=== PATIENT | female | born 1965 | race Caucasian/White ===

== ENCOUNTER → 2019-12-31 14:11 | Outpatient (BNVA) | payer OTHER, SELFPAY | PROVIDERS: PCP Family Medicine Geriatric Medicine; Visit Provider Dietitian, Registered | DX: Z76.89 Persons encountering health services in other specified circumstances (principal) ==

== ENCOUNTER 2020-01-22 07:31 | Outpatient (REF) | payer OTHER, SELFPAY ==
[2020-01-22 08:39] LABS: Alanine Aminotransferase 12 U/L (0-31); Albumin Level 4.2 g/dL (3.5-5.0); Alkaline Phosphatase 65 U/L (39-117); Anion Gap 13 (12-20); Aspartate Amino Transferase 16 U/L (5-31); Bilirubin Total 0.6 mg/dL (0.0-1.0); Blood Urea Nitrogen 13 mg/dL (9-16); Calcium 9.1 mg/dL (8.4-10.2); Carbon Dioxide 28 mmol/L (22-29); Chloride 106 mmol/L (96-108); Cholesterol 205 mg/dL; Estimated Glomerular Filt Rate > 60; Glucose Fasting 80 mg/dL (60-99); HDL Cholesterol 51 mg/dL; LDL Cholesterol Calculated 118 mg/dl; Potassium 3.9 mmol/l (3.3-5.1); Sodium 143 mmol/L (135-145); Total Protein 6.5 g/dL (6.5-8.0); Triglycerides 184 mg/dL
[2020-01-22 08:42] LABS: Rheumatoid Factor < 15.0 IU/mL (<15.0)
[2020-01-22 08:54] LABS: TSH reflex Free T4 0.76 mIU/mL (0.32-4.0)
[2020-01-22 08:59] LABS: Erythrocyte Sedimentation Rate 4 MM/HR (0-20)
[2020-01-24 19:09] LABS: Cyclic Citrullinated Peptide <16 UNITS
[2020-01-24 19:11] LABS: CRP High Sensitivity 0.6 mg/L
[2020-01-26 10:52] LABS: Anti Nuclear Antibody Screen NEGATIVE (NEGATIVE)
== END 2020-01-22 07:32 | disposition home or self-care (01) ==
LOC: HO.LAB 07:31
PROVIDERS: PCP Family Medicine; Visit Provider Family Medicine
DX: Z00.00 Encounter for general adult medical examination without abnormal findings (principal); M53.3 Sacrococcygeal disorders, not elsewhere classified; G89.29 Other chronic pain; M25.552 Pain in left hip; M25.539 Pain in unspecified wrist
CPT/HCPCS: 36415; 80053; 80061; 84443; 85652; 86038; 86039; 86141; 86200; 86431

== ENCOUNTER → 2020-03-09 10:38 | Outpatient (BNVA) | payer SELFPAY | PROVIDERS: PCP Family Medicine; Visit Provider Surgery Vascular Surgery | DX: I83.11 Varicose veins of right lower extremity with inflammation (principal) | CPT/HCPCS: 99202 ==

== ENCOUNTER 2020-03-14 14:58 | Outpatient (REF) | payer OTHER, SELFPAY ==
--- NOTE | 2020-03-14 15:02 | MM_ITS ---
EXAMINATION: MM SCREENING DIGITAL BREAST TOMOSYNTHESIS, BILATERAL CLINICAL INFORMATION: Screening. Asymptomatic. The lifetime risk of breast cancer based on the Tyrer-Cuzick Model is 11%. COMPARISON: Outside mammography: 09/20/2016, 03/01/2014 TECHNIQUE: Digital breast tomosynthesis is performed in both the craniocaudal and mediolateral oblique views along with computer-aided detection (CAD). Synthesized 2D images are generated from the tomosynthesis. FINDINGS: There are scattered areas of fibroglandular density (ACR BI-RADS breast composition Category b). There are no significant masses, abnormal calcifications, or other abnormalities. There are scattered bilateral predominantly dermal calcifications again demonstrated bilateral posterior medial breasts. MM/MM tomosynthesis screening BI IMPRESSION: There are no significant changes from prior outside exams. ASSESSMENT: BI-RADS 2: Benign RECOMMENDATION: Routine annual mammography screening. This patient's information was entered into a reminder system with a target due date for their next mammogram.
== END 2020-03-14 14:59 | disposition home or self-care (01) ==
LOC: HO.MAMMO 14:58
PROVIDERS: Visit Provider Family Medicine
DX: Z12.31 Encounter for screening mammogram for malignant neoplasm of breast (principal)
CPT/HCPCS: 77063; 77067

== ENCOUNTER 2020-03-23 10:12 | Outpatient (REF) | payer OTHER, SELFPAY ==
--- NOTE | 2020-03-23 10:16 | XR_ITS ---
EXAMINATION: XR SACROILIAC JOINTS CLINICAL INFORMATION: Sacrococcygeal disorder COMPARISON: None TECHNIQUE: 3 views of the sacroiliac joints FINDINGS: There is partial sacralization, left side of L5. No fusion or widening identified. There is a minimal spurring inferiorly. There is noted to be facet arthropathy on the right at the L5-S1 level and to a lesser extent L4-L5.. XR/XR sacroiliac joint 1-2V IMPRESSION: 1. No significant sacroiliac joint abnormality appreciated. 2. Partial sacralization left side of L5. 3. Facet arthropathy right-sided L4-L5 and L5-S1.
--- NOTE | 2020-03-23 10:16 | US_ITS ---
CLINICAL INFORMATION: EXAMINATION: RIGHT and LEFT LOWER EXTREMITY VENOUS ULTRASOUND (Reflux Exam) CLINICAL INDICATION: Right lower extremity varicose veins with inflammation. Bilateral previous greater saphenous ablation COMPARISON: None. TECHNIQUE: Color flow triplex imaging and compression Doppler was performed to evaluate both the deep and the superficial systems bilaterally. To evaluate the superficial system, the examination was performed in the upright position. Color-flow Doppler ultrasound and compression ultrasound were utilized. In addition, maneuvers were utilized to demonstrate reflux. FINDINGS: 1. DEEP VENOUS ULTRASOUND OF THE RIGHT LOWER EXTREMITY: Respiratory variation, normal compression and augmented flow are noted in the right common femoral vein as well as the right popliteal vein and there is no evidence of deep venous thrombosis at these locations. There is no evidence of reflux in the deep system in either the common femoral vein or the popliteal vein. There is no evidence of a Rhodes's cyst. 2. SUPERFICIAL ULTRASOUND WITH DOPPLER OF RIGHT LOWER EXTREMITY: The right great saphenous vein at the saphenofemoral junction measures 10 mm and demonstrates 1.2 seconds reflux.. The remainder of the right greater saphenous vein is not identified post ablation. There is an accessory lateral greater saphenous vein that measures between 4 and 5 mm and demonstrates greater than 3.1 and 2.9 seconds reflux areas. The right small saphenous vein measures 1-3 mm and shows no reflux. There is a varicosity in the right calf that communicates with the accessory greater saphenous vein and demonstrates greater than 2.7 second reflux. This measures 4 mm 3. DEEP VENOUS ULTRASOUND OF THE LEFT LOWER EXTREMITY: Respiratory variation, normal compression and augmented flow are noted in the left common femoral vein as well as the left popliteal vein and there is no evidence of deep venous thrombosis at these locations. There is no evidence of reflux in the deep system in either the common femoral vein or the popliteal vein. . There is no evidence of a Rhodes's cyst. 4. SUPERFICIAL ULTRASOUND WITH DOPPLER OF LEFT LOWER EXTREMITY: Left great saphenous vein at the saphenofemoral junction measures 7 mm, and at the proximal thigh 5 mm. Remainder of the left greater saphenous vein is not identified post ablation. No left greater saphenous vein reflux is seen. There is an accessory lateral greater saphenous vein that measures between 2 and 3 mm and does not demonstrate reflux. The left small saphenous vein measures 1-2 mm and shows no reflux. US/US venous duplex LE BI IMPRESSION: 1. No evidence of reflux or thrombus in the common femoral veins or popliteal veins bilaterally. 2. Post bilateral greater saphenous vein ablation. Reflux at the right saphenofemoral junction measuring 1.1 seconds. Lateral accessory right greater saphenous vein that demonstrates greater than 3 seconds reflux. Varicosity in the calf communicates with the accessory lateral right greater saphenous vein and demonstrates greater than 2.7 second reflux. No left reflux seen. .
== END 2020-03-23 10:13 | disposition home or self-care (01) ==
LOC: HO.US 10:12
PROVIDERS: Visit Provider Surgery Vascular Surgery
DX: I83.11 Varicose veins of right lower extremity with inflammation (principal); I83.893 Varicose veins of bilateral lower extremities with other complications; M53.3 Sacrococcygeal disorders, not elsewhere classified; G89.29 Other chronic pain
CPT/HCPCS: 72200; 93970

== ENCOUNTER → 2020-04-06 10:11 | Outpatient (BNVA) | payer OTHER, SELFPAY | PROVIDERS: PCP Family Medicine; Visit Provider Surgery Vascular Surgery | DX: I83.11 Varicose veins of right lower extremity with inflammation (principal) | CPT/HCPCS: 99212 ==

== ENCOUNTER 2020-04-17 06:06 | Day surgery (SDC) | payer OTHER, SELFPAY ==
[2020-04-11 14:40] VITALS: BMI 29.6
--- NOTE | 2020-04-13 12:08 | HO.ANESPROP2 ---
Documented by User: Mayuri Dalton 04/13/20 12:11 HPI - Anesthesia Eval Consult details Narrative: 54yo F [facility] Past Medical History Medical History Depression GERD (gastroesophageal reflux disease) History of anxiety History of memory loss Family History Family History Mother Colorectal cancer Surgical History Surgical History H/O vein stripping History of cholecystectomy History of weight loss surgery Social History Social History Smoking Status: Unknown if ever smoked Advance Directives Information Provided: No Meds Allergies Allergy/AdvReac Type Severity Reaction Status Date / Time oxycodone [From PERCOCET] Allergy Intermediate ITCHING Verified 04/17/20 06:26 Exam Exam Date and Time: April 13, 2020 1208 Height,Weight and Vital Signs: Height 5 ft 7 in Weight 85.729 kg Pertinent Lab Results Pertinent Lab Results: Laboratory Tests 10/02/19 01/22/20 07:28 07:50 WBC 6.1 Hgb 13.6 Hct 42.3 Plt Count 287 Sodium 143 Potassium 3.9 Chloride 106 Carbon Dioxide 28 BUN 13 Creatinine 0.76 Assessment and Plan Assessment Anesthesia Assessment: Chart Reviewed Documented by User: Sagrario Sierra 04/17/20 07:33 [facility] Past Medical History Medical History Depression GERD (gastroesophageal reflux disease) History of anxiety History of memory loss Family History Family History Mother Colorectal cancer Family history of problems with anesthesia: No Surgical History Surgical History H/O vein stripping History of cholecystectomy History of weight loss surgery History of Problems with Anesthesia: No Social History Social History Smoking Status: Unknown if ever smoked Advance Directives Information Provided: No Meds Allergies Allergy/AdvReac Type Severity Reaction Status Date / Time oxycodone [From PERCOCET] Allergy Intermediate ITCHING Verified 04/17/20 06:26 Exam Height,Weight and Vital Signs: Vital Signs Temp Pulse Resp BP Pulse Ox 04/17/20 06:32 97.2 F 56 16 101/70 98 Airway Mallampati Class: II TM Dist: >3cm Neck ROM: Full Partial: Upper Heart: RRR Lungs: CTAB Assessment and Plan Assessment Anesthesia Assessment: Anesthesia Plan Discussed and Chart Reviewed Final Anesthetic Review NPO: Yes ASA Class: II Final Preanesthetic Review: No Changes in Pt Med Stat, Meds/Allgs Chart Reviewed, Consent Obtained/Reviewed and Anes Risks/Benef Reviewed Patient Risk: Low Procedure Risk: Low Assessment/Block/Sedation in SS: Assess/Block/Sedation-SS Anesthetic Plan Anesthetic Plan: GA Disposition: Standard PACU
[2020-04-17] VITALS (8 sets, daily range): BP systolic 88–104; BP diastolic 50–70; PULSE 56–69; RESP 14–17; TEMP 36.2–36.4; O2SAT 96–99
[2020-04-17] MEDS: Lactated Ringers 1,000 ML 100 ML IVCONT (06:50)
--- NOTE | 2020-04-17 08:34 | MHC.SHP ---
Pre-Procedural Eval Section B Chief Complaint: varicose of right lower extremity Allergies: Allergies Allergy/AdvReac Type Severity Reaction Status Date / Time oxycodone [From PERCOCET] Allergy Intermediate ITCHING Verified 04/17/20 06:26 Plan I have reviewed the history and physical and performed a pertinent physical examination on my patient. No changes have occurred unless specified.
--- NOTE | 2020-04-17 08:37 | P.OP_ITS ---
Operative Note Operative Note Date of Service: 04/17/20 Narrative: Operative note by [facility] Preoperative diagnosis:Right leg varicose veins with inflammation Postoperative diagnosis: Same Procedure: 1. Right leg microphlebectomy 2. Ligation of right leg venous cluster Surgeon:Manpreet Alvarado M.D. [employer] Teacher: Anesthesia: General Specimens: 1 Drains: None Estimated blood loss: Minimal Indications: Very pleasant 54-year-old female presents for right leg varicose veins with inflammation. They have been continued source of pain. She now presents for right leg microphlebectomy. Risks benefits complications were discussed in detail with the patient. Procedure in detail: Varicose veins were marked in the standing position on the right leg and the patient was then placed in the supine position. The right lower extremity was prepared and draped to allow knee flexion in the sterile field. The patient had large superficial varicose veins with significant symptoms of pain. It was therefore determined to perform microphlebectomies of the clusters of varicose veins. The patient had bulging varicose veins which were previously marked in the standing position. A small stab incision was made longitudinally directly overlying the varicose vein in the calf and the varicose vein was grasped with a hemostat aided by a vein hook. It was then dissected as far proximally and distally as possible and avulsed. A total of 12 stab incisions were made and the procedure of stab phlebectomies was repeated 12 times. Next attention was turned to the right medial aspect of the thigh. Cutdown was created on the cluster. Base was ligated with 3-0 Vicryl suture. Once this was accomplished residual varicosities were removed. Direct pressure was held for hemostasis Hemostasis was checked and stab incision sites were closed with steri-strips and sterile dressing was given with gauze and krilex wrap followed by an garry bandage. There were no complications and blood loss was minimal. Post-Op instructions were given and a follow-up appointment was recommended. This note is constructed using voice recognition software. While every effort has been made to ensure accuracy, laboratory specialist errors may have been included. Thank you for allowing me to participate in the care of your patient. Yours sincerely, Manpreet Alvarado MD, FACS, R.P.V.I.
[2020-04-17] MEDS: Acetaminophen 325 MG TABLET 650 MG PO (09:10)
--- NOTE | 2020-04-17 09:57 | HO.POSTANES ---
Post Anesthesia Evaluation Post Anesthesia Evaluation Vital Signs: Vital Signs Temp Pulse Resp BP Pulse Ox 04/17/20 09:46 97.3 F 63 17 98/56 L 99 04/17/20 09:29 97.3 F 62 16 99/63 99 04/17/20 09:14 60 16 94/58 L 99 04/17/20 08:58 61 16 94/54 L 96 04/17/20 08:43 62 17 104/63 97 04/17/20 08:38 63 17 103/60 98 04/17/20 08:33 97.6 F 69 14 88/50 L 96 04/17/20 06:32 97.2 F 56 16 101/70 98 Anesthesia: General LMA Mental Status: Awake Pain Control: Satisfactory Nausea/Vomiting: None Hydration: Adequate Anesthesia-Related Issues: No Anes. Related Issues
== END 2020-04-17 10:08 | disposition home or self-care (01) ==
PROVIDERS: PCP Family Medicine; Visit Provider Surgery Vascular Surgery
PROC: (CPT 37765; principal; 2020-04-17 07:30)
DX: I83.11 Varicose veins of right lower extremity with inflammation (principal)
CPT/HCPCS: 37765; 37785; 88304; J0690; J1100; J2250; J2405; J3010

== ENCOUNTER → 2020-05-02 11:22 | Outpatient (BNVA) | payer OTHER, SELFPAY | PROVIDERS: PCP Family Medicine; Visit Provider Physician Assistant ==

== ENCOUNTER 2020-05-04 08:39 | Outpatient (REF) | payer OTHER, SELFPAY ==
[2020-05-04 11:12] LABS: MANUAL DIFF FLAG NO
[2020-05-04 11:24] LABS: Basophils Absolute Auto 0.1 X10*3/uL (0.0-0.2); Basophils Percent Auto 0.7 % (0-2); Eosinophils Absolute Auto 0.2 X10*3/uL (0.0-0.4); Eosinophils Percent Auto 3.3 % (0-4); Hematocrit 39.8 % (37-47); Imm Gran Abs Auto 0.04 X10*3/uL (0.00-0.03); Imm Gran Pct Auto 0.5 % (0.0-0.4); Lymphocytes Absolute Auto 2.9 X10*3/uL (1.2-4.9); Lymphocytes Percent Auto 39.1 % (20-40); Mean Corpuscular HGB Conc 32.7 g/dl (31.0-35.0); Mean Corpuscular Hemoglobin 31.1 pg (27.0-33.0); Mean Corpuscular Volume 95.2 fL (80-98); Mean Platelet Volume 9.8 fL (9.4-12.3); Monocytes Absolute Auto 0.6 X10*3/uL (0.1-1.2); Monocytes Percent Auto 8.6 % (2-11); Neutrophils Absolute Auto 3.5 X10*3/uL (2.0-8.3); Neutrophils Percent Auto 47.8 % (45-73); Platelet Count 319 X10*3/uL (160-400); Red Blood Count 4.18 X10*6/uL (4.20-5.50); Red Cell Distribution Width 12.1 % (11.0-16.0); White Blood Count 7.3 X10*3/uL (4.8-10.8)
[2020-05-04 11:40] LABS: Alkaline Phosphatase 75 U/L (39-117); Anion Gap 11 (12-20); Blood Urea Nitrogen 15 mg/dL (9-16); Carbon Dioxide 26 mmol/L (22-29); Chloride 107 mmol/L (96-108); Glucose Random 81 mg/dL (60-115); Lactate Dehydrogenase 164 U/L (122-220); Potassium 4.4 mmol/L (3.3-5.1); Sodium 140 mmol/L (135-145); Total Protein 6.3 g/dL (6.5-8.0)
[2020-05-04 12:01] LABS: Erythrocyte Sedimentation Rate 7 MM/HR (0-20)
[2020-05-04 12:08] LABS: Free T4 (Free Thyroxine) 0.78 ng/dL (0.71-1.85); Thyroid Stimulating Hormone 0.52 uIU/mL (0.32-4.0)
[2020-05-04 12:36] LABS: Glucose Urine UA NEG (NEG); Leukocyte Esterase Urine NEG (NEG); Nitrite Urine NEG (NEG); PH 5.5 (5.0-8.0); Specific Gravity - Urine >= 1.030 (1.005-1.025); Urine Blood NEG (NEG); Urine Ketones NEG (NEG); Urine Protein NEG (NEG-TRACE)
[2020-05-04 12:39] LABS: Appearance Urine CLEAR; Color Urine YELLOW
[2020-05-04 17:56] LABS: Folate 9.6 ng/mL (> or = 4.0); Vitamin B12 175 pg/mL (200-900)
[2020-05-05 03:56] LABS: Syphilis Screen Nonreactive (Nonreactive)
[2020-05-05 14:52] LABS: Anti Nuclear Antibody Screen NEGATIVE (NEGATIVE)
[2020-05-05 15:17] LABS: Prot Elec - Albumin 3.9 g/dL (3.8-4.8); Prot Elec - Alpha1 0.2 g/dL (0.2-0.3); Prot Elec - Alpha2 0.7 g/dL (0.5-0.9); Prot Elec - Beta 1 0.4 g/dL (0.4-0.6); Prot Elec - Beta 2 0.4 g/dL (0.2-0.5); Prot Elec - Gamma 0.6 g/dL (0.8-1.7); Prot Elec - Total Protein 6.1 g/dL (6.1-8.1)
== END 2020-05-04 08:40 | disposition home or self-care (01) ==
LOC: HO.WFDLDS 08:39
PROVIDERS: PCP Family Medicine; Visit Provider Psychiatry & Neurology Neurology
DX: G31.84 Mild cognitive impairment of uncertain or unknown etiology (principal); G31.89 Other specified degenerative diseases of nervous system
CPT/HCPCS: 36415; 80051; 81003; 82310; 82607; 82746; 82947; 83615; 84075; 84155; 84165; 84439; 84443; 84520; 85025; 85652; 86038; 86039; 86780

== ENCOUNTER 2020-05-09 | Outpatient (REF) | payer OTHER, SELFPAY ==
[2020-05-15 14:51] LABS: OBS Int Ctl Valid YES; OBS Lot 50191; OBS1 NEG (NEG); OBS2 NEG (NEG); OBS3 NEG (NEG)
== END 2020-05-09 00:01 | disposition home or self-care (01) ==
LOC: HO.LNP
PROVIDERS: Visit Provider Psychiatry & Neurology Neurology
DX: G31.84 Mild cognitive impairment of uncertain or unknown etiology (principal)
CPT/HCPCS: 82270

== ENCOUNTER 2020-05-19 13:05 | Outpatient (REF) | payer OTHER, SELFPAY ==
--- NOTE | ~2020-05-19 | XR_ITS ---
EXAMINATION: CHEST, THORACIC SPINE AND RIGHT RIBS. CLINICAL INFORMATION: Pleural pain COMPARISON: Chest 07/30/2018 TECHNIQUE: Dorsal spine 2 views. Chest 2 views. Right RIBS 2 views FINDINGS: Chest: The lungs are well-expanded and clear of acute process. The heart size and pulmonary vascularity is normal. There is moderate spondylosis dorsal spine. No lytic process seen. There are surgical florencio in the epigastric region from previous intervention. Right RIBS: Multiple views right ribs reveal no visible acute fracture, dislocation or subluxation seen. Dorsal spine: There is maintained thoracic kyphosis. The vertebral heights, alignment and disc heights are normal. No visible acute fracture or dislocation seen. There is moderate spondylosis throughout dorsal spine. XR/XR ribs RT 2V IMPRESSION: No visible acute fracture or dislocation seen dorsal spine. There is moderate ventral spondylosis. Unremarkable chest exam. No visible right rib fractures seen.
--- NOTE | ~2020-05-19 | XR_ITS ---
EXAMINATION: CHEST, THORACIC SPINE AND RIGHT RIBS. CLINICAL INFORMATION: Pleural pain COMPARISON: Chest 07/30/2018 TECHNIQUE: Dorsal spine 2 views. Chest 2 views. Right RIBS 2 views FINDINGS: Chest: The lungs are well-expanded and clear of acute process. The heart size and pulmonary vascularity is normal. There is moderate spondylosis dorsal spine. No lytic process seen. There are surgical florencio in the epigastric region from previous intervention. Right RIBS: Multiple views right ribs reveal no visible acute fracture, dislocation or subluxation seen. Dorsal spine: There is maintained thoracic kyphosis. The vertebral heights, alignment and disc heights are normal. No visible acute fracture or dislocation seen. There is moderate spondylosis throughout dorsal spine. XR/XR chest 2V IMPRESSION: No visible acute fracture or dislocation seen dorsal spine. There is moderate ventral spondylosis. Unremarkable chest exam. No visible right rib fractures seen.
--- NOTE | ~2020-05-19 | XR_ITS ---
EXAMINATION: CHEST, THORACIC SPINE AND RIGHT RIBS. CLINICAL INFORMATION: Pleural pain COMPARISON: Chest 07/30/2018 TECHNIQUE: Dorsal spine 2 views. Chest 2 views. Right RIBS 2 views FINDINGS: Chest: The lungs are well-expanded and clear of acute process. The heart size and pulmonary vascularity is normal. There is moderate spondylosis dorsal spine. No lytic process seen. There are surgical florencio in the epigastric region from previous intervention. Right RIBS: Multiple views right ribs reveal no visible acute fracture, dislocation or subluxation seen. Dorsal spine: There is maintained thoracic kyphosis. The vertebral heights, alignment and disc heights are normal. No visible acute fracture or dislocation seen. There is moderate spondylosis throughout dorsal spine. XR/XR thoracic spine 2V IMPRESSION: No visible acute fracture or dislocation seen dorsal spine. There is moderate ventral spondylosis. Unremarkable chest exam. No visible right rib fractures seen.
== END 2020-05-19 13:06 | disposition home or self-care (01) ==
LOC: HO.XRAY 13:05
PROVIDERS: PCP Family Medicine; Visit Provider Family Medicine
DX: R07.81 Pleurodynia (principal); M54.9 Dorsalgia, unspecified
CPT/HCPCS: 71046; 71100; 72070

== ENCOUNTER 2020-05-24 09:23 | Outpatient (REF) | payer OTHER, SELFPAY ==
[2020-05-24 10:36] LABS: MANUAL DIFF FLAG NO
[2020-05-24 10:41] LABS: Basophils Absolute Auto 0.1 X10*3/uL (0.0-0.2); Basophils Percent Auto 0.7 % (0-2); Eosinophils Absolute Auto 0.2 X10*3/uL (0.0-0.4); Eosinophils Percent Auto 2.6 % (0-4); Imm Gran Abs Auto 0.06 X10*3/uL (0.00-0.03); Imm Gran Pct Auto 0.7 % (0.0-0.4); Lymphocytes Absolute Auto 2.7 X10*3/uL (1.2-4.9); Lymphocytes Percent Auto 30.3 % (20-40); Mean Corpuscular HGB Conc 32.5 g/dl (31.0-35.0); Mean Corpuscular Hemoglobin 31.1 pg (27.0-33.0); Mean Corpuscular Volume 95.7 fL (80-98); Mean Platelet Volume 9.7 fL (9.4-12.3); Monocytes Absolute Auto 0.7 X10*3/uL (0.1-1.2); Monocytes Percent Auto 7.4 % (2-11); Neutrophils Absolute Auto 5.1 X10*3/uL (2.0-8.3); Neutrophils Percent Auto 58.3 % (45-73); Platelet Count 319 X10*3/uL (160-400); Red Blood Count 4.18 X10*6/uL (4.20-5.50); White Blood Count 8.8 X10*3/uL (4.8-10.8)
[2020-05-24 11:24] LABS: Alanine Aminotransferase 14 U/L (0-31); Albumin Level 4.2 g/dL (3.5-5.0); Alkaline Phosphatase 78 U/L (39-117); Anion Gap 11 (12-20); Aspartate Amino Transferase 20 U/L (5-31); Bilirubin Total 0.7 mg/dL (0.0-1.0); Blood Urea Nitrogen 13 mg/dL (9-16); C Reactive Protein 0.14 mg/dL (< or = 0.50); Calcium 9.2 mg/dL (8.4-10.2); Carbon Dioxide 30 mmol/L (22-29); Chloride 103 mmol/L (96-108); Erythrocyte Sedimentation Rate 4 MM/HR (0-20); Estimated Glomerular Filt Rate > 60; Glucose Random 77 mg/dL (60-115); Potassium 4.1 mmol/L (3.3-5.1); Sodium 140 mmol/L (135-145); Total Protein 6.4 g/dL (6.5-8.0)
[2020-05-24 11:26] LABS: Rheumatoid Factor < 15.0 IU/mL (<15.0)
[2020-05-24 11:34] LABS: Thyroid Stimulating Hormone 0.65 uIU/mL (0.32-4.0)
[2020-05-25 12:01] LABS: Lyme Abs Screen <0.90 index
[2020-05-26 13:57] LABS: Anti Nuclear Antibody Screen NEGATIVE (NEGATIVE)
[2020-05-28 22:02] LABS: Cyclic Citrullinated Peptide <16 UNITS
[2020-06-03 15:16] LABS: Vitamin D 25-OH, D2 <4 ng/mL; Vitamin D 25-OH, D3 27 ng/mL; Vitamin D 25-OH, Total 27 ng/mL (30-100)
== END 2020-05-24 09:24 | disposition home or self-care (01) ==
LOC: HO.LAB 09:23
PROVIDERS: PCP Family Medicine; Visit Provider Student in an Organized Health Care Education/Training Program
DX: M25.50 Pain in unspecified joint (principal)
CPT/HCPCS: 36415; 80053; 82306; 84443; 85025; 85652; 86038; 86039; 86140; 86200; 86431; 86618; 99202

== ENCOUNTER → 2020-06-05 08:58 | Outpatient (BNVA) | payer OTHER, SELFPAY | PROVIDERS: Visit Provider Orthopaedic Surgery | DX: G56.01 Carpal tunnel syndrome, right upper limb (principal); G56.02 Carpal tunnel syndrome, left upper limb; G56.22 Lesion of ulnar nerve, left upper limb | CPT/HCPCS: 99202 ==

== ENCOUNTER 2020-06-08 08:33 | Day surgery (SDC) | payer OTHER, SELFPAY ==
[2020-06-02 13:25] VITALS: BMI 31.0
--- NOTE | 2020-06-07 08:24 | HO.ANESPROP2 ---
Documented by User: Mayuri Krystle 06/07/20 08:26 HPI - Anesthesia Eval Consult details Narrative: 55yo M for Colonoscopy PMFSH Active Problems Active Problems: All Active Problems (Updated 06/05/20 @ 10:07 by Romana Tamayo MD) Cubital tunnel syndrome on left (Acute) Carpal tunnel syndrome of left wrist (Acute) Carpal tunnel syndrome of right wrist (Acute) Varicose veins of both lower extremities (Acute) Obese (Acute) Laboratory examination ordered as part of a routine general medical examination (Acute) Left hip pain (Acute) Chronic SI joint pain (Acute) Wrist pain (Acute) Depression with anxiety (Acute) Polyarthralgia (Acute) GERD (gastroesophageal reflux disease) (Acute) Screening for colon cancer (Acute) Breast cancer screening by mammogram (Acute) Screening for cervical cancer (Acute) Varicose veins of right lower extremity with inflammation (Acute) Memory loss (Acute) Anxiety (Acute) Encounter for screening colonoscopy (Acute) History of sleep apnea (Acute) Daytime sleepiness (Acute) Right groin pain (Acute) Right groin mass (Acute) Rib pain on right side (Acute) Mid-back pain, acute (Acute) Polyarthralgia (Acute) Thoracic spondylosis (Acute) Lumbar spondylosis (Acute) Past Medical History Medical History Back pain Depression GERD (gastroesophageal reflux disease) History of anxiety History of memory loss Polyarthralgia Family History Family History Mother Colorectal cancer Surgical History Surgical History H/O vein stripping History of cholecystectomy History of weight loss surgery Hx of colonoscopy Social History Social History Household Members: Children Alcohol intake: never Smoking Status: Former smoker Advance Directives Information Provided: No Current occupational status: unemployed Current occupation: laid off/ right handed Meds Allergies Allergy/AdvReac Type Severity Reaction Status Date / Time oxycodone [From PERCOCET] Allergy Intermediate ITCHING Verified 06/08/20 08:41 Home Medications Medication Instructions Recorded Confirmed Last Taken Type clonazepam 1 mg tablet 1 mg PO DAILY PRN 05/18/20 05/24/20 Unknown History quetiapine 50 mg tablet mg PO 05/18/20 05/24/20 Unknown History venlafaxine 150 mg 150 mg PO DAILY 05/18/20 05/24/20 06/08/20 07:00 History capsule,extended release 24 hr buspirone 15 mg tablet 15 mg PO BID 05/24/20 05/24/20 06/08/20 07:00 History Exam Exam Date and Time: June 07, 2020 0824 Height,Weight and Vital Signs: Height 5 ft 7 in Weight 89.811 kg Pertinent Lab Results Pertinent Lab Results: Laboratory Tests 05/24/20 05/24/20 10:11 10:11 WBC 8.8 Hgb 13.0 Hct 40.0 Plt Count 319 Sodium 140 Potassium 4.1 Chloride 103 Carbon Dioxide 30 H BUN 13 Creatinine 0.73 Assessment and Plan Assessment Anesthesia Assessment: Chart Reviewed Documented by User: Ramila Chi 06/08/20 10:00 [facility] Past Medical History Medical History Back pain Depression GERD (gastroesophageal reflux disease) History of anxiety History of memory loss Polyarthralgia Family History Family History Mother Colorectal cancer Surgical History Surgical History H/O vein stripping History of cholecystectomy History of weight loss surgery Hx of colonoscopy Social History Social History Household Members: Children Alcohol intake: never Smoking Status: Former smoker Advance Directives Information Provided: No Current occupational status: unemployed Current occupation: laid off/ right handed Meds Allergies Allergy/AdvReac Type Severity Reaction Status Date / Time oxycodone [From PERCOCET] Allergy Intermediate ITCHING Verified 06/08/20 08:41 Home Medications Medication Instructions Recorded Confirmed Last Taken Type clonazepam 1 mg tablet 1 mg PO DAILY PRN 05/18/20 05/24/20 Unknown History quetiapine 50 mg tablet mg PO 05/18/20 05/24/20 Unknown History venlafaxine 150 mg 150 mg PO DAILY 05/18/20 05/24/20 06/08/20 07:00 History capsule,extended release 24 hr buspirone 15 mg tablet 15 mg PO BID 05/24/20 05/24/20 06/08/20 07:00 History Exam Airway Mallampati Class: II Partial: Upper Loose/Missing/Broken Teeth: Yes and Upper Heart: RRR Lungs: CTA Assessment and Plan Assessment Anesthesia Assessment: Anesthesia Plan Discussed and Chart Reviewed Final Anesthetic Review NPO: Yes ASA Class: II Final Preanesthetic Review: Meds/Allgs Chart Reviewed, Consent Obtained/Reviewed and Anes Risks/Benef Reviewed Patient Risk: Low Procedure Risk: Low Anesthetic Plan Anesthetic Plan: MAC: Disposition: Standard PACU
[2020-06-08 08:46] VITALS: BP 97/57; PULSE 63; RESP 16; TEMP 36.2; O2SAT 97
[2020-06-08] MEDS: Lactated Ringers 1,000 ML 100 ML IVCONT (09:03)
--- NOTE | 2020-06-08 10:18 | P.HPSUR_ITS ---
Pre-Procedural Eval Section B Chief Complaint: Screening Details of Present Illness: Colon cancer screening--Mother had colon cancer. No clinical changes since preprocedure visit Relevant Family History (Specify if Yes): Yes Relevant Social History: None Present Medications: see Short Stay Collaborative assessment Medical History: Significant History (Depression, GERD, Mild obesity) History of Previous Operations: Relevant previous surgery/procedure and date(s) (GB out-2012, Gastric Sleeve--2018) Allergies: Allergies Allergy/AdvReac Type Severity Reaction Status Date / Time oxycodone [From PERCOCET] Allergy Intermediate ITCHING Verified 06/08/20 08:41 Review of Systems Sugical H&P ROS: Negative: Constitution, Respiratory, Gastrointestinal and Endocrine and Yes, Specify: Psychiatric (Depression) Exam Surgical H&P Exam: Normal: HEENT, Normal: Heart, Normal: Lungs, Normal: Extremit ies, Normal: Abdomen and Normal: Skin Plan Diagnosis/Plan: Unchanged I have reviewed the history and physical and performed a pertinent physical examination on my patient. No changes have occurred unless specified.yes
[2020-06-08 11:15] VITALS: BP 104/60; PULSE 70; RESP 18; TEMP 36.4; O2SAT 97
--- NOTE | 2020-06-08 11:15 | PM.OP ---
Brief Operative Note Date of Service: 06/08/20 Pre-op diagnosis: COLON CANCER SCREENING--+FAMILY HX MOTHER HAD COLON CANCER Post-op diagnosis: other (COLON POLYPS) Procedure: COLONOSOPY WITH EXCISIONAL POLYPECTOMIES Implants: NONE Surgeon: Tyra Wright MD Anesthesia: MAC (MD JIA) Estimated blood loss (mL): 10 Pathology: other (HEPATIC FLEXURE, MID TO DISTAL TRANSVERSE COLON) Condition: stable Disposition: PACU
--- NOTE | 2020-06-08 11:23 | MHC.SHP ---
Pre-Procedural Eval Section B Chief Complaint: Screening Allergies: Allergies Allergy/AdvReac Type Severity Reaction Status Date / Time oxycodone [From PERCOCET] Allergy Intermediate ITCHING Verified 06/08/20 08:41 Plan I have reviewed the history and physical and performed a pertinent physical examination on my patient. No changes have occurred unless specifiedyes- HIT by error--see more extensive note..
[2020-06-08 11:31] VITALS: BP 116/74; PULSE 57; RESP 16; TEMP 36.4; O2SAT 98
--- NOTE | 2020-06-08 11:32 | W.PM.OPN ---
Operative Note Operative Note Date of Service: 06/08/20 Narrative: Pre-op diagnosis: COLON CANCER SCREENING--+FAMILY HX MOTHER HAD COLON CANCER Post-op diagnosis: other (COLON POLYPS) Procedure: COLONOSOPY WITH EXCISIONAL POLYPECTOMIES Implants: NONE Surgeon: Tyra Wright MD Anesthesia: MAC (MD JIA) FINDINGS: EVA: SLIGHT DECREASED SPHINCTER TONE ADULT SLIM COLONOSCOPE INTRODUCED WITH OUT DIFFICULTY. THERE WAS INCREASED REDUNDANCY WITH SUGGESTION OF ODD LOOP POSITION OF THE TRANSVERSE COLON. TECHNICALLY MORE DIFFICULT PROCEDURE DUE TO THIS. THERE WAS ALSO INCREASED RETAINED FLUID AND FIBER TO CONTEND WITH. SCOPE WAS ADVANCED TO THE LEVEL OF THE CECUM. APPENDICEAL ORIFICE WAS SEEN..ILEOCECAL VALVE WAS SEEN. PATIENT DID HAVE SOME VOMITING WHILE WE WERE STILL IN THE REGION OF THE CECUM--THIS WAS NOT ASSOCIATED WITH ANY ADVERSE EVENTS. SLOW WITHDRAWAL OF THE SCOPE THERE WAS REMOVAL OF 2 POLYPS: hEPATIC FLEXURE, AND MID-DISTAL TRANSVERSE COLON. ARV WAS CLEAR. Estimated blood loss (mL): 10 Pathology: other (HEPATIC FLEXURE, MID TO DISTAL TRANSVERSE COLON) Condition: stable Disposition: PACU PLAN: REPEAT COLON CANCER SCREENING IN 2 YRS DUE POLYPS, FAM HX WITH MARGINAL PREP. WITH 2 DAY PREP--DECREASE FIBER INTAKE FOR WEEK BEFORE.
== END 2020-06-08 12:37 | disposition home or self-care (01) ==
PROVIDERS: PCP Family Medicine; Visit Provider Internal Medicine Gastroenterology
PROC: 0DJD8ZZ Inspection of Lower Intestinal Tract, Via Natural or Artificial Opening Endoscopic (ICD-10-PCS; CPT 45378; principal; 2020-06-08 09:40)
DX: Z12.11 Encounter for screening for malignant neoplasm of colon (principal); Z80.0 Family history of malignant neoplasm of digestive organs; D12.3 Benign neoplasm of transverse colon; K21.9 Gastro-esophageal reflux disease without esophagitis; F32.9 Major depressive disorder, single episode, unspecified; Z79.899 Other long term (current) drug therapy; Z88.8 Allergy status to other drugs, medicaments and biological substances
CPT/HCPCS: 45380; 88305

== ENCOUNTER → 2020-06-13 14:30 | Outpatient (BNVA) | payer OTHER, SELFPAY | PROVIDERS: PCP Family Medicine; Visit Provider Surgery Vascular Surgery | DX: I83.93 Asymptomatic varicose veins of bilateral lower extremities (principal) | CPT/HCPCS: 99212 ==

== ENCOUNTER → 2020-06-14 09:29 | Outpatient (BNVA) | payer OTHER, SELFPAY | PROVIDERS: Visit Provider Student in an Organized Health Care Education/Training Program | DX: M25.50 Pain in unspecified joint (principal); Z79.899 Other long term (current) drug therapy | CPT/HCPCS: 99212 ==

== ENCOUNTER 2020-06-15 11:02 | Day surgery (SDC) | payer OTHER, SELFPAY ==
[2020-06-15 11:22] VITALS: BP 119/80; PULSE 64; RESP 16; TEMP 36.2; O2SAT 98
[2020-06-15 11:24] VITALS: BMI 31.4
[2020-06-15 13:19] VITALS: BP 126/62; PULSE 54; RESP 17; TEMP 36.1; O2SAT 96
--- NOTE | 2020-06-15 13:22 | P.OP_ITS ---
Operative Note Operative Note Date of Service: 06/15/20 Narrative: Preop diagnosis: 1. Right Carpal tunnel syndrome Postop diagnosis: 1. Right Carpal tunnel syndrome Procedure: 1. Right Carpal tunnel release Surgeon: Romana Tamayo MD Anesthesia: local block using 1% lidocaine with epinephrine Findings: Thickened transverse carpal ligament. EBL: Less than 5 mL Specimens: None Complications: None Disposition: Brought to recovery room in stable condition Plan: Follow-up for 7-10 days for wound check and suture removal Indications: The patient is 55 mm years old, with right carpal tunnel syndrome that has been unresponsive to nonoperative management. The risks and benefits of operative treatment including but not limited to risk of damage to blood vessels, nerves, tendons, infection, persistent pain, persistent symptoms, or possible need for additional surgery were discussed with the patient and the patient wishes to proceed with surgery. Procedure: Once consent was obtained a local block was performed using a combination of 1% lidocaine with epinephrine. The patient was then brought back to the operating suite and placed on the operative table in supine position. A tourniquet was applied to the proximal aspect of the right upper extremity and the limb was prepped and draped in a standard surgical fashion. Once assured that we had a good block, a 1.5 cm longitudinal incision was made centered over the right carpal tunnel. The incision was made through the skin to the subcutaneous tissues using a #15 blade. Dissection was made down to the level of the transverse carpal ligament with care being taken to protect the palmar cutaneous nerve. Once the transverse carpal ligament was clearly visualized, a longitudinal incision was made in the transverse carpal ligament 1st using a #15 blade, then using tenotomy scissors under direct visualization. Care was taken to look for and protect the motor branch of the median nerve when seen in this area. Once satisfied with our carpal tunnel release the wound was copiously irr igated with normal saline and hemostasis was obtained with a brief period of local pressure. The skin edges were reapproximated with some 5.0 nylon suture material and a sterile dressing was applied. The patient appears to have tolerated the procedure well and with no complications. All digits were well vascularized at the conclusion of the case.
--- NOTE | 2020-06-15 13:22 | MHC.SHP ---
Pre-Procedural Eval Section B Chief Complaint: right carpal tunnel syndrome Allergies: Allergies Allergy/AdvReac Type Severity Reaction Status Date / Time oxycodone [From PERCOCET] Allergy Intermediate ITCHING Verified 06/14/20 09:37 Plan I have reviewed the history and physical and performed a pertinent physical examination on my patient. No changes have occurred unless specified.
== END 2020-06-15 13:42 | disposition home or self-care (01) ==
PROVIDERS: PCP Family Medicine; Visit Provider Orthopaedic Surgery
PROC: (CPT 64721; principal; 2020-06-15 12:10)
DX: G56.01 Carpal tunnel syndrome, right upper limb (principal); Z88.6 Allergy status to analgesic agent
CPT/HCPCS: 64721

== ENCOUNTER → 2020-06-27 08:31 | Outpatient (BNVA) | payer OTHER, SELFPAY | PROVIDERS: Visit Provider Orthopaedic Surgery | DX: G56.01 Carpal tunnel syndrome, right upper limb (principal); G56.02 Carpal tunnel syndrome, left upper limb; G56.22 Lesion of ulnar nerve, left upper limb | CPT/HCPCS: 99212 ==

== ENCOUNTER → 2020-06-29 10:00 | Outpatient (BNVA) | payer OTHER, SELFPAY | PROVIDERS: Visit Provider Physician Assistant ==

== ENCOUNTER 2020-07-20 12:01 | Day surgery (SDC) | payer MEDICAID, SELFPAY ==
[2020-07-20 12:21] VITALS: BP 111/68; PULSE 59; RESP 16; TEMP 36.1; O2SAT 97; BMI 31.3
--- NOTE | 2020-07-20 14:49 | MHC.SHP ---
Pre-Procedural Eval Section B Chief Complaint: Left Carpal Tunnel Syndrome Allergies: Allergies Allergy/AdvReac Type Severity Reaction Status Date / Time oxycodone [From PERCOCET] Allergy Intermediate ITCHING Verified 06/29/20 10:01 Plan I have reviewed the history and physical and performed a pertinent physical examination on my patient. No changes have occurred unless specified.
--- NOTE | 2020-07-20 14:49 | W.PM.OPN ---
Operative Note Operative Note Date of Service: 07/20/20 Narrative: Preop diagnosis: 1. Left Carpal tunnel syndrome Postop diagnosis: same Procedure: 1. Left Carpal tunnel release Surgeon: Romana Tamayo MD Anesthesia: local block using 1% lidocaine with epinephrine Findings: Thickened transverse carpal ligament. EBL: Less than 5 mL Specimens: None Complications: None Disposition: Brought to recovery room in stable condition Plan: Follow-up for 7-10 days for wound check and suture removal Indications: The patient is 55 years old, with left carpal tunnel syndrome that has been unresponsive to nonoperative management. The risks and benefits of operative treatment including but not limited to risk of damage to blood vessels, nerves, tendons, infection, persistent pain, persistent symptoms, or possible need for additional surgery were discussed with the patient and the patient wishes to proceed with surgery. Procedure: Once consent was obtained a local block was performed using a combination of 1% lidocaine with epinephrine. The patient was then brought back to the operating suite and placed on the operative table in supine position. A tourniquet was applied to the proximal aspect of the left upper extremity and the limb was prepped and draped in a standard surgical fashion. Once assured that we had a good block, a 1.5 cm longitudinal incision was made centered over the carpal tunnel. The incision was made through the skin to the subcutaneous tissues using a #15 blade. Dissection was made down to the level of the transverse carpal ligament with care being taken to protect the palmar cutaneous nerve. Once the transverse carpal ligament was clearly visualized, a longitudinal incision was made in the transverse carpal ligament 1st using a #15 blade, then using tenotomy scissors under direct visualization. Care was taken to look for and protect the motor branch of the median nerve when seen in this area. Once satisfied with our carpal tunnel release the wound was copiously irrigated with normal saline and hemostasis was obtained with a brief period of local pressure. The skin edges were reapproximated with some 5.0 nylon suture material and a sterile dressing was applied. The patient appears to have tolerated the procedure well and with no complications. All digits were well vascularized at the conclusion of the case.
[2020-07-20 16:23] VITALS: BP 130/88; PULSE 59; RESP 18; TEMP 36.8; O2SAT 98
== END 2020-07-20 16:40 | disposition home or self-care (01) ==
PROVIDERS: PCP Family Medicine; Visit Provider Orthopaedic Surgery
PROC: (CPT 64721; principal; 2020-07-20 13:20)
DX: G56.02 Carpal tunnel syndrome, left upper limb (principal); M25.50 Pain in unspecified joint; K21.9 Gastro-esophageal reflux disease without esophagitis; F32.9 Major depressive disorder, single episode, unspecified; Z79.899 Other long term (current) drug therapy; Z88.8 Allergy status to other drugs, medicaments and biological substances; Z98.84 Bariatric surgery status; Z87.891 Personal history of nicotine dependence
CPT/HCPCS: 64721

== ENCOUNTER → 2020-07-31 10:54 | Outpatient (BNVA) | payer MEDICAID, SELFPAY | PROVIDERS: PCP Family Medicine; Visit Provider Orthopaedic Surgery | DX: G56.01 Carpal tunnel syndrome, right upper limb (principal); G56.02 Carpal tunnel syndrome, left upper limb; G56.22 Lesion of ulnar nerve, left upper limb | CPT/HCPCS: 99212 ==

== ENCOUNTER → 2020-08-01 10:19 | Outpatient (BNVA) | payer MEDICAID, SELFPAY | PROVIDERS: PCP Family Medicine; Referring Provider Family Medicine; Visit Provider Nurse Practitioner Family | DX: G47.9 Sleep disorder, unspecified (principal) | CPT/HCPCS: 99202 ==

== ENCOUNTER → 2020-08-29 19:17 | Outpatient (REF) | payer MEDICAID, SELFPAY | LOC: HO.SL 19:17 | PROVIDERS: Visit Provider Nurse Practitioner Family | DX: G47.9 Sleep disorder, unspecified (principal); R40.0 Somnolence; R41.3 Other amnesia | CPT/HCPCS: 95810 ==

== ENCOUNTER 2020-10-18 09:38 | Outpatient (REF) | payer OTHER, SELFPAY ==
[2020-10-18 10:30] LABS: MANUAL DIFF FLAG NO
[2020-10-18 10:35] LABS: Basophils Absolute Auto 0.1 X10*3/uL (0.0-0.2); Basophils Percent Auto 0.8 % (0-2); Eosinophils Absolute Auto 0.2 X10*3/uL (0.0-0.4); Eosinophils Percent Auto 3.2 % (0-4); Hematocrit 39.6 % (37-47); Imm Gran Abs Auto 0.01 X10*3/uL (0.00-0.03); Imm Gran Pct Auto 0.2 % (0.0-0.4); Lymphocytes Absolute Auto 2.5 X10*3/uL (1.2-4.9); Lymphocytes Percent Auto 37.8 % (20-40); Mean Corpuscular HGB Conc 32.8 g/dl (31.0-35.0); Mean Corpuscular Hemoglobin 31.3 pg (27.0-33.0); Mean Corpuscular Volume 95.2 fL (80-98); Mean Platelet Volume 10.7 fL (9.4-12.3); Monocytes Absolute Auto 0.7 X10*3/uL (0.1-1.2); Neutrophils Absolute Auto 3.1 X10*3/uL (2.0-8.3); Platelet Count 283 X10*3/uL (160-400); Red Blood Count 4.16 X10*6/uL (4.20-5.50); Red Cell Distribution Width 12.4 % (11.0-16.0); White Blood Count 6.5 X10*3/uL (4.8-10.8)
[2020-10-18 11:43] LABS: Alanine Aminotransferase 10 U/L (0-31); Alkaline Phosphatase 76 U/L (39-117); Anion Gap 9 (12-20); Aspartate Amino Transferase 16 U/L (5-31); Bilirubin Total 0.4 mg/dL (0.0-1.0); Blood Urea Nitrogen 9 mg/dL (9-16); Calcium 9.3 mg/dL (8.4-10.2); Carbon Dioxide 28 mmol/L (22-29); Chloride 107 mmol/L (96-108); Estimated Glomerular Filt Rate > 60; Glucose Fasting 78 mg/dL (60-99); Iron 85 mcg/dL (30-160); Percent Iron Saturation 25 % (15-50); Potassium 4.3 mmol/L (3.3-5.1); Sodium 140 mmol/L (135-145); Total Iron Binding Capacity 337 mcg/dL (228-428); Total Protein 6.3 g/dL (6.5-8.0); Unsaturated Iron Binding 252 ug/dL
[2020-10-18 11:45] LABS: Ferritin 148 ng/mL (10-250); TSH reflex Free T4 0.82 uIU/mL (0.32-4.0)
[2020-10-21 11:59] LABS: Vitamin B12 156 pg/mL (200-900)
== END 2020-10-18 09:39 | disposition home or self-care (01) ==
LOC: HO.WFDLDS 09:38
PROVIDERS: Visit Provider Family Medicine
DX: Z00.00 Encounter for general adult medical examination without abnormal findings (principal); G47.9 Sleep disorder, unspecified; E53.8 Deficiency of other specified B group vitamins
CPT/HCPCS: 36415; 80053; 82607; 82728; 82746; 83540; 84443; 85025

== ENCOUNTER → 2020-10-31 09:27 | Outpatient (BNVA) | payer OTHER, SELFPAY | PROVIDERS: PCP Family Medicine; Visit Provider Nurse Practitioner Family ==

== ENCOUNTER → 2021-03-08 13:49 | Outpatient (BNVA) | payer OTHER, SELFPAY | PROVIDERS: PCP Family Medicine; Referring Provider Family Medicine; Visit Provider Internal Medicine Gastroenterology | DX: Z13.89 Encounter for screening for other disorder (principal) | CPT/HCPCS: 99212 ==

== ENCOUNTER 2021-03-26 11:38 | Outpatient (REF) | payer OTHER, SELFPAY ==
[2021-03-26 12:24] LABS: COVID-19 Test Positive (Negative)
== END 2021-03-26 11:39 | disposition home or self-care (01) ==
LOC: HO.LAB 11:38
PROVIDERS: Visit Provider Internal Medicine
DX: Z20.822 Contact with and (suspected) exposure to COVID-19 (principal)
CPT/HCPCS: 87635; C9803

== ENCOUNTER 2021-08-14 12:31 | Day surgery (SDC) | payer OTHER, SELFPAY ==
[2021-08-08 16:43] VITALS: BMI 31.9
--- NOTE | 2021-08-13 08:51 | HO.ANESPROP2 ---
Documented by User: Mayuri Dalton NP 08/13/21 08:52 HPI - Anesthesia Eval Consult details Narrative: 56yo F for Colonoscopy PMFSH Active Problems Active Problems: All Active Problems (Updated 03/08/21 @ 14:25 by Veronica Simental MD) Chronic constipation (Acute) Low vitamin B12 level (Acute) Periodic limb movement sleep disorder (Acute) Shortness of breath (Acute) Sleep disorder, unspecified (Acute) Tubular adenoma (Acute) Varicose veins of both lower extremities (Acute) Obese (Acute) Laboratory examination ordered as part of a routine general medical examination (Acute) Left hip pain (Acute) Chronic SI joint pain (Acute) Wrist pain (Acute) Depression with anxiety (Acute) GERD (gastroesophageal reflux disease) (Acute) Screening for colon cancer (Acute) Breast cancer screening by mammogram (Acute) Screening for cervical cancer (Acute) Varicose veins of right lower extremity with inflammation (Acute) Memory loss (Acute) Anxiety (Acute) Encounter for screening colonoscopy (Acute) History of sleep apnea (Acute) Daytime sleepiness (Acute) Right groin pain (Acute) Right groin mass (Acute) Rib pain on right side (Acute) Mid-back pain, acute (Acute) Polyarthralgia (Acute) Thoracic spondylosis (Acute) Lumbar spondylosis (Acute) Carpal tunnel syndrome of right wrist (Acute) Carpal tunnel syndrome of left wrist (Acute) Cubital tunnel syndrome on left (Acute) Past Medical History Medical History Back pain Depression GERD (gastroesophageal reflux disease) History of anxiety History of memory loss Polyarthralgia Family History Family History Mother Colorectal cancer Family history of problems with anesthesia: No Surgical History Surgical History (Updated 08/14/21 @ 12:50 by Cassandra Diaz, RN) H/O vein stripping History of carpal tunnel surgery of right wrist History of cholecystectomy History of weight loss surgery Hx of colonoscopy History of Problems with Anesthesia: No Social History Social History Household Members: Children Alcohol intake: never Patient Tobacco Use Status: Former Tobacco user Quit Date: 2004 Use of substances other than those prescribed or required for medical reasons: No Are you DNR?: No Advance Directives: No Advance Directives Information Provided: Yes Current occupational status: unemployed Current occupation: laid off/ right handed Meds Allergies Allergy/AdvReac Type Severity Reaction Status Date / Time oxycodone [From PERCOCET] Allergy Intermediate ITCHING Verified 08/14/21 12:55 Exam Exam Date and Time: August 13, 2021 0851 Height,Weight and Vital Signs: Height 5 ft 7 in Weight 92.533 kg Assessment and Plan Assessment Anesthesia Assessment: Chart Reviewed Final Anesthetic Review Family History of Problems with Anesthesia: No History of Problems with Anesthesia: No Documented by User: Ant Nielsen MD 08/14/21 14:06 PMF Past Medical History Medical History Back pain Depression GERD (gastroesophageal reflux disease) History of anxiety History of memory loss Polyarthralgia Family History Family History Mother Colorectal cancer Surgical History Surgical History (Updated 08/14/21 @ 12:50 by Cassandra Diaz RN) H/O vein stripping History of carpal tunnel surgery of right wrist History of cholecystectomy History of weight loss surgery Hx of colonoscopy Social History Social History Household Members: Children Alcohol intake: never Patient Tobacco Use Status: Former Tobacco user Quit Date: 2004 Use of substances other than those prescribed or required for medical reasons: No Are you DNR?: No Advance Directives: No Advance Directives Information Provided: Yes Current occupational status: unemployed Current occupation: laid off/ right handed Meds Allergies Allergy/AdvReac Type Severity Reaction Status Date / Time oxycodone [From PERCOCET] Allergy Intermediate ITCHING Verified 08/14/21 12:55 Exam Airway Mallampati Class: III TM Dist: >3cm Neck ROM: Full Assessment and Plan Assessment Anesthesia Assessment: Anesthesia Plan Discussed Final Anesthetic Review NPO: Yes ASA Class: III Final Preanesthetic Review: No Changes in Pt Med Stat, Meds/Allgs Chart Reviewed, Consent Obtained/Reviewed and Anes Risks/Benef Reviewed Patient Risk: Intermediate Procedure Risk: Intermediate Anesthetic Plan Anesthetic Plan: GA Disposition: Standard PACU
[2021-08-14] MEDS: Lactated Ringers 1,000 ML 100 ML IVCONT (13:14)
[2021-08-14 13:15] VITALS: BP 114/65; PULSE 52; RESP 16; TEMP 36.7; O2SAT 97
--- NOTE | 2021-08-14 15:23 | P.BOP_ITS ---
Brief Operative Note Date of Service: 08/14/21 Pre-op diagnosis: hx of colon polyps Post-op diagnosis: same Procedure: see op note Surgeon: Gabriel Hernandez MD Anesthesia: GETA Was an Lacquer Spray Booth Operator used for this Procedure?: No Estimated blood loss (mL): 0 Condition: stable Disposition: PACU
--- NOTE | 2021-08-14 15:23 | W.PM.OPN ---
Operative Note Operative Note Date of Service: 08/14/21 Narrative: Operative Information Procedure Description: Colonoscopy Indication: hx of colon polyps Anesthesia: GA COLONOSCOPY Instrument: Olympus variable stiffness adult scope 190L Colonoscopy Monitoring: Vital signs and clinical assessment, continuous EKG monitoring, Pulse oximetry, Carbon Dioxide monitoring and blood pressure monitoring were done throughout the procedure. Colon withdrawal time was 10 minutes. Procedure: The patient was placed in the Prone position and pre-procedure medications were administered. After a digital rectal examination of the ano-rectum, the video colonoscope was inserted into the rectum and advanced through the colon to the cecum/TI. The colonoscope was slowly withdrawn in a retrograde panoramic fashion and the colon mucosa was carefully examined including a retroflexed view of the rectum. Findings and interventions are described below. Procedure Difficulty: moderate Findings: Terminal Ileum-normal Cecum: 6-9 mm sessile polyp removed with cold forceps Ascending Colon: normal Transverse Colon -normal Descending Colon:normal Sigmoid Colon: normal Rectum: Retroflexion with small internal hemorrhoids, grade I Anorectum - normal Colon preparation: Pollock Bowel Preparation Scale Right colon; 2 Transverse colon: 2 Left colon; 2 (0 = Unprepared colon segment with mucosa not seen due to solid stool that cannot be cleared. 1 = Portion of mucosa of the colon segment seen, but other areas of the colon segment not well seen due to staining, residual stool and/or opaque liquid. 2 = Minor amount of residual staining, small fragments of stool and/or opaque liquid, but mucosa of colon segment seen well. 3 = Entire mucosa of colon segment seen well with no residual staining, small fragments of stool or opaque liquid) Impression and Post Procedure Diagnosis: internal hemorrhoids colon polyp Plan: High fiber diet leaflet Avoid straining at stool, epsom salts and sitz bath, anusol supps or cream Repeat Colonoscopy in 5 years or earlier if clinically indicated Above findings were reviewed with the patient and relevant handouts were provided if indicated.
[2021-08-14 15:32] VITALS: BP 121/77; PULSE 72; RESP 16; TEMP 36.7; O2SAT 100
[2021-08-14 15:37] VITALS: BP 126/69; PULSE 69; RESP 16; O2SAT 98
[2021-08-14 15:42] VITALS: BP 123/58; PULSE 66; RESP 16; O2SAT 96
[2021-08-14 15:47] VITALS: BP 116/65; PULSE 73; RESP 16; TEMP 36.2; O2SAT 97
== END 2021-08-14 16:28 | disposition home or self-care (01) ==
PROVIDERS: PCP Family Medicine; Visit Provider Internal Medicine Gastroenterology
PROC: 0DJD8ZZ Inspection of Lower Intestinal Tract, Via Natural or Artificial Opening Endoscopic (ICD-10-PCS; CPT 45378; principal; 2021-08-14 13:40)
DX: Z12.11 Encounter for screening for malignant neoplasm of colon (principal); Z80.0 Family history of malignant neoplasm of digestive organs; Z86.010 Personal history of colon polyps; D12.0 Benign neoplasm of cecum; K64.0 First degree hemorrhoids; K59.09 Other constipation; F41.1 Generalized anxiety disorder; K21.9 Gastro-esophageal reflux disease without esophagitis; E53.8 Deficiency of other specified B group vitamins; Z79.899 Other long term (current) drug therapy; Z88.8 Allergy status to other drugs, medicaments and biological substances; Z98.84 Bariatric surgery status
CPT/HCPCS: 45380; 88305; J1100; J2250; J2405; J3010

== ENCOUNTER 2021-09-17 19:13 | Emergency (ER) | payer OTHER, SELFPAY ==
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
[2021-09-17 22:02] VITALS: BP 131/80; PULSE 58; RESP 18; TEMP 36.8; O2SAT 97; BMI 31.9
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
== END 2021-09-18 00:34 | disposition home or self-care (01) ==
PROVIDERS: Emergency Provider Internal Medicine; PCP Family Medicine
DX: S06.0X9A Concussion with loss of consciousness of unspecified duration, initial encounter (principal); S06.0X0A Concussion without loss of consciousness, initial encounter; M25.512 Pain in left shoulder; R07.81 Pleurodynia; R07.89 Other chest pain; M54.2 Cervicalgia; R51.9 Headache, unspecified; V43.52XA Car driver injured in collision with other type car in traffic accident, initial encounter; Y93.9 Activity, unspecified; Y92.410 Unspecified street and highway as the place of occurrence of the external cause; Y99.9 Unspecified external cause status; Z79.899 Other long term (current) drug therapy; Z87.891 Personal history of nicotine dependence
CPT/HCPCS: 70450; 71101; 73030; 99282; 99284

== ENCOUNTER 2021-12-05 11:53 | Outpatient (REF) | payer OTHER, SELFPAY ==
[2021-12-05 15:11] LABS: Influenza A PCR NEGATIVE (Negative); Influenza B PCR NEGATIVE (Negative); Resp Syncy Virus RNA Qual PCR NEGATIVE (Negative); SARS COV2 PCR INHOUSE NEGATIVE (Negative)
== END 2021-12-05 11:54 | disposition home or self-care (01) ==
LOC: HO.LAB 11:53
PROVIDERS: Visit Provider Nurse Practitioner Family
DX: R09.89 Other specified symptoms and signs involving the circulatory and respiratory systems (principal); Z20.822 Contact with and (suspected) exposure to COVID-19
CPT/HCPCS: 0241U

== ENCOUNTER 2022-01-29 11:54 | Outpatient (REF) | payer OTHER, SELFPAY ==
--- NOTE | ~2022-01-29 | MM_ITS ---
EXAMINATION: MM SCREENING DIGITAL BREAST TOMOSYNTHESIS, BILATERAL CLINICAL INFORMATION: Screening. Asymptomatic. The lifetime risk of breast cancer based on the Tyrer-Cuzick Model is 8%. COMPARISON: Mammography: 03/14/2020; outside mammography 09/20/2016, 03/01/2014 ([facility] TECHNIQUE: Digital breast tomosynthesis is performed in both the craniocaudal and mediolateral oblique views along with computer-aided detection (CAD). Synthesized 2D images are generated from the tomosynthesis. FINDINGS: There are scattered areas of fibroglandular density (ACR BI-RADS breast composition Category b). Background stromal markings are stable. No developing density or architectural abnormality. There are scattered predominantly dermal calcifications again noted posterior breasts. The axilla and skin contours are unremarkable. No significant changes. MM/MM tomosynthesis screening BI IMPRESSION: No mammographic evidence of malignancy. ASSESSMENT: BI-RADS 2: Benign RECOMMENDATION: Routine annual mammography screening. This patient's information was entered into a reminder system with a target due date for their next mammogram.
== END 2022-01-29 11:55 | disposition home or self-care (01) ==
LOC: HO.MAMMO 11:54
PROVIDERS: Visit Provider Family Medicine
DX: Z12.31 Encounter for screening mammogram for malignant neoplasm of breast (principal)
CPT/HCPCS: 77063; 77067

== ENCOUNTER 2022-01-29 14:29 | Outpatient (REF) | payer OTHER, SELFPAY ==
[2022-02-07 04:59] LABS: HPV 16 RNA NOT DETECTED (NOT DETECTED); HPV mRNA E6/E7 rflx Detected (Not Detected)
== END 2022-01-29 14:30 | disposition home or self-care (01) ==
LOC: HO.LNP 14:29
PROVIDERS: Visit Provider Obstetrics & Gynecology
DX: Z01.419 Encounter for gynecological examination (general) (routine) without abnormal findings (principal); Z11.51 Encounter for screening for human papillomavirus (HPV)
CPT/HCPCS: 87624; 87625; 88142

== ENCOUNTER 2022-02-14 14:12 | Outpatient (REF) | payer OTHER, SELFPAY ==
[2022-02-14 15:14] LABS: Influenza A PCR POSITIVE (Negative); Influenza B PCR NEGATIVE (Negative); Resp Syncy Virus RNA Qual PCR NEGATIVE (Negative); SARS COV2 PCR INHOUSE NEGATIVE (Negative)
== END 2022-02-14 14:13 | disposition home or self-care (01) ==
LOC: HO.LNP 14:12
PROVIDERS: Visit Provider Internal Medicine
DX: Z20.822 Contact with and (suspected) exposure to COVID-19 (principal); R09.89 Other specified symptoms and signs involving the circulatory and respiratory systems
CPT/HCPCS: 0241U

== ENCOUNTER 2022-04-15 11:08 | Outpatient (REF) | payer OTHER, SELFPAY | END 2022-04-15 11:09 | disposition home or self-care (01) | LOC: HO.LNP 11:08 | PROVIDERS: PCP Family Medicine; Visit Provider Obstetrics & Gynecology | DX: L98.9 Disorder of the skin and subcutaneous tissue, unspecified (principal); B97.7 Papillomavirus as the cause of diseases classified elsewhere | CPT/HCPCS: 56605; 57456; 88304; 88305 ==

== ENCOUNTER → 2022-05-07 08:03 | Outpatient (BNVA) | payer OTHER, SELFPAY | PROVIDERS: PCP Family Medicine; Visit Provider Obstetrics & Gynecology | DX: Z71.2 Person consulting for explanation of examination or test findings (principal); B97.7 Papillomavirus as the cause of diseases classified elsewhere; L98.9 Disorder of the skin and subcutaneous tissue, unspecified | CPT/HCPCS: 99212 ==

== ENCOUNTER → 2022-06-20 15:22 | Outpatient (BNVA) | payer OTHER, SELFPAY | PROVIDERS: PCP Family Medicine; Visit Provider Physician Assistant Surgical | DX: E66.9 Obesity, unspecified (principal); Z68.32 Body mass index [BMI] 32.0-32.9, adult; Z90.3 Acquired absence of stomach [part of]; Z98.84 Bariatric surgery status | CPT/HCPCS: 99212 ==

== ENCOUNTER 2022-06-29 07:17 | Outpatient (REF) | payer OTHER, SELFPAY ==
[2022-06-29 07:37] LABS: MANUAL DIFF FLAG NO
[2022-06-29 08:04] LABS: Basophils Absolute Auto 0.1 X10*3/uL (0.0-0.2); Basophils Percent Auto 0.8 % (0-2); Eosinophils Absolute Auto 0.2 X10*3/uL (0.0-0.4); Hematocrit 41.7 % (37.0-47.0); Hemoglobin 13.8 g/dl (12.0-16.0); Imm Gran Abs Auto 0.02 X10*3/uL (0.00-0.03); Imm Gran Pct Auto 0.3 % (0.0-0.4); Lymphocytes Absolute Auto 2.1 X10*3/uL (1.2-4.9); Lymphocytes Percent Auto 32.9 % (20-40); Mean Corpuscular HGB Conc 33.1 g/dl (31.0-35.0); Mean Corpuscular Volume 93.7 fL (80.0-98.0); Mean Platelet Volume 9.9 fL (9.4-12.3); Monocytes Absolute Auto 0.5 X10*3/uL (0.1-1.2); Monocytes Percent Auto 8.5 % (2-11); Neutrophils Absolute Auto 3.4 x10*3/uL (2.0-8.3); Neutrophils Percent Auto 54.5 % (45-73); Platelet Count 313 X10*3/uL (160-400); Red Blood Count 4.45 X10*6/uL (4.20-5.50); Red Cell Distribution Width 12.5 % (11.0-16.0); White Blood Count 6.2 X10*3/uL (4.8-10.8)
[2022-06-29 08:14] LABS: Estimated Average Glucose 105 mg/dL; Hemoglobin A1C 126.2383 umol/L; Hemoglobin A1c % 5.3 %
[2022-06-29 08:37] LABS: Alanine Aminotransferase 21 U/L (0-31); Albumin Level 4.1 g/dL (3.5-5.0); Alkaline Phosphatase 82 U/L (39-117); Anion Gap 10 (12-20); Aspartate Amino Transferase 23 U/L (5-31); Bilirubin Total 0.4 mg/dL (0.0-1.0); Blood Urea Nitrogen 15 mg/dL (9-16); C Reactive Protein 0.11 mg/dL (< or = 0.50); Calcium 9.4 mg/dL (8.4-10.2); Carbon Dioxide 26 mmol/L (22-29); Chloride 109 mmol/L (96-108); Cholesterol 205 mg/dL; Estimated Glomerular Filt Rate > 60; Glucose Random 87 mg/dL (60-115); HDL Cholesterol 47 mg/dL; Iron 71 mcg/dL (30-160); LDL Cholesterol Calculated 136 mg/dl; Percent Iron Saturation 23 % (15-50); Potassium 4.5 mmol/L (3.3-5.1); Sodium 140 mmol/L (135-145); Total Iron Binding Capacity 314 mcg/dL (228-428); Total Protein 6.5 g/dL (6.5-8.0); Triglycerides 114 mg/dL; Unsaturated Iron Binding 243 ug/dL
[2022-06-29 09:18] LABS: Ferritin 81 ng/mL (10-250); Folate 10.5 ng/mL (> or = 4.0); Insulin 6 uU/mL (2-29); TSH reflex Free T4 0.55 uIU/mL (0.32-4.0); Vitamin B12 302 pg/mL (200-900); Vitamin D 25-OH Total 16.6 ng/mL (>30)
[2022-07-03 04:39] LABS: PTHI 41 pg/mL (16-77)
[2022-07-03 12:58] LABS: Zinc 77 mcg/dL (60-130)
[2022-07-06 23:22] LABS: Vitamin A 47 mcg/dL (38-98)
[2022-07-10 16:38] LABS: Vitamin B1 26 nmol/L (8-30)
== END 2022-06-29 07:18 | disposition home or self-care (01) ==
LOC: HO.LAB 07:17
PROVIDERS: Absent Provider Physician Assistant Surgical; PCP Family Medicine; Visit Provider Family Medicine
DX: Z90.3 Acquired absence of stomach [part of] (principal)
CPT/HCPCS: 36415; 80053; 80061; 82306; 82607; 82728; 82746; 83036; 83525; 83540; 83970; 84425; 84443; 84590; 84630; 85025; 86140

== ENCOUNTER → 2022-07-02 13:07 | Outpatient (BNVA) | payer OTHER, SELFPAY | PROVIDERS: PCP Family Medicine; Visit Provider Surgery Vascular Surgery | DX: I83.11 Varicose veins of right lower extremity with inflammation (principal); I83.12 Varicose veins of left lower extremity with inflammation | CPT/HCPCS: 99212 ==

== ENCOUNTER 2022-07-19 09:53 | Outpatient (REF) | payer OTHER, SELFPAY ==
--- NOTE | ~2022-07-19 | US_ITS ---
EXAMINATION: US LOWER EXTREMITY VENOUS (REFLUX EXAM), BILATERAL CLINICAL INDICATION: Chronic venous insufficiency with lower extremity varicose veins, pain and inflammation. History of prior bilateral great saphenous vein ablation and right lower extremity phlebectomy COMPARISON: 03/23/2020 TECHNIQUE: Color flow triplex imaging and compression Doppler was performed to evaluate both the deep and the superficial systems bilaterally. To evaluate the superficial system, the examination was performed in the upright position. Color-flow Doppler ultrasound and compression ultrasound were utilized. In addition, maneuvers were utilized to demonstrate reflux. FINDINGS: 1. DEEP VENOUS ULTRASOUND OF THE RIGHT LOWER EXTREMITY: Common Femoral Vein: Compressible, normal respiratory variation and augmented flow. Femoral Vein: Compressible, normal color flow and augmentation. Popliteal Vein: Compressible, normal augmentation. Deep Reflux: There is no evidence of reflux in the deep system in either the common femoral vein or the popliteal vein. There is no evidence of a Rhodes's cyst. 2. SUPERFICIAL ULTRASOUND WITH DOPPLER OF RIGHT LOWER EXTREMITY: GREAT SAPHENOUS VEIN: Saphenofemoral Junction: 0.6 cm; Reflux: 2560 ms Proximal Thigh: 0.2 cm; Reflux: 0 ms, reconstituted by varicose veins off the lateral accessory saphenous Mid Thigh: 0.2 cm; Reflux: 0 ms, reconstituted by packer sausage and wiener vein Above Knee: Not well-visualized At Knee: Not well visualized Below Knee: Not well visualized Mid Calf: 0.2 cm; Reflux: 0 ms Ankle: 0.2 cm; Reflux: 0 ms DUPLICATED MEDIAL GREAT SAPHENOUS VEIN: Diameter: None Imaged Reflux: NA DUPLICATED LATERAL GREAT SAPHENOUS VEIN: Diameter: 0.5 cm at the saphenofemoral junction and extending throughout the mid thigh Reflux: Ranging from 2552 ms to 2656 ms SMALL SAPHENOUS VEIN: Proximal: 0.3 cm; Reflux: 0 ms Distal: 0.2 cm; Reflux: 0 ms VEIN OF GIACOMINI: 0.3 cm without reflux PERFORATORS: Location: None Imaged Size: NA Reflux: NA VARICOSITIES: Location: Multiple varicose veins are seen arising from of the lateral duplicated great saphenous vein and the remnant of the great saphenous vein extending throughout to the thigh and calf. There are additional varicosities are arising from the small saphenous vein throughout the calf. Size: Ranging from 0.2 to 0.4 cm Reflux: Ranging from 2342 ms to 2708 ms 3. DEEP VENOUS ULTRASOUND OF THE LEFT LOWER EXTREMITY: Common Femoral Vein: Compressible, normal respiratory variation and augmented flow. Femoral Vein: Compressible, normal color flow and augmentation. Popliteal Vein: Compressible, normal augmentation. Deep Reflux: There is no evidence of reflux in the deep system in either the common femoral vein or the popliteal vein. There is no evidence of a Rhodes's cyst. 4. SUPERFICIAL ULTRASOUND WITH DOPPLER OF LEFT LOWER EXTREMITY: GREAT SAPHENOUS VEIN: Saphenofemoral Junction: 0.7 cm; Reflux: 0 ms Proximal Thigh: 0.3 cm; Reflux: 0 ms Mid Thigh: 0.2 cm; Reflux: 0 ms, which runs as a posterior thigh extension/varicosities Above Knee: 0.3 cm; Reflux: 0 ms, which runs as a posterior thigh extension/varicosity At Knee: 0.2 cm; Reflux: 0 ms, which runs as a posterior thigh extension/varicosity Below Knee: 0.2 cm; Reflux: 0 ms Mid Calf: 0.2 cm; Reflux: 0 ms Ankle: 0.2 cm; Reflux: 0 ms DUPLICATED MEDIAL GREAT SAPHENOUS VEIN: Diameter: None Imaged Reflux: NA DUPLICATED LATERAL GREAT SAPHENOUS VEIN: Diameter: None Imaged Reflux: NA SMALL SAPHENOUS VEIN: Proximal: 0.4 cm; Reflux: 0 ms Distal: 0.1 cm; Reflux: 620 ms VEIN OF GIACOMINI: None Imaged. PERFORATORS: Location: Posterior mid calf extending into the small saphenous vein Size: 0.4 cm Reflux: None VARICOSITIES: Location: None significant Size: NA Reflux: NA US/US venous duplex LE BI IMPRESSION: Right: Severe reflux up with remnant great saphenous vein at the saphenofemoral junction. There are segmental reconstituted flow within the right saphenous vein in the thigh. There is a lateral duplicated great saphenous vein is dilated with severe reflux extending into multiple varicosities throughout the thigh. Left: Residual left great saphenous vein extending into the posterior thigh extension/varicosity throughout the thigh and subsequently extending into the great saphenous vein within the calf. No significant reflux. There is reflux in the small saphenous vein in the distal calf
== END 2022-07-19 09:54 | disposition home or self-care (01) ==
LOC: HO.US 09:53
PROVIDERS: PCP Family Medicine; Visit Provider Surgery Vascular Surgery
DX: I83.11 Varicose veins of right lower extremity with inflammation (principal)
CPT/HCPCS: 93970

== ENCOUNTER 2022-07-22 16:00 | Outpatient (RCR) | payer OTHER, SELFPAY ==
--- NOTE | 2022-07-11 12:59 | MHC.PT.EP ---
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 female who is referred to PT by Dr. Matt Patten MD with Dx of R sided sciatica. 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 Questionable kidney involvement due to are of pain higher than lumbar area that is in R flank and is constant per patient. I encourage her to contact MD to discuss this. Patient impairments include pain, weakness, limited ROM, antalgic gait, poor postures. Patient current functional limitations are stairs, prolonged sitting, driving, lying down (supine), difficulty getting on/off floor. Patient will benefit from skilled PT to address aforementioned impairments and functional limitations to meet established goals. Frequency and Duration: The patient will be seen 1x/week for 4 weeks Short Term Goals: 2 weeks Patient demonstrates consistency and independence with HEP to self manage symptoms. Building Services Coordinator Goals: 4 weeks Patient presents with increased lumbar flexion 90 degrees to be able to put on shoes/socks. Patient presents with increased R glute med strength 4/5 to be able to perform sit to stand without increased sxs. Treatment Plan: Modalities to reduce pain, spasms and effusion. Manual therapy to restore motion and function. Therapeutic exercise to improve strength and flexibility. Neuromuscular re-education for posture and balance. Therapeutic activities to return to functional activities of daily living. Electronically signed by: Jaja Muller, PT, DPT Please sign and return to therapist. Thank you for your referral.
--- NOTE | 2022-09-03 11:34 | MHC.PT.DC ---
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 Per PT evaluation I recommended Questionable kidney involvement due to are of pain higher than lumbar area that is in R flank and is constant per patient. I encourage her to contact MD to discuss this. She ceased attending PT on her own accord. Electronically signed by: Jaja Muller, PT, DPT Please sign and return to therapist. Thank you for your referral.
== END 2022-09-03 11:34 | disposition home or self-care (01) ==
LOC: HO.PT 16:00
PROVIDERS: PCP Family Medicine; Visit Provider Family Medicine
DX: M54.31 Sciatica, right side (principal)
CPT/HCPCS: 97110; 97161

== ENCOUNTER → 2022-08-20 14:56 | Outpatient (BNVA) | payer OTHER, SELFPAY | PROVIDERS: PCP Family Medicine; Visit Provider Surgery Vascular Surgery | DX: I83.11 Varicose veins of right lower extremity with inflammation (principal); I83.12 Varicose veins of left lower extremity with inflammation | CPT/HCPCS: 99212 ==

== ENCOUNTER 2023-03-28 09:27 | Outpatient (AMB) | payer OTHER, SELFPAY ==
[2023-03-28 09:36] VITALS: BP 112/62; PULSE 60; O2SAT 96; BMI 33.2
--- NOTE | 2023-03-28 09:36 | A.OFFPC_ITS ---
Vital Signs 03/28/23 09:36 Height 5 ft 7 in Weight 212 lb 2 oz BMI 33.2 BP 112/62 Blood Pressure Location Lt brachial Position Sitting Pulse 60 Pulse Source Pulse Oximeter Pulse Oximetry (%) 96 Oxygen Delivery Method Room Air Intake Visit Reasons: f/u axiety/depression Intake Note: Patient is here to follow up on anxiety and depression today. She also complains of itching all over. Allergies oxycodone [From PERCOCET] Allergy (Intermediate, Verified 03/28/23 09:39) ITCHING Tobacco use date assessed: 03/28/23 HPI f/u axiety/depression HPI Details 57 y/o female presents to f/u anxiety/de pression. Had refilled her Abilify and continues venlafaxine and buspirone for anxiety. She reports she feels stable with her medication regimen but had been unable to get her Abilify filled as she had not been to the office. PHQ-9 score 17, ALICIA-7 11. Pt has complaints of itching today. Pt reports itching started last month. Pt notes she lives with people with similar symptoms. HPI Comments History of Present Illness Details Documentation assistance for Matt Patten MD, was provided by Oscar Diaz,? [employer] on 03/28/2023 10:10 AM VIDHI. I, Dr. Patten, have read, observed, and verified documentation. [facility] Medical History Back pain Depression GERD (gastroesophageal reflux disease) History of anxiety History of memory loss Polyarthralgia Surgical History H/O vein stripping History of carpal tunnel surgery of right wrist History of cholecystectomy History of weight loss surgery Hx of colonoscopy Family History Mother Colorectal cancer Social History Household Members: Children Housing: Apartment Alcohol intake: never Patient Tobacco Use Status: Former Tobacco user Quit Date: 2004 e-Cigarette/Vaping Use: Never Used Second Hand Smoke Exposure: No service: No Current occupational status: unemployed Current occupation: laid off/ right handed Cognitive needs: No Hearing needs: No Vision needs: Yes Female Reproductive History Menstrual Age of Menarche: 13 Questionnaire PHQ-9 Over the last 2 weeks, how often have you been bothered by any of the following problems? 1. Little interest or pleasure in doing things: several days 2. Feeling down, depressed, or hopeless: not at all 3. Trouble falling or staying asleep, or sleeping too much: nearly every day 4. Feeling tired or having little energy: several days 5. Poor appetite or overeating: nearly every day 6. Feeling bad about yourself - or that you are a failure or have let yourself or your family down: nearly every day 7. Trouble concentrating on things, such as reading the newspaper or watching television: nearly every day 8. Moving or speaking so slowly that other people could have noticed. Or the opposite - being so fidgety or restless that you have been moving around a lot more than usual: nearly every day 9. Thoughts that you would be better off or of hurting yourself in some way: not at all Total score: 17 Depression Screening Interpretation: Positive Depression Screening Done: Yes 47945 - PHQ-9 Billing: Yes Source: Developed by Drs. Iker Kan, Rosa Candelario, Vasquez Olson and colleagues, with an educational lennox from [employer]. Thrive Questionnaire Date Thrive assessed: 04/25/22 ALICIA-7 AMB Questionnaire ALICIA-7 Date ALICIA - 7 assessed: 03/28/23 Feeling nervous, anxious, or on edge: 3 = Nearly every day Not being able to stop or control worryin = Nearly every day Worrying too much about different things: 2 = More than half the days Trouble relaxin = Not at all Being so restless that it is hard to sit still: 0 = Not at all Becoming easily annoyed or irritable: 3 = Nearly every day Feeling afraid as if something awful might happen: 0 = Not at all Total ALICIA-7 score (0-4 normal; 5-9 mild; 10-14 moderate; 15-21 severe): 11 Source: Developed by Drs. Iker Kan, Vasquez Fung and colleagues, with an educational lennox from [employer]. ALICIA-7 Assessment Billing ALICIA-7 Assessment Tool: ALICIA-7 Assessment 98003 Review of Systems Const Denies chills, Denies fatigue, Denies fever(s), Denies headache(s) and Denies weakness ENT Denies dizziness and Denies headache(s) Card Denies dyspnea Resp Denies cough, Denies dyspnea, Denies wheezing and Denies other (shortness of breath) Musc Denies numbness and Denies tingling Neuro Denies dizziness, Denies headache(s), Denies numbness, Denies tingling and Denies weakness Psych Reports anxiety and Reports depression Endo Denies fatigue Aller/Immun Denies wheezing Physical exam (Primary Care) Vital Signs: Last Vital Signs Pulse 60 03/28/23 09:36 BP 112/62 03/28/23 09:36 Pulse Ox 96 03/28/23 09:36 Oxygen Delivery Method Room Air 03/28/23 09:36 BMI result Body Mass Index 33.2 Tobacco/Smoking Status: Tobacco use Status Tobacco use date assessed 03/28/23 03/28/23 09:39 Patient Tobacco Use Status Former Tobacco user 03/28/23 09:39 e-Cigarette/Vaping Use Never Used 03/28/23 09:39 PHQ-9: PHQ-9 Score PHQ-9: Total score 17 03/28/23 10:09 Depression Screening Interpretation: Positive Thrive Assessment: Date of Thrive Assessment Date Thrive assessed 04/25/22 03/28/23 09:39 Const General: well developed; No acute distress Nutritional Appearance: well nourished Orientation/consciousness: patient oriented x3 HENMT Head: Yes normocephalic and Yes atraumatic Eyes General: appearance normal, both eyes and all related structures Pupils: Equal, round and reactive pupils present EOM: EOMs intact bilaterally Resp Effort & Inspection: normal respiratory effort Neuro General: patient oriented x3 and gait normal Cranial nerves: Yes Equal, round and reactive pupils present Psych Affect: normal affect Assessment and Plan Assessment & Plan (1) Depression with anxiety: Code(s): F41.8 - Other specified anxiety disorders Plan: S ignificant?anxiety?and?depression.??Patient?is?not?on?her?full?regimen?of?medica tions?however. Continue?venlafaxine, buspirone?and?will?resume?Abilify. Follow-up?with?therapist?and?psych?med?provider?when?able (2) Pruritus: Code(s): L29.9 - Pruritus, unspecified Plan: Itchy?rash?with?smal l?tracts?in?skin?of?hands?bilaterally.??Other?people?in?home?are?itchy?as?well. This?appears?to?be?scabies Gave?her?a?script?for?permethrin Other?family?members?should?be?treated?as?well. Orders: Orders Complete Blood Count Auto Diff Today Z00.00 - Encounter for general adult medical examination without abnormal findings Lipid Panel Today Z00.00 - Encounter for general adult medical examination without abnormal findings UA and rflx microscopic Today Z00.00 - Encounter for general adult medical examination without abnormal findings TSH reflex Free T4 Today Z00.00 - Encounter for general adult medical exam ination without abnormal findings Comprehensive [place]. Panel Fast Today Z00.00 - Encounter for general adult medical examination without abnormal findings Microalbumin, Random (w Creat) Today I10 - Essential (primary) hypertension Medications: New permethrin 5% apply as directed and leave on overnight, then rinse off 1 appl topical ONCE 60 grams 0RF Refilled aripiprazole (Abilify) 5 mg PO BEDTIME 30 days 30 tabs 3RF Coding Level of Care Code Est Pt Level 3 (06959) Diagnoses Depression with anxiety F41.8 Pruritus L29.9 Additional Codes ALICIA-7 Assessment Billing - ALICIA-7 Assessment Tool: ALICIA-7 Assessment 23362 ([id number])
== END 2023-03-28 10:21 | disposition home or self-care (01) ==
PROVIDERS: PCP Family Medicine; Visit Provider Family Medicine
DX: F41.8 Other specified anxiety disorders (principal); L29.9 Pruritus, unspecified
CPT/HCPCS: 96127; 99213

== ENCOUNTER 2023-05-13 10:33 | Outpatient (AMB) | payer OTHER, SELFPAY ==
--- NOTE | 2023-05-13 11:04 | MHC.OFFWIV ---
Intake Vital Signs 05/13/23 11:05 Height 5 ft 7 in Weight 212 lb BMI 33.2 BP 112/68 Blood Pressure Location Lt brachial Position Sitting Pulse 65 Pulse Source Pulse Oximeter Temp 97.9 F Temp Source Temporal Artery Scan Pulse Oximetry (%) 98 Oxygen Delivery Method Room Air Intake Visit Reasons: EST/ lower back pain(lobby) Intake Note: pt is here today for lower back pain started yesterday Patient Tobacco Use Status: Former Tobacco user Quit Date: 2004 Allergies oxycodone [From PERCOCET] Allergy (Intermediate, Verified 05/13/23 11:05) ITCHING Do you need a note to return to daycare/school/sports/work: Yes HPI HPI Comments History of Present Illness Details Patient is a 58-year-old female in today for sick visit. Patient has a past medical history significant for lower back pain with sciatica. Patient states that she was at work lifting an object and she her a pop in her lower back. Patient states that she is having pain that is making it difficult for her to walk in turn. She denies numbness, denies saddle numbness. Denies nausea vomiting constipation. Denies chest pain shortness a breath. Will obtain x-ray. Will also obtain UA. [facility] Medical History Back pain History of memory loss History of anxiety Depression GERD (gastroesophageal reflux disease) Polyarthralgia Surgical History History of carpal tunnel surgery of right wrist Hx of colonoscopy H/O vein stripping History of weight loss surgery History of cholecystectomy Family History Mother Colorectal cancer Social History Household Members: Children Housing: Apartment Alcohol intake: never Patient Tobacco Use Status: Former Tobacco user Quit Date: 2004 e-Cigarette/Vaping Use: Never Used Second Hand Smoke Exposure: No service: No Current occupational status: unemployed Current occupation: laid off/ right handed Cognitive needs: No Hearing needs: No Vision needs: Yes Female Reproductive History Menstrual Age of Menarche: 13 Review of Systems Const Details: Constitutional : No Weight loss, No Fever, No Chills, No Fatigue, No Malaise Cardiovascular : No Chest Pain, No SOB, No Dyspnea on Exertion, No Orthopnea, No Edema, No Palpitations Respiratory : No Cough, No Sputum, No Wheezing Gastrointestinal : No Nausea, No Vomiting, No Diarrhea, No Constipation, No abdominal Pain, No Hematochezia, No Melena Musculoskeletal : Admits lower back pain, left SI joint. Skin : No Skin Lesions, No rash Neuro : No Weakness, No Numbness, No Dizziness, No Headache Psych : No Anxiety/Panic, No Depression Heme/Lymph: No Bruising, No Bleeding,No Lymphadenopathy Endocrine : No Polyuria, No Polydipsia All other systems reviewed and are negative Physical Exam Vital Signs: Last Vital Signs Temp 97.9 F 05/13/23 11:05 Pulse 65 05/13/23 11:05 BP 112/68 05/13/23 11:05 Pulse Ox 98 05/13/23 11:05 Oxygen Delivery Method Room Air 05/13/23 11:05 BMI result Body Mass Index 33.2 Const Other: Appearance: Alert.? Oriented X3.? No acute distress.? Neck: Normal inspection.? Neck supple.? CVS: Normal heart rate and rhythm.? Pulses normal.? Respiratory: No respiratory distress.? Breath sounds normal.? Skin: Skin warm and dry.? Normal skin color.? Normal skin turgor.? Extremities: No lower extremity edema.? No calf ttp. 5/5 strength to bilateral upper and lower extremities Back: No midline tenderness, no C-spine tenderness, Limited range of motion to flexion, extension, and rotation. Patient able to ambulate. No obvious deformity. Neuro: Oriented X 3.? No motor deficit.? No sensory deficit. CN 2-12 intact Assessment & Plan Assessment & Plan (1) Lower back pain: Comment: X-ray performed in office, no apparent fracture on initial read. Patient will be given meloxicam and cyclobenzaprine to be taken as directed. Patient has been educated the side effects of these medications. Code(s): M54.50 - Low back pain, unspecified Qualifiers: Chronicity: acute Back pain laterality: unspecified Sciatica presence: without sciatica Qualified Code(s): M54.50 - Low back pain, unspecified Plan: Take your medications as prescribed. If you were prescribed antibiotics today, it is important that you take your medication to their entirety, do not skip any doses, do not finish them early. Follow-up with your primary care provider this week. Return to the emergency department with new or worsening symptoms. Such as fevers, chills, chest pain, shortness of breath, nausea, vomiting, dizziness, headache, vision changes, lethargy In case of emergency call 911 Plan Follow-up with PCP. Orders: Orders XR lumbar spine 2-3V Today M54.50 - Low back pain, unspecified UA CC w/rflx Micro + Cult Today M54.50 - Low back pain, unspecified Medications: New cyclobenzaprine 5 mg PO BEDTIME PRN 7 tabs 0RF muscle spasm meloxicam 15 mg PO DAILY 14 tabs 0RF Coding Level of Care Code Est Pt Level 3 (43303) Diagnoses Acute low back pain without sciatica, unspecified back pain laterality M54.50 Chronicity: acute Back pain laterality: unspecified Sciatica presence: without sciatica Time Spent (min) 27
[2023-05-13 11:05] VITALS: BP 112/68; PULSE 65; TEMP 36.6; O2SAT 98; BMI 33.2
== END 2023-05-13 13:39 | disposition home or self-care (01) ==
PROVIDERS: PCP Family Medicine; Visit Provider Nurse Practitioner Primary Care
DX: M54.50 Low back pain, unspecified (principal); Z04.2 Encounter for examination and observation following work accident
CPT/HCPCS: 99213

== ENCOUNTER 2023-05-13 11:58 | Outpatient (REF) | payer OTHER, SELFPAY ==
--- NOTE | ~2023-05-13 | XR_ITS ---
EXAMINATION: XR LUMBOSACRAL SPINE CLINICAL INFORMATION: Lower back pain. COMPARISON: None available. TECHNIQUE: Three views of the lumbosacral spine. FINDINGS: Normal vertebral body alignment. The lumbar lordosis is maintained. No acute fracture or subluxation. No loss of vertebral body height. Partial lumbarization of the S1 vertebral body. Mild multilevel loss of intervertebral disc height with small endplate osteophytes. Prominent bilateral facet arthropathy at L3-S1. No concerning lytic or blastic osseous lesion. Right and left upper quadrant surgical clips. XR/XR lumbar spine 2-3V IMPRESSION: Mild multilevel degenerative disc disease with prominent bilateral facet arthropathy at L3-S1.
[2023-05-13 16:29] LABS: Appearance Urine Turbid; Color Urine Yellow; Glucose Urine UA Negative (Negative); Leukocyte Esterase Urine Negative (Negative); Nitrite Urine Negative (Negative); PH 5.5 (5.0-9.0); Specific Gravity - Urine >= 1.030 (1.005-1.025); Urine Blood Negative (Negative); Urine Ketones 15 mg/dL (Negative); Urine Protein Trace mg/dL (Neg-Trace)
== END 2023-05-13 11:59 | disposition home or self-care (01) ==
LOC: HO.HMGCX 11:58
PROVIDERS: Visit Provider Nurse Practitioner Primary Care
DX: M54.50 Low back pain, unspecified (principal)
CPT/HCPCS: 72100; 81003

== ENCOUNTER 2023-07-10 14:34 | Outpatient (AMB) | payer OTHER, SELFPAY ==
--- NOTE | 2023-07-10 14:40 | MHC.OFFVIS ---
Intake Visit Reasons: Varicose Vein in right leg Intake Note: Patient presents for painful varicose vein on her right leg, near the right knee. States it gets inflamed, irritated , itchy and red. Also gets hot. Accompanied by: Self / Same As Patient Allergies oxycodone [From PERCOCET] Allergy (Intermediate, Verified 07/10/23 14:43) ITCHING HPI HPI Varicose Vein in right leg: Details: Very pleasant 58-year-old female well known to me from prior venous surgeries presents for for follow-up evaluation. She had actually had a procedure performed by us in 2020. She was subsequently scheduled for right accessory vein ablation. Unfortunately she had insurance issues and was unable to have the procedure performed. She has been managing it conservatively with compression elevation and exercise. She has had no relief. It has gotten worse over the last few weeks. She now presents for follow-up. Of note she has now been able to obtain insurance. [facility] Medical History Back pain History of memory loss History of anxiety Depression GERD (gastroesophageal reflux disease) Polyarthralgia Surgical History History of carpal tunnel surgery of right wrist Hx of colonoscopy H/O vein stripping History of weight loss surgery History of cholecystectomy Family History Mother Colorectal cancer Social History Household Members: Children Housing: Apartment Alcohol intake: never Patient Tobacco Use Status: Former Tobacco user Quit Date: 2004 e-Cigarette/Vaping Use: Never Used Second Hand Smoke Exposure: No service: No Current occupational status: unemployed Current occupation: laid off/ right handed Cognitive needs: No Hearing needs: No Vision needs: Yes Female Reproductive History Menstrual Age of Menarche: 13 Review of Systems Const Reports as per HPI ENT Reports no additional complaints Card Denies chest pain, Denies chest pain at rest and Denies chest pain with activity Resp Denies chest congestion and Denies cough GI Reports no additional complaints Musc Details: pain over varicosities, aching of lower extremities, swelling, cramping, heaviness and tiredness, itching Denies abnormal gait Skin/Breast Reports pruritus and Denies wounds Neuro Reports no additional complaints and Denies abnormal gait Psych Denies no additional complaints Physical Exam Const General: cooperative, healthy appearing and comfortable Orientation/consciousness: oriented to person, oriented to place and oriented to time Neck Carotids: no bruits Chest Chest palpation & inspection: normal inspection of the chest and normal palpation of entire chest wall Resp Effort & Inspection: normal respiratory effort and able to speak in complete sentences Cardio Rate: regular rate Heart sounds: S1 normal heart sound present and S2 normal heart sound present Peripheral pulses: Peripheral pulses 2+ throughout GI Inspection: Yes normal to inspection Skin Other: +2 edema, large rope-like varicosities greater than 4 mm CEAP Classification C4 - skin color changes Ep - Etiology Primary As - superficial veins P - reflux General skin exam: dry skin Neuro General: oriented to person, oriented to place and oriented to time Extrem Right lower extremity: full ROM, normal capillary refill and edema Left lower extremity: full ROM, normal capillary refill and edema Psych Mental Status: mental status grossly normal Assessment & Plan Assessment & Plan (1) Varicose veins of left lower extremity with inflammation: Comment: Left leg vein ablation done by Dr. Osman at [facility] Code(s): I83.12 - Varicose veins of left lower extremity with inflammation Category: Medical (2) Varicose veins of right lower extremity with inflammation: Comment: 04/17/2020 - right leg microphlebectomy Code(s): I83.11 - Varicose veins of right lower extremity with inflammation Category: Medical Plan: In short she has recurrent venous disease. She has significantly large right varicosities in particular at the right knee which has been a source of phlebitis 4. We will obtain venous insufficiency testing and she will follow up with us after testing. Thank you for allowing us to assist in her care. If there are any questions or concerns please do not hesitate to contact us. Plan See above Orders: Orders US venous duplex LE BI 1 Week I83.11 - Varicose veins of right lower extremity with inflammation Coding Level of Care Code Est Pt Level 4 (64903) Diagnoses Varicose veins of left lower extremity with inflammation I83.12 Varicose veins of right lower extremity with inflammation I83.11
== END 2023-07-10 15:02 | disposition home or self-care (01) ==
PROVIDERS: PCP Family Medicine; Visit Provider Surgery Vascular Surgery
DX: I83.12 Varicose veins of left lower extremity with inflammation (principal); I83.11 Varicose veins of right lower extremity with inflammation
CPT/HCPCS: 99213

== ENCOUNTER → 2023-07-10 14:34 | Outpatient (BNVA) | payer OTHER, SELFPAY | PROVIDERS: PCP Family Medicine; Visit Provider Surgery Vascular Surgery | DX: I83.12 Varicose veins of left lower extremity with inflammation (principal); I83.11 Varicose veins of right lower extremity with inflammation | CPT/HCPCS: 99212 ==

== ENCOUNTER 2023-08-01 09:39 | Outpatient (REF) | payer OTHER, SELFPAY ==
--- NOTE | ~2023-08-01 | US_ITS ---
EXAMINATION: US LOWER EXTREMITY VENOUS (REFLUX EXAM), BILATERAL CLINICAL INDICATION: Varicose veins of right lower extremity with inflammation COMPARISON: Ultrasound venous duplex of the bilateral lower extremities dated 07/19/2022. TECHNIQUE: Color flow triplex imaging and compression Doppler was performed to evaluate both the deep and the superficial systems bilaterally. To evaluate the superficial system, the examination was performed in the upright position. Color-flow Doppler ultrasound and compression ultrasound were utilized. In addition, maneuvers were utilized to demonstrate reflux. FINDINGS: 1. DEEP VENOUS ULTRASOUND OF THE RIGHT LOWER EXTREMITY: Common Femoral Vein: Compressible, normal respiratory variation and augmented flow. Femoral Vein: Compressible, normal color flow and augmentation. Popliteal Vein: Compressible, normal augmentation. Deep Reflux: There is no evidence of reflux in the deep system in either the common femoral vein, superficial femoral or the popliteal vein. There is no evidence of a Rhodes's cyst. 2. SUPERFICIAL ULTRASOUND WITH DOPPLER OF RIGHT LOWER EXTREMITY: GREAT SAPHENOUS VEIN: Saphenofemoral Junction: 0.9 cm; Reflux: 0 ms Proximal Thigh: 0.3 cm; Reflux: 0 ms Mid Thigh: 0.2 cm; Reflux: 0 ms Above Knee: 0.1 cm; Reflux: 0 ms At Knee: 0.3 cm; Reflux: 0 ms Below Knee: 0.5 cm; Reflux: 2164 ms Mid Calf: 0.4 cm; Reflux: 1912 ms Ankle: 0.2 cm; Reflux: 0 ms DUPLICATED LATERAL GREAT SAPHENOUS VEIN: Saphenofemoral Junction: 0.6 cm; Reflux: 1772 ms Mid Thigh: 0.6 cm; Reflux: 2972 ms SMALL SAPHENOUS VEIN: Saphenopopliteal Junction: 0.4 cm; Reflux: 0 ms Proximal: 0.2 cm; Reflux: 0 ms Distal: 0.4 cm; Reflux: 2840 ms PERFORATORS: Location: Proximal SSV Size: 0.5; Reflux: 0 ms Location: Proximal SSV Size: 0.2; Reflux: 0 ms Location: Mid thigh Size: 0.2; Reflux: 0 ms VARICOSITIES: Location: Proximal SSV Size: 0.3; Reflux: 0 ms Location: Mid thigh Size: 0.3; Reflux: 1888 ms Location: Proximal calf Size: 0.3; Reflux: 2160 ms 3. DEEP VENOUS ULTRASOUND OF THE LEFT LOWER EXTREMITY: Common Femoral Vein: Compressible, normal respiratory variation and augmented flow. Femoral Vein: Compressible, normal color flow and augmentation. Popliteal Vein: Compressible, normal augmentation. Deep Reflux: There is no evidence of reflux in the deep system in either the common femoral vein, superficial femoral or the popliteal vein. There is no evidence of a Rhodes's cyst. 4. SUPERFICIAL ULTRASOUND WITH DOPPLER OF LEFT LOWER EXTREMITY: GREAT SAPHENOUS VEIN: Saphenofemoral Junction: 0.8 cm; Reflux: 0 ms Proximal Thigh: 0.3 cm; Reflux: 0 ms Mid Thigh: 0.2 cm; Reflux: 0 ms Above Knee: 0.2 cm; Reflux: 0 ms At Knee: 0.2 cm; Reflux: 0 ms Below Knee: 0.2 cm; Reflux: 0 ms Mid Calf: 0.2 cm; Reflux: 0 ms Ankle: 0.2 cm; Reflux: 0 ms DUPLICATED LATERAL GREAT SAPHENOUS VEIN: Saphenofemoral Junction: 0.3 cm; Reflux: 0 ms Mid Thigh: 0.2 cm; Reflux: 0 ms SMALL SAPHENOUS VEIN: Saphenopopliteal Junction: 0.2 cm; Reflux: 0 ms Proximal: 0.5 cm; Reflux: 1620 ms Distal: 0.2 cm; Reflux: 0 ms PERFORATORS: Location: Mid SSV Size: 0.4; Reflux: 1760 ms Location: Proximal calf Size: 0.2; Reflux: 0 ms Location: Mid calf Size: 0.2; Reflux: 0 ms VARICOSITIES: Location: Proximal thigh Size: 0.3; Reflux: 0 ms US/US venous duplex LE BI IMPRESSION: 1. No evidence of deep venous thrombosis or reflux. 2. Reconstitution of the bilateral greater saphenous veins following ablation. 3. Segmental incompetence of the right great saphenous vein at the level of the proximal calf and mid calf with reflux measuring up to 2164 ms. The reflux previously seen at the saphenofemoral junction is not visualized on this study. However, there has been interval increase in dilation throughout the right great saphenous vein. For example, the vein previously measured 0.6 cm at the level of the saphenofemoral junction, now measures 0.9 cm. 4. Incompetence of the right duplicated lateral great saphenous vein with reflux measuring up to 2972 ms. 5. Segmental incompetence of the right small saphenous vein at the level of the distal calf with reflux measuring up to 2840 ms. 6. Segmental incompetence of the left small saphenous vein at the level of the mid calf with reflux measuring up to 1620 ms. 7. Multiple bilateral perforators and varicose veins, some of which demonstrate reflux. 8. The left great saphenous vein and left duplicated lateral great saphenous vein are competent.
== END 2023-08-01 09:40 | disposition home or self-care (01) ==
LOC: HO.US 09:39
PROVIDERS: PCP Family Medicine; Visit Provider Surgery Vascular Surgery
DX: I83.11 Varicose veins of right lower extremity with inflammation (principal)
CPT/HCPCS: 93970

== ENCOUNTER 2023-08-19 15:35 | Outpatient (AMB) | payer OTHER, SELFPAY ==
--- NOTE | 2023-08-19 15:36 | MHC.OFFVIS ---
Intake Visit Reasons: f/u s/p US 07/25/23 (after 3p, appt) Intake Note: Patient presents for follow up 07/24 US. Patient states her legs feel heavy, itchy, and she has on and off swelling. Accompanied by: Self / Same As Patient Allergies oxycodone [From PERCOCET] Allergy (Intermediate, Verified 08/19/23 15:38) ITCHING HPI HPI f/u s/p US 07/25/23 (after 3p, appt): Details: Very pleasant 58-year-old female presents for follow-up status post venous insufficiency testing. She has had prior right lower extremity microphlebectomy and ablation performed. She has a rather large varicosity on the right anterior aspect of the thigh going down into the calf. She now presents for follow-up with venous insufficiency testing. Of note she has been using compression for several years with minimal relief. [facility] Medical History Back pain History of memory loss History of anxiety Depression GERD (gastroesophageal reflux disease) Polyarthralgia Surgical History History of carpal tunnel surgery of right wrist Hx of colonoscopy H/O vein stripping History of weight loss surgery History of cholecystectomy Family History Mother Colorectal cancer Social History Household Members: Children Housing: Apartment Alcohol intake: never Patient Tobacco Use Status: Former Tobacco user e-Cigarette/Vaping Use: Never Used Second Hand Smoke Exposure: No service: No Current occupational status: unemployed Current occupation: laid off/ right handed Cognitive needs: No Hearing needs: No Vision needs: Yes Female Reproductive History Menstrual Age of Menarche: 13 Review of Systems Const Reports as per HPI ENT Reports no additional complaints Card Denies chest pain, Denies chest pain at rest and Denies chest pain with activity Resp Denies chest congestion and Denies cough GI Reports no additional complaints Musc Details: pain over varicosities, aching of lower extremities, swelling, cramping, heaviness and tiredness, itching Denies abnormal gait Skin/Breast Reports pruritus and Denies wounds Neuro Reports no additional complaints and Denies abnormal gait Psych Denies no additional complaints Physical Exam Const General: cooperative, healthy appearing and comfortable Orientation/consciousness: oriented to person, oriented to place and oriented to time Neck Carotids: no bruits Chest Chest palpation & inspection: normal inspection of the chest and normal palpation of entire chest wall Resp Effort & Inspection: normal respiratory effort and able to speak in complete sentences Cardio Rate: regular rate Heart sounds: S1 normal heart sound present and S2 normal heart sound present Peripheral pulses: Peripheral pulses 2+ throughout GI Inspection: Yes normal to inspection Skin Other: +2 edema, large rope-like varicosities greater than 4 mm right anterior thigh and calf CEAP Classification C4 - skin color changes Ep - Etiology Primary As - superficial veins P - reflux General skin exam: dry skin Neuro General: oriented to person, oriented to place and oriented to time Extrem Right lower extremity: full ROM, normal capillary refill and edema Left lower extremity: full ROM, normal capillary refill and edema Psych Mental Status: mental status grossly normal Results Reviewed Results Reviewed: Brief summary of venous insufficiency testing is as follows: right great saphenous vein: negative right small saphenous vein: negative right accessory vein: Present and positive left great saphenous vein: negative left small saphenous vein: negative left accessory vein: none present Please note there is no evidence of any venous aneurysms or significant tortuosity Assessment & Plan Assessment & Plan (1) Varicose veins of right lower extremity with inflammation: Comment: 04/17/2020 - right leg microphlebectomy Code(s): I83.11 - Varicose veins of right lower extremity with inflammation Category: Medical Plan: This patient has varicose veins with inflammation. They continue to be a source of discomfort for the patient. The patient has tried conservative treatment with compression, leg elevation and exercise program for over 3 months time. They have been compliant with all treatment. This has provided minimal relief for the patient. I do not anticipate this course of treatment will alter the underlying etiology. The patient has been scheduled for lower extremity venous treatment inclusive of --- right anterior vein radiofrequency ablation. Risks, benefits, and complications of this procedure has been discussed in detail with the patient including but not limited to bleeding, infection, and the development of a DVT. The patient has demonstrated a clear understanding and has consented. We will schedule the patient as soon as possible. Thank you for allowing us to participate in this patient's care. If there are any questions or concerns please do not hesitate to contact us. Coding Level of Care Code Est Pt Level 4 (20587) Diagnoses Varicose veins of right lower extremity with inflammation I83.11
== END 2023-08-19 16:00 | disposition home or self-care (01) ==
PROVIDERS: PCP Family Medicine; Visit Provider Surgery Vascular Surgery
DX: I83.11 Varicose veins of right lower extremity with inflammation (principal)
CPT/HCPCS: 99214

== ENCOUNTER → 2023-08-19 15:35 | Outpatient (BNVA) | payer OTHER, SELFPAY | PROVIDERS: PCP Family Medicine; Visit Provider Surgery Vascular Surgery | DX: I83.11 Varicose veins of right lower extremity with inflammation (principal) | CPT/HCPCS: 99212 ==

== ENCOUNTER 2023-09-12 12:11 | Outpatient (REF) | payer OTHER, SELFPAY | END 2023-09-12 12:12 | disposition home or self-care (01) | LOC: HO.MAMMO 12:11 | PROVIDERS: PCP Family Medicine; Visit Provider Family Medicine | DX: Z12.31 Encounter for screening mammogram for malignant neoplasm of breast (principal) | CPT/HCPCS: 77063; 77067 ==

== ENCOUNTER → 2023-09-12 13:00 | Outpatient (BNV) | payer OTHER, SELFPAY | PROVIDERS: PCP Family Medicine; Visit Provider Radiology Diagnostic Radiology | DX: Z12.31 Encounter for screening mammogram for malignant neoplasm of breast (principal) | CPT/HCPCS: 77063; 77067 ==

== ENCOUNTER 2023-09-23 08:51 | Outpatient (AMB) | payer OTHER, SELFPAY ==
[2023-09-23 09:04] VITALS: BP 126/82; PULSE 72; TEMP 36.8; O2SAT 99; BMI 35.5
--- NOTE | 2023-09-23 09:04 | MHC.OFFWIV ---
Intake Vital Signs 09/23/23 09:04 Height 5 ft 7 in Weight 227 lb BMI 35.5 BP 126/82 Blood Pressure Location Lt brachial Position Sitting Pulse 72 Pulse Source Pulse Oximeter Temp 98.3 F Temp Source Oral Pulse Oximetry (%) 99 Oxygen Delivery Method Room Air Intake Visit Reasons: EP Body ache, fever, chills, runs head ache Intake Note: Pt is here today for body aches and chills since yesterday. Pt also mentioned fevers and headaches. Patient Tobacco Use Status: Former Tobacco user Allergies oxycodone [From PERCOCET] Allergy (Intermediate, Verified 09/23/23 09:05) ITCHING Do you need a note to return to daycare/school/sports/work: Yes HPI HPI Comments History of Present Illness Details This is a 50-year-old female with a past medical history of depression and gastroesophageal reflux disease presenting for evaluation of a headache, body aches, bilateral ear pain and sore throat that started yesterday. Patient denies having any fevers, chills, nausea, vomiting, chest pain, cough or shortness of breath. Patient reports having one episode of diarrhea this morning. Additionally, patient denies having any recent sick contacts. [facility] Medical History Back pain History of memory loss History of anxiety Depression GERD (gastroesophageal reflux disease) Polyarthralgia Surgical History History of carpal tunnel surgery of right wrist Hx of colonoscopy H/O vein stripping History of weight loss surgery History of cholecystectomy Family History Mother Colorectal cancer Social History Household Members: Children Housing: Apartment Alcohol intake: never Patient Tobacco Use Status: Former Tobacco user e-Cigarette/Vaping Use: Never Used Second Hand Smoke Exposure: No service: No Current occupational status: unemployed Current occupation: laid off/ right handed Cognitive needs: No Hearing needs: No Vision needs: Yes Female Reproductive History Menstrual Age of Menarche: 13 Review of Systems Const All systems reviewed & are unremarkable except as noted in HPI and below Denies chills, Denies fever(s) and Reports night sweats Eyes Reports as per HPI ENT Reports otalgia (bilateral), Denies facial pain, Denies nasal discharge, Denies post nasal drip and Reports sore throat Card Reports no additional complaints, Denies chest pain and Denies dyspnea Resp Reports no additional complaints, Denies cough and Denies dyspnea GI Reports no additional complaints, Denies abdominal pain, Reports diarrhea (x1), Denies nausea and Denies vomiting Reports no additional complaints Musc Details: general myalgias Skin/Breast Reports system reviewed and no additional complaints, except as documented Neuro Reports no additional complaints Psych Reports no additional complaints Endo Reports no additional complaints Aller/Immun Reports no additional complaints Physical Exam Vital Signs: Last Vital Signs Temp 98.3 F 09/23/23 09:04 Pulse 72 09/23/23 09:04 BP 126/82 09/23/23 09:04 Pulse Ox 99 09/23/23 09:04 Oxygen Delivery Method Room Air 09/23/23 09:04 BMI result Body Mass Index 35.5 Const General: cooperative, healthy appearing, comfortable, no acute distress, well developed, alert, awake and Physically active; No acute distress or lethargic Nutritional Appearance: overweight Orientation/consciousness: patient oriented x3 and No lethargic Limitations: no limitations HEENT Head: Yes normal to inspection Ears: hearing grossly normal bilaterally, external ears normal, TM's normal bilaterally, EAC's normal and no periauricular adenopathy General nose exam: Normal external nose present Face and sinus: Yes normal facial exam Mouth: Normal oral and palatal mucosa present and moist mucous membranes Teeth and gingiva: dentition normal Throat: Yes posterior oropharynx normal (There is no edema, erythema or exudates of the posterior oropharynx) Eyes General: appearance normal, both eyes and all related structures EOM: EOMs intact bilaterally Neck Lymphatic: no lymphadenopathy noted Resp Effort & Inspection: normal respiratory effort and able to speak in complete sentences Auscultation: clear to auscultation bilaterally Cardio Rate: regular rate Rhythm: regular rhythm GI Palpation (GI): Soft to palpation and nontender Auscultation: normal bowel sounds Skin General skin exam: no rashes or lesions noted Neuro General: patient oriented x3 Psych Appearance: grossly normal Mental Status: mental status grossly normal Insight: Good insight present (Psych) Judgement: Good judgement present (Psych) Assessment & Plan Assessment & Plan (1) Acute upper respiratory infection: Comment: There is no evidence of an otitis media or bacterial pharyngitis; lungs are clear to auscultation bilaterally. Patient requesting testing for COVID which is pending at this time. Code(s): J06.9 - Acute upper respiratory infection, unspecified Plan: Increase fluids daily, Tylenol or ibuprofen as needed for discomfort. Respiratory panel is pending. Orders: Orders SARS-CoV2/FLU/RSV Today J06.9 - Acute upper respiratory infection, unspecified Coding Level of Care Code Est Pt Level 3 (43078) Diagnoses Acute upper respiratory infection J06.9 Time Spent (min) 20
== END 2023-09-23 09:21 | disposition home or self-care (01) ==
PROVIDERS: PCP Family Medicine; Visit Provider Physician Assistant
DX: J06.9 Acute upper respiratory infection, unspecified (principal)
CPT/HCPCS: 99213

== ENCOUNTER 2023-09-23 10:21 | Outpatient (REF) | payer OTHER, SELFPAY ==
[2023-09-23 11:11] LABS: Influenza A PCR NEGATIVE (Negative); Influenza B PCR NEGATIVE (Negative); Resp Syncy Virus RNA Qual PCR NEGATIVE (Negative); SARS COV2 PCR INHOUSE POSITIVE (Negative)
== END 2023-09-23 10:22 | disposition home or self-care (01) ==
LOC: HO.LNP 10:21
PROVIDERS: Visit Provider Physician Assistant
DX: J06.9 Acute upper respiratory infection, unspecified (principal)
CPT/HCPCS: 0241U

== ENCOUNTER 2023-09-26 08:35 | Outpatient (AMB) | payer OTHER, SELFPAY ==
[2023-09-26 08:34] VITALS: BMI 35.5
--- NOTE | 2023-09-26 08:34 | A.OFFVIS_ITS ---
Vital Signs 09/26/23 08:34 Height 5 ft 7 in Weight 227 lb BMI 35.5 Intake Visit Reasons: Right GSV RFA Accompanied by: Self / Same As Patient Allergies oxycodone [From PERCOCET] Allergy (Intermediate, Verified 09/26/23 08:36) ITCHING PFSH Medical History Back pain History of memory loss History of anxiety Depression GERD (gastroesophageal reflux disease) Polyarthralgia Surgical History History of carpal tunnel surgery of right wrist Hx of colonoscopy H/O vein stripping History of weight loss surgery History of cholecystectomy Family History Mother Colorectal cancer Social History Household Members: Children Housing: Apartment Alcohol intake: never Patient Tobacco Use Status: Former Tobacco user e-Cigarette/Vaping Use: Never Used Second Hand Smoke Exposure: No service: No Current occupational status: unemployed Current occupation: laid off/ right handed Cognitive needs: No Hearing needs: No Vision needs: Yes Female Reproductive History Menstrual Age of Menarche: 13 Physical Exam Vital Signs: BMI result Body Mass Index 35.5 Office Procedures Vascular Office Procedure Details Details: Diagnosis: Varicose veins with inflammation of right leg Procedure: Endovenous radiofrequency ablation of the right anterior great saph enous vein(s) of the lower extremity. Anesthesia: Local infiltration 5 cc, Tumescent 200 cc. Estimated Blood Loss: minimal Specimen: Varicose veins The patient was transferred to the procedure suite and the insufficient saphenous vein was mapped by ultrasound and diagrammed on the overlying skin. The depth and diameter of the vein(s) to be treated was documented. The varicose tributary veins and suitable access sites were identified and mapped as well. The patient was then positioned supine on the procedure table. The affected limb was prepped and draped in the usual sterile fashion. The RF catheter was placed on the sterile field, flushed and wiped down, prepared, and connected by a sterile cable. The patient was placed in supine position and local anesthesia was instilled in the skin overlying the access site. A skin incision was made overlying the identified and mapped great saphenous vein entry site. The vein was accessed using ultrasound guidance and the Seldinger technique, a guide wire was introduced through the needle, which was then exchanged over the guide wire for a 6F sheath, which was secured in place. The guide wire was removed and the sheath was flushed. The RF catheter was placed into the vein through the sheath and preferentially, imaging was used to place the catheter tip just inferior to the superficial epigastric vein to preserve normal physiological flow in that vein. Additionally, it was confirmed by ultrasound guidance that the catheter tip was also placed a minimum of 1.5cm distal to the saphenofemoral junction. After the RF catheter position was verified by ultrasound, tumescent anesthesia was infiltrated, under ultrasound guidance, precisely into the perivenous compartment along the entire length of vein from the entry site to the saphen ofemoral junction until a halo of fluid was noted around the vein. The patient was then placed in supine position to further exsanguinate the superficial venous system. After RF catheter position was again confirmed with ultrasound imaging, and under direct external compression along the length of the heating element, RF energy was applied. The vein was segmentally ablated by heating a 8 cm segment and then indexing the catheter forward by 7.5 cm until the treatment length is completed. Device temperature was maintained at 120 plus or minus 5 degrees C with an initial power level of 40W dropping to below 20W for each treatment. Total vein length treated 16 cm Total cycles of RF 3. Repeat ultrasound of the saphenous vein was performed, confirming successful treatment. The catheter and sheath were withdrawn and hemostasis established with direct pressure. After assuring hemostasis, the skin incision over the saphenous vein was closed with a bandage and a compression wrap, and/ or gra duated compression stocking was applied from the level of the foot to the most proximal level of the thigh. 48691 - Endovenous RF, 1st Vein All charges added?: Procedure code (CPT) selection complete Assessment & Plan Assessment & Plan (1) Varicose veins of right lower extremity with inflammation: Comment: 04/17/2020 - right leg microphlebectomy 09/26/2023 - right anterior saphenous vein radiofrequency ablation Code(s): I83.11 - Varicose veins of right lower extremity with inflammation Category: Medical Plan: See op note Coding Level of Care Code Procedure Only Diagnoses Varicose veins of right lower extremity with inflammation I83.11 CPT Codes Details - Vascular 1: 14730 - Endovenous RF, 1st Vein ([id number])
== END 2023-09-26 09:21 | disposition home or self-care (01) ==
PROVIDERS: PCP Family Medicine; Visit Provider Surgery Vascular Surgery
DX: I83.11 Varicose veins of right lower extremity with inflammation (principal)
CPT/HCPCS: 36475

== ENCOUNTER → 2023-09-26 08:35 | Outpatient (BNVA) | payer OTHER, SELFPAY | PROVIDERS: PCP Family Medicine; Visit Provider Surgery Vascular Surgery | DX: I83.11 Varicose veins of right lower extremity with inflammation (principal) | CPT/HCPCS: 36475 ==

== ENCOUNTER 2023-09-29 11:19 | Outpatient (REF) | payer OTHER, SELFPAY ==
--- NOTE | ~2023-09-29 | US_ITS ---
EXAMINATION: TRIPLEX SCANNING OF RIGHT LOWER EXTREMITY; SUPERFICIAL ULTRASOUND WITH DOPPLER OF RIGHT LOWER EXTREMITY CLINICAL INFORMATION: Status post RF ablation of the right great saphenous vein. Originally performed on 09/26/2023. COMPARISON: preprocedure studies. TECHNIQUE: Color flow triplex imaging and compression Doppler were performed as well as superficial ultrasound with Doppler. FINDINGS: TRIPLEX SCANNING OF RIGHT LOWER EXTREMITY: Respiratory variation, normal compression and augmented flow are noted throughout the lower extremity. The visualized common femoral vein, femoral vein, profunda femoral vein, popliteal vein and the calf veins show no evidence of deep venous thrombosis. SUPERFICIAL ULTRASOUND WITH DOPPLER OF RIGHT LOWER EXTREMITY: The right great saphenous vein is occluded. There is extension of thrombus up to the saphenofemoral junction, without extension of thrombus into the deep system. There is no evidence of Rhodes's cyst. US/US venous duplex LE RT IMPRESSION: 1. Post ablation changes of the right great saphenous vein. 2. EHIT type I with extension of thrombus to the right saphenofemoral junction but no extension into the common femoral vein. 3. Otherwise, normal triplex scan of the right without evidence of deep venous thrombosis.
== END 2023-09-29 11:20 | disposition home or self-care (01) ==
LOC: HO.US 11:19
PROVIDERS: PCP Family Medicine; Visit Provider Surgery Vascular Surgery
DX: M79.604 Pain in right leg (principal)
CPT/HCPCS: 93971

== ENCOUNTER 2023-10-09 14:59 | Outpatient (AMB) | payer OTHER, SELFPAY ==
--- NOTE | 2023-10-09 15:01 | MHC.OFFVIS ---
Intake Visit Reasons: 2 week follow up Right GSV RFA 09/26/23 Intake Note: Patient presents for right GSV RFA . She states her leg is feeling much better. Has some pain in her right calf. States she had some pain near the groin but that it is getting better. Accompanied by: Self / Same As Patient Allergies oxycodone [From PERCOCET] Allergy (Intermediate, Verified 10/09/23 15:03) ITCHING HPI HPI 2 week follow up Right GSV RFA 09/26/23: Details: Very pleasant 58-year-old female presents for follow-up status post right great saphenous vein ablation. Postprocedure reports that the leg in general feels better. She did have some postprocedure phlebitis in particular over the thigh and calf. It does cause some discomfort for her. She now presents for follow-up. Of note postprocedure ultrasound was negative for DVT PFSH Medical History Back pain History of memory loss History of anxiety Depression GERD (gastroesophageal reflux disease) Polyarthralgia Surgical History History of carpal tunnel surgery of right wrist Hx of colonoscopy H/O vein stripping History of weight loss surgery History of cholecystectomy Family History Mother Colorectal cancer Social History Household Members: Children Housing: Apartment Alcohol intake: never Patient Tobacco Use Status: Former Tobacco user e-Cigarette/Vaping Use: Never Used Second Hand Smoke Exposure: No service: No Current occupational status: unemployed Current occupation: laid off/ right handed Cognitive needs: No Hearing needs: No Vision needs: Yes Female Reproductive History Menstrual Age of Menarche: 13 Review of Systems Const Reports as per HPI ENT Reports no additional complaints Card Denies chest pain, Denies chest pain at rest and Denies chest pain with activity Resp Denies chest congestion and Denies cough GI Reports no additional complaints Musc Details: pain over varicosities, aching of lower extremities, swelling, cramping, heaviness and tiredness, itching Denies abnormal gait Skin/Breast Reports pruritus and Denies wounds Neuro Reports no additional complaints and Denies abnormal gait Psych Denies no additional complaints Physical Exam Const General: cooperative, healthy appearing and comfortable Orientation/consciousness: oriented to person, oriented to place and oriented to time Neck Carotids: no bruits Chest Chest palpation & inspection: normal inspection of the chest and normal palpation of entire chest wall Resp Effort & Inspection: normal respiratory effort and able to speak in complete sentences Cardio Rate: regular rate Heart sounds: S1 normal heart sound present and S2 normal heart sound present Peripheral pulses: Peripheral pulses 2+ throughout GI Inspection: Yes normal to inspection Skin Other: +2 edema, large rope-like varicosities greater than 4 mm CEAP Classification C4 - skin color changes Ep - Etiology Primary As - superficial veins P - reflux General skin exam: dry skin Neuro General: oriented to person, oriented to place and oriented to time Extrem Right lower extremity: full ROM, normal capillary refill and edema Left lower extremity: full ROM, normal capillary refill and edema Psych Mental Status: mental status grossly normal Assessment & Plan Assessment & Plan (1) Varicose veins of right lower extremity with inflammation: Comment: 04/17/2020 - right leg microphlebectomy 09/26/2023 - right anterior saphenous vein radiofrequency ablation Code(s): I83.11 - Varicose veins of right lower extremity with inflammation Category: Medical Plan: In short patient has done well status post ablation. She does have some postprocedure phlebitis which I would like to resolve. We did discuss conservative measures including warm compresses and use of nonsteroidal anti-inflammatories. She will follow up with us in approximately 1 month's time. At that time will decide whether a microphlebectomy verse small saphenous vein ablation is appropriate. Once again she will follow up with us in approximately 1 months time. Should there be any interval issues happy to see her back sooner. Thank you for allowing us to assist in her care. (2) Varicose veins of left lower extremity with inflammation: Comment: Left leg vein ablation done by Dr. Osman at [facility] Code(s): I83.12 - Varicose veins of left lower extremity with inflammation Category: Medical Plan: See above Coding Level of Care Code Est Pt Level 3 (04731) Diagnoses Varicose veins of right lower extremity with inflammation I83.11 Varicose veins of left lower extremity with inflammation I83.12
== END 2023-10-09 15:10 | disposition home or self-care (01) ==
PROVIDERS: PCP Family Medicine; Visit Provider Surgery Vascular Surgery
DX: I83.11 Varicose veins of right lower extremity with inflammation (principal); I83.12 Varicose veins of left lower extremity with inflammation
CPT/HCPCS: 99213

== ENCOUNTER → 2023-10-09 14:59 | Outpatient (BNVA) | payer OTHER, SELFPAY | PROVIDERS: PCP Family Medicine; Visit Provider Surgery Vascular Surgery | DX: I83.11 Varicose veins of right lower extremity with inflammation (principal); I83.12 Varicose veins of left lower extremity with inflammation | CPT/HCPCS: 99212 ==

== ENCOUNTER 2023-10-27 11:39 | Outpatient (AMB) | payer OTHER, SELFPAY ==
--- NOTE | 2023-10-27 11:50 | MHC.PC.OV ---
Vital Signs 10/27/23 11:56 Height 5 ft 7 in Weight 220 lb BMI 34.5 BP 120/78 Blood Pressure Location Rt brachial Position Sitting Respiration 16 Pulse 63 Pulse Source Pulse Oximeter Temp 98 F Temp Source Tympanic Pulse Oximetry (%) 96 Oxygen Delivery Method Room Air Intake Visit Reasons: refferals Intake Note: referral for a colonoscopy, PT referral for carpel tunnel in the right wrist Allergies oxycodone [From PERCOCET] Allergy (Intermediate, Verified 10/27/23 11:53) ITCHING Tobacco use date assessed: 03/28/23 HPI refferals HPI Details 58 y/o female presents today for referrals. Has complaints of R wrist pain. She reports hx of carpal tunnel syndrome on R wrist. She notes it had been a long time since her last colonoscopy. She notes she is supposed to be on a 2 year schedule. HPI Comments History of Present Illness Details Documentation assistance for Matt Patten MD, was provided by Oscar Diaz,? Electroneurodiagnostic Technologist on 10/27/2023 at 12:10 PM EST. I, Dr. Patten, have read, observed, and verified documentation. [facility] Medical History Back pain History of memory loss History of anxiety Depression GERD (gastroesophageal reflux disease) Polyarthralgia Surgical History History of carpal tunnel surgery of right wrist Hx of colonoscopy H/O vein stripping History of weight loss surgery History of cholecystectomy Family History Mother Colorectal cancer Social History Household Members: Children Housing: Apartment Alcohol intake: never Patient Tobacco Use Status: Former Tobacco user e-Cigarette/Vaping Use: Never Used Second Hand Smoke Exposure: No service: No Current occupational status: unemployed Current occupation: laid off/ right handed Cognitive needs: No Hearing needs: No Vision needs: Yes Female Reproductive History Menstrual Age of Menarche: 13 Questionnaire Thrive Questionnaire Date Thrive assessed: 04/25/22 ALICIA-7 AMB Questionnaire ALICIA-7 Date ALICIA - 7 assessed: 03/28/23 Source: Developed by Drs. Iker Kan, Rosa Candelario, Vasquez Olson and colleagues, with an educational lennox from [employer]. Review of Systems Const Denies chills, Denies fatigue, Denies fever(s), Denies headache(s) and Denies weakness ENT Denies dizziness and Denies headache(s) Card Denies dyspnea Resp Denies cough, Denies dyspnea, Denies wheezing and Denies other (shortness of breath) Musc Denies numbness and Denies tingling Neuro Denies dizziness, Denies headache(s), Denies numbness, Denies tingling and Denies weakness Psych Denies anxiety and Denies depression Endo Denies fatigue Aller/Immun Denies wheezing Physical exam (Primary Care) Vital Signs: Last Vital Signs Temp 98 F 10/27/23 11:56 Pulse 63 10/27/23 11:56 Resp 16 10/27/23 11:56 BP 120/78 10/27/23 11:56 Pulse Ox 96 10/27/23 11:56 Oxygen Delivery Method Room Air 10/27/23 11:56 BMI result Body Mass Index 34.5 Tobacco/Smoking Status: Tobacco use Status Tobacco use date assessed 03/28/23 10/27/23 11:52 Patient Tobacco Use Status Former Tobacco user 10/27/23 11:52 e-Cigarette/Vaping Use Never Used 10/27/23 11:52 Thrive Assessment: Date of Thrive Assessment Date Thrive assessed 04/25/22 10/27/23 11:52 Const General: well developed; No acute distress Nutritional Appearance: well nourished Orientation/consciousness: patient oriented x3 HENMT Head: Yes normocephalic and Yes atraumatic Eyes General: appearance normal, both eyes and all related structures Pupils: Equal, round and reactive pupils present EOM: EOMs intact bilaterally Resp Effort & Inspection: normal respiratory effort Auscultation: clear to auscultation bilaterally Cardio Rate: regular rate Rhythm: regular rhythm Heart sounds: S1 normal heart sound present, S2 normal heart sound present, no gallops, no murmurs and no rubs Neuro General: patient oriented x3 and gait normal Cranial nerves: Yes Equal, round and reactive pupils present Extrem Other: R wrist pain, positive rosey sign Psych Affect: normal affect Assessment and Plan Assessment & Plan (1) Right wrist pain: Code(s): M25.531 - Pain in right wrist Plan: Pain?at?base?of?right?thumb?and?radiating?into?distal?forearm?on?radial?side Positive?Rosey?sign Likely?de?Quervain?tenosynovitis Referred?to?the?hand?specialist?to?consider?injection?therapy (2) Screening for colon cancer: Code(s): Z12.11 - Encounter for screening for malignant neoplasm of colon Plan: Patient?says?she?is?overdue?for?colonoscopy. [place] [place] [place]: Referrals Gastroenterology Referral Z12.11 - Encounter for screening for malignant neoplasm of colon Hand Surgery Referral M25.531 - Pain in right wrist, M79.644 - Pain in right finger(s) Coding Level of Care Code Est Pt Level 3 (80472) Diagnoses Right wrist pain M25.531 Screening for colon cancer Z12.11
[2023-10-27 11:56] VITALS: BP 120/78; PULSE 63; RESP 16; TEMP 36.6; O2SAT 96; BMI 34.5
== END 2023-10-27 12:16 | disposition home or self-care (01) ==
PROVIDERS: PCP Family Medicine; Visit Provider Family Medicine
DX: M25.531 Pain in right wrist (principal); Z12.11 Encounter for screening for malignant neoplasm of colon
CPT/HCPCS: 99213

== ENCOUNTER 2023-11-28 11:30 | Outpatient (AMB) | payer OTHER, SELFPAY ==
--- NOTE | 2023-11-28 11:45 | MHC.OFFVIS ---
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 Hx of left and right CTR DOS: right 06/15/2020 & left 07/20/2020 w/ Dr Tamayo. Patient reports she is unable to grasp, pull, or lift due to severe pain at the base of her thumb of her right hand. This has been going on for a year but has progressively worsened. 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 Only time she has tingling is when she is sleeping but most pain is when she is using her right hand. She uses a brace for her thumb at night when she is going to sleep that she got over the counter but this mildly helps her. Tylenol and ibuprofen offers mild help sometimes. Denies past injections in her thumb. 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 The patient states that for approximately 1 year, she has been experiencing significant pain in her right thumb and radial wrist, and this has progressively worsened over that time. Patient reports that she is unable to grasp, pull, or lift anything of any significant weight due to this discomfort. 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 Patient does report that she does get some tingling at night, but no numbness. No other acute complaints or concerns at this time. [facility] Medical History Back pain History of memory loss History of anxiety Depression GERD (gastroesophageal reflux disease) Polyarthralgia Surgical History History of carpal tunnel surgery of right wrist Hx of colonoscopy H/O vein stripping History of weight loss surgery History of cholecystectomy Family History Mother Colorectal cancer Social History Household Members: Children Housing: Apartment Alcohol intake: never Patient Tobacco Use Status: Former Tobacco user e-Cigarette/Vaping Use: Never Used Second Hand Smoke Exposure: No service: No Current occupational status: employed and unemployed 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 Neuro: Normal sensation of the tips of all digits of the R hand at this time Vascular: Cap refill brisk Pain: Patient reports significant tenderness to palpation of the radial styloid of the right Wrist no tenderness to palpation of the anatomical snuffbox, basal joint, or the MCP joint of the right thumb ROM: Patient is able to make a closed fist and extend all digits of the right hand Skin: No lacerations or abrasions. General: No ecchymosis, erythema, or evidence of infection. Positive Rosey test on the right Psych: Appears grossly normal Affect normal Attitude cooperative Assessment & Plan Assessment & Plan (1) De Quervain's tenosynovitis, right: Code(s): M65.4 - Radial styloid tenosynovitis [de Quervain] Category: Medical Plan 1. De Quervain tenosynovitis, right Patient is educated about this condition Patient is educated about the treatment options available to her Patient would like to proceed with steroid injection Injection #1: The risks and benefits of a steroid injection including but not limited to risk of damage to blood vessels, nerves, tendons, infection, skin bleaching, failure to improve symptoms, increased pain, and possible need for further injections or other intervention were discussed with the patient and the patient wishes to proceed with the steroid injection. Once consent was obtained, I aseptically prepped the area over the 1st dorsal compartment of the right thumb. I then injected the 1st dorsal compartment with a combination of 1 mL of dexamethasone (4mg/ml), and 1% lidocaine. The patient tolerated the procedure well with no complications and good resolution of their symptoms prior to leaving clinic. If the patient continues to have pain 6-8 weeks following this injection, they may call to schedule appointment to discuss alternative treatment options Coding Level of Care Code New Pt Level 3 (31395) Diagnoses De Quervain's tenosynovitis, right M65.4
[2023-11-28 11:46] VITALS: BMI 33.4
== END 2023-11-28 12:41 | disposition home or self-care (01) ==
PROVIDERS: PCP Family Medicine
DX: M65.4 Radial styloid tenosynovitis [de Quervain] (principal)
CPT/HCPCS: 20550; 99203

== ENCOUNTER → 2023-11-28 11:30 | Outpatient (BNVA) | payer OTHER, SELFPAY | PROVIDERS: PCP Family Medicine ==

== ENCOUNTER 2023-11-28 12:39 | Outpatient (REF) | payer OTHER, SELFPAY ==
[2023-11-28 12:55] LABS: MANUAL DIFF FLAG NO
[2023-11-28 13:46] LABS: Basophils Absolute Auto 0.1 X10*3/uL (0.0-0.2); Basophils Percent Auto 0.8 % (0-2); Eosinophils Absolute Auto 0.1 X10*3/uL (0.0-0.4); Eosinophils Percent Auto 1.8 % (0-4); Hematocrit 41.8 % (37.0-47.0); Hemoglobin 13.8 g/dl (12.0-16.0); Imm Gran Abs Auto 0.02 X10*3/uL (0.00-0.03); Imm Gran Pct Auto 0.3 % (0.0-0.4); Lymphocytes Absolute Auto 2.9 X10*3/uL (1.2-4.9); Lymphocytes Percent Auto 38.1 % (20-40); Mean Corpuscular Hemoglobin 31.1 pg (27.0-33.0); Mean Corpuscular Volume 94.1 fL (80.0-98.0); Mean Platelet Volume 10.1 fL (9.4-12.3); Monocytes Absolute Auto 0.5 X10*3/uL (0.1-1.2); Monocytes Percent Auto 6.1 % (2-11); Neutrophils Absolute Auto 4.1 x10*3/uL (2.0-8.3); Neutrophils Percent Auto 52.9 % (45-73); Platelet Count 312 X10*3/uL (160-400); Red Blood Count 4.44 X10*6/uL (4.20-5.50); Red Cell Distribution Width 12.1 % (11.0-16.0); White Blood Count 7.7 X10*3/uL (4.8-10.8)
[2023-11-28 14:04] LABS: Appearance Urine Clear; Color Urine Yellow; Glucose Urine UA Negative (Negative); Leukocyte Esterase Urine Negative (Negative); Nitrite Urine Negative (Negative); Specific Gravity - Urine 1.025 (1.005-1.025); Urine Blood Negative (Negative); Urine Ketones Negative (Negative); Urine Protein Negative (Neg-Trace)
[2023-11-28 14:33] LABS: Alanine Aminotransferase 16 U/L (0-31); Albumin Level 4.1 g/dL (3.5-5.0); Alkaline Phosphatase 76 U/L (39-117); Anion Gap 9 (12-20); Aspartate Amino Transferase 19 U/L (5-31); Bilirubin Total 0.5 mg/dL (0.0-1.0); Blood Urea Nitrogen 8 mg/dL (9-16); Calcium 9.6 mg/dL (8.4-10.2); Carbon Dioxide 29 mmol/L (22-29); Chloride 106 mmol/L (96-108); Cholesterol 162 mg/dL (<200); Estimated Glomerular Filt Rate > 60; Glucose Fasting 80 mg/dL (60-99); HDL Cholesterol 39 mg/dL (>40); LDL Cholesterol Calculated 85 mg/dL (<100); Potassium 3.9 mmol/L (3.3-5.1); Sodium 140 mmol/L (135-145); Triglycerides 192 mg/dL (<150)
[2023-11-28 15:05] LABS: Creatinine Urine 138.83 mg/dL; Microalbum/Creatinine Ratio Ur 4.3 ug/mg cr (<30)
== END 2023-11-28 12:40 | disposition home or self-care (01) ==
LOC: HO.LAB 12:39
PROVIDERS: PCP Family Medicine; Visit Provider Family Medicine
DX: Z00.00 Encounter for general adult medical examination without abnormal findings (principal); I10 Essential (primary) hypertension; M65.4 Radial styloid tenosynovitis [de Quervain]
CPT/HCPCS: 20550; 36415; 80053; 80061; 81003; 82043; 82570; 84443; 85025; 99202; J1100

== ENCOUNTER 2023-12-03 15:41 | Outpatient (REF) | payer OTHER, SELFPAY ==
[2023-12-08 15:58] LABS: HPV mRNA E6/E7 Not Detected (Not Detected)
== END 2023-12-03 15:42 | disposition home or self-care (01) ==
LOC: HO.HHCLNP 15:41
PROVIDERS: PCP Family Medicine; Visit Provider Obstetrics & Gynecology
DX: Z01.419 Encounter for gynecological examination (general) (routine) without abnormal findings (principal)
CPT/HCPCS: 36415; 87624; 88175; 99396

== ENCOUNTER 2023-12-03 15:41 | Outpatient (AMB) | payer OTHER, SELFPAY ==
[2023-12-03 15:44] VITALS: BP 118/70; BMI 33.1
--- NOTE | 2023-12-03 15:44 | A.OFFVIS_ITS ---
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 No complaints. Last Pap/HPV was negative/HPV positive in 01/29, this was followed by colpo biopsy ECC which was negative Last Mammogram was BI-RADS 1 in 09/30 Last Colonoscopy was in 08/29, the recommendation was to repeat in 2 years [facility] Medical History Back pain History of memory loss History of anxiety Depression GERD (gastroesophageal reflux disease) Polyarthralgia Surgical History History of carpal tunnel surgery of right wrist Hx of colonoscopy H/O vein stripping History of weight loss surgery History of cholecystectomy Family History Mother Colorectal cancer Social History Household Members: Children Housing: Apartment Alcohol intake: never Patient Tobacco Use Status: Former Tobacco user e-Cigarette/Vaping Use: Never Used Second Hand Smoke Exposure: No service: No Current occupational status: employed and unemployed 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 Cognitive needs: No Hearing needs: No Vision needs: Yes Female Reproductive History Menstrual Age of Menarche: 13 Date of last pap smear: 01/30/22 History of abnormal pap smear: Yes (HPV +) Date of Mammogram: 09/12/23 Review of Systems Const All systems reviewed & are unremarkable except as noted in HPI and below Card Reports as per HPI Resp Reports as per HPI GI Reports as per HPI and Reports no additional complaints Reports as per HPI Physical Exam Vital Signs: Last Vital Signs BP 118/70 12/03/23 15:44 BMI result Body Mass Index 33.1 Const General: cooperative, healthy appearing and comfortable Chest Chest palpation & inspection: normal inspection of the chest and normal palp ation of entire chest wall Breast/axilla inspection: normal inspection of the breasts and normal inspection of the axillae Breast/axilla palpation: normal palpation of the breasts, normal palpation of the axillae and no axillary lymphadenopathy Resp Effort & Inspection: normal respiratory effort Auscultation: clear to auscultation bilaterally Percussion: percussion normal Cardio Palpation: normal PMI Rate: regular rate Rhythm: regular rhythm Heart sounds: no murmurs and no rubs Peripheral pulses: Peripheral pulses 2+ throughout GI Inspection: Yes normal to inspection Palpation (GI): Soft to palpation, nontender, no guarding, not rigid and No hepatosplenomegaly present Percussion: Yes normal to percussion Auscultation: normal bowel sounds Rectal Exam - Female: deferred General: Yes bladder normal to palpation External Female Exam: No lesion Speculum Exam - Vagina: normal appearance of the vagina, normal palpation, normal vaginal discharge and not erythematous Speculum Exam - Cervix: normal appearance of the cervix and normal palpation Bimanual exam- vagina & uterus: normal bimanual exam, normal palpation, uterine size normal, bladder normal to palpation, consistency normal and normal palpation Bimanual Exam- Adnexa, other: normal adnexae, no masses and no tenderness Assessment & Plan Assessment & Plan (1) Well woman exam: Code(s): Z01.419 - Encounter for gynecological examination (general) (routine) without abnormal findings Category: Medical Plan: Co testing done. Counseled the patient about the recommended dietary allowance of 1200 mg of Calcium & 600 IU of vitamin D. Instructions given the patient to schedule next screening Mammogram in 09/30. The patient is scheduled GI in 03/02 for screening colonoscopy . The patient was instructed to perform monthly self-breast exams and schedule annual exam in a year. All questions answered and the patient verbalized understanding. Coding Level of Care Code Est Pt Prev Care 40-64y(51403) Diagnoses Well woman exam Z01.419
== END 2023-12-03 16:05 | disposition home or self-care (01) ==
PROVIDERS: PCP Family Medicine; Visit Provider Obstetrics & Gynecology
DX: Z01.419 Encounter for gynecological examination (general) (routine) without abnormal findings (principal)
CPT/HCPCS: 99396

== ENCOUNTER 2024-02-19 12:49 | Outpatient (AMB) | payer OTHER, SELFPAY ==
--- NOTE | 2024-02-19 12:50 | A.OFFVIS_ITS ---
Vital Signs 02/19/24 13:02 Height 5 ft 7 in Weight 204 lb BMI 31.9 BP 100/66 Blood Pressure Location Lt brachial Position Sitting Pulse 70 Intake Visit Reasons: follow up Intake Note: Patient follow up for Chronic Constipation last office visit was 03/08/2021. Patient denies any GI issues for this visit. Institutional Commodity Analyst Required: No Accompanied by: Self / Same As Patient Allergies oxycodone (From PERCOCET) Allergy (Intermediate, Verified 08/17/24 15:38) ITCHING Medication List - Last Reconciled 02/19/24 by Veronica Simental MD acetaminophen ER (Tylenol Arthritis Pain) 650 mg PO Q8H PRN aripiprazole (Abilify) 5 mg PO BEDTIME 30 days buspirone 15 mg PO BID 3 months pantoprazole 40 mg PO DAILY 90 days venlafaxine ER 150 mg PO DAILY 90 days HPI HPI follow up: Details: GI clinic visit for this 55 YF for evaluation of rectal bleeding and FU of GERD and colon polyps ENDOSCOPIC STUDIES: 06/2019 PT HAD A COLONOSCOPY BY DR WRIGHT: FINDINGS: EVA: SLIGHT DECREASED SPHINCTER TONE ADULT SLIM COLONOSCOPE INTRODUCED WITH OUT DIFFICULTY. THERE WAS INCREASED REDUNDANCY WITH SUGGESTION OF ODD LOOP POSITION OF THE TRANSVERSE COLON. TECHNICALLY MORE DIFFICULT PROCEDURE DUE TO THIS. THERE WAS ALSO INCREASED RETAINED FLUID AND FIBER TO CONTEND WITH. SCOPE WAS ADVANCED TO THE LEVEL OF THE CECUM. APPENDICEAL ORIFICE WAS SEEN..ILEOCECAL VALVE WAS SEEN. PATIENT DID HAVE SOME VOMITING WHILE WE WERE STILL IN THE REGION OF THE CECUM--THIS WAS NOT ASSOCIATED WITH ANY ADVERSE EVENTS. SLOW WITHDRAWAL OF THE SCOPE THERE WAS REMOVAL OF 2 POLYPS: hEPATIC FLEXURE, AND MID-DISTAL TRANSVERSE COLON (TA ON BX) ARV WAS CLEAR. Estimated blood loss (mL): 10 Pathology: other (HEPATIC FLEXURE, MID TO DISTAL TRANSVERSE COLON) Condition: stable Disposition: PACU PLAN: REPEAT COLON CANCER SCREENING IN 2 YRS DUE POLYPS, FAM HX WITH MARGINAL PREP. WITH 2 DAY PREP--DECREASE FIBER INTAKE FOR WEEK BEFORE. TODAY'S VISIT: Continues to have constipation - BM 1-2 times a week with hard stools and straining Denies recent rectal bleeding PAST VISITS: Noted rectal bleeding yesterday. Had some diarrhea this morning. Blood is bright red and on the toilet paper Unable to tell if there is blood in the toilet bowl - brown color. Denies abdominal or anal pain with bleeding. Long hx of constipation and diarrhea x years. No BM for 3-4 days Sometimes takes exlax to have a BM with incomplete evacuation. Has heartburn related to diet and takes a medication daily. Patient denies symptoms of dysphagia, nausea, vomiting, change in appetite. Has gained 15 lbs over the past year. Patient denies major cardiac or pulmonary problems, loud snoring or sleep apnea. Had sleep apnea and lost a lot wt after getting a gastric sleeve. No sleep apnea on recent sleep study and has rest less leg syndrome. Denies problems with anesthesia in the past. Denies being on chronic anticoagulation. Mom had inoperable and colon cancer at age 60 and at age 61 yrs. Patient denies known family history of colon polyps, or other GI malignancies [facility] Medical History (Updated 10/01/24 @ 09:22 by Antonella Jacome RN) Myocardial infarct Back pain History of memory loss History of anxiety Depression GERD (gastroesophageal reflux disease) Polyarthralgia Surgical History History of carpal tunnel surgery of right wrist Hx of colonoscopy H/O vein stripping History of weight loss surgery History of cholecystectomy Family History Mother Colorectal cancer Father Stented coronary artery Social History Household Members: Children Housing: Apartment Alcohol intake: never Patient Tobacco Use Status: Former Tobacco user e-Cigarette/Vaping Use: Never Used Second Hand Smoke Exposure: No Advance Directives: No Advance Directives Information Provided: Yes service: No 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 occupational status: employed and unemployed 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 Cognitive needs: No Hearing needs: No Vision needs: Yes Female Reproductive History Menstrual Age of Menarche: 13 Physical Exam Vital Signs: Last Vital Signs Pulse 70 02/19/24 13:02 BP 100/66 02/19/24 13:02 BMI result Body Mass Index 31.9 Const General: healthy appearing and no acute distress Nutritional Appearance: obese Orientation/consciousness: patient oriented x3 Limitations: no limitations HEENT Head: Yes normal to inspection Ears: hearing grossly normal bilaterally Eyes Sclerae: sclerae normal Pupils: Equal, round and reactive pupils present Neck Neck: Yes normal visual inspection Chest Chest palpation & inspection: normal inspection of the chest Resp Effort & Inspection: normal respiratory effort Auscultation: clear to auscultation bilaterally Cardio Palpation: normal PMI Rate: regular rate Rhythm: regular rhythm Heart sounds: S1 normal heart sound present, S2 normal heart sound present and no murmurs GI Palpation (GI): Soft to palpation, nontender and No hepatosplenomegaly present Auscultation: normal bowel sounds Rectal Exam - Female: deferred Skin General skin exam: no rashes or lesions noted Neuro General: patient oriented x3, gait normal and moves all extremities Cranial nerves: Yes Equal, round and reactive pupils present Psych Appearance: grossly normal Mental Status: mental status grossly normal Assessment & Plan Assessment & Plan (1) GERD (gastroesophageal reflux disease): Code(s): K21.9 - Gastro-esophageal reflux disease without esophagitis Category: Medical (2) Tubular adenoma: Comment: 55-year-old female, family history of colon cancer, personal history of colon polyps- Two year repeat asymptomatic colonoscopy-extended prep Code(s): D36.9 - Benign neoplasm, unspecified site Category: Medical (3) Low vitamin B12 level: Code(s): E53.8 - Deficiency of other specified B group vitamins Category: Medical (4) Chronic constipation: Code(s): K59.09 - Other constipation Category: Medical (5) Chronic constipation: Code(s): K59.09 - Other constipation Category: Medical Plan 55 YF followed in GI for GERD and hx of colon polyps. 06/2019 two polyps removed during colonoscopy performed by Dr Wright. Repeat colon was advised in 2 yrs due to marginal prep. Pt will be scheduled for repeat colonoscopy - she was advised to take Bisacodyl 2 tablets daily starting 3 days before her colonoscopy appt. Pt was prescribed Senna for constipation FU in 4 months. Medications: New bisacodyl (Dulcolax (bisacodyl)) Take 2 tablets at 12 pm starting 5 days before colonoscopy 10 mg (2 x 5 mg) PO ONCE 10 tabs 0RF colon prep 5 days linaclotide (Linzess) 145 mcg PO QAM 30 caps 3RF 30 days K59.09 - Other constipation polyethylene glycol 3350 (Miralax) Mix Miralax with 64 oz(8 cups) of Crystal light. Take 2 tablets of Dulcolax qt 12 pm. Wait to have your 1st bowel movement, then begin drinking Miralax. Drink a glass of Miralax every 10-15 minutes until you are finished. You will drink at least another 4 cups of clear liquid of your choice over the next 2 hours. Please drink as many clear liquids as possible You may have clear liquids up to four hours before your procedure 17 grams PO DAILY 238 grams 0RF colon prep 1 day Coding Level of Care Code Est Pt Level 4 (51664) Diagnoses GERD (gastroesophageal reflux disease) K21.9 Tubular adenoma D36.9 Low vitamin B12 level E53.8 Chronic constipation K59.09 Time Spent (min) 19
[2024-02-19 13:02] VITALS: BP 100/66; PULSE 70; BMI 31.9
== END 2024-02-19 13:32 | disposition home or self-care (01) ==
PROVIDERS: PCP Family Medicine; Visit Provider Internal Medicine Gastroenterology
DX: K21.9 Gastro-esophageal reflux disease without esophagitis (principal); D36.9 Benign neoplasm, unspecified site; E53.8 Deficiency of other specified B group vitamins; K59.09 Other constipation
CPT/HCPCS: 99499

== ENCOUNTER → 2024-02-19 12:49 | Outpatient (BNVA) | payer OTHER, SELFPAY | PROVIDERS: PCP Family Medicine; Visit Provider Internal Medicine Gastroenterology ==

== ENCOUNTER 2024-03-05 12:50 | Outpatient (AMB) | payer OTHER, SELFPAY ==
[2024-03-05 12:53] VITALS: BMI 31.9
--- NOTE | 2024-03-05 12:53 | A.OFFVIS_ITS ---
Vital Signs 03/05/24 12:53 Height 5 ft 7 in Weight 204 lb BMI 31.9 Intake Visit Reasons: DeQuervains tenosynovitis, RT, last inj on 11/28/23 Intake Note: Maria Fernanda is a 58 year old right hand dominant female who presents today for a follow up visit of her De Quervain's tenosynovitis, right thumb. Hx of left and right CTR DOS: right 06/15/2020 & left 07/20/2020 w/ Dr Tamayo. At last visit on 11/28/23 patient received a right thumb injections and reports he helps. Patient would like to repeat injection today. Allergies oxycodone [From PERCOCET] Allergy (Intermediate, Verified 03/05/24 12:53) ITCHING HPI HPI DeQuervains tenosynovitis, RT, last inj on 11/28/23: Details: Patient is a 58-year-old female who presents for repeat injection for right de Quervain tenosynovitis, last injection 11/28/2023. Patient states that she did get good relief for quite a long time from her previous injection, and only recently did her pain resume. Would like repeat injection prior to discussion of surgery. Denies any numbness or tingling in the right hand. No other acute complaints or concerns at this time. 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 Neuro: Normal sensation of the tips of all digits of the R hand at this time Vascular: Cap refill brisk Pain: Patient reports significant tenderness to palpation of the radial styloid of the right Wrist no tenderness to palpation of the anatomical snuffbox, basal joint, or the MCP joint of the right thumb ROM: Patient is able to make a closed fist and extend all digits of the right hand Skin: No lacerations or abrasions. General: No ecchymosis, erythema, or evidence of infection. Positive Rosey test on the right Psych: Appears grossly normal Affect normal Attitude cooperative Office Procedures AMB Tendon Injection Tendon Injection [id number] Tendon Sheath Injection All charges added?: Procedure code (CPT) selection complete Assessment & Plan Assessment & Plan (1) De Quervain's tenosynovitis, right: Code(s): M65.4 - Radial styloid tenosynovitis [de Quervain] Category: Medical Plan 1. De Quervain tenosynovitis, right Patient is educated about this condition Patient is educated about the treatment options available to her Patient would like to proceed with steroid injection Injection #1: The risks and benefits of a steroid injection including but not limited to risk of damage to blood vessels, nerves, tendons, infection, skin bleaching, failure to improve symptoms, increased pain, and possible need for further injections or other intervention were discussed with the patient and the patient wishes to proceed with the steroid injection. Once consent was obtained, I aseptically prepped the area over the 1st dorsal compartment of the right thumb. I then injected the 1st dorsal compartment with a combination of 1 mL of dexamethasone (4mg/ml), and 1% lidocaine. The patient tolerated the procedure well with no complications and good resolution of their symptoms prior to leaving clinic. If the patient continues to have pain 6-8 weeks following this injection, they may call to schedule appointment to discuss alternative treatment options Coding Level of Care Code Est Pt Level 3 (79771) Diagnoses De Quervain's tenosynovitis, right M65.4 CPT Codes Tendon Injection - Tendon Injection 1: [id number] Tendon Sheath Injection ([id number])
== END 2024-03-05 13:16 | disposition home or self-care (01) ==
PROVIDERS: PCP Family Medicine
DX: M65.4 Radial styloid tenosynovitis [de Quervain] (principal)
CPT/HCPCS: 20550; 99213

== ENCOUNTER → 2024-03-05 12:50 | Outpatient (BNVA) | payer OTHER, SELFPAY | PROVIDERS: PCP Family Medicine | DX: M65.4 Radial styloid tenosynovitis [de Quervain] (principal) | CPT/HCPCS: 20550; 99212; J1100; J2003 ==

== ENCOUNTER 2024-06-07 10:43 | Outpatient (AMB) | payer OTHER, SELFPAY ==
--- NOTE | 2024-06-07 11:16 | A.OFFPC_ITS ---
Vital Signs 06/07/24 11:21 Height 5 ft 7 in Weight 184 lb 2 oz BMI 28.8 BP 110/70 Blood Pressure Location Lt brachial Position Sitting Respiration 12 Pulse 70 Pulse Source Pulse Oximeter Temp 99.2 F Temp Source Oral Pulse Oximetry (%) 98 Oxygen Delivery Method Room Air Intake Visit Reasons: [facility] Intake Note: tcm patient is following up with pcp from admission discharge from a heart attack from [facility] Eggs Inspector Required: No Allergies oxycodone [From PERCOCET] Allergy (Intermediate, Verified 06/07/24 11:20) ITCHING Tobacco use date assessed: 03/28/23 HPI [facility] HPI Details Patient?presented?to?[facility]?Hospital?an d?was?transferred?to?[facility]?hospital?for?NSTEMI. She?was?started?on?IV?heparin?drip,?aspirin?and?Lipitor?40?mg Echocardiogram?revealed?mildly?reduced?ejection?fraction?47%?with?regional?left? ventricular?wall?motion?abnormalities?mildly?dilated?left?atrium?with?mild?álvaro l?regurgitation. Cardiology?felt?true?left?ventricular?ejection?fraction?was?around?50%. Patient?had?apparent?viral?ill ness?with?fevers?and?chills?so?MRI?was?ordered?to?out?myocarditis - negative?for?myocarditis. Left?heart?catheterization 05/2424. Left?main,?left?anterior?descending?and?left?circumflex?were?all?angio graphically?normal. [facility] Information Date of Discharge 06/01/24 Discharged From Other ([place]) Interactive Contact Date (Reference documentation from this date) 06/07/24 [facility] Medical History Back pain History of memory loss History of anxiety Depression GERD (gastroesophageal reflux disease) Polyarthralgia Surgical History History of carpal tunnel surgery of right wrist Hx of colonoscopy H/O vein stripping History of weight loss surgery History of cholecystectomy Family History Mother Colorectal cancer Social History Household Members: Children Housing: Apartment Alcohol intake: never Patient Tobacco Use Status: Former Tobacco user e-Cigarette/Vaping Use: Never Used Second Hand Smoke Exposure: No service: No Current occupational status: employed and unemployed 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 1. Little interest or pleasure in doing things: more than half the days 2. Feeling down, depressed, or hopeless: more than half the days 3. Trouble falling or staying asleep, or sleeping too much: nearly every day 4. Feeling tired or having little energy: more than half the days 5. Poor appetite or overeating: more than half the days 6. Feeling bad about yourself - or that you are a failure or have let yourself or your family down: several days 7. Trouble concentrating on things, such as reading the newspaper or watching television: several days 8. Moving or speaking so slowly that other people could have noticed. Or the opposite - being so fidgety or restless that you have been moving around a lot more than usual: several days 9. Thoughts that you would be better off or of hurting yourself in some way: not at all Total score: 14 Depression Screening Interpretation: Positive Depression Screening Done: Yes 94793 - PHQ-9 Billing: Yes Source: Developed by Drs. Iker Kan, Rosa Candelario, Vasquez Olson and colleagues, with an educational lennox from [email or web address]. Thrive Questionnaire Date Thrive assessed: 06/07/24 I am a: Patient What is your living situation today?: I have a steady place to live Within the past 12 months, did the food you bought not last and you didn't have the money to get more?: Sometimes True Within the past 12 months, did you worry whether your food would run out before you got money to buy more?: Sometimes True Do you have trouble paying for medicines?: No Do you have trouble getting transportation to medical appointments?: No Do you have trouble paying your heating and electricity bill?: Yes Do you have trouble taking care of your child, family member or friend?: No Do you have trouble with day-to-day activities such as bathing, preparing meals, shopping, managing finances, etc.?: No Are you currently unemployed and looking for a job?: No Are you interested in more education?: No Please select the resources that you would like help with: None Currently or been in a relationship where the following occur: No concerns reported THRIVE Score: 3 AUDIT C Alcohol Use Questionnaire (AUDIT-C) 1. How often do you have a drink containing alcohol?: Never 3. How often do you have six or more drinks on one occasion?: Never Total Score: 0 ALICIA-7 AMB Questionnaire ALICIA-7 Date ALICIA - 7 assessed: 06/07/24 Feeling nervous, anxious, or on edge: 3 = Nearly every day Not being able to stop or control worryin = Nearly every day Worrying too much about different things: 3 = Nearly every day Trouble relaxin = Nearly every day Being so restless that it is hard to sit still: 1 = Several days Becoming easily annoyed or irritable: 1 = Several days Feeling afraid as if something awful might happen: 1 = Several days Total ALICIA-7 score (0-4 normal; 5-9 mild; 10-14 moderate; 15-21 severe): 15 Source: Developed by Drs. Iker Kan, Rosa Candelario, Vasquez Olson and colleagues, with an educational lennox from [email or web address]. ALICIA-7 Assessment Billing ALICIA-7 Assessment Tool: ALICIA-7 Assessment 22507 Review of Systems Const Denies chills, Denies fatigue, Denies fever(s), Denies headache(s) and Denies weakness ENT Denies dizziness and Denies headache(s) Card Denies dyspnea Resp Denies cough, Denies dyspnea, Denies wheezing and Denies other (shortness of breath) Musc Denies numbness and Denies tingling Neuro Denies dizziness, Denies headache(s), Denies numbness, Denies tingling and Denies weakness Psych Denies anxiety and Denies depression Endo Denies fatigue Aller/Immun Denies wheezing Physical exam (Primary Care) Vital Signs: Last Vital Signs Temp 99.2 F 06/07/24 11:21 Pulse 70 06/07/24 11:21 Resp 12 03/31/25 11:21 BP 110/70 06/07/24 11:21 Pulse Ox 98 06/07/24 11:21 Oxygen Delivery Method Room Air 06/07/24 11:21 BMI result Body Mass Index 28.8 Tobacco/Smoking Status: Tobacco use Status Tobacco use date assessed 03/28/23 06/07/24 11:24 Patient Tobacco Use Status Former Tobacco user 06/07/24 11:24 e-Cigarette/Vaping Use Never Used 06/07/24 11:24 PHQ-9: PHQ-9 Score PHQ-9: Total score 14 06/07/24 11:37 Depression Screening Interpretation: Positive Thrive Assessment: Date of Thrive Assessment Date Thrive assessed 06/07/24 06/07/24 11:24 Currently or been in a relationship where the following occur: No concerns reported Const General: well developed; No acute distress Nutritional Appearance: well nourished Orientation/consciousness: patient oriented x3 HENMT Head: Yes normocephalic and Yes atraumatic Eyes General: appearance normal, both eyes and all related structures Pupils: Equal, round and reactive pupils present EOM: EOMs intact bilaterally Resp Effort & Inspection: normal respiratory effort Neuro General: patient oriented x3 and gait normal Cranial nerves: Yes Equal, round and reactive pupils present Psych Affect: normal affect Coding Level of Care Code Est Pt Level 3 (36096) Diagnoses NSTEMI (non-ST elevated myocardial infarction) I21.4 Additional Codes ALICIA-7 Assessment Billing - ALICIA-7 Assessment Tool: ALICIA-7 Assessment [id number] ([id number]) PHQ-9 - 91611 - PHQ-9 Billing: Yes ([id number]) Assessment & Plan Assessment & Plan (1) NSTEMI (non-ST elevated myocardial infarction): Code(s): I21.4 - Non-ST elevation (NSTEMI) myocardial infarction Category: Medical Plan: NSTEMI?with?mildly?decreased?ejection?fraction?around?50%. Cardiac?catheterization?showed?angiographically?normal?coronary?arteries. MRI?did?not?show?myocarditis. EKG?today: ?No rmal?sinus?rhythm,?normal?axis,?normal?intervals,?no?hypertrophy,?no?ST-T-wave?c hanges. Will?have?patient?continue?atorvastatin?and?aspirin. She?would?like?to?see?Cardiology?at[facility]rather[facility]than[facility]near[facility]hospital. Referred?to?[facility]?cardiology She?can?return?to?work.??I?advised?she?should?avoid strenuous?activities?that?cause?any?chest?pain. Will?give?her?a?note?to?avoid?any?heavy?lifting/pulling/pushing. She?can?walk?as?long?as?she?not?out?breath?or?experiencing?chest. Orders: Orders Complete Blood Count Auto Diff Today I21.4 - Non-ST elevation (NSTEMI) myocardial infarction, Z00.00 - Encounter for general adult medical examination without abnormal findings TSH reflex Free T4 Today I21.4 - Non-ST elevation (NSTEMI) myocardial infarction, Z00.00 - Encounter for general adult medical examination without abnormal findings UA CC w/rflx Micro + Cult Today I21.4 - Non-ST elevation (NSTEMI) myocardial infarction, Z00.00 - Encounter for general adult medical examination without abnormal findings B Type Natriuretic Peptide Today I21.4 - Non-ST elevation (NSTEMI) myocardial infarction, I50.9 - Heart failure, unspecified Troponin-I High Sensitivity Today I21.4 - Non-ST elevation (NSTEMI) myocardial infarction Comprehensive [place]. Panel Fast Today I21.4 - Non-ST elevation (NSTEMI) myocardial infarction, Z00.00 - Encounter for general adult medical examination without abnormal findings Microalbumin, Random (w Creat) Today I10 - Essential (primary) hypertension, I21.4 - Non-ST elevation (NSTEMI) myocardial infarction Referrals Cardiology Referral I21.4 - Non-ST elevation (NSTEMI) myocardial infarction Medications: New atorvastatin 40 mg PO BEDTIME 90 days 90 tabs 2RF aspirin 81 mg PO DAILY 90 days 90 tabs 2RF
[2024-06-07 11:21] VITALS: BP 110/70; PULSE 70; RESP 12; TEMP 37.3; O2SAT 98; BMI 28.8
--- OUTSIDE RECORDS SUMMARY | 2024-06-07 12:07 | XMS_ITS | Clinical Summary ---
Author Organization [facility] Address [address] [place] [address] Phone Care Team Providers Care Internet Project Manager Name Role Phone Matt Patten MD Primary Care Provider [phone] Allergies No known active allergies Medications ARIPiprazole (ABILIFY) 5 mg tablet Take 1 tablet (5 mg total) by mouth at bedtime. at bedtime. 05/18/19 25 Active busPIRone (BUSPAR) 15 mg tablet Take 1 tablet (15 mg total) by mouth 2 (two) times a day. 05/27/19 25 Active pantoprazole (PROTONIX) 40 mg EC tablet Take 1 tablet (40 mg total) by mouth 1 (one) time each day. 04/15/19 25 Active venlafaxine XR (EFFEXOR-XR) 150 mg 24 hr capsule Take 1 capsule (150 mg total) by mouth 1 (one) time each day. 05/18/19 25 Active omeprazole (PriLOSEC) [address] capsule Take 1 capsule (40 mg total) by mouth 1 (one) time each day. 02/17/20 11 025 Discontinued buPROPion SR (WELLBUTRIN SR) 150 mg 12 hr tablet Take 1 tablet (150 mg total) by mouth 2 (two) times a day. 11/21/19 11 025 Discontinued tirzepatide, weight loss, (Zepbound) 5 mg/0.5 mL injectionIndica tions:Class 1 obesity due to excess calories with body mass index (BMI) of 32.0 to 32.9 in adult, unspecified whether serious comorbidity present Inject 0.5 mL (5 mg total) under the skin every 7 (seven) days. 2 mL 04/29/19 25 025 Discontinued tirzepatide, weight loss, (Zepbound) 7.5 mg/0.5 mL injection Inject 0.5 mL (7.5 mg total) under the skin every 7 (seven) days for 28 days. 2 mL 05/22/19 25 025 Discontinued(St op Taking at Discharge) Active Problems Problem Noted Date Diagnosed Date NSTEMI (non-ST elevated myocardial infarction) 0 05/30/2024 Grief reaction 09/05/2010 Varicose vein of leg 06/21/2010 Obesity 06/21/2010 GERD (gastroesophageal reflux disease) 1 Overview (12/05/2023): Normal EGD 08/07/2010 on PPI rx. Encounters Date Type Department Care Team Description 05/31/2024 10:05 AM EDT - 05/31/2024 11:35 AM EDT Surgery [facility] Cardiac [facility] [address] [place] [phone] Matt Leiva MD Left heart cath / Coronary angiography 05/30/2024 3:27 PM EDT - 06/01/2024 5:17 PM EDT Hospital Encounter [facility] CV Surg Card 8-9 [address] [place] [address] Susan Horowitz DO Kalisiewicz, Damian M, MD NSTEMI (non-ST elevated myocardial infarction) (CMS/HCC) (Primary Dx) Discharge Disposition: Home or Self Care 05/30/2024 10:08 AM EDT - 05/30/2024 2:55 PM EDT Emergency [facility] Emergency [address] [place] [id number] Lonnie Orona MD Angina pectoris with coronary microvascular dysfunction (CMS/HCC) (Primary Dx); Chest pain, unspecified type; Nausea and vomiting, unspecified vomiting type; Dehydration Discharge Disposition: Another Health Care Institution Not Defined 05/21/2024 Telephone Bariatric Surgery - [place] [address] [facility] [address] [place] [address] Kay Stone MD Med Refill (Zepbound w/titration) 04/23/2024 Telephone Bariatric Surgery - [place] 175 [facility] [address] [place] [address] Kay Stone MD Med Refill (Zepbound w/titration) 03/23/2024 Telephone Bariatric Surgery - [place] [address] [phone] Kay Stone MD Medication Problem (Prior Auth) from Last 3 Months Immunizations Name Administration Dates Next Due Tdap Tetanus diptheria acell ular pertussis (Boostrix; Adacel) 7yo and older 09/05/2010 Surgical History Surgery Date Site/Laterality Comments TUBAL LIGATION 1991 PROCEDURE: HISTORICAL TUBAL LIGATION COLONOSCOPY 08/07/2010 PROCEDURE: NM COLONOSCOPY FLX DX W/COLLJ SPEC WHEN PFRMD; COMMENT: Normal ESOPHAGOGASTRODUODENOSCOPY 08/07/2010 PROCEDURE: NM ESOPHAGOGASTRODUODENOSCOPY TRANSORAL DIAGNOSTIC; COMMENT: Normal on omeprazole 40 mg once a day Medical History Medical History Date Comments Family hx of colon cancer 07/05/2010 DX:Fam maribel hx of colon cancer FHx: stomach cancer 07/05/2010 DX:FHx: stom ach cancer Family History Medical History Relation Name Comments Diabetes Father Heart attack Father x2 with stents and pacemaker Hyperlipidemia Father Hypertension Father Lung cancer Maternal Grandmother Colon cancer Mother 05/29/10 (6 0) Other cancer Mother's side 1 great grandm other ovarian cancer Breast cancer Paternal Grandmother dx age 65 Other: stomach cancer Uncle 1 Matern al 2006 (55) Relation Name Status Comments Father Alive diabetic Maternal Grandmother (Age 80) Adriana ng Cancer Mother (Age 61) COLON CANC ER Mother's side 1 Mother's side 2 Paternal Grandmother Alive breast cancer age onset 68 Uncle 1 Uncle 2 (Age 54) Mat Uncle stomach cancer Social History Tobacco Use Types Packs/Day Years Used Date Smoking Tobacco: Former Cigarettes Q uit: 03/10/2001 Smokeless Tobacco: Never Tobacco Cessation:Counseling Given: Not Answered Alcohol Use Standard Drinks/Week Comments No 0 (1 standard drink = 0.6 oz pur e alcohol) Comments Unknown Sex and Gender Information Value Date Recorded Sex Assigned at Female 05/30/2024 10:53 AM EDT Legal Sex Female 5:53 AM EST Gender Identity Female 05/30/2024 10:53 AM EDT Sexual Orientation Straight 05/30/2024 10 :53 AM EDT Obstetrics History Last Filed Vital Signs Vital Sign Reading Time Taken Comments Blood Pressure 102/76 06/01/2024 8:46 AM EDT Pulse 78 06/01/2024 8:46 AM EDT Temperature 37 ??C (98.6 ??F) 06/01/2024 8:46 AM EDT Respiratory Rate 17 06/01/2024 8:46 AM EDT Oxygen Saturation 97% 06/01/2024 8:46 AM EDT Inhaled Oxygen Concentration - - Weight 80.3 kg (177 lb 0.5 oz) 05/31/2024 7:24 A M EDT Height 170 cm (5' 6.93 ) 05/31/2024 7:24 AM EDT Body Mass Index 27.79 05/31/2024 7:24 AM EDT Plan of Treatment Upcoming Encounters Date Type Department Care Team (Late st Contact Info) Description 06/24/2024 2:00 PM EDT Office Visit Bariatric Surgery [facility] [address] [phone] Kay Stone MD [address] [address] 07/29/2024 12:30 PM EDT Consult [facility] Cardiology [facility] [address] [facility] [address] [place] [phone] Arnoldo Smith MD [address] [place] [address] [place] [phone] Health Maintenance Due Date Last Done Comments Breast Cancer Screening 1965 Hepatitis B Vaccines (1 of 3 - 19+ 3-dose series) 1984 Cervical Cancer Screening: P ap Smear 11/19/2013 11/19/2010 Pneumococcal Vaccine: 50+ Years (1 of 1 - PCV) 2015 Zoster Vaccines (1 of 2) 2015 DTaP,Tdap,and Td Vaccines (2 - Td or Tdap) 09/05/2020 09/05/2010 COVID-19 Vaccine (4 - 2023-2 5 season) 2023 01/10/2022, 01/30/2021, 06/15/2020 Influenza Vaccine (#1) 2023 Colorectal Cancer Screening: Colonoscopy 12/06/2023 08/07/2010, 08/07/2010 Depression Screening 12/06/2023 HIV Screening 12/06/2023 Hepatitis C Screening 12/06/2023 Social Influencers of Health Screening 12/06/2023 Cholesterol Screening (Lipid Panel) 05/30/2029 05/30/2024, 08/16/2002 RSV Immunization Patients 60 + Years Old (1 - 1-dose 75+ series) 2040 HIB Vaccines Aged Out No longer eligi ble based on patient's age to complete this topic HPV Vaccines Aged Out No longer eligi ble based on patient's age to complete this topic Hepatitis A Vaccines Aged Out No long er eligible based on patient's age to complete this topic IPV Vaccines Aged Out No longer eligi ble based on patient's age to complete this topic MMR Vaccines Aged Out No longer eligi ble based on patient's age to complete this topic Meningococcal ACWY Vaccine Aged Out N o longer eligible based on patient's age to complete this topic Meningococcal B Vacine Aged Out No lo nger eligible based on patient's age to complete this topic Pneumococcal Vaccine: Pediatrics (0 to 5 Years) and At-Risk Patients (6 to 64 Years) Aged Out No longer eligible b ased on patient's age to complete this topic RSV Immunization Patients Under 20 months Aged Out No longer eligible b ased on patient's age to complete this topic Varicella Vaccines Aged Out No longer eligible based on patient's age to complete this topic Procedures Procedure Name Priority Date/Time Associated Diagnosis Comments SEDIMENTATION RATE Timed 06/01/2024 8: 44 AM EDT COMPLETE BLOOD COUNT Routine 06/01/2024 6:53 AM EDT BASIC METABOLIC PANEL Routine 06/01/2024 6:53 AM EDT MAGNESIUM Routine 06/01/2024 6:53 AM EDT POCT GLUCOSE BLOOD Routine 05/31/2024 9: 50 PM EDT MR CARDIAC MORPHOLOGY AND FUNCTION WO AND W CONTRAST Routine 05/31/2024 9:30 PM EDT NSTEMI (non-ST elevated myocardial infarction) (CMS/HCC) ECG 12-LEAD Routine 05/31/2024 3:17 PM EDT FERRITIN Routine 05/31/2024 12:22 PM EDT C-REACTIVE PROTEIN Routine 05/31/2024 12 :22 PM EDT HEPATIC FUNCTION PANEL Routine 11:40 AM EDT COMPLETE BLOOD COUNT Routine 05/31/2024 11:40 AM EDT BASIC METABOLIC PANEL Routine 05/31/2024 11:40 AM EDT MAGNESIUM Routine 05/31/2024 11:40 AM EDT LEFT HEART CATH / CORONARY ANGIOGRAPHY Routine 05/31/2024 10:32 AM EDT NSTEMI (non-ST elevated myocardial infarction) (CMS/HCC) TRANSTHORACIC ECHOCARDIOGRAM (TTE) COMPLETE W/ CONTRAST Today 05/31/2024 8:06 AM EDT NSTEMI (non-ST elevated myocardial infarction) (CMS/HCC) HEPARIN ANTI XA STAT 05/31/2024 5:32 AM EDT HEPARIN ANTI XA STAT 05/31/2024 4:07 AM EDT ECG ANNOTATED 05/31/2024 ECG 12-LEAD STAT 05/30/2024 6:29 PM EDT HEPARIN ANTI XA STAT 05/30/2024 6:09 PM EDT THYROID STIMULATING HORMONE WITH REFLEX FREE T4 Routine 05/30/2024 6:09 PM EDT LIPID PANEL WITH REFLEX TO DIRECT LDL Routine 05/30/2024 6:09 PM EDT HEMOGLOBIN A1C Routine 05/30/2024 6:09 PM EDT CBC WITH AUTO DIFFERENTIAL STAT 05/30/2024 3:49 PM EDT B-TYPE NATRIURETIC PEPTIDE STAT 05/30/2024 3:49 PM EDT BASIC METABOLIC PANEL STAT 05/30/2024 3:49 PM EDT CBC AND DIFFERENTIAL STAT 05/30/2024 3:49 PM EDT HEPARIN ANTI XA STAT 05/30/2024 3:49 PM EDT TROPONIN I HIGH SENSITIVITY STAT 05/30/2024 3:[address] ANGIO CHEST WO AND/OR W CONTRAST Routine 05/30/2024 11:55 AM EDT Chest pain, unspecified type CT ABDOMEN PELVIS W CONTRAST STAT 05/30/2024 11:55 AM EDT XR CHEST 1 VIEW STAT 05/30/2024 11:36 AM EDT TROPONIN I HIGH SENSITIVITY STAT 05/30/2024 11:32 AM EDT [id number], RSV, FLU A AND B QUALITATIVE RT-PCR, INTERNAL LAB STAT 05/30/2024 11:31 AM EDT HEPARIN ANTI XA STAT 05/30/2024 11:30 AM EDT ACTIVATED PARTIAL THROMBOPLASTIN TIME STAT 05/30/2024 11:30 AM EDT PROTHROMBIN TIME WITH INR STAT 05/30/2024 11:30 AM EDT ECG 12-LEAD STAT 05/30/2024 11:15 AM EDT ECG 12-LEAD STAT 05/30/2024 10:32 AM EDT CBC WITH AUTO DIFFERENTIAL STAT 05/30/2024 10:26 AM EDT B-TYPE NATRIURETIC PEPTIDE STAT 05/30/2024 10:26 AM EDT MAGNESIUM STAT 05/30/2024 10:26 AM EDT LIPASE STAT 05/30/2024 10:26 AM EDT COMPREHENSIVE METABOLIC PANEL STAT 05/30/2024 10:26 AM EDT CBC AND DIFFERENTIAL STAT 05/30/2024 10:26 AM EDT TROPONIN I HIGH SENSITIVITY STAT 05/30/2024 10:26 AM EDT NM CRITICAL CARE 30-74 MINUTES Routine 05/30/2024 9:47 AM EDT HM PAP SMEAR Routine 11/19/2010 HM COLONOSCOPY Routine 08/07/2010 from Last 3 Months or Most Recently Relevant to Health Maintenance Results * Sedimentation rate, automated (06/01/2024 8:44 AM EDT) Sed Rate 2 0 - 20 mm/hr LAB HEMETOLOGY METHOD 06/01/2024 9:00 AM EDT [facility] Blood Venous blood specimen / Unknown Venipuncture / Unknown 06/01/2024 8:44 AM EDT 06/01/2024 8:55 AM EDT [facility] LAB BLOOD ORDERABLES Final R esult [facility] [address] [place] [address], [place] [phone] * (ABNORMAL) Complete blood count (06/01/2024 6:53 AM EDT) Only the most recent of2 resultswithin the time period is included. WBC 11.5(H) 4.0 - 10.5 K/mcL LAB HEMETOLOGY METHOD 06/01/2024 7:21 AM EDT [facility] RBC 4.35 4.20 - 5.40 M/mcL LAB HEMETOLOGY METHOD 06/01/2024 7:21 AM EDT [facility] Hemoglobin 13.6 12.5 - 16.0 g/dL LAB HEMETOLOGY METHOD 06/01/2024 7:21 AM EDT [facility] Hematocrit 40.6 37.0 - 47.0 % LAB HEMETOLOGY METHOD 06/01/2024 7:21 AM EDT [facility] MCV 93.1 78.0 - 100.0 FL LAB HEMETOLOGY METHOD 06/01/2024 7:21 AM EDT [facility] MCH 31.3 25.0 - 33.0 pcg LAB HEMETOLOGY METHOD 06/01/2024 7:21 AM EDT [facility] MCHC 33.6 32.0 - 36.0 g/dL LAB HEMETOLOGY METHOD 06/01/2024 7:21 AM EDT [facility] RDW 12.9 12.1 - 16.2 % LAB HEMETOLOGY METHOD 06/01/2024 7:21 AM EDT [facility] Platelets 227 150 - 450 K/mcL LAB HEMETOLOGY METHOD 06/01/2024 7:21 AM EDT [facility] MPV 9.2 7.4 - 11.4 FL LAB HEMETOLOGY METHOD 06/01/2024 7:21 AM EDT [facility] Blood Venous blood specimen / Unknown Venipuncture / Unknown 06/01/2024 6:53 AM EDT 06/01/2024 7:13 AM EDT us Buddy Espana MD LAB BLOOD ORDERABLES Fin al Result Performing Organization Address City/[facility]/ZIP Co de Phone Number [facility] [address] [place] [address], [place] [phone] * Magnesium (06/01/2024 6:53 AM EDT) Only the most recent of3 resultswithin the time period is included. Magnesium 1.9 1.7 - 2.8 mg/dL LAB CHEMISTRY METHOD 06/01/2024 7:37 AM EDT [facility] Blood Venous blood specimen / Unknown Venipuncture / Unknown 06/01/2024 6:53 AM EDT 06/01/2024 7:13 AM EDT us Buddy Espana MD LAB BLOOD ORDERABLES Fin al Result [facility] [address] [place] [address], [place] [phone] * (ABNORMAL) Basic metabolic panel (06/01/2024 6:53 AM EDT) Only the most recent of3 resultswithin the time period is included. Sodium 139 135 - 145 mmol/L LAB CHEMISTRY METHOD 06/01/2024 7:37 AM EDT [facility] Potassium 3.3(L) 3.5 - 5.1 mmol/L LAB CHEMISTRY METHOD 06/01/2024 7:37 AM EDT [facility] Chloride 105 98 - 107 mmol/L LAB CHEMISTRY METHOD 06/01/2024 7:37 AM EDT [facility] CO2 27 24 - 32 mmol/L LAB CHEMISTRY METHOD 06/01/2024 7:37 AM EDT [facility] Anion Gap 7 5 - 14 LAB CHEMISTRY METHOD 06/01/2024 7:37 AM EDT [facility] Glucose 90 70 - 199 mg/dL LAB CHEMISTRY METHOD 06/01/2024 7:37 AM EDT [facility] BUN 16 7 - 17 mg/dL LAB CHEMISTRY METHOD 06/01/2024 7:37 AM EDT [facility] Creatinine 0.60 0.50 - 1.00 mg/dL LAB CHEMISTRY METHOD 06/01/2024 7:37 AM EDT [facility] eGFR 104 >=60 mL/min/1. 73m2 LAB CHEMISTRY METHOD 06/01/2024 7:37 AM EDT [facility] Comment:Calculation based on the??Chronic Kidney Disease Epidemiology Collaboration (CKD-EPI) equation refit??without adjustment for race. BUN/Creatinine Ratio 26.7(H) 12.0 - 20.0 LAB CHEMISTRY METHOD 06/01/2024 7:37 AM EDT [facility] Calcium 8.6 8.4 - 10.2 mg/dL LAB CHEMISTRY METHOD 06/01/2024 7:37 AM EDT [facility] Blood Venous blood specimen / Unknown Venipuncture / Unknown 06/01/2024 6:53 AM EDT 06/01/2024 7:13 AM EDT us Buddy Espana MD LAB BLOOD ORDERABLES Fin al Result [facility] [address] [place] [address], [place] [phone] * POCT Glucose, blood (05/31/2024 9:50 PM EDT) Glucose POCT 94 70 - 199 mg/dL 05/31/2024 9:51 PM EDT [facility] Comment: Fasting Reference Range: ? 70-99 mg/dL Non-Fasting Reference Range: 70-199 mg/dL Blood Capillary blood specimen / Unknown 05/31/2024 9:50 PM EDT 05/31/2024 9:52 PM EDT us Buddy Espana MD LAB POINT OF CAR E TEST DOCKED DEVICE UNSOLICITED RESULTS Final Result [facility] [address] [place] [address], [place] [phone] * MR Cardiac Morphology and Function wo and w Contrast (05/31/2024 9:30 PM EDT) Anatomical Region Laterality Modality Heart, Body Magnetic Resonan ce 05/31/2024 11:2 7 PM EDT Impressions 06/01/2024 2:23 PM EDT Normal cardiac MRI. Specifically, no evidence of myocarditis or abnormal postcontrast enhancement. Report reviewed and signed by : Dr. Preston Nguyen on 06/01/2024 2:23 PM. Workstation Name - [id number] -------- FINAL REPORT -------- Dictated By: Preston Nguyen Dictated Date: 05/31/2024 23:27 ET Assigned Physician: Preston Nguyen Reviewed and Electronically Signed By: Preston Nguyen Signed Date: 06/01/2024 14:23 ET Workstation ID: [id number] Transcribed By: Self Edit Transcribed Date: 05/31/2024 23:31 ET Narrative 06/01/2024 2:23 PM EDT CARDIAC MRI (MORPHOLOGY) WITHOUT AND WITH CONTRAST DATE OF SERVICE: 05/31/2024 9:20 PM. HISTORY: MARIA FERNANDA ROJO is a 59 years-old Female with concern for myocarditis. COMPARISON: None. TECHNIQUE: Multisequence cardiac MRI was performed before and after the uneventful intravenous administration of 40 mL of Dotarem. FINDINGS: Axial dark blood HASTE imaging demonstrates normal configuration, signal and appearance of the heart and great vessels. The thoracic aorta and main pulmonary artery are normal in caliber. Short axis STIR imaging demonstrates no myocardial edema. True FISP imaging demonstrates normal left ventricular function with no hypokinesis or dysplastic changes. Limited views of the valves are normal without significant stenosis or regurgitation. Post gadolinium delayed inversion sequences show normal myocardial signal. There is no delayed enhancement in the myocardium to suggest scarring, infarction, inflammatory or infiltrative disease. No pericardial effusion. The visualized portions of the lungs, upper abdomen, and soft tissue and osseous structures are unremarkable. Procedure Note Preston Nguyen MD - 06/01/2024 CARDIAC MRI (MORPHOLOGY) WITHOUT AND WITH CONTRAST DATE OF SERVICE: 05/31/2024 9:20 PM. HISTORY: MARIA FERNANDA ROJO is a 59 years-old Female with concern formyocarditis. COMPARISON: None. TECHNIQUE: Multisequence cardiac MRI was performed before and after theuneventful intravenous administration of 40 mL of Dotarem. FINDINGS: Axial dark blood HASTE imaging demonstrates normal configuration, signaland appearance of the heart and great vessels. The thoracic aorta and mainpulmonary artery are normal in caliber. Short axis STIR imaging demonstrates no myocardial edema. True FISP imaging demonstrates normal left ventricular function with nohypokinesis or dysplastic changes. Limited views of the valves are normal without significant stenosis orregurgitation. Post gadolinium delayed inversion sequences show normal myocardial signal.There is no delayed enhancement in the myocardium to suggest scarring,infarction, inflammatory or infiltrative disease. No pericardial effusion. The visualized portions of the lungs, upper abdomen, and soft tissue andosseous structures are unremarkable. IMPRESSION: Normal cardiac MRI. Specifically, no evidence of myocarditis or abnormalpostcontrast enhancement. Report reviewed and signed by : Dr. Preston Nguyen on 06/01/2024 2:23 PM.Workstation Name - [id number] -------- FINAL REPORT -------- Dictated By: Preston Nguyen Dictated Date: 05/31/2024 23:27 ET Assigned Physician: Preston Nguyen Reviewed and Electronically Signed By: Preston Nguyen Signed Date: 06/01/2024 14:23 ET Workstation ID: [id number] Transcribed By: Self Edit Transcribed Date: 05/31/2024 23:31 ET [facility] IMG MRI PROCEDURES Final Res ult * ECG 12 lead (05/31/2024 3:17 PM EDT) Only the most recent of4 resultswithin the time period is included. Ventricular Rate ECG 82 BPM GEMUSE Atrial Rate 82 BPM GEMUSE P-R Interval 120 ms GEMUSE QRS Duration 92 ms GEMUSE Q-T Interval 392 ms GEMUSE QTc 457 ms GEMUSE P Wave [place] 43 degrees GEMUSE R [place] -8 degrees GEMUSE T [place] 119 degrees GEMUSE ECG Interpretation Normal sinus rhythm ST depression, consider subendocardial injury Nonspecific T wave abnormality Abnormal ECG When compared with ECG of 30-MAY-2024 18:29, (Unconfirmed) T wave amplitude has decreased in Inferior leads Nonspecific T wave abnormality, worse in Anterolateral leads Confirmed by Jose Andrade ([id number]) on 06/02/2024 11:29:45 PM GEMUSE 05/31/2024 3:17 PM EDT 06/02/2024 11:29 PM EDT us Buddy Espana MD ECG ORDERABLES Final Re sult GEMUSE * C-reactive protein (05/31/2024 12:22 PM EDT) C-Reactive Protein 0.7 <=0.9 mg/dL LAB CHEMISTRY METHOD 05/31/2024 1:09 PM EDT [facility] Blood Venous blood specimen / Unknown Venipuncture / Unknown 05/31/2024 12:22 PM EDT 05/31/2024 12:31 PM EDT us Buddy Espana MD LAB BLOOD ORDERABLES Fin al Result [facility] [address] [place] [address], * (ABNORMAL) Ferritin (05/31/2024 12:22 PM EDT) Ferritin 149(H) 10 - 120 ng/mL LAB CHEMISTRY METHOD 05/31/2024 1:25 PM EDT [facility] Blood Venous blood specimen / Unknown Venipuncture / Unknown 05/31/2024 12:22 PM EDT 05/31/2024 12:31 PM EDT Buddy Espana MD LAB BLOOD ORDERABLES Fin al Result Performing Organization Address City/[facility]/ZIP Co de Phone Number [facility] [address] [place] [address], [place] [phone] * (ABNORMAL) Hepatic function panel (05/31/2024 11:40 AM EDT) ALT (SGPT) 40 7 - 52 unit/L LAB CHEMISTRY METHOD 05/31/2024 12:34 PM EDT [facility] AST (SGOT) 60(H) 5 - 40 unit/L LAB CHEMISTRY METHOD 05/31/2024 12:34 PM EDT [facility] Alkaline Phosphatase 74 34 - 104 unit/L LAB CHEMISTRY METHOD 05/31/2024 12:34 PM EDT [facility] Bilirubin, Direct 0.3(H) 0.0 - 0.2 mg/dL LAB CHEMISTRY METHOD 05/31/2024 12:34 PM EDT [facility] Total Bilirubin 1.1(H) 0.3 - 1.0 mg/dL LAB CHEMISTRY METHOD 05/31/2024 12:34 PM EDT [facility] Total Protein 6.4 6.4 - 8.5 g/dL LAB CHEMISTRY METHOD 05/31/2024 12:34 PM EDT [facility] Albumin 4.3 3.5 - 5.0 g/dL LAB CHEMISTRY METHOD 05/31/2024 12:34 PM EDT [facility] Globulin, Total 2.1(L) 2.3 - 3.5 g/dL LAB CHEMISTRY METHOD 05/31/2024 12:34 PM EDT [facility] A/G Ratio 2.0 LAB CHEMISTRY METHOD 05/31/2024 12:34 PM EDT [facility] Blood Venous blood specimen / Unknown Venipuncture / Unknown 05/31/2024 11:40 AM EDT 05/31/2024 12:00 PM EDT us Buddy Espana MD LAB BLOOD ORDERABLES Fin al Result [facility] [address] [place] [address], * LEFT HEART CATH / CORONARY ANGIOGRAPHY (05/31/2024 10:32 AM EDT) Anatomical Region Laterality Modality X-Ray Angiograph y Narrative 05/31/2024 10:47 AM EDT ?No CAD. Coronary Findings Diagnostic Dominance: Right Left Main: The vessel was visualized by angiography, is moderate in size and is angiographically normal. Left Anterior Descending: The vessel was visualized by angiography, is moderate in size and is angiographically normal. Left Circumflex: The vessel is small. Right Coronary Artery: The vessel was visualized by angiography, is large and is angiographically normal. Intervention No interventions have been documented. Cath Recommendations Recommendations: routine post-cath care and maximize medical management. Clinical Background Days of GI symptoms with atypical CP. Transferred from outside hosp with trops> 5,000. Procedure Details After explanation of the risks and benefits of the procedure, informed consent was obtained. The right groin was prepped and draped in the standard manner. 2% mepivocaine was used to infiltrate the right groin. A 6F sheath was placed in the right femoral artery using the modified Seldinger technique. Coronary angiography was performed in multiple projections. Matt Leiva MD CV CARDIAC CATH PROCEDURES Rocio contreras Result * (ABNORMAL) TRANSTHORACIC ECHOCARDIOGRAM (TTE) COMPLETE W/ CONTRAST (05/31/2024 8:06 AM EDT) [facility] Signature LV EDV (A2C) 136 mL CV PACS LV EDV (A4C) 122 mL CV PACS LV Diastolic Volume (BP) 130(A) 46 - 106 mL CV PACS LV ESV (A2C) 74 mL CV PACS LV ESV (A4C) 63 mL CV PACS LV Systolic Volume (BP) 71(A) 14 - 42 mL CV PACS IVSD 0.8 0.6 - 0.9 cm CV PACS LVIDD 5.3(A) 3.8 - 5.2 cm CV PACS LVIDS 4.0(A) 2.2 - 3.5 cm CV PACS LVOT Diameter 2.0 cm CV PACS LVOT Mean Grad 2 mmHg CV PACS LVOT Peak VTI 18.6 cm CV PACS LVOT Mean Marcelino 0.7 m/s CV PACS LVOT Peak Marcelino 1.0 m/s CV PACS LVOT Peak Gradient 4 mmHg CV PACS LVPWD 0.8 0.6 - 0.9 cm CV PACS MV E' Tissue Velocity Lateral 5 cm/s CV PACS MV E' Tissue Velocity Septal 4 cm/s CV PACS Ejection Fraction (A2C) 46 % CV PACS Ejection Fraction (A4C) 49 % CV PACS Ejection Fraction (BP) 46 % CV PACS LVOT Area 3.1 cm2 CV PACS LVOT Stroke Volume 58 mL CV PACS Left Atrium Minor [place] 6.2 cm CV PACS Left Atrium Major [place] 6.0 cm CV PACS LA Area Sys (A2C) 23 cm2 CV PACS LA Area Sys (A4C) 25 cm2 CV PACS LA Volume (BP) 73 mL CV PACS Aortic Root 4.0 cm CV PACS Ascending Aorta 3.7 cm CV PACS MV Peak A Marcelino 0.60 m/s CV PACS MV Peak E Marcelino 0.40 m/s CV PACS NM End Max Velocity 1.2 m/s CV PACS PA End Diastolic Pressure 6 mmHg CV PACS PV Peak Velocity 0.8 m/s CV PACS PV Peak Gradient 3 mmHg CV PACS RV S' 17 cm/s CV PACS TAPSE 18 mm CV PACS LV ESV Index (A4C) 33 mL/m2 CV PACS LV EDV Index (A4C) 64 mL/m2 CV PACS E/E' Ratio Septal 10 CV PACS E/E' Ratio Averaged 9 CV PACS LVOT Stroke Index 0 mL/m2 CV PACS Relative Wall Thickness ratio 0.31 0.22 - 0.42 CV PACS FS 25 % CV PACS LV Mass 2D 155(A) 66 - 150 g CV PACS Ascending Aorta Index 1.93 cm/m2 CV PACS LVOT flow 220 mL/s CV PACS LVIDD Index 2.76 cm/m2 CV PACS LVIDS Index 2.08 cm/m2 CV PACS Aortic Root Index 2.08 cm/m2 CV PACS E/A Ratio 0.7 0.8 - 2.0 CV PACS E/E' Ratio Lateral 8 CV PACS LV Systolic Volume Index (BP) 0(A) 8 - 24 mL/m2 CV PACS LV Diastolic Volume Index (BP) 0(A) 29 - 61 mL/m2 CV PACS LA Volume Index (BP) 37 mL/m2 CV PACS LV Mass Index 2D 78 44 - 88 g/m2 CV PACS LV EDV Index (A2C) 71 mL/m2 CV PACS LV ESV Index (A2C) 39 mL/m2 CV PACS BSA 1.95 m2 CV PACS RV Diastolic Basal Dimension 3.1 2.5 - 4.1 cm CV PACS RA 2D Volume 21 mL CV PACS RA 2D Volume Index 11 15 - 27 mL/m2 CV PACS Est. RA Pressure 8 mmHg CV PACS LA Volume (A-L) 66 mL CV PACS LA Volume Index (A-L) 34 mL/m2 CV PACS RV Free Wall Peak S' 17 cm/s CV PACS RA Major [place] 4.6 cm CV PACS RA Major [place] Index 2.4 2.2 - 2.8 cm/m2 CV PACS RA Area 10.6 cm2 CV PACS LV EF MOD 2C 46 % CV PACS LV EF 4C A-L 49 % CV PACS LV EDV 4C A-L 129 mL CV PACS LV Length Sys (A4C) 6.6 cm CV PACS LV Length Vega (A4C) 8.1 cm CV PACS Aortic Root Dimension Index 2.0 cm/m2 CV PACS Pulmonic Insufficiency End diastolic Peak Flow Velocity 123.0 m/s CV PACS Left Ventricular Stroke Volume by 2-D Biplane-MOD 59 mL CV PACS Anatomical Region Laterality Modality Ultrasound Narrative 05/31/2024 10:20 AM EDT ?Left ventricle cavity is mildly dilated. Left ventricular systolic function is mildly decreased. EF by 2D [place] biplane is 46%. ?Regional LV wall motion abnormalities noted. See wall scoring diagram. ?Left ventricle wall thickness is normal. ?Right ventricle cavity is normal. ?Left??Atrium: Left atrium cavity is mildly dilated. Left atrium volume index is mildly increased. ?Mitral??Valve: There is mild regurgitation with an eccentrically directed jet. Left Ventricle Left ventricle cavity is mildly dilated. Wall thickness is normal. Systolic function is mildly decreased. The quantitative EF by 2D [place] biplane is 46%. There is Grade I (mild) diastolic dysfunction. Right Ventricle Right ventricle cavity appears normal. Normal TAPSE (> 17 mm). Normal systolic excursion velocity by TDI (>9.5 cm/s). Left Atrium Left atrium cavity is mildly dilated. Left atrium volume index is mildly increased. Right Atrium Right atrium cavity is normal. Right atrial volume is normal. IVC/SVC RA pressures is estimated to be 8 mmHg (IVC diameter <21 mm and decreases <50% during inspiration). Mitral Valve Mitral valve structure is normal. There is mild regurgitation with an eccentrically directed jet. There is no evidence of mitral valve stenosis. Tricuspid Valve Tricuspid valve structure is normal. There is no regurgitation or stenosis. Aortic Valve The aortic valve is trileaflet. There is trace regurgitation. There is no evidence of aortic valve stenosis. Pulmonic Valve The pulmonic valve was not well visualized. There is trace pulmonic valve regurgitation. There is no evidence of pulmonic valve stenosis. Ascending Aorta The aortic root is dilated (4.0 cm). Pericardium Pericardium appears normal. There is no pericardial effusion. Study Details Overall the study quality was adequate. Definity contrast was given to enhance imaging. Wall Scoring Baseline Score Index: 1.71 The following segments are hypokinetic: basal anterior, basal anteroseptal, basal inferoseptal, basal inferior, basal inferolateral, basal anterolateral, mid anterior, mid anteroseptal, mid inferoseptal, mid inferior, mid inferolateral and mid anterolateral. The following segments are hyperkinetic: apical anterior, apical septal, apical inferior, apical lateral and apex. us Belkis ANDREW CV ECHO PROCEDURES Final Res ult * Heparin and low molecular weight anti Xa level (05/31/2024 5:32 AM EDT) Only the most recent of5 resultswithin the time period is included. Heparin Anti-Xa 0.38 I Unit/mL LAB COAGULATION METHOD 05/31/2024 6:04 AM EDT [facility] Blood Venous blood specimen / Unknown Venipuncture / Unknown 05/31/2024 5:32 AM EDT 05/31/2024 5:49 AM EDT Narrative [facility] - 05/31/2024 6:04 AM EDT Therapeutic Ranges Heparin Thromboembolic/Standard/Full Dose Protocol: Age 18+ Years ?? 0.30-0.70 IU/mL Age 0-17 Years ??0.35-0.70 IU/mL Heparin Cardiac/Low Dose Protocol: 0.30-0.5 IU/mL Low Molecular Weight Heparin: Age 18+ Years ?? 0.50-1.50 IU/mL Age 0-17 Years ??0.50-1.00 IU/mL us Buddy Espana MD LAB BLOOD ORDERABLES Fin al Result [facility] [address] [place] [address], * ECG-Annotated (05/31/2024) us Provider Onbase ECG ORDERABLES Final Result * Lipid panel with reflex to direct LDL (05/30/2024 6:09 PM EDT) Cholesterol 140 0 - 200 mg/dL LAB CHEMISTRY METHOD 05/30/2024 6:55 PM EDT [facility] Triglycerides 145 <150 mg/dL LAB CHEMISTRY METHOD 05/30/2024 6:55 PM EDT [facility] HDL 41 37 - 92 mg/dL LAB CHEMISTRY METHOD 05/30/2024 6:55 PM EDT [facility] LDL Calculated 70 50 - 130 mg/dL LAB CHEMISTRY METHOD 05/30/2024 6:55 PM EDT [facility] VLDL Cholesterol Espinoza 29 mg/dL LAB CHEMISTRY METHOD 05/30/2024 6:55 PM EDT [facility] Comment:No established refer ence range. Blood Venous blood specimen / Unknown Venipuncture / Unknown 05/30/2024 6:09 PM EDT 05/30/2024 6:25 PM EDT Buddy Espana MD LAB BLOOD ORDERABLES Fin al Result [facility] [address] [place] [id number], * Thyroid stimulating hormone with reflex free T4 (05/30/2024 6:09 PM EDT) TSH 1.91 0.45 - 5.33 mcIU/mL LAB CHEMISTRY METHOD 05/30/2024 7:11 PM EDT [facility] Blood Venous blood specimen / Unknown Venipuncture / Unknown 05/30/2024 6:09 PM EDT 05/30/2024 6:25 PM EDT us Buddy Espana MD LAB BLOOD ORDERABLES Fin al Result [facility] [address] [place] [address], [place] [phone] * Hemoglobin A1c (05/30/2024 6:09 PM EDT) [facility] Hemoglobin A1C 5.0 <5.7 % LAB CHEMISTRY METHOD 05/31/2024 9:20 AM EDT [facility] Mean Bld Glu Estim. 97 mg/dL LAB CHEMISTRY METHOD 05/31/2024 9:20 AM EDT [facility] Blood Venous blood specimen / Unknown Venipuncture / Unknown 05/30/2024 6:09 PM EDT 05/30/2024 6:25 PM EDT Narrative [facility] - 05/31/2024 9:20 AM EDT ADA Guidelines: ?? Increased risk Diabetes Mellitus A1C 5.7 - 6.4% and Fasting Blood Glucose 100 - 125 mg/dl Diabetes Mellitus: A1C >6.5% and Fasting Blood Glucose >125 mg/dl Buddy Espana MD LAB BLOOD ORDERABLES Fin al Result [facility] [address] [place] [address], * (ABNORMAL) Troponin I High Sensitivity (05/30/2024 3:49 PM EDT) Only the most recent of3 resultswithin the time period is included. [facility] High Sensitivity Troponin I 2,515(HH) 0 - 14 ng/L LAB CHEMISTRY METHOD 05/30/2024 5:10 PM EDT [facility] Comment:Verified by repeat a nalysis Blood Venous blood specimen / Unknown Venipuncture / Unknown 05/30/2024 3:49 PM EDT 05/30/2024 4:00 PM EDT Narrative [facility] - 05/30/2024 5:10 PM EDT HSTnI results stratify to HIGH RISK category if any value >100 ng/L or delta at 1 hour is greater than or equal to 15 ng/L (male and female). Note: Delta values are not applicable if symptoms began more than 12 hours pre-arrival. Risk stratification should include the calculation of the HEART score. The testing method is an immunoenzymatic assay manufactured by [employer] and performed on the [employer] DxI 800. us Susan Horowitz DO LAB BLOOD ORDERABLES Final Re sult [facility] [address] [place] [address], * (ABNORMAL) CBC auto differential (05/30/2024 3:49 PM EDT) Only the most recent of2 resultswithin the time period is included. WBC 17.2(H) 4.0 - 10.5 K/mcL LAB HEMETOLOGY METHOD 05/30/2024 4:12 PM EDT [facility] RBC 4.72 4.20 - 5.40 M/mcL LAB HEMETOLOGY METHOD 05/30/2024 4:12 PM EDT [facility] Hemoglobin 15.1 12.5 - 16.0 g/dL LAB HEMETOLOGY METHOD 05/30/2024 4:12 PM EDT [facility] Hematocrit 44.5 37.0 - 47.0 % LAB HEMETOLOGY METHOD 05/30/2024 4:12 PM EDT [facility] MCV 94.2 78.0 - 100.0 FL LAB HEMETOLOGY METHOD 05/30/2024 4:12 PM EDT [facility] MCH 31.9 25.0 - 33.0 pcg LAB HEMETOLOGY METHOD 05/30/2024 4:12 PM EDT [facility] MCHC 33.8 32.0 - 36.0 g/dL LAB HEMETOLOGY METHOD 05/30/2024 4:12 PM EDT [facility] RDW 13.0 12.1 - 16.2 % LAB HEMETOLOGY METHOD 05/30/2024 4:12 PM EDT [facility] Platelets 296 150 - 450 K/mcL LAB HEMETOLOGY METHOD 05/30/2024 4:12 PM EDT [facility] MPV 8.9 7.4 - 11.4 FL LAB HEMETOLOGY METHOD 05/30/2024 4:12 PM EDT [facility] Neutrophils Relative 68.8 44.0 - 74.0 % LAB HEMETOLOGY METHOD 05/30/2024 4:12 PM EDT [facility] Lymphocytes Relative 21.4 20.0 - 48.0 % LAB HEMETOLOGY METHOD 05/30/2024 4:12 PM EDT [facility] Monocytes Relative 9.2 2.0 - 12.0 % LAB HEMETOLOGY METHOD 05/30/2024 4:12 PM EDT [facility] Eosinophils Relative 0.1 0.0 - 6.0 % LAB HEMETOLOGY METHOD 05/30/2024 4:12 PM EDT [facility] Basophils Relative 0.5 0.0 - 2.0 % LAB HEMETOLOGY METHOD 05/30/2024 4:12 PM EDT [facility] Neutrophils Absolute 11.80(H) 1.80 - 7.80 K/mcL LAB HEMETOLOGY METHOD 05/30/2024 4:12 PM EDT [facility] Lymphocytes Absolute 3.70(H) 1.00 - 3.20 K/mcL LAB HEMETOLOGY METHOD 05/30/2024 4:12 PM EDT [facility] Monocytes Absolute 1.60(H) 0.00 - 0.80 K/mcL LAB HEMETOLOGY METHOD 05/30/2024 4:12 PM EDT [facility] Eosinophils Absolute 0.00 0.00 - 0.50 K/mcL LAB HEMETOLOGY METHOD 05/30/2024 4:12 PM EDT [facility] Basophils Absolute 0.10 0.00 - 0.20 K/mcL LAB HEMETOLOGY METHOD 05/30/2024 4:12 PM EDT [facility] Blood Venous blood specimen / Unknown Venipuncture / Unknown 05/30/2024 3:49 PM EDT 05/30/2024 4:00 PM EDT Susan Horowitz LAB BLOOD ORDERABLES Final Re sult Performing Organization Address [facility]/ZIP Co de Phone Number [facility] [address] [place] [address], [place] [phone] * (ABNORMAL) B-type natriuretic peptide (05/30/2024 3:49 PM EDT) Only the most recent of2 resultswithin the time period is included. BNP 703(H) 0 - 100 pcg/mL LAB CHEMISTRY METHOD 05/30/2024 4:36 PM EDT [facility] Blood Venous blood specimen / Unknown Venipuncture / Unknown 05/30/2024 3:49 PM EDT 05/30/2024 4:00 PM EDT Susan Horowitz LAB BLOOD ORDERABLES Final Re sult Performing Organization Address [facility]/ZIP Co de Phone Number [facility] [address] [place] [address], [place] [phone] * CT Abdomen Pelvis w Contrast (05/30/2024 11:55 AM EDT) Anatomical Region Laterality Modality Body Computed Tomogra phy 05/30/2024 11:5 8 AM EDT Impressions 05/30/2024 12:08 PM EDT Impression: 1. No evidence of pulmonary thromboembolism is seen. 2. No acute abdominal process identified. 3. Limited assessment of the bowel due to under distention. Telerad PA ([id number]) -------- FINAL REPORT -------- Dictated By: Lucille Minor Dictated Date: 05/30/2024 11:58 ET Assigned Physician: Lucille Minor Reviewed and Electronically Signed By: Lucille Minor Signed Date: 05/30/2024 12:08 ET Workstation ID: [id number] Transcribed By: Self Edit Transcribed Date: 05/30/2024 11:58 ET Narrative 05/30/2024 12:08 PM EDT History: Dyspnea. Abdominal pain. Comparison: CT abdomen/pelvis 02/23/14 TECHNIQUE: Helical volumetric imaging of the thorax was performed in the axial plane during the rapid, uneventful intravenous administration of 90 mL Isovue-370, using the CT angiography protocol tailored for evaluation of the pulmonary arteries. Coronal and sagittal images were reformatted from the original data set and maximum intensity pixel images were reviewed, in multiple planes, on an independent CT workstation. Imaging was then continued through the abdomen and pelvis. DLP: 1181.42 mGy/cm [email or web address] VCT Iterative reconstruction technique Findings: Chest CTA: The pulmonary arterial tree is well-opacified to the subsegmental level bilaterally. No intraluminal filling defects are seen to suggest pulmonary thromboembolism. There is no pattern of right heart strain. The thoracic aorta is normal in caliber. Mild atherosclerotic calcification of the innominate artery is seen. No pleural or pericardial effusions are identified. No thoracic lymphadenopathy is seen. The trachea and central bronchial tree are patent. The lungs are clear. Abdomen/pelvis: The liver is normal in size and configuration. A 14 mm bilobed circumscribed hypo-attenuating lesion in the left hepatic lobe is most likely a cyst comment increased in size from 8 mm in 2014. A similar 4 mm lesion is seen in the dome of the right lobe. The portal and hepatic veins are patent. Cholecystectomy sequela are noted. No evidence of biliary obstruction is seen. The spleen, pancreas and adrenal glands are unremarkable. The kidneys are normal in position and size, with symmetric, intact nephrograms and no evidence of hydronephrosis or mass. No ascites is seen. There is no developing lymphadenopathy. The uterus and adnexa appear grossly unremarkable for age. The urinary bladder is empty. No evidence of bowel obstruction is seen. The colon is empty, which limits evaluation of its wall. No abnormal perienteric or pericolonic fat stranding is seen. 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 Musculoskeletal: Thick, flowing hyperostosis is seen along the anterior aspect of the thoracic spine, suggesting diffuse etiopathic skeletal hyperostosis (DISH). Procedure Note Lucille Minor MD - 05/30/2024 History: Dyspnea. Abdominal pain. Comparison: CT abdomen/pelvis 02/23/14 TECHNIQUE: Helical volumetric imaging of the thorax was performed in theaxial plane during the rapid, uneventful intravenous administration of 90mL Isovue-370, using the CT angiography protocol tailored for evaluationof the pulmonary arteries. Coronal and sagittal images were reformattedfrom the original data set and maximum intensity pixel images werereviewed, in multiple planes, on an independent CT workstation. Imagingwas then continued through the abdomen and pelvis. DLP: 1181.42 mGy/cm Door 6T Iterative reconstruction technique Findings: Chest CTA: The pulmonary arterial tree is well-opacified to the subsegmental levelbilaterally. No intraluminal filling defects are seen to suggest pulmonarythromboembolism. There is no pattern of right heart strain. The thoracicaorta is normal in caliber. Mild atherosclerotic calcification of theinnominate artery is seen. No pleural or pericardial effusions are identified. No thoraciclymphadenopathy is seen. The trachea and central bronchial tree are patent. The lungs are clear. Abdomen/pelvis: The liver is normal in size and configuration. A 14 mm bilobedcircumscribed hypo-attenuating lesion in the left hepatic lobe is mostlikely a cyst comment increased in size from 8 mm in 2014. A similar 4 mmlesion is seen in the dome of the right lobe. The portal and hepatic veinsare patent. Cholecystectomy sequela are noted. No evidence of biliaryobstruction is seen. The spleen, pancreas and adrenal glands are unremarkable. The kidneys are normal in position and size, with symmetric, intactnephrograms and no evidence of hydronephrosis or mass. No ascites is seen. There is no developing lymphadenopathy. The uterus andadnexa appear grossly unremarkable for age. The urinary bladder isempty. No evidence of bowel obstruction is seen. The colon is empty, which limitsevaluation of its wall. No abnormal perienteric or pericolonic fatstranding is seen. 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 Musculoskeletal: Thick, flowing hyperostosis is seen along the anterior aspect of thethoracic spine, suggesting diffuse etiopathic skeletal hyperostosis(DISH). IMPRESSION: Impression: 1. No evidence of pulmonary thromboembolism is seen. 2. No acute abdominal process identified. 3. Limited assessment of the bowel due to under distention. Telerad PA ([id number]) -------- FINAL REPORT -------- Dictated By: Lucille Minor Dictated Date: 05/30/2024 11:58 ET Assigned Physician: Lucille Minor Reviewed and Electronically Signed By: Lucille Minor Signed Date: 05/30/2024 12:08 ET Workstation ID: [id number] Transcribed By: Self Edit Transcribed Date: 05/30/2024 11:58 ET us Lonnie Orona MD IMG CT PROCEDURES Final Res ult * CT Angio Chest wo and/or w Contrast (05/30/2024 11:55 AM EDT) Anatomical Region Laterality Modality Body Computed Tomogra phy 05/30/2024 11:5 8 AM EDT Impressions 05/30/2024 12:08 PM EDT Impression: 1. No evidence of pulmonary thromboembolism is seen. 2. No acute abdominal process identified. 3. Limited assessment of the bowel due to under distention. Telerad PA ([id number]) -------- FINAL REPORT -------- Dictated By: Lucille Minor Dictated Date: 05/30/2024 11:58 ET Assigned Physician: Lucille Minor Reviewed and Electronically Signed By: Lucille Minor Signed Date: 05/30/2024 12:08 ET Workstation ID: [id number] Transcribed By: Self Edit Transcribed Date: 05/30/2024 11:58 ET Narrative 05/30/2024 12:08 PM EDT History: Dyspnea. Abdominal pain. Comparison: CT abdomen/pelvis 02/23/14 TECHNIQUE: Helical volumetric imaging of the thorax was performed in the axial plane during the rapid, uneventful intravenous administration of 90 mL Isovue-370, using the CT angiography protocol tailored for evaluation of the pulmonary arteries. Coronal and sagittal images were reformatted from the original data set and maximum intensity pixel images were reviewed, in multiple planes, on an independent CT workstation. Imaging was then continued through the abdomen and pelvis. DLP: 1181.42 mGy/cm [email or web address] VCT Iterative reconstruction technique Findings: Chest CTA: The pulmonary arterial tree is well-opacified to the subsegmental level bilaterally. No intraluminal filling defects are seen to suggest pulmonary thromboembolism. There is no pattern of right heart strain. The thoracic aorta is normal in caliber. Mild atherosclerotic calcification of the innominate artery is seen. No pleural or pericardial effusions are identified. No thoracic lymphadenopathy is seen. The trachea and central bronchial tree are patent. The lungs are clear. Abdomen/pelvis: The liver is normal in size and configuration. A 14 mm bilobed circumscribed hypo-attenuating lesion in the left hepatic lobe is most likely a cyst comment increased in size from 8 mm in 2014. A similar 4 mm lesion is seen in the dome of the right lobe. The portal and hepatic veins are patent. Cholecystectomy sequela are noted. No evidence of biliary obstruction is seen. The spleen, pancreas and adrenal glands are unremarkable. The kidneys are normal in position and size, with symmetric, intact nephrograms and no evidence of hydronephrosis or mass. No ascites is seen. There is no developing lymphadenopathy. The uterus and adnexa appear grossly unremarkable for age. The urinary bladder is empty. No evidence of bowel obstruction is seen. The colon is empty, which limits evaluation of its wall. No abnormal perienteric or pericolonic fat stranding is seen. 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 Musculoskeletal: Thick, flowing hyperostosis is seen along the anterior aspect of the thoracic spine, suggesting diffuse etiopathic skeletal hyperostosis (DISH). Procedure Note Lucille Minor MD - 05/30/2024 History: Dyspnea. Abdominal pain. Comparison: CT abdomen/pelvis 02/23/14 TECHNIQUE: Helical volumetric imaging of the thorax was performed in theaxial plane during the rapid, uneventful intravenous administration of 90mL Isovue-370, using the CT angiography protocol tailored for evaluationof the pulmonary arteries. Coronal and sagittal images were reformattedfrom the original data set and maximum intensity pixel images werereviewed, in multiple planes, on an independent CT workstation. Imagingwas then continued through the abdomen and pelvis. DLP: 1181.42 mGy/cm [employer] VCT Iterative reconstruction technique Findings: Chest CTA: The pulmonary arterial tree is well-opacified to the subsegmental levelbilaterally. No intraluminal filling defects are seen to suggest pulmonarythromboembolism. There is no pattern of right heart strain. The thoracicaorta is normal in caliber. Mild atherosclerotic calcification of theinnominate artery is seen. No pleural or pericardial effusions are identified. No thoraciclymphadenopathy is seen. The trachea and central bronchial tree are patent. The lungs are clear. Abdomen/pelvis: The liver is normal in size and configuration. A 14 mm bilobedcircumscribed hypo-attenuating lesion in the left hepatic lobe is mostlikely a cyst comment increased in size from 8 mm in 2014. A similar 4 mmlesion is seen in the dome of the right lobe. The portal and hepatic veinsare patent. Cholecystectomy sequela are noted. No evidence of biliaryobstruction is seen. The spleen, pancreas and adrenal glands are unremarkable. The kidneys are normal in position and size, with symmetric, intactnephrograms and no evidence of hydronephrosis or mass. No ascites is seen. There is no developing lymphadenopathy. The uterus andadnexa appear grossly unremarkable for age. The urinary bladder isempty. No evidence of bowel obstruction is seen. The colon is empty, which limitsevaluation of its wall. No abnormal perienteric or pericolonic fatstranding is seen. 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 Musculoskeletal: Thick, flowing hyperostosis is seen along the anterior aspect of thethoracic spine, suggesting diffuse etiopathic skeletal hyperostosis(DISH). IMPRESSION: Impression: 1. No evidence of pulmonary thromboembolism is seen. 2. No acute abdominal process identified. 3. Limited assessment of the bowel due to under distention. Telerad KAMRAN ([id number]) -------- FINAL REPORT -------- Dictated By: Lucille Minor Dictated Date: 05/30/2024 11:58 ET Assigned Physician: Lucille Minor Reviewed and Electronically Signed By: Lucille Minor Signed Date: 05/30/2024 12:08 ET Workstation ID: [id number] Transcribed By: Self Edit Transcribed Date: 05/30/2024 11:58 ET us Lonnie Orona MD IMG CT PROCEDURES Final Res ult * XR Chest 1 View (05/30/2024 11:36 AM EDT) Anatomical Region Laterality Modality Body Radiographic Lainey ging 05/30/2024 11:5 7 AM EDT Impressions 05/30/2024 11:57 AM EDT Impression: No active pulmonary processes identified. [facility] PA ([id number]) -------- FINAL REPORT -------- Dictated By: Lucille Minor Dictated Date: 05/30/2024 11:57 ET Assigned Physician: Lucille Minor Reviewed and Electronically Signed By: Lucille Minor Signed Date: 05/30/2024 11:57 ET Workstation ID: [id number] Transcribed By: Self Edit Transcribed Date: 05/30/2024 11:57 ET Narrative 05/30/2024 11:57 AM EDT History: Dyspnea. Comparison: 07/05/16 Findings: Portable AP upright chest at 11:35 AM. The cardiomediastinal silhouette, hilar contours and pulmonary vascularity are within normal limits. The lungs are grossly clear. The costophrenic angles are sharp. Procedure Note Lucille Minor MD - 05/30/2024 History: Dyspnea. Comparison: 07/05/16 Findings: Portable AP upright chest at 11:35 AM. The cardiomediastinal silhouette,hilar contours and pulmonary vascularity are within normal limits. Thelungs are grossly clear. The costophrenic angles are sharp. IMPRESSION: Impression: No active pulmonary processes identified. [facility] KAMRAN ([id number]) -------- FINAL REPORT -------- Dictated By: Lucille Minor Dictated Date: 05/30/2024 11:57 ET Assigned Physician: Lucille Minor Reviewed and Electronically Signed By: Lucille Minor Signed Date: 05/30/2024 11:57 ET Workstation ID: [id number] Transcribed By: Self Edit Transcribed Date: 05/30/2024 11:57 ET us Lonnie Orona MD IMG XR PROCEDURES Final Res ult * [id number], RSV, Influenza A and B qualitative RT-PCR (05/30/2024 11:31 AM EDT) Influenza A PCR Not Detected Not Detected LAB MICROBIOLOGY METHOD 05/30/2024 1:17 PM EDT [facility] Influenza B PCR Not Detected Not Detected LAB MICROBIOLOGY METHOD 05/30/2024 1:17 PM EDT [facility] RSV PCR Not Detected Not Detected LAB MICROBIOLOGY METHOD 05/30/2024 1:17 PM EDT [facility] SARS COV-2 Not Detected Not Detected LAB MICROBIOLOGY METHOD 05/30/2024 1:17 PM EDT [facility] Swab Both anterior nares / Unknown Non-blood Collection / Unknown 05/30/2024 11:31 AM EDT 05/30/2024 11:47 AM EDT Narrative [facility] - 05/30/2024 1:17 PM EDT Disclaimer: ??Testing was performed using the [employer] GeneXpert Xpress SARS-CoV-2 _Flu_RSV PLUS PCR assay. ??The manner in which this information is used to guide patient care is the responsibility of the healthcare provider. ??Results should be correlated with the clinical history, epidemiological data, and other data available to the clinician evaluating the patient. ??Negative results do not preclude infection. ??This test has been authorized by the FDA under an Emergency Use Authorization (EUA). ??This test is only authorized for the duration of time the declaration that circumstances exist justifying the authorization of the emergency use of in vitro diagnostic tests for detection of SARS-CoV-2 virus and/or diagnosis of COVID-19 infection under section 564 (b) (1) of the Act, 21 U.S.C 360bbb-3 (b) (1), unless the authorization is terminated or revoked sooner. ?? Reference Range: Not Detected Fact sheet for Healthcare providers can be found at https://www.fda.gov/media/070528/download. ?? Fact sheet for Healthcare patients can be found at https://www.fda.gov/media/928755/download. us Lonnie Orona MD LAB MICROBIOLOGY - GENERAL ORDERABLES Final Result Performing Organization Address City/[facility]/ZIP Co de Phone Number [facility] [address] [place] [address], * Activated Partial Thromboplastin Time - STAT (05/30/2024 11:30 AM EDT) aPTT 29.9 24.1 - 39.3 sec LAB COAGULATION METHOD 05/30/2024 11:59 AM EDT [facility] Blood Venous blood specimen / Unknown Venipuncture / Unknown 05/30/2024 11:30 AM EDT 05/30/2024 11:47 AM EDT Lonnie Orona MD LAB BLOOD ORDERABLES Final Result Performing Organization Address [facility] Co de Phone Number [facility] [address] [place] [address], * Prothrombin Time with INR - STAT (05/30/2024 11:30 AM EDT) Protime 12.2 10.6 - 13.9 sec LAB COAGULATION METHOD 05/30/2024 11:59 AM EDT [facility] INR 1.0 LAB COAGULATION METHOD 05/30/2024 11:59 AM EDT [facility] Blood Venous blood specimen / Unknown Venipuncture / Unknown 05/30/2024 11:30 AM EDT 05/30/2024 11:47 AM EDT Lonnie Orona MD LAB BLOOD ORDERABLES Final Result Performing Organization Address City/[facility]/ZIP Co de Phone Number [facility] [address] [place] [address], [place] [phone] * Lipase (05/30/2024 10:26 AM EDT) [facility] Lipase 29 13 - 75 unit/L LAB CHEMISTRY METHOD 05/30/2024 10:59 AM EDT [facility] Blood Venous blood specimen / Unknown Venipuncture / Unknown 05/30/2024 10:26 AM EDT 05/30/2024 10:34 AM EDT Lonnie Orona MD LAB BLOOD ORDERABLES Final Result [facility] [address] [place] [address], [place] [phone] * (ABNORMAL) Comprehensive metabolic panel (05/30/2024 10:26 AM EDT) [facility] Sodium 136 133 - 145 mmol/L LAB CHEMISTRY METHOD 05/30/2024 10:59 AM [facility] Potassium 3.8 3.5 - 5.5 mmol/L LAB CHEMISTRY METHOD 05/30/2024 10:59 AM [facility] Chloride 101 96 - 110 mmol/L LAB CHEMISTRY METHOD 05/30/2024 10:59 AM [facility] CO2 26 21 - 32 mmol/L LAB CHEMISTRY METHOD 05/30/2024 10:59 AM T [facility] Anion Gap 9 3 - 11 LAB CHEMISTRY METHOD 05/30/2024 10:59 AM [facility] Glucose 133(H) 70 - 100 mg/dL LAB CHEMISTRY METHOD 05/30/2024 10:59 AM [facility] BUN 18 5 - 25 mg/dL LAB CHEMISTRY METHOD 05/30/2024 10:59 AM [facility] Creatinine 1.12(H) 0.50 - 1.10 mg/dL LAB CHEMISTRY METHOD 05/30/2024 10:59 AM [facility] eGFR 57(L) >=60 mL/min/1. 73m2 LAB CHEMISTRY METHOD 05/30/2024 10:59 AM [facility] Comment:Calculation based on the??Chronic Kidney Disease Epidemiology Collaboration (CKD-EPI) equation refit??without adjustment for race. BUN/Creatinine Ratio 16.1 LAB CHEMISTRY METHOD 05/30/2024 10:59 AM [facility] Calcium 11.3(H) 8.5 - 10.5 mg/dL LAB CHEMISTRY METHOD 05/30/2024 10:59 AM [facility] AST (SGOT) 53(H) 10 - 42 unit/L LAB CHEMISTRY METHOD 05/30/2024 10:59 AM [facility] ALT (SGPT) 29 10 - 60 unit/L LAB CHEMISTRY METHOD 05/30/2024 10:59 AM [facility] Alkaline Phosphatase 106 42 - 121 unit/L LAB CHEMISTRY METHOD 05/30/2024 10:59 AM [facility] Total Protein 8.1(H) 6.0 - 8.0 g/dL LAB CHEMISTRY METHOD 05/30/2024 10:59 AM [facility] Albumin 4.7 3.2 - 5.0 g/dL LAB CHEMISTRY METHOD 05/30/2024 10:59 AM [facility] Total Bilirubin 1.6(H) 0.0 - 1.4 mg/dL LAB CHEMISTRY METHOD 05/30/2024 10:59 AM [facility] Blood Venous blood specimen / Unknown Venipuncture / Unknown 05/30/2024 10:26 AM EDT 05/30/2024 10:34 AM EDT us Lonnie Orona MD LAB BLOOD ORDERABLES Final Result [facility] [address] [place] [address], * NM CRITICAL CARE 30-74 MINUTES (05/30/2024 9:47 AM EDT) Narrative Lonnie Orona MD - 05/30/2024 9:47 AM EDT Lonnie Orona MD ? 06/02/2024 ??8:31 AM Critical Care Performed by: Lonnie Orona MD Authorized by: Lonnie Orona MD ?? Critical care provider statement: ??Critical care time (minutes): ??45 ??Critical care was necessary to treat or prevent imminent or life-threatening deterioration of the following conditions: ??Acute mi ??Critical care was time spent personally by me on the following activities: ??Discussions with consultants, ordering and review of radiographic studies, ordering and review of laboratory studies and evaluation of patient's response to treatment ??I assumed direction of critical care for this patient from another provider in my specialty: no ?? Comments: ?? Patient required immediate attention due to NSTEMI patient required IV fluid resuscitation as well as heparinization. ??Discussed case with Dr. Perez of cardiology performed a plan to transfer due to concern for underlying CAD likely NSTEMI secondary to demand ischemia. ??EKG was nondynamic but did not show ischemic changes. ??There is no progression to STEMI. Lonnie Orona MD IN CLINIC/BEDSIDE ORDERABLE S Final Result * Pap Smear (11/19/2010) Pap smear No interpretation , abstracted Historical Provider HEALTH MAINTENANCE Final Result * Colonoscopy (08/07/2010) Colonoscopy No interpretation , abstracted Anatomical Region Laterality Modality Other Historical Provider HEALTH MAINTENANCE Final Result from Last 3 Months or Most Recently Relevant to Health Maintenance Insurance [facility] [employer] Advance Directives * Full Code - Default (Latest Code Status on File) Date Activated Date Inactivated Comments 05/30/2024 4:53 PM 06/01/2024 7:22 PM This is orde r is used when code status has not been discussed with the patient, or code status is otherwise unknown/unconfirmed To update the patient's code status, place a code status order. Do not modify or discontinue any currently active code status orders. Care Teams Internet Project Manager Relationship Specialty Start Date End Date Matt Patten MD [address] [place] [phone] PCP - General Family Medicine 12/05/23
--- OUTSIDE RECORDS SUMMARY | 2024-06-07 12:07 | XMS_ITS | Encounter Summary ---
Demographics Address [address] [place] [address] Home Phone Mobile Phone Email Address Email Address Preferred Language en Marital Status Legally Hinduism Affiliation Unknown Race White Additional Race(s) or A [place] Ethnic Group Not or Lati no Author Organization [facility] [place] [address] Care Team Providers Care Buckle Stringer Name Role Phone Matt Patten MD Primary Care Provider [phone] Reason for Visit * Reason Onset Date Comments Med Refill 05/21/2024 Zepbound w/titra tion Encounter Details Date Type Department Care Team ([facility] Contact Info) Description 05/21/2024 Telephone Bariatric Surgery - [place] [address] [phone] aKy Stone MD [address] [id number] Med Refill (Zepbound w/titration) Social History Tobacco Use Types Packs/Day Years Used Date Smoking Tobacco: Former Cigarettes Q uit: 03/10/2001 Smokeless Tobacco: Never Alcohol Use Standard Drinks/Week Comments No 0 (1 standard drink = 0.6 oz pur e alcohol) Comments Unknown Sex and Gender Information Value Date Recorded Sex Assigned at Female 05/30/2024 10:53 AM EDT Legal Sex Female 5:53 AM EST Gender Identity Female 05/30/2024 10:53 AM EDT Sexual Orientation Straight 05/30/2024 10 :53 AM EDT documented as of this encounter Progress Notes * Brook Lindsay - 05/21/2024 12:48 PM EDT Patient did well on Zepbound 5 mgs and would like a refill with titration. If appropriate, please send script for Zepbound 7.5 mgs to their pharmacy. The patient does have a follow up in 08/03/2024 documented in this encounter Plan of Treatment Upcoming Encounters Date Type Department Care Team (Late st Contact Info) Description 06/24/2024 2:00 PM EDT Office Visit Bariatric Surgery - [place] [address] [place] [address] Kay Stone MD 175 [facility] [address] [place] [address] 07/29/2024 12:30 PM EDT Consult [facility] [address] [place] [phone] Arnoldo Smith MD [address] [place] [phone] documented as of this encounter Visit Diagnoses Not on filedocumented in this encounter Additional Health Concerns Infection Onset Date Last Indicated Resolved Time Respiratory Rule-Out 05/30/2024 05/30/2024 025 1:17 PM EDT COVID-19 Rule-Out 05/30/2024 05/30/2024 05/30/2024 1:17 PM EDT documented as of this encounter Care Teams Buckle Stringer Relationship Specialty Start Date End Date Matt Patten MD [address] [place] [phone] PCP - General Family Medicine 12/05/23 documented as of this encounter
--- OUTSIDE RECORDS SUMMARY | 2024-06-07 12:07 | XMS_ITS ---
Author Name [facility] Organization Unknown Results Test Name/Text Value Interpretation Date Range Source ESR Bld Qn Westrgrn 2mm/hr Normal [id number] 0 - 20 [facility] Calcium SerPl-mCnc 8.6mg/dL Normal [id number] 8.4 - 10 .2 [facility] BUN SerPl-mCnc 16mg/dL Normal [id number] 7 - 17 [facility] Creat SerPl-mCnc 0.6mg/dL Normal [id number] 0.5 - 1 [facility] Chloride SerPl-sCnc 105mmol/L Normal [id number] 98 - 10 7 [facility] BUN/Creat SerPl 26.7 Above high normal [id number] 12 - 20 [facility] CO2 SerPl-sCnc 27mmol/L Normal [id number] 24 - 32 [facility] eGFRcr SerPlBld CKD-EPI 2020 104mL/min/1. 73m2 Normal [id number] - [facility] Potassium SerPl-sCnc 3.3mmol/L Below low normal [id number] 3.5 - 5.1 [facility] Sodium SerPl-sCnc 139mmol/L Normal [id number] 135 - 145 [facility] Anion Gap SerPl-sCnc 7 Normal [id number] 5 - 14 [facility] Glucose SerPl-mCnc 90mg/dL Normal [id number] 70 - 199 [facility] Magnesium SerPl-mCnc 1.9mg/dL Normal [id number] 1.7 - 2.8 [facility] RDW RBC Auto-Rto 12.9% Normal [id number] 12.1 - 16. 2 [facility] PMV Bld Auto 9.2FL Normal [id number] 7.4 - 11.4 [facility] MCH RBC Qn Auto 31.3pcg Normal [id number] 25 - 33 [facility] RBC # Bld Auto 4.35M/mcL Normal [id number] 4.2 - 5.4 [facility] MCHC RBC Auto-mCnc 33.6g/dL Normal [id number] 32 - 36 [facility] Platelet # Bld Auto 227K/mcL Normal [id number] 150 - 4 50 [facility] WBC # Bld Auto 11.5K/mcL Above high normal [id number] 4 - 10.5 [facility] Hct VFr Bld Auto 40.6% Normal [id number] 37 - 47 [facility] MCV RBC Auto 93.1FL Normal [id number] 78 - 100 [facility] Hgb Bld-mCnc 13.6g/dL Normal [id number] 12.5 - 16 [facility] Glucose Bld-mCnc 94mg/dL Normal [id number] 70 - 199 [facility] Ferritin SerPl-mCnc 149ng/mL Above high normal [id number] 10 - 120 [facility] CRP SerPl-mCnc 0.7mg/dL Normal [id number] - [facility] AST SerPl-cCnc 60unit/L Above high normal [id number] 5 - 40 [facility] ALT SerPl-cCnc 40unit/L Normal [id number] 7 - 52 [facility] ALP SerPl-cCnc 74unit/L Normal [id number] 34 - 104 [facility] Globulin Ser Calc-mCnc 2.1g/dL Below low normal [id number] 2.3 - 3.5 [facility] Bilirub Direct SerPl-mCnc 0.3mg/dL Above high normal [id number] 0 - 0.2 [facility] Albumin/Glob SerPl 2 [address] [id number] [facility] Albumin SerPl-mCnc 4.3g/dL Normal [id number] 3.5 - 5 [facility] Prot SerPl-mCnc 6.4g/dL Normal [id number] 6.4 - 8.5 C [facility] Bilirub SerPl-mCnc 1.1mg/dL Above high normal [id number] 0.3 - 1 [facility] Calcium SerPl-mCnc 9.3mg/dL Normal [id number] 8.4 - 10 .2 [facility] BUN SerPl-mCnc 18mg/dL Above high normal [id number] 7 - 17 [facility] Creat SerPl-mCnc 0.7mg/dL Normal [id number] 0.5 - 1 [facility] Chloride SerPl-sCnc 104mmol/L Normal [id number] 98 - 10 7 [facility] BUN/Creat SerPl 25.7 Above high normal [id number] 12 - 20 [facility] CO2 SerPl-sCnc 25mmol/L Normal [id number] 24 - 32 [facility] eGFRcr SerPlBld CKD-EPI 2020 100mL/min/1. 73m2 Normal [id number] - [facility] Potassium SerPl-sCnc 3.2mmol/L Below low normal [id number] 3.5 - 5.1 [facility] Sodium SerPl-sCnc 139mmol/L Normal [id number] 135 - 145 [facility] Anion Gap SerPl-sCnc 10 Normal [id number] 5 - 14 [facility] Glucose SerPl-mCnc 97mg/dL Normal [id number] 70 - 199 [facility] Magnesium SerPl-mCnc 1.9mg/dL Normal [id number] 1.7 - 2.8 [facility] RDW RBC Auto-Rto 12.8% Normal [id number] 12.1 - 16. 2 [facility] PMV Bld Auto 9.1FL Normal [id number] 7.4 - 11.4 [facility] MCH RBC Qn Auto 31.9pcg Normal [id number] 25 - 33 [facility] RBC # Bld Auto 4.84M/mcL Normal [id number] 4.2 - 5.4 [facility] MCHC RBC Auto-mCnc 33.3g/dL Normal [id number] 32 - 36 [facility] Platelet # Bld Auto 259K/mcL Normal [id number] 150 - 4 50 [facility] WBC # Bld Auto 15.3K/mcL Above high normal [id number] 4 - 10.5 [facility] Hct VFr Bld Auto 46.4% Normal [id number] 37 - 47 [facility] MCV RBC Auto 95.8FL Normal [id number] 78 - 100 [facility] Hgb Bld-mCnc 15.4g/dL Normal [id number] 12.5 - 16 [facility] HbA1c MFr Bld 5% Normal [id number] - 5.7 [facility] Est. average glucose Bld gHb Est-mCnc 97mg/dL Normal [id number] [facility] Heparin Anti Xa Fld.NB-aCnc 1.55IUnit/mL Critically high [id number] [facility] Heparin Anti Xa Fld.NB-aCnc 0.38IUnit/mL Normal [id number] [facility] TSH SerPl DL<=0.005 mIU/L-aCnc 1.91mcIU/mL Normal [id number] 0.45 - 5.33 [facility] LDLc SerPl Calc-mCnc 70mg/dL Normal [id number] 50 - 130 [facility] Trigl SerPl-mCnc 145mg/dL Normal [id number] - 150 [facility] HDLc SerPl-mCnc 41mg/dL Normal [id number] 37 - 92 [facility] Cholest SerPl-mCnc 140mg/dL Normal [id number] 0 - 200 [facility] VLDLc SerPl Calc-mCnc 29mg/dL Normal [id number] [facility] Heparin Anti Xa Fld.NB-aCnc 0.45IUnit/mL Normal [id number] [facility] Troponin I SerPl HS-mCnc 2515ng/L Critically high [id number] 0 - 14 [facility] BNP SerPl-mCnc 703pcg/mL Above high normal [id number] 0 - 100 [facility] Calcium SerPl-mCnc 9.3mg/dL Normal [id number] 8.4 - 10 .2 [facility] BUN SerPl-mCnc 19mg/dL Above high normal [id number] 7 - 17 [facility] Creat SerPl-mCnc 0.8mg/dL Normal [id number] 0.5 - 1 [facility] Chloride SerPl-sCnc 102mmol/L Normal [id number] 98 - 10 7 [facility] BUN/Creat SerPl 23.8 Above high normal [id number] 12 - 20 [facility] CO2 SerPl-sCnc 23mmol/L Below low normal [id number] 24 - 32 [facility] eGFRcr SerPlBld CKD-EPI 2020 85mL/min/1.7 3m2 Normal [id number] - [facility] Potassium SerPl-sCnc 3.5mmol/L Normal [id number] 3.5 - 5.1 [facility] Sodium SerPl-sCnc 136mmol/L Normal [id number] 135 - 145 [facility] Anion Gap SerPl-sCnc 11 Normal [id number] 5 - 14 [facility] Glucose SerPl-mCnc 95mg/dL Normal [id number] 70 - 199 [facility] MCH RBC Qn Auto 31.9pcg Normal [id number] 25 - 33 [facility] RBC # Bld Auto 4.72M/mcL Normal [id number] 4.2 - 5.4 [facility] Lymphocytes # Bld Auto 3.7K/mcL Above high normal [id number] 1 - 3.2 [facility] Neutrophils/leuk NFr Bld Auto 68.8% Normal [id number] 44 - 74 [facility] Basophils # Bld Auto 0.1K/mcL Normal [id number] 0 - 0.2 [facility] Lymphocytes/leuk NFr Bld Auto 21.4% Normal [id number] 20 - 48 [facility] PMV Bld Auto 8.9FL Normal [id number] 7.4 - 11.4 [facility] Monocytes/leuk NFr Bld Auto 9.2% Normal [id number] 2 - 12 [facility] Basophils/leuk NFr Bld Auto 0.5% Normal [id number] 0 - 2 [facility] MCHC RBC Auto-mCnc 33.8g/dL Normal [id number] 32 - 36 [facility] Monocytes # Bld Auto 1.6K/mcL Above high normal [id number] 0 - 0.8 [facility] Hct VFr Bld Auto 44.5% Normal [id number] 37 - 47 [facility] Eosinophil/leuk NFr Bld Auto 0.1% Normal [id number] 0 - 6 [facility] Neutrophils # Bld Auto 11.8K/mcL Above high normal [id number] 1.8 - 7.8 [facility] Platelet # Bld Auto 296K/mcL Normal [id number] 150 - 4 50 [facility] RDW RBC Auto-Rto 13% Normal [id number] 12.1 - 16. 2 [facility] Eosinophil # Bld Auto 0K/mcL Normal [id number] 0 - 0.5 [facility] Hgb Bld-mCnc 15.1g/dL Normal [id number] 12.5 - 16 [facility] MCV RBC Auto 94.2FL Normal [id number] 78 - 100 [facility] WBC # Bld Auto 17.2K/mcL Above high normal [id number] 4 - 10.5 [facility] Heparin Anti Xa Fld.NB-aCnc 0.75IUnit/mL Normal [id number] [facility] History of Medication Use Medication Directions Dispensed Refills Start Date End Date Stat us lidocaine (XYLOCAINE) 2 % mouth solution 10 mL 05/30/2024 active magnesium oxide (MAG-OX) tablet 400 mg 400 mg, oral, Daily, First dose on Tu06/01/24 at 1300 06/01/2024 active acetaminophen (TYLENOL) tablet 650 mg 650 mg, oral, Every 6 hours PRN, mild pain, moderate pain, headaches, fever - temperature GREATER than 38 C (100.4 F), Starting on Fri05/30/24 at 2137 05/31/2024 active buPROPion SR (WELLBUTRIN SR) 150 mg 12 hr tablet Take 1 tablet (150 mg total) by mouth 2 (two) times a day. 11/20/2010 5 aborted nitroglycerin (NITROSTAT) SL tablet 0.4 mg 0.4 mg, sublingual, Every 5 min PRN, chest pain, Starting on Fri05/30/24 at 1723, Give every 5 minutes as needed for chest pain to a maximum of 3 doses. Notify MD to obtain an order for an EKG if no relief after 3 doses or chest pain recurs. HOLD and notify MD if SBP less than 90 mmHg. Do not give i 05/30/2024 active bisacodyL (DULCOLAX) suppository 10 mg 10 mg, rectal, Daily PRN, constipation, Starting on Fri05/30/24 at 1653, 2nd line for treatment of constipation - give scheduled (in addition to 1st line agent) if no bowel movement in past 48 hours 05/30/2024 active dextrose 15 gram/60 mL oral solution 30 g 05/30/2024 active omeprazole (PriLOSEC) [address] capsule Take 1 capsule (40 mg total) by mouth 1 (one) time each day. 02/16/2011 5 aborted sodium chloride 0.9 % infusion 100 mL/hr, intravenous, Continuous, Starting on 05/31/24 at 1045, For 4 hours 05/31/2024 5 completed pantoprazole (PROTONIX) 40 mg EC tablet Take 1 tablet (40 mg total) by mouth 1 (one) time each day. 04/15/2024 active aluminum-magnesium hydroxide-simethico ne (MAALOX) 200-200-20 mg/5 mL suspension 20 mL 05/30/2024 active LORazepam (ATIVAN) injection 0.5 mg 0.5 mg, intravenous, Once, On 05/31/24 at 1515, For 1 dose, Prior to IV use, lorazepam injection should be DILUTED with an equal volume of compatible solution; Rate of administration should NOT exceed 2 mg/min. 05/31/2024 5 completed bisacodyL (DULCOLAX) EC tablet 10 mg 10 mg, oral, Daily PRN, constipation, Starting on 05/30/24 at 1653, 1st line for treatment of constipation - give scheduled if no bowel movement in past 24 hours. Do not crush, chew, or split. 05/30/2024 active dextrose 15 gram/60 mL oral solution 15 g 05/30/2024 active polyethylene glycol (MIRALAX) packet 17 g 17 g, oral, Daily, First dose on Fri05/30/24 at 1654, Bowel Regimen - for prevention of constipation 05/30/2024 active ARIPiprazole (ABILIFY) tablet 5 mg 5 mg, oral, Nightly, First dose on Fri05/30/24 at 2100 05/17/2024 active lactated Ringer's bolus 500 mL 500 mL, intravenous, at 500 mL/hr, Administer over 1 Hours, Once, On Fri05/30/24 at 1608, For 1 dose 05/30/2024 5 completed pantoprazole (PROTONIX) injection 40 mg 40 mg, intravenous, Administer over 2 Minutes, Every 12 hours scheduled, First dose on Fri05/30/24 at 1719, Pantroprazole - IV push: Reconstitute powder for injection with 10 mL NS; final concentration: 4 mg/mL., Indication for IV Push Pantoprazole? Stress Ulcer Prophylaxis for patients with STRICT 05/30/2024 active senna (SENOKOT) tablet 17.2 mg 17.2 mg (2 tablet), oral, Nightly PRN, constipation, Starting on Fri05/30/24 at 1653, Bowel Regimen - for prevention of constipation 05/30/2024 active dextrose (D50W) 50% injection 12.5 g 05/30/2024 active morphine 2 mg/mL injection 2 mg 2 mg, intravenous, Every 4 hours PRN, moderate pain, severe pain, Starting on Fri05/30/24 at 1723 05/30/2024 active perflutren lipid microsphere (DEFINITY) 1.3 mL in sodium chloride 0.9% 8.7 mL injection 10 mL, intravenous, Administer over 10 Minutes, Once in imaging, Starting on Fri05/31/24 at 0725, For 1 dose, CV Medication Orders 05/31/2024 completed atorvastatin (LIPITOR) tablet 40 mg 40 mg, oral, Nightly, First dose on Fri05/30/24 at 2100 05/31/2024 active ondansetron ODT (ZOFRAN-ODT) disintegrating tablet 4 mg [Order 1 Start] Name: ondansetron ODT (ZOFRAN-ODT) disintegrating tablet 4 mg Signed Summary: 4 mg, oral, Every 8 hours PRN, vomiting, nausea, Starting on Fri05/30/24 at 1653, -Give IV if patient is unable to take orally. -If inadequate response within 30 minutes, proceed to next-line agent or conta 05/30/2024 active lidocaine (XYLOCAINE) 2 % mouth solution 15 mL 15 mL, Mouth/Throat, Once, On Fri05/30/24 at 1644, For 1 dose 05/30/2024 completed venlafaxine XR (EFFEXOR-XR) 24 hr capsule 150 mg 150 mg, oral, Daily, First dose on Fri05/31/24 at 0900, Capsule may be swallowed whole, or may be opened and its contents sprinkled on applesauce if consumed immediately without chewing. Do not crush or chew. 05/17/2024 active busPIRone (BUSPAR) 15 mg tablet Take 1 tablet (15 mg total) by mouth 2 (two) times a day. 05/26/2024 active Glucagon HCl (rDNA) injection 1 mg 05/30/2024 active aspirin EC tablet 81 mg 81 mg, oral, Daily, First dose on Fri05/31/24 at 0900, Do not crush, chew, or split. 05/31/2024 active dextrose (D50W) 50% injection 25 g 05/30/2024 active busPIRone (BUSPAR) tablet 15 mg 15 mg, oral, 2 times daily, First dose on Fri05/30/24 at 2100 05/31/2024 active gadoterate meglumine (CLARISCAN, DOTAREM) injection 40 mL 40 mL, intravenous, Once in imaging, Starting on 05/31/24 at 2130, For 1 dose 06/01/2024 completed lactated Ringer's infusion 75 mL/hr, intravenous, Continuous, Starting on 05/30/24 at 2330 05/31/2024 aborted aluminum-magnesium hydroxide-simethico ne (MAALOX) 200-200-20 mg/5 mL suspension 30 mL 30 mL, oral, Once, On 05/30/24 at 1644, For 1 dose 05/30/2024 completed ranolazine (RANEXA) 12 hr tablet 500 mg 500 mg, oral, 2 times daily, First dose on Fri05/30/24 at 2100, Do not crush, chew, or split. 05/31/2024 aborted tirzepatide, weight loss, (Zepbound) 7.5 mg/0.5 mL injection Inject 0.5 mL (7.5 mg total) under the skin every 7 (seven) days for 28 days. 05/21/2024 aborted Problems Problem Status Onset Date Problem Type Date of Resoluti on Source Obesity active 2010-06-[address] [facility] NSTEMI (non-ST elevated myocardial infarction) active 2024-05-[address] [facility] [facility] Varicose vein of leg active 2010-06-[address] Problem[address] [facility] GERD (gastroesophageal reflux disease) active 2010-06-21 ProblemAct [facility] Grief reaction active 2010-09-05 Problem[address] [facility] Immunizations Vaccine Date Source Lot Number Status Tdap Tetanus diptheria acell ular pertussis (Boostrix; Adacel) 7yo and older 09/05/2010 [facility] [id number] completed Encounters Encounter Type Encounter Reason Primary Diagnosis Location Date Inpatient TRANSFER FROM [facility] Non-ST elevation (NSTEMI) myocardial infarction [facility] 05/30/2024 Care Team Organization Name Specialty Phone Email Start Date End Da te [facility] 05/30/2024
== END 2024-06-07 12:10 | disposition home or self-care (01) ==
LOC: HO.HMCFM 10:44
PROVIDERS: PCP Family Medicine; Visit Provider Family Medicine
DX: I21.4 Non-ST elevation (NSTEMI) myocardial infarction (principal)

== ENCOUNTER → 2024-06-07 10:43 | Outpatient (BNVA) | payer OTHER, SELFPAY | PROVIDERS: PCP Family Medicine; Visit Provider Family Medicine | DX: Z00.00 Encounter for general adult medical examination without abnormal findings (principal); I21.4 Non-ST elevation (NSTEMI) myocardial infarction; I11.0 Hypertensive heart disease with heart failure; I50.9 Heart failure, unspecified | CPT/HCPCS: 96127; 99212 ==

== ENCOUNTER 2024-06-18 12:08 | Outpatient (REF) | payer OTHER, SELFPAY ==
[2024-06-18 12:25] LABS: MANUAL DIFF FLAG NO
--- OUTSIDE RECORDS SUMMARY | 2024-06-18 12:56 | XMS_ITS | Encounter Summary ---
Demographics Address [address] [place] [address] Home Phone Mobile Phone Email Address Email Address Preferred Language en Marital Status Legally Adventist Affiliation Unknown Race White Additional Race(s) or A [place] Ethnic Group Not or Lati no Author Organization [facility] [place] [address] Care Team Providers Care Library Services Coordinator Name Role Phone Matt Patten MD Primary Care Provider [phone] Reason for Visit * Reason Onset Date Comments Med Refill 05/21/2024 Zepbound w/titra tion Encounter Details Date Type Department Care Team ([facility] Contact Info) Description 05/21/2024 Telephone Bariatric Surgery - [place] [address] [id number] Kay Stone MD [address] [address] Med Refill (Zepbound w/titration) Social History Tobacco [...] Care Team (Late st Contact Info) Description 07/29/2024 12:30 PM EDT Consult [facility] Cardiology - [place] [address] [place] [address] Arnoldo Smith MD [address] [place] [address] documented as of this encounter Visit Diagnoses Not on filedocumented in this encounter Additional Health Concerns Infection Onset Date Last Indicated Resolved Time Respiratory Rule-Out 05/30/2024 05/30/2024 025 1:17 PM EDT COVID-19 Rule-Out 05/30/2024 05/30/2024 05/30/2024 1:17 PM EDT documented as of this encounter Care Teams Library Services Coordinator Relationship Specialty Start Date End Date Matt Patten MD [address] [place] [address] PCP - General Family Medicine 12/05/23 documented as of this encounter
--- OUTSIDE RECORDS SUMMARY | 2024-06-18 12:57 | XMS_ITS | Clinical Summary ---
Author Organization [place] Address [address] [place] [address] Phone Care Team Providers Care Manager Assessment Name Role Phone Matt Patten MD Primary Care Provider [phone] Allergies No known active allergies Medications ARIPiprazole [...] Noted Date Diagnosed Date NSTEMI (non-ST elevated myoc ardial infarction) ([facility] V24, [facility] V28) 05/30/2024 Grief reaction 09/05/2010 Varicose vein of leg 06/21/2010 Obesity 06/21/2010 GERD (gastroesophageal reflux disease) 1 Overview (12/05/2023): Normal EGD 08/07/2010 on PPI rx. Encounters Date Type Department Care Team Description 05/31/2024 10:05 AM EDT - 05/31/2024 11:35 AM EDT Surgery [facility] [address] [place] [id number] Matt Leiva MD Left heart cath / Coronary angiography 05/30/2024 3:27 PM EDT - 06/01/2024 5:17 PM EDT Hospital Encounter [facility] CV Surg Card 8-[address] [place] [address] Susan Horowitz DO Kalisiewicz, Damian M, MD NSTEMI (non-ST elevated myocardial infarction) ([facility] V24, [facility] V28) (Primary Dx) Discharge Disposition: Home or Self Care 05/30/2024 10:08 AM EDT - 05/30/2024 2:55 PM EDT Emergency [facility] Emergency [address] [place] [address] Lonnie Orona MD Angina pectoris with coronary microvascular dysfunction ([facility] V24) (Primary Dx); Chest pain, unspecified type; Nausea and vomiting, unspecified vomiting type; Dehydration Discharge Disposition: Another Health Care Institution Not Defined 05/21/2024 Telephone Bariatric Surgery [address] [address] Kay Stone MD Med Refill (Zepbound w/titration) 04/23/2024 Telephone Bariatric Surgery [address] [address] Kay Stone MD Med Refill (Zepbound w/titration) 03/23/2024 Telephone Bariatric Surgery [address] [address] Kay Stone MD Medication Problem (Prior Auth) from Last 3 Months Immunizations Name Administration Dates Next Due Tdap Tetanus diptheria acell ular pertussis (Boostrix; Adacel) 7yo and older 09/05/2010 Surgical History Surgery Date Site/Laterality Comments TUBAL LIGATION 1991 PROCEDURE: HISTORICAL TUBAL LIGATION COLONOSCOPY 08/07/2010 PROCEDURE: MI COLONOSCOPY FLX DX W/COLLJ SPEC WHEN PFRMD; COMMENT: Normal ESOPHAGOGASTRODUODENOSCOPY 08/07/2010 PROCEDURE: MI ESOPHAGOGASTRODUODENOSCOPY TRANSORAL DIAGNOSTIC; COMMENT: Normal on omeprazole [...] Info) Description 07/29/2024 12:30 PM EDT Consult [facility] Cardiology [facility] [address] [place] [id number] Arnoldo Smith MD [address] [place] [address] [place] [id number] Health Maintenance Due Date Last Done Comments [...] 2023-2 5 season) 2023 01/10/2022, 01/30/2021, 06/15/2020 Colorectal Cancer Screening: Colonoscopy 12/06/2023 08/07/2010, 08/07/2010 Depression Screening 12/06/2023 HIV Screening 12/06/2023 Hepatitis C Screening 12/06/2023 Social Influencers of Health Screening 12/06/2023 Influenza Vaccine (Season Ended) 2024 Cholesterol Screening (Lipid Panel) 05/30/2029 05/30/2024, 08/16/2002 RSV Immunization Adult Patients (1 - 1-dose 75+ series) 2040 HIB [...] age to complete this topic Meningococcal B Vaccine Aged Out No l onger eligible based on patient's age to complete [...] PM EDT NSTEMI (non-ST elevated myocardial infarction) (CMS/HCC V24, CMS/HCC V28) ECG 12-LEAD Routine 05/31/2024 3:17 PM EDT [...] AM EDT NSTEMI (non-ST elevated myocardial infarction) (CMS/HCC V24, CMS/HCC V28) TRANSTHORACIC ECHOCARDIOGRAM (TTE) COMPLETE W/ CONTRAST Today 05/31/2024 8:06 AM EDT NSTEMI (non-ST elevated myocardial infarction) (CMS/HCC V24, CMS/HCC V28) HEPARIN ANTI XA STAT 05/31/2024 5:32 AM [...] HIGH SENSITIVITY STAT 05/30/2024 11:32 AM EDT MRBT-WAS3-ALE, RSV, FLU A AND B QUALITATIVE RT-PCR, [...] HIGH SENSITIVITY STAT 05/30/2024 10:26 AM EDT MI CRITICAL CARE 30-74 MINUTES Routine 05/30/2024 9:47 AM EDT HM PAP SMEAR Routine 11/19/2010 HM COLONOSCOPY Routine 08/07/2010 from Last 3 Months or Most Recently Relevant to Health Maintenance Results * Sedimentation rate, automated (06/01/2024 8:44 AM EDT) Sed Rate 2 0 - 20 mm/hr LAB HEMETOLOGY METHOD 06/01/2024 9:00 AM EDT [facility] Blood Venous blood specimen / Unknown Venipuncture / Unknown 06/01/2024 8:44 AM EDT 06/01/2024 8:55 AM EDT us Belkis ANDREW LAB BLOOD ORDERABLES Final R esult [facility] [address] [place] [address], [place] [phone] * (ABNORMAL) Complete blood count (06/01/2024 6:53 AM EDT) Only the most recent of2 resultswithin the time period is included. WBC 11.5(H) 4.0 - 10.5 K/mcL LAB HEMETOLOGY METHOD 06/01/2024 7:21 AM EDT [facility] RBC 4.35 4.20 - 5.40 M/mcL LAB HEMETOLOGY METHOD 06/01/2024 7:21 AM EDT [facility] Hemoglobin 13.6 12.5 - 16.0 g/dL LAB HEMETOLOGY METHOD 06/01/2024 7:21 AM EDT [facility] Hematocrit 40.6 37.0 - 47.0 % LAB HEMETOLOGY METHOD 06/01/2024 7:21 AM EDT [facility] MCV 93.1 78.0 - 100.0 FL LAB HEMETOLOGY METHOD 06/01/2024 7:21 AM EDT [facility] MCH 31.3 25.0 - 33.0 pcg LAB HEMETOLOGY METHOD 06/01/2024 7:21 AM EDT [facility] MCHC 33.6 32.0 - 36.0 g/dL LAB HEMETOLOGY METHOD 06/01/2024 7:21 AM EDT [facility] RDW 12.9 12.1 - 16.2 % LAB HEMETOLOGY METHOD 06/01/2024 7:21 AM EDT [facility] Platelets 227 150 - 450 K/mcL LAB HEMETOLOGY METHOD 06/01/2024 7:21 AM EDT [facility] MPV 9.2 7.4 - 11.4 FL LAB HEMETOLOGY METHOD 06/01/2024 7:21 AM EDT [facility] Blood Venous blood specimen / Unknown Venipuncture / Unknown 06/01/2024 6:53 AM EDT 06/01/2024 7:13 AM EDT us Buddy Espana MD LAB BLOOD ORDERABLES Fin al Result Performing Organization Address City/[facility]/ZIP Co de Phone Number [facility] [address] [place] [address], [place] [phone] * Magnesium (06/01/2024 6:53 AM EDT) Only the most recent of3 resultswithin the time period is included. Magnesium 1.9 1.7 - 2.8 mg/dL LAB CHEMISTRY METHOD 06/01/2024 7:37 AM EDT [facility] Blood Venous blood specimen / Unknown Venipuncture / Unknown 06/01/2024 6:53 AM EDT 06/01/2024 7:13 AM EDT us Buddy Espana MD LAB BLOOD ORDERABLES Fin al Result Performing Organization Address City/[facility]/ZIP Co de Phone Number [facility] [address] [place] [address], [place] [phone] * (ABNORMAL) Basic metabolic panel (06/01/2024 6:53 AM EDT) Only the most recent of3 resultswithin the time period is included. Sodium 139 135 - 145 mmol/L LAB CHEMISTRY METHOD 06/01/2024 7:37 AM EDT [facility] Potassium 3.3(L) 3.5 - 5.1 mmol/L LAB CHEMISTRY METHOD 06/01/2024 7:37 AM EDT [facility] Chloride 105 98 - 107 mmol/L LAB CHEMISTRY METHOD 06/01/2024 7:37 AM EDT [facility] CO2 27 24 - 32 mmol/L LAB CHEMISTRY METHOD 06/01/2024 7:37 AM EDT [facility] Anion Gap 7 5 - 14 LAB CHEMISTRY METHOD 06/01/2024 7:37 AM EDT [facility] Glucose 90 70 - 199 mg/dL LAB CHEMISTRY METHOD 06/01/2024 7:37 AM EDT [facility] BUN 16 7 - 17 mg/dL LAB CHEMISTRY METHOD 06/01/2024 7:37 AM EDT [facility] Creatinine 0.60 0.50 - 1.00 mg/dL LAB CHEMISTRY METHOD 06/01/2024 7:37 AM EDT [facility] eGFR 104 >=60 mL/min/1. 73m2 LAB CHEMISTRY METHOD 06/01/2024 7:37 AM EDT [facility] Comment:Calculation based on the??Chronic Kidney Disease Epidemiology Collaboration (CKD-EPI) equation refit??without adjustment for race. BUN/Creatinine Ratio 26.7(H) 12.0 - 20.0 LAB CHEMISTRY METHOD 06/01/2024 7:37 AM EDT [facility] Calcium 8.6 8.4 - 10.2 mg/dL LAB CHEMISTRY METHOD 06/01/2024 7:37 AM EDT [facility] Blood Venous blood specimen / Unknown Venipuncture / Unknown 06/01/2024 6:53 AM EDT 06/01/2024 7:13 AM EDT us Buddy Espana MD LAB BLOOD ORDERABLES Fin al Result [facility] [address] [place] [address], [place] [phone] * POCT Glucose, blood (05/31/2024 9:50 PM EDT) [facility] Signature Glucose POCT 94 70 - 199 mg/dL 05/31/2024 9:51 PM EDT [facility] Comment: Fasting Reference Range: ? 70-99 mg/dL Non-Fasting Reference Range: 70-199 mg/dL Blood Capillary blood specimen / Unknown 05/31/2024 9:50 PM EDT 05/31/2024 9:52 PM EDT us Buddy Espana MD LAB POINT OF CAR E TEST DOCKED DEVICE UNSOLICITED RESULTS Final Result [facility] [address] [place] [address], [place] [phone] * MR Cardiac Morphology and Function wo and w Contrast (05/31/2024 9:30 PM EDT) Anatomical Region Laterality Modality Heart, Body Magnetic Resonan ce 05/31/2024 11:2 7 PM EDT Impressions 06/01/2024 2:23 PM EDT Normal cardiac MRI. Specifically, no evidence of myocarditis or abnormal postcontrast enhancement. Report reviewed and signed by : Dr. Preston Nguyen on 06/01/2024 2:23 PM. Workstation Name - [id number] -------- FINAL REPORT -------- Dictated By: Preston Nguyen Dictated Date: 05/31/2024 23:27 ET Assigned Physician: Preston Nguyen Reviewed and Electronically Signed By: Preston Nguyen Signed Date: 06/01/2024 14:23 ET Workstation ID: [id number] Transcribed By: Self Edit Transcribed Date: 05/31/2024 [...] Nguyen on 06/01/2024 2:23 PM.Workstation Name - [id number] -------- FINAL REPORT -------- Dictated By: Preston Nguyen Dictated Date: 05/31/2024 23:27 ET Assigned Physician: Preston Nguyen Reviewed and Electronically Signed By: Preston Nguyen Signed Date: 06/01/2024 14:23 ET Workstation ID: [id number] Transcribed By: Self Edit Transcribed Date: 05/31/2024 [...] GEMUSE QTc 457 ms GEMUSE P Wave Pomona 43 degrees GEMUSE R Pom[place] -8 degrees GEMUSE T Pomona 119 degrees GEMUSE ECG Interpretation Normal sinus [...] LAB CHEMISTRY METHOD 05/31/2024 1:09 PM EDT [facility] Blood Venous blood specimen / Unknown Venipuncture / Unknown 05/31/2024 12:22 PM EDT 05/31/2024 12:31 PM EDT us Buddy Espana MD LAB BLOOD ORDERABLES Fin al Result [facility] [address] [place] [address], [place] [phone] * (ABNORMAL) Ferritin (05/31/2024 12:22 PM EDT) Ferritin 149(H) 10 - 120 ng/mL LAB CHEMISTRY METHOD 05/31/2024 1:25 PM EDT [facility] Blood Venous blood specimen / Unknown Venipuncture / Unknown 05/31/2024 12:22 PM EDT 05/31/2024 12:31 PM EDT us Buddy Espana MD LAB BLOOD ORDERABLES Fin al Result [facility] [address] [place] [address], [place] [phone] * (ABNORMAL) Hepatic function panel (05/31/2024 11:40 AM EDT) ALT (SGPT) 40 7 - 52 unit/L LAB CHEMISTRY METHOD 05/31/2024 12:34 PM EDT [facility] AST (SGOT) 60(H) 5 - 40 unit/L LAB CHEMISTRY METHOD 05/31/2024 12:34 PM EDT [facility] Alkaline Phosphatase 74 34 - 104 unit/L LAB CHEMISTRY METHOD 05/31/2024 12:34 PM EDT [facility] Bilirubin, Direct 0.3(H) 0.0 - 0.2 mg/dL LAB CHEMISTRY METHOD 05/31/2024 12:34 PM EDT [facility] Total Bilirubin 1.1(H) 0.3 - 1.0 mg/dL LAB CHEMISTRY METHOD 05/31/2024 12:34 PM EDT [facility] Total Protein 6.4 6.4 - 8.5 g/dL LAB CHEMISTRY METHOD 05/31/2024 12:34 PM EDT [facility] Albumin 4.3 3.5 - 5.0 g/dL LAB CHEMISTRY METHOD 05/31/2024 12:34 PM EDT [facility] Globulin, Total 2.1(L) 2.3 - 3.5 g/dL LAB CHEMISTRY METHOD 05/31/2024 12:34 PM EDT [facility] A/G Ratio 2.0 LAB CHEMISTRY METHOD 05/31/2024 12:34 PM EDT [facility] Blood Venous blood specimen / Unknown Venipuncture / Unknown 05/31/2024 11:40 AM EDT 05/31/2024 12:00 PM EDT Buddy Espana MD LAB BLOOD ORDERABLES Fin al Result [facility] [address] [place] [address], [place] [phone] * LEFT HEART CATH / CORONARY ANGIOGRAPHY [...] Leiva MD CV CARDIAC CATH PROCEDURES Rocio l Result * (ABNORMAL) TRANSTHORACIC ECHOCARDIOGRAM (TTE) COMPLETE W/ CONTRAST (05/31/2024 8:06 AM EDT) LV EDV (A2C) 136 mL CV PACS [...] 58 mL CV PACS Left Atrium Minor Pomona 6.2 cm CV PACS Left Atrium Major Pomona 6.0 cm CV PACS LA Area Sys (A2C) 23 cm2 CV PACS LA Area Sys (A4C) 25 cm2 CV PACS LA Volume (BP) 73 mL CV PACS Aortic Root 4.0 cm CV PACS Ascending Aorta 3.7 cm CV PACS MV Peak A Marcelino 0.60 m/s CV PACS MV Peak E Marcelino 0.40 m/s CV PACS MI End Max Velocity 1.2 m/s CV PACS [...] S' 17 cm/s CV PACS RA Major Pomona 4.6 cm CV PACS RA Major Pomona Index 2.4 2.2 - 2.8 cm/m2 CV [...] LAB COAGULATION METHOD 05/31/2024 6:04 AM EDT [facility] Blood Venous blood specimen / Unknown Venipuncture / Unknown 05/31/2024 5:32 AM EDT 05/31/2024 5:49 AM EDT Narrative [facility] - 05/31/2024 6:04 AM EDT Therapeutic Ranges Heparin Thromboembolic/Standard/Full Dose Protocol: Age 18+ Years ?? 0.30-0.70 IU/mL Age 0-17 Years ??0.35-0.70 IU/mL Heparin Cardiac/Low Dose Protocol: 0.30-0.5 IU/mL Low Molecular Weight Heparin: Age 18+ Years ?? 0.50-1.50 IU/mL Age 0-17 Years ??0.50-1.00 IU/mL us Buddy Espana MD LAB BLOOD ORDERABLES Fin al Result [facility] [address] [place] [address], [place] [phone] * ECG-Annotated (05/31/2024) us Provider Onbase ECG ORDERABLES Final Result * Lipid panel with reflex to direct LDL (05/30/2024 6:09 PM EDT) Cholesterol 140 0 - 200 mg/dL LAB CHEMISTRY METHOD 05/30/2024 6:55 PM EDT [facility] Triglycerides 145 <150 mg/dL LAB CHEMISTRY METHOD 05/30/2024 6:55 PM EDT [facility] HDL 41 37 - 92 mg/dL LAB CHEMISTRY METHOD 05/30/2024 6:55 PM EDT [facility] LDL Calculated 70 50 - 130 mg/dL LAB CHEMISTRY METHOD 05/30/2024 6:55 PM EDT [facility] VLDL Cholesterol Espinoza 29 mg/dL LAB CHEMISTRY METHOD 05/30/2024 6:55 PM EDT [facility] Comment:No established refer ence range. Blood Venous blood specimen / Unknown Venipuncture / Unknown 05/30/2024 6:09 PM EDT 05/30/2024 6:25 PM EDT Buddy Espana MD LAB BLOOD ORDERABLES Fin al Result [facility] [address] [place] [address], [place] [phone] * Thyroid stimulating hormone with reflex free T4 (05/30/2024 6:09 PM EDT) [facility] TSH 1.91 0.45 - 5.33 mcIU/mL LAB CHEMISTRY METHOD 05/30/2024 7:11 PM EDT [facility] Blood Venous blood specimen / Unknown Venipuncture / Unknown 05/30/2024 6:09 PM EDT 05/30/2024 6:25 PM EDT us Buddy Espana MD LAB BLOOD ORDERABLES Fin al Result [facility] [address] [place] [address], [place] [phone] * Hemoglobin A1c (05/30/2024 6:09 PM EDT) Pathologist [facility] Hemoglobin A1C 5.0 <5.7 % LAB CHEMISTRY METHOD 05/31/2024 9:20 AM EDT [facility] Mean Bld Glu Estim. 97 mg/dL LAB CHEMISTRY METHOD 05/31/2024 9:20 AM EDT [facility] Blood Venous blood specimen / Unknown Venipuncture / Unknown 05/30/2024 6:09 PM EDT 05/30/2024 6:25 PM EDT Narrative [facility] - 05/31/2024 9:20 AM EDT ADA Guidelines: ?? Increased risk Diabetes Mellitus A1C 5.7 - 6.4% and Fasting Blood Glucose 100 - 125 mg/dl Diabetes Mellitus: A1C >6.5% and Fasting Blood Glucose >125 mg/dl us Buddy Espana MD LAB BLOOD ORDERABLES Fin al Result [facility] [address] [place] [address], [place] [phone] * (ABNORMAL) Troponin I High Sensitivity (05/30/2024 3:49 PM EDT) Only the most recent of3 resultswithin the time period is included. [facility] High Sensitivity Troponin I 2,515(HH) 0 - 14 ng/L LAB CHEMISTRY METHOD 05/30/2024 5:10 PM EDT [facility] Comment:Verified by repeat a nalysis Blood Venous blood specimen / Unknown Venipuncture / Unknown 05/30/2024 3:49 PM EDT 05/30/2024 4:00 PM EDT Narrative [facility] - 05/30/2024 5:10 PM [...] method is an immunoenzymatic assay manufactured by [employer] and performed on the [employer] Dx[employer] 800. us Susan Horowitz DO LAB BLOOD ORDERABLES Final Re sult [facility] [address] [place] [address], [place] [phone] * (ABNORMAL) CBC auto differential (05/30/2024 3:49 PM EDT) Only the most recent of2 resultswithin the time period is included. WBC 17.2(H) 4.0 - 10.5 K/mcL LAB HEMETOLOGY METHOD 05/30/2024 4:12 PM EDT [facility] RBC 4.72 4.20 - 5.40 M/mcL LAB HEMETOLOGY METHOD 05/30/2024 4:12 PM EDT [facility] Hemoglobin 15.1 12.5 - 16.0 g/dL LAB HEMETOLOGY METHOD 05/30/2024 4:12 PM EDT [facility] Hematocrit 44.5 37.0 - 47.0 % LAB HEMETOLOGY METHOD 05/30/2024 4:12 PM EDT [facility] MCV 94.2 78.0 - 100.0 FL LAB HEMETOLOGY METHOD 05/30/2024 4:12 PM EDT [facility] MCH 31.9 25.0 - 33.0 pcg LAB HEMETOLOGY METHOD 05/30/2024 4:12 PM EDT [facility] MCHC 33.8 32.0 - 36.0 g/dL LAB HEMETOLOGY METHOD 05/30/2024 4:12 PM EDT [facility] RDW 13.0 12.1 - 16.2 % LAB HEMETOLOGY METHOD 05/30/2024 4:12 PM EDT [facility] Platelets 296 150 - 450 K/mcL LAB HEMETOLOGY METHOD 05/30/2024 4:12 PM EDT [facility] MPV 8.9 7.4 - 11.4 FL LAB HEMETOLOGY METHOD 05/30/2024 4:12 PM EDT [facility] Neutrophils Relative 68.8 44.0 - 74.0 % LAB HEMETOLOGY METHOD 05/30/2024 4:12 PM EDT [facility] Lymphocytes Relative 21.4 20.0 - 48.0 % LAB HEMETOLOGY METHOD 05/30/2024 4:12 PM EDT [facility] Monocytes Relative 9.2 2.0 - 12.0 % LAB HEMETOLOGY METHOD 05/30/2024 4:12 PM EDT [facility] Eosinophils Relative 0.1 0.0 - 6.0 % LAB HEMETOLOGY METHOD 05/30/2024 4:12 PM EDT [facility] Basophils Relative 0.5 0.0 - 2.0 % LAB HEMETOLOGY METHOD 05/30/2024 4:12 PM EDT [facility] Neutrophils Absolute 11.80(H) 1.80 - 7.80 K/mcL LAB HEMETOLOGY METHOD 05/30/2024 4:12 PM EDT [facility] Lymphocytes Absolute 3.70(H) 1.00 - 3.20 K/mcL LAB HEMETOLOGY METHOD 05/30/2024 4:12 PM EDT [facility] Monocytes Absolute 1.60(H) 0.00 - 0.80 K/mcL LAB HEMETOLOGY METHOD 05/30/2024 4:12 PM EDT [facility] Eosinophils Absolute 0.00 0.00 - 0.50 K/mcL LAB HEMETOLOGY METHOD 05/30/2024 4:12 PM EDT [facility] Basophils Absolute 0.10 0.00 - 0.20 K/mcL LAB HEMETOLOGY METHOD 05/30/2024 4:12 PM EDT [facility] Blood Venous blood specimen / Unknown Venipuncture / Unknown 05/30/2024 3:49 PM EDT 05/30/2024 4:00 PM EDT us Susan Horowitz DO LAB BLOOD ORDERABLES Final Re sult Performing Organization Address [facility]/ZIP Co de Phone Number [facility] [address] [place] [address], [place] [phone] * (ABNORMAL) B-type natriuretic peptide (05/30/2024 3:49 PM EDT) Only the most recent of2 resultswithin the time period is included. BNP 703(H) 0 - 100 pcg/mL LAB CHEMISTRY METHOD 05/30/2024 4:36 PM EDT [facility] Blood Venous blood specimen / Unknown Venipuncture / Unknown 05/30/2024 3:49 PM EDT 05/30/2024 4:00 PM EDT us Susan Horowitz DO LAB BLOOD ORDERABLES Final Re sult Performing Organization Address [facility]/ZIP Co de Phone Number [facility] [address] [place] [address], [place] [phone] * CT Abdomen Pelvis w Contrast (05/30/2024 11:55 AM EDT) Anatomical Region Laterality Modality Body Computed Tomogra phy 05/30/2024 11:5 8 AM EDT Impressions 05/30/2024 12:08 PM EDT Impression: 1. No evidence of pulmonary thromboembolism is seen. 2. No acute abdominal process identified. 3. Limited assessment of the bowel due to under distention. Telerad PA ([id number]) -------- FINAL REPORT -------- Dictated By: Lucille Minor Dictated Date: 05/30/2024 11:58 ET Assigned Physician: Lucille Minor Reviewed and Electronically Signed By: Lucille Minor Signed Date: 05/30/2024 12:08 ET Workstation ID: [id number] Transcribed By: Self Edit Transcribed Date: 05/30/2024 [...] the abdomen and pelvis. DLP: 1181.42 mGy/cm Incipient VCT Iterative reconstruction technique Findings: Chest CTA: [...] the abdomen and pelvis. DLP: 1181.42 mGy/cm Incipient VCT Iterative reconstruction technique Findings: Chest CTA: [...] bowel due to under distention. Telerad PA ([id number]) -------- FINAL REPORT -------- Dictated By: Lucille Minor Dictated Date: 05/30/2024 11:58 ET Assigned Physician: Lucille Minor Reviewed and Electronically Signed By: Lucille Minor Signed Date: 05/30/2024 12:08 ET Workstation ID: [id number] Transcribed By: Self Edit Transcribed Date: 05/30/2024 [...] bowel due to under distention. Telerad KAMRAN ([id number]) -------- FINAL REPORT -------- Dictated By: Lucille Minor Dictated Date: 05/30/2024 11:58 ET Assigned Physician: Lucille Minor Reviewed and Electronically Signed By: Lucille Minor Signed Date: 05/30/2024 12:08 ET Workstation ID: [id number] Transcribed By: Self Edit Transcribed Date: 05/30/2024 [...] the abdomen and pelvis. DLP: 1181.42 mGy/cm GE lightspeed VCT Iterative reconstruction technique Findings: Chest CTA: [...] the abdomen and pelvis. DLP: 1181.42 mGy/cm GE Nemediapeed VCT Iterative reconstruction technique Findings: Chest CTA: [...] bowel due to under distention. Telerad KAMRAN ([id number]) -------- FINAL REPORT -------- Dictated By: Lucille Minor Dictated Date: 05/30/2024 11:58 ET Assigned Physician: Lucille Minor Reviewed and Electronically Signed By: Lucille Minor Signed Date: 05/30/2024 12:08 ET Workstation ID: [id number] Transcribed By: Self Edit Transcribed Date: 05/30/2024 11:58 ET us Lonnie Orona MD IMG CT PROCEDURES Final Res ult * XR Chest 1 View (05/30/2024 11:36 AM EDT) Anatomical Region Laterality Modality Body Radiographic Lainey ging 05/30/2024 11:5 7 AM EDT Impressions 05/30/2024 11:57 AM EDT Impression: No active pulmonary processes identified. Telerad PA ([id number]) -------- FINAL REPORT -------- Dictated By: Lucille Minor Dictated Date: 05/30/2024 11:57 ET Assigned Physician: Lucille Minor Reviewed and Electronically Signed By: Lucille Minor Signed Date: 05/30/2024 11:57 ET Workstation ID: [id number] Transcribed By: Self Edit Transcribed Date: 05/30/2024 [...] No active pulmonary processes identified. Telerad PA ([id number]) -------- FINAL REPORT -------- Dictated By: Lucille Minor Dictated Date: 05/30/2024 11:57 ET Assigned Physician: Lucille Minor Reviewed and Electronically Signed By: Lucille Minor Signed Date: 05/30/2024 11:57 ET Workstation ID: [id number] Transcribed By: Self Edit Transcribed Date: 05/30/2024 11:57 ET us Lonnie Orona MD IMG XR PROCEDURES Final Res ult * [id number], RSV, Influenza A and B qualitative RT-PCR (05/30/2024 11:31 AM EDT) Influenza A PCR Not Detected Not Detected LAB MICROBIOLOGY METHOD 05/30/2024 1:17 PM EDT [facility] Influenza B PCR Not Detected Not Detected LAB MICROBIOLOGY METHOD 05/30/2024 1:17 PM EDT [facility] RSV PCR Not Detected Not Detected LAB MICROBIOLOGY METHOD 05/30/2024 1:17 PM EDT [facility] SARS COV-2 Not Detected Not Detected LAB MICROBIOLOGY METHOD 05/30/2024 1:17 PM EDT [facility] Swab Both anterior nares / Unknown Non-blood Collection / Unknown 05/30/2024 11:31 AM EDT 05/30/2024 11:47 AM EDT [facility] - 05/30/2024 1:17 PM EDT Disclaimer: ??Testing was performed using the [employer] GeneXpert Xpress SARS-CoV-2 _Flu_RSV PLUS PCR assay. [...] for Healthcare providers can be found at https://www.fda.gov/media/477599/download. ?? Fact sheet for Healthcare patients can be found at https://www.fda.gov/media/663377/download. Lonnie Orona MD LAB MICROBIOLOGY - GENERAL ORDERABLES Final Result Performing Organization Address City/[facility]/ZIP Co de Phone Number [facility] [address] [place] [address], [place] [phone] * Activated Partial Thromboplastin Time - STAT (05/30/2024 11:30 AM EDT) aPTT 29.9 24.1 - 39.3 sec LAB COAGULATION METHOD 05/30/2024 11:59 AM EDT [facility] Blood Venous blood specimen / Unknown Venipuncture / Unknown 05/30/2024 11:30 AM EDT 05/30/2024 11:47 AM EDT Lonnie Orona MD LAB BLOOD ORDERABLES Final Result Performing Organization Address [facility]/ZIP Co de Phone Number [facility] [address] [place] [address], [place] [phone] * Prothrombin Time with INR - STAT (05/30/2024 11:30 AM EDT) Pathologist [facility] Protime 12.2 10.6 - 13.9 sec LAB COAGULATION METHOD 05/30/2024 11:59 AM EDT [facility] INR 1.0 LAB COAGULATION METHOD 05/30/2024 11:59 AM EDT [facility] Blood Venous blood specimen / Unknown Venipuncture / Unknown 05/30/2024 11:30 AM EDT 05/30/2024 11:47 AM EDT Lonnie Orona MD LAB BLOOD ORDERABLES Final Result Performing Organization Address City/[facility]/ZIP Co de Phone Number [facility] [address] [place] [address], [place] [phone] * Lipase (05/30/2024 10:26 AM EDT) Pathologist [facility] Lipase 29 13 - 75 unit/L LAB CHEMISTRY METHOD 05/30/2024 10:59 AM [facility] Blood Venous blood specimen / Unknown Venipuncture / Unknown 05/30/2024 10:26 AM EDT 05/30/2024 10:34 AM EDT us Lonnie Orona MD LAB BLOOD ORDERABLES Final Result [facility] [address] [place] [address], * (ABNORMAL) Comprehensive metabolic panel (05/30/2024 10:26 AM EDT) [facility] Sodium 136 133 - 145 mmol/L LAB CHEMISTRY METHOD 05/30/2024 10:59 AM [facility] Potassium 3.8 3.5 - 5.5 mmol/L LAB CHEMISTRY METHOD 05/30/2024 10:59 AM [facility] Chloride 101 96 - 110 mmol/L LAB CHEMISTRY METHOD 05/30/2024 10:59 AM [facility] CO2 26 21 - 32 mmol/L LAB CHEMISTRY METHOD 05/30/2024 10:59 AM [facility] Anion Gap 9 3 - 11 LAB CHEMISTRY METHOD 05/30/2024 10:59 AM [facility] Glucose 133(H) 70 - 100 mg/dL LAB CHEMISTRY METHOD 05/30/2024 10:59 AM [facility] BUN 18 5 - 25 mg/dL LAB CHEMISTRY METHOD 05/30/2024 10:59 AM [facility] Creatinine 1.12(H) 0.50 - 1.10 mg/dL LAB CHEMISTRY METHOD 05/30/2024 10:59 AM [facility] eGFR 57(L) >=60 mL/min/1. 73m2 LAB CHEMISTRY METHOD 05/30/2024 10:59 AM [facility] Comment:Calculation based on the??Chronic Kidney Disease Epidemiology Collaboration (CKD-EPI) equation refit??without adjustment for race. BUN/Creatinine Ratio 16.1 LAB CHEMISTRY METHOD 05/30/2024 10:59 AM [facility] Calcium 11.3(H) 8.5 - 10.5 mg/dL LAB CHEMISTRY METHOD 05/30/2024 10:59 AM [facility] AST (SGOT) 53(H) 10 - 42 unit/L LAB CHEMISTRY METHOD 05/30/2024 10:59 AM [facility] ALT (SGPT) 29 10 - 60 unit/L LAB CHEMISTRY METHOD 05/30/2024 10:59 AM [facility] Alkaline Phosphatase 106 42 - 121 unit/L LAB CHEMISTRY METHOD 05/30/2024 10:59 AM [facility] Total Protein 8.1(H) 6.0 - 8.0 g/dL LAB CHEMISTRY METHOD 05/30/2024 10:59 AM [facility] Albumin 4.7 3.2 - 5.0 g/dL LAB CHEMISTRY METHOD 05/30/2024 10:59 AM [facility] Total Bilirubin 1.6(H) 0.0 - 1.4 mg/dL LAB CHEMISTRY METHOD 05/30/2024 10:59 AM [facility] Blood Venous blood specimen / Unknown Venipuncture / Unknown 05/30/2024 10:26 AM EDT 05/30/2024 10:34 AM EDT us Lonnie Orona MD LAB BLOOD ORDERABLES Final Result [facility] [address] [place] [address], * [facility] CRITICAL CARE 30-74 MINUTES (05/30/2024 9:47 AM [...] S Final Result * Pap Smear (11/19/2010) Pathologist [facility] Pap smear No interpretation , abstracted Historical Provider HEALTH MAINTENANCE Final Result * Colonoscopy (08/07/2010) Pathologist [facility] Colonoscopy No interpretation , abstracted Anatomical Region Laterality Modality Other Historical Provider HEALTH MAINTENANCE Final Result from Last 3 Months or Most Recently Relevant to Health Maintenance Insurance [facility] Advance Directives * Full Code [...] currently active code status orders. Care Teams Manager Assessment Relationship Specialty Start Date End Date Matt Patten MD [address] [place] [id number] PCP - General Family Medicine 12/05/23
[2024-06-18 13:23] LABS: Basophils Absolute Auto 0.1 X10*3/uL (0.0-0.2); Eosinophils Absolute Auto 0.2 X10*3/uL (0.0-0.4); Eosinophils Percent Auto 2.8 % (0-4); Hematocrit 35.8 % (37.0-47.0); Hemoglobin 11.4 g/dl (12.0-16.0); Imm Gran Abs Auto 0.01 X10*3/uL (0.00-0.03); Imm Gran Pct Auto 0.2 % (0.0-0.4); Lymphocytes Absolute Auto 2.5 X10*3/uL (1.2-4.9); Mean Corpuscular HGB Conc 31.8 g/dl (31.0-35.0); Mean Corpuscular Volume 97.3 fL (80.0-98.0); Mean Platelet Volume 10.2 fL (9.4-12.3); Monocytes Absolute Auto 0.4 X10*3/uL (0.1-1.2); Monocytes Percent Auto 7.1 % (2-11); Neutrophils Percent Auto 48.9 % (45-73); Platelet Count 282 X10*3/uL (160-400); Red Blood Count 3.68 X10*6/uL (4.20-5.50); Red Cell Distribution Width 12.9 % (11.0-16.0); White Blood Count 6.2 X10*3/uL (4.8-10.8)
[2024-06-18 13:35] LABS: Appearance Urine Clear; Color Urine Yellow; Glucose Urine UA Negative (Negative); Leukocyte Esterase Urine Negative (Negative); Nitrite Urine Negative (Negative); PH 6.5 (5.0-9.0); Specific Gravity - Urine 1.025 (1.005-1.025); Urine Blood Negative (Negative); Urine Ketones Trace mg/dL (Negative); Urine Protein Negative (Neg-Trace)
[2024-06-18 13:53] LABS: B Type Natriuretic Peptide 179 pg/mL (<100)
[2024-06-18 13:55] LABS: Troponin-I High Sensitivity 7.5 ng/L (<3.5-17.0)
[2024-06-18 14:06] LABS: Alanine Aminotransferase 20 U/L (0-31); Albumin Level 3.8 g/dL (3.5-5.0); Alkaline Phosphatase 71 U/L (39-117); Anion Gap 9 (12-20); Aspartate Amino Transferase 25 U/L (5-31); Bilirubin Total 0.5 mg/dL (0.0-1.0); Blood Urea Nitrogen 8 mg/dL (9-16); Calcium 9.1 mg/dL (8.4-10.2); Carbon Dioxide 27 mmol/L (22-29); Chloride 110 mmol/L (96-108); Estimated Glomerular Filt Rate > 60; Glucose Fasting 72 mg/dL (60-99); Potassium 4.4 mmol/L (3.3-5.1); Sodium 142 mmol/L (135-145); Total Protein 6.2 g/dL (6.5-8.0)
[2024-06-18 14:09] LABS: TSH reflex Free T4 0.77 uIU/mL (0.32-4.0)
[2024-06-18 14:11] LABS: Creatinine Urine 153.46 mg/dL; Microalbum/Creatinine Ratio Ur 5.2 ug/mg cr (<30)
== END 2024-06-18 12:09 | disposition home or self-care (01) ==
LOC: HO.LAB 12:08
PROVIDERS: PCP Family Medicine; Visit Provider Family Medicine
DX: Z00.00 Encounter for general adult medical examination without abnormal findings (principal); I21.4 Non-ST elevation (NSTEMI) myocardial infarction; I50.9 Heart failure, unspecified; I10 Essential (primary) hypertension
CPT/HCPCS: 36415; 80053; 81003; 82043; 82570; 83880; 84443; 84484; 85025

== ENCOUNTER 2024-07-22 14:23 | Outpatient (AMB) | payer OTHER, SELFPAY ==
--- NOTE | 2024-07-22 14:28 | A.OFFPC_ITS ---
Vital Signs 07/22/24 14:33 Height 5 ft 7 in Weight 201 lb 2 oz BMI 31.5 BP 102/64 Blood Pressure Location Rt brachial Position Sitting Respiration 16 Pulse 60 Pulse Source Pulse Oximeter Temp 97.8 F Temp Source Oral Pulse Oximetry (%) 90 L Oxygen Delivery Method Room Air Intake Visit Reasons: f/u NSTEMI Intake Note: patient is scheduled for follow-up for NSTEMI. Allergies oxycodone [From PERCOCET] Allergy (Intermediate, Verified 07/22/24 14:30) ITCHING Medication List - Last Reconciled 07/22/24 by Matt Patten MD aripiprazole (Abilify) 5 mg PO BEDTIME 30 days aspirin 81 mg PO DAILY 90 days atorvastatin 40 mg PO BEDTIME 90 days bisacodyl (Dulcolax (bisacodyl)) 10 mg (2 x 5 mg) PO ONCE 5 days buspirone 15 mg PO BID 3 months ondansetron 4 mg PO DAILY PRN 30 days pantoprazole 40 mg PO DAILY 90 days polyethylene glycol 3350 (Miralax) 17 grams PO DAILY 1 day venlafaxine ER 150 mg PO DAILY 90 days Tobacco use date assessed: 07/22/24 Dental Screening Dental Screen Date: 07/22/24 Did you have a dental visit in the last 12 months?: Yes Did you have a dental problem in the last 6 months where you did not have access to dental care?: No Was dental information given to patient?: No HPI f/u NSTEMI HPI Details 59 y/o female presents to f/u JOSY, christopher bs. Continued pt's artovastatin, aspirin. Referred to [facility] Cardiology. Labs drawn 06/18/24. Reviewed labs with pt. Mild anemia. BNP 179 pg/mL. Patient?states?that?she?had?been?walking?to?work?on?07/14/2024?and?had?similar?sym ptoms?to?the?day?she?went?to?the?hospital?for?NSTEMI. She?felt?like?she?had?flu-like?symptoms?and?left?shoulder?blade?and?back?pain. Her?daughter?had?advised?her?to?go?to?the?emergency?department?but?she?declined. [facility] Medical History Back pain History of memory loss History of anxiety Depression GERD (gastroesophageal reflux disease) Polyarthralgia Surgical History History of carpal tunnel surgery of right wrist Hx of colonoscopy H/O vein stripping History of weight loss surgery History of cholecystectomy Family History Mother Colorectal cancer Social History Household Members: Children Housing: Apartment Alcohol intake: never Patient Tobacco Use Status: Former Tobacco user e-Cigarette/Vaping Use: Never Used Second Hand Smoke Exposure: No service: No Current occupational status: employed and unemployed 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 3. Trouble falling or staying asleep, or sleeping too much: more than half the days Source: Developed by Drs. Iker Kan, Rosa Candelario, Vasquez Olson and colleagues, with an educational lennox from [employer]. Thrive Questionnaire Date Thrive assessed: 06/04/24 I am a: Patient What is your living situation today?: I have a steady place to live Within the past 12 months, did the food you bought not last and you didn't have the money to get more?: Sometimes True Within the past 12 months, did you worry whether your food would run out before you got money to buy more?: Sometimes True Do you have trouble paying for medicines?: No Do you have trouble getting transportation to medical appointments?: No Do you have trouble paying your heating and electricity bill?: Yes Do you have trouble taking care of your child, family member or friend?: No Do you have trouble with day-to-day activities such as bathing, preparing meals, shopping, managing finances, etc.?: No Are you currently unemployed and looking for a job?: No Are you interested in more education?: No Please select the resources that you would like help with: None Currently or been in a relationship where the following occur: No concerns reported THRIVE Score: 3 ALICIA-7 AMB Questionnaire ALICIA-7 Date ALICIA - 7 assessed: 06/07/24 Source: Developed by Drs. Iker Kan, Rosa Candelario, Vasquez Olson and colleagues, with an educational lennox from [employer]. Review of Systems Const Denies chills, Denies fatigue, Denies fever(s), Denies headache(s) and Denies weakness ENT Denies dizziness and Denies headache(s) Card Denies dyspnea Resp Denies cough, Denies dyspnea, Denies wheezing and Denies other (shortness of breath) Musc Denies numbness and Denies tingling Neuro Denies dizziness, Denies headache(s), Denies numbness, Denies tingling and Denies weakness Psych Denies anxiety and Denies depression Endo Denies fatigue Aller/Immun Denies wheezing Physical exam (Primary Care) Vital Signs: Last Vital Signs Temp 97.8 F 07/22/24 14:33 Pulse 60 07/22/24 14:33 Resp 16 07/22/24 14:33 BP 102/64 07/22/24 14:33 Pulse Ox 90 L 07/22/24 14:33 Oxygen Delivery Method Room Air 07/22/24 14:33 BMI result Body Mass Index 31.5 Tobacco/Smoking Status: Tobacco use Status Tobacco use date assessed 07/22/24 07/22/24 14:36 Patient Tobacco Use Status Former Tobacco user 07/22/24 14:29 e-Cigarette/Vaping Use Never Used 07/22/24 14:29 Thrive Assessment: Date of Thrive Assessment Date Thrive assessed 06/04/24 07/22/24 14:29 Currently or been in a relationship where the following occur: No concerns repo rted Const General: well developed; No acute distress Nutritional Appearance: well nourished Orientation/consciousness: patient oriented x3 HENMT Head: Yes normocephalic and Yes atraumatic Eyes General: appearance normal, both eyes and all related structures Pupils: Equal, round and reactive pupils present EOM: EOMs intact bilaterally Resp Effort & Inspection: normal respiratory effort Auscultation: clear to auscultation bilaterally Cardio Rate: regular rate Rhythm: regular rhythm Heart sounds: S1 normal heart sound present, S2 normal heart sound present, no gallops, no murmurs and no rubs Neuro General: patient oriented x3 and gait normal Cranial nerves: Yes Equal, round and reactive pupils present Psych Affect: normal affect Coding Level of Care Code Est Pt Level 3 (64970) Diagnoses NSTEMI (non-ST elevated myocardial infarction) I21.4 Mild anemia D64.9 Assessment & Plan Assessment & Plan (1) NSTEMI (non-ST elevated myocardial infarction): Code(s): I21.4 - Non-ST elevation (NSTEMI) myocardial infarction Category: Medical Plan: Recent?NSTEMI?and?patient?has?an?appointment?with?cardiology. She?had?been?walking?to?work?and?had?similar?pain?and?symptoms. Will?ask?Cardiology?to?see?her?sooner Advised?her?to?stop?working?in?offered?FMLA/short- term?disability?leave?but?patient?declined?this. Advised?her?to?not?walk to?work. Advised?her?to?stop?what?she?is?doing?she?has?similar?symptoms?again. If?symptoms?do?not?resolve?in?a?couple?minutes?she?should?go?to?the?emergency?de partment. Rechecking?labs BNP?was?179?which?is?slightly?elevated. ?Rechecking?this She?also?has?an?anemia?it?is?unclear?if?this has?in?around?since?before?her?NSTEMI Rechecking?CBC?well. Rechecking?troponin?though?it?has?been?a?week?since?she?had?symptoms. (2) Mild anemia: Code(s): D64.9 - Anemia, unspecified Category: Medical Plan: As?above Orders: Orders Vitamin B12 and Folate Today D64.9 - Anemia, unspecified, E53.8 - Deficiency of other specified B group vitamins Ferritin Today D64.9 - Anemia, unspecified Complete Blood Count Auto Diff Today D64.9 - Anemia, unspecified, Z00.00 - Encounter for general adult medical examination without abnormal findings IRON PROFILE Today D64.9 - Anemia, unspecified Reticulocyte Count Today D64.9 - Anemia, unspecified B Type Natriuretic Peptide Today I21.4 - Non-ST elevation (NSTEMI) myocardial infarction, I50.9 - Heart failure, unspecified Troponin-I High Sensitivity Today I21.4 - Non-ST elevation (NSTEMI) myocardial infarction Comprehensive Met. Panel Today I21.4 - Non-ST elevation (NSTEMI) myocardial infarction
[2024-07-22 14:33] VITALS: BP 102/64; PULSE 60; RESP 16; TEMP 36.6; O2SAT 90; BMI 31.5
--- OUTSIDE RECORDS SUMMARY | 2024-07-22 15:00 | XMS_ITS | Clinical Summary ---
Author Organization [facility] Address [address] [place] [address] Phone Care Team Providers Care Education Supervisor Name Role Phone Matt Patten MD Primary Care Provider Allergies No known active allergies Medications ARIPiprazole (ABILIFY) 5 mg tablet Take 1 tablet (5 mg total) by mouth at bedtime. at bedtime. 05/17/2024 Active busPIRone (BUSPAR) 15 mg tablet Take 1 tablet (15 mg total) by mouth 2 (two) times a day. 05/26/2024 Active pantoprazole (PROTONIX) 40 mg EC tablet Take 1 tablet (40 mg total) by mouth 1 (one) time each day. 04/15/2024 Active venlafaxine XR (EFFEXOR-XR) 150 mg 24 hr capsule Take 1 capsule (150 mg total) by mouth 1 (one) time each day. 05/17/2024 Active Active Problems Problem Noted Date Diagnosed Date NSTEMI (non-ST elevated myoc ardial infarction) (CMS/HCC V24, CMS/HCC V28) 05/30/2024 Grief reaction 09/05/2010 Varicose vein of leg 06/21/2010 Obesity 06/21/2010 GERD (gastroesophageal reflux disease) 1 Overview (12/05/2023): Normal EGD 08/07/2010 on PPI rx. Encounters Date Type Department Care Team Description 05/31/2024 10:05 AM EDT - 05/31/2024 11:35 AM EDT Surgery [facility] Cardiac Campaign Management Senior Manager [address] [place] [address] Matt Leiva MD Left heart cath / Coronary angiography 05/30/2024 3:27 PM EDT - 06/01/2024 5:17 PM EDT Hospital Encounter [facility] CV Surg Card 8-[address] [place] [address] Susan Horowitz DO Kalisiewicz, Damian M, MD NSTEMI (non-ST elevated myocardial infarction) ([facility] V24, [facility] V28) (Primary Dx) Discharge Disposition: Home or Self Care 05/30/2024 10:08 AM EDT - 05/30/2024 2:[address] [facility] [address] [place] [address] Lonnie Orona MD Angina pectoris with coronary microvascular dysfunction ([facility] V24) (Primary Dx); Chest pain, unspecified type; Nausea and vomiting, unspecified vomiting type; Dehydration Discharge Disposition: Another Health Care Institution Not Defined 05/21/2024 Telephone Bariatric Surgery - [place] [address] [place] [address] Kay Stone MD Med Refill (Zepbound w/titration) from Last 3 Months Immunizations Name Administration Dates Next Due Tdap Tetanus diptheria acell ular pertussis (Boostrix; Adacel) 7yo and older 09/05/2010 Surgical History Surgery Date Site/Laterality Comments TUBAL LIGATION 1991 PROCEDURE: HISTORICAL TUBAL LIGATION COLONOSCOPY 08/07/2010 PROCEDURE: IN COLONOSCOPY FLX DX W/COLLJ SPEC WHEN PFRMD; COMMENT: Normal ESOPHAGOGASTRODUODENOSCOPY 08/07/2010 PROCEDURE: IN ESOPHAGOGASTRODUODENOSCOPY TRANSORAL DIAGNOSTIC; COMMENT: Normal on omeprazole [...] 05/31/2024 7:24 AM EDT Plan of Treatment Health Maintenance Due Date Last Done Comments [...] HIGH SENSITIVITY STAT 05/30/2024 11:32 AM EDT [id number], RSV, FLU A AND B QUALITATIVE RT-PCR, [...] HIGH SENSITIVITY STAT 05/30/2024 10:26 AM EDT IN CRITICAL CARE 30-74 MINUTES Routine 05/30/2024 9:47 AM EDT HM PAP SMEAR Routine 11/19/2010 HM COLONOSCOPY Routine 08/07/2010 from Last 3 Months or Most Recently Relevant to Health Maintenance Results * Sedimentation rate, automated (06/01/2024 8:44 AM EDT) Sed Rate 2 0 - 20 mm/hr LAB HEMETOLOGY METHOD 06/01/2024 9:00 AM EDT [facility] Blood Venous blood specimen / Unknown Venipuncture / Unknown 06/01/2024 8:44 AM EDT 06/01/2024 8:55 AM EDT Belkis ANDREW LAB BLOOD ORDERABLES Final R esult [facility] [address] [place] [address], [place] [phone] * (ABNORMAL) Complete blood count (06/01/2024 6:53 AM EDT) Only the most recent of2 resultswithin the time period is included. WBC 11.5(H) 4.0 - 10.5 K/mcL LAB HEMETOLOGY METHOD 06/01/2024 7:21 AM EDT [facility] RBC 4.35 4.20 - 5.40 M/mcL LAB HEMETOLOGY METHOD 06/01/2024 7:21 AM EDT [facility] Hemoglobin 13.6 12.5 - 16.0 g/dL LAB HEMETOLOGY METHOD 06/01/2024 7:21 AM EDT [facility] Hematocrit 40.6 37.0 - 47.0 % LAB HEMETOLOGY METHOD 06/01/2024 7:21 AM EDT [facility] MCV 93.1 78.0 - 100.0 FL LAB HEMETOLOGY METHOD 06/01/2024 7:21 AM EDT [facility] MCH 31.3 25.0 - 33.0 pcg LAB HEMETOLOGY METHOD 06/01/2024 7:21 AM EDT [facility] MCHC 33.6 32.0 - 36.0 g/dL LAB HEMETOLOGY METHOD 06/01/2024 7:21 AM EDT [facility] RDW 12.9 12.1 - 16.2 % LAB HEMETOLOGY METHOD 06/01/2024 7:21 AM EDT [facility] Platelets 227 150 - 450 K/mcL LAB HEMETOLOGY METHOD 06/01/2024 7:21 AM EDT [facility] MPV 9.2 7.4 - 11.4 FL LAB HEMETOLOGY METHOD 06/01/2024 7:21 AM EDT [facility] Blood Venous blood specimen / Unknown Venipuncture / Unknown 06/01/2024 6:53 AM EDT 06/01/2024 7:13 AM EDT us Buddy Espana MD LAB BLOOD ORDERABLES Fin al Result Performing Organization Address City/[facility]/ZIP Co de Phone Number [facility] [address] [place] [address], [place] [phone] * Magnesium (06/01/2024 6:53 AM EDT) Only the most recent of3 resultswithin the time period is included. Magnesium 1.9 1.7 - 2.8 mg/dL LAB CHEMISTRY METHOD 06/01/2024 7:37 AM EDT [facility] Blood Venous blood specimen / Unknown Venipuncture / Unknown 06/01/2024 6:53 AM EDT 06/01/2024 7:13 AM EDT us Buddy Espana MD LAB BLOOD ORDERABLES Fin al Result [facility] [address] [place] [address], [place] [phone] * (ABNORMAL) Basic metabolic panel (06/01/2024 6:53 AM EDT) Only the most recent of3 resultswithin the time period is included. Sodium 139 135 - 145 mmol/L LAB CHEMISTRY METHOD 06/01/2024 7:37 AM EDT [facility] Potassium 3.3(L) 3.5 - 5.1 mmol/L LAB CHEMISTRY METHOD 06/01/2024 7:37 AM EDT [facility] Chloride 105 98 - 107 mmol/L LAB CHEMISTRY METHOD 06/01/2024 7:37 AM EDT [facility] CO2 27 24 - 32 mmol/L LAB CHEMISTRY METHOD 06/01/2024 7:37 AM EDT [facility] Anion Gap 7 5 - 14 LAB CHEMISTRY METHOD 06/01/2024 7:37 AM EDT [facility] Glucose 90 70 - 199 mg/dL LAB CHEMISTRY METHOD 06/01/2024 7:37 AM EDT [facility] BUN 16 7 - 17 mg/dL LAB CHEMISTRY METHOD 06/01/2024 7:37 AM EDT [facility] Creatinine 0.60 0.50 - 1.00 mg/dL LAB CHEMISTRY METHOD 06/01/2024 7:37 AM EDT [facility] eGFR 104 >=60 mL/min/1. 73m2 LAB CHEMISTRY METHOD 06/01/2024 7:37 AM EDT [facility] Comment:Calculation based on the??Chronic Kidney Disease Epidemiology Collaboration (CKD-EPI) equation refit??without adjustment for race. BUN/Creatinine Ratio 26.7(H) 12.0 - 20.0 LAB CHEMISTRY METHOD 06/01/2024 7:37 AM EDT [facility] Calcium 8.6 8.4 - 10.2 mg/dL LAB CHEMISTRY METHOD 06/01/2024 7:37 AM EDT [facility] Blood Venous blood specimen / Unknown Venipuncture / Unknown 06/01/2024 6:53 AM EDT 06/01/2024 7:13 AM EDT us Buddy Espana MD LAB BLOOD ORDERABLES Fin al Result [facility] [address] [place] [address], [place] [phone] * POCT Glucose, blood (05/31/2024 9:50 PM EDT) Glucose POCT 94 70 - 199 mg/dL 05/31/2024 9:51 PM EDT [facility] Comment: Fasting Reference Range: ? 70-99 mg/dL Non-Fasting Reference Range: 70-199 mg/dL Blood Capillary blood specimen / Unknown 05/31/2024 9:50 PM EDT 05/31/2024 9:52 PM EDT us Buddy Espana MD LAB POINT OF CAR E TEST DOCKED DEVICE UNSOLICITED RESULTS Final Result [facility] [address] [place] [address], * MR Cardiac Morphology and Function wo and w Contrast (05/31/2024 9:30 PM EDT) Anatomical Region Laterality Modality Heart, Body Magnetic Resonan ce 05/31/2024 11:2 7 PM EDT Impressions 06/01/2024 2:23 PM EDT Normal cardiac MRI. Specifically, no evidence of myocarditis or abnormal postcontrast enhancement. Report reviewed and signed by : Dr. Preston Nguyen on 06/01/2024 2:23 PM. Workstation Name - [id number] -------- FINAL REPORT -------- Dictated By: Preston Nguyen Dictated Date: 05/31/2024 23:27 ET Assigned Physician: Preston Nguyen Reviewed and Electronically Signed By: Preston Nguyen Signed Date: 06/01/2024 14:23 ET Workstation ID: [id number] Transcribed By: Self Edit Transcribed Date: 05/31/2024 [...] Nguyen on 06/01/2024 2:23 PM.Workstation Name - [id number] -------- FINAL REPORT -------- Dictated By: Preston Nguyen Dictated Date: 05/31/2024 23:27 ET Assigned Physician: Preston Nguyen Reviewed and Electronically Signed By: Preston Nguyen Signed Date: 06/01/2024 14:23 ET Workstation ID: [id number] Transcribed By: Self Edit Transcribed Date: 05/31/2024 [...] GEMUSE QTc 457 ms GEMUSE P Wave Riddleton 43 degrees GEMUSE R Riddleton -8 degrees GEMUSE T Riddleton 119 degrees GEMUSE ECG Interpretation Normal sinus [...] LAB CHEMISTRY METHOD 05/31/2024 1:09 PM EDT [facility] Blood Venous blood specimen / Unknown Venipuncture / Unknown 05/31/2024 12:22 PM EDT 05/31/2024 12:31 PM EDT us Buddy Espana MD LAB BLOOD ORDERABLES Fin al Result [facility] [address] [place] [address], [place] [phone] * (ABNORMAL) Ferritin (05/31/2024 12:22 PM EDT) Ferritin 149(H) 10 - 120 ng/mL LAB CHEMISTRY METHOD 05/31/2024 1:25 PM EDT [facility] Blood Venous blood specimen / Unknown Venipuncture / Unknown 05/31/2024 12:22 PM EDT 05/31/2024 12:31 PM EDT Buddy Espana MD LAB BLOOD ORDERABLES Fin al Result [facility] [address] [place] [address], [place] [phone] * (ABNORMAL) Hepatic function panel (05/31/2024 11:40 AM EDT) ALT (SGPT) 40 7 - 52 unit/L LAB CHEMISTRY METHOD 05/31/2024 12:34 PM EDT [facility] AST (SGOT) 60(H) 5 - 40 unit/L LAB CHEMISTRY METHOD 05/31/2024 12:34 PM EDT [facility] Alkaline Phosphatase 74 34 - 104 unit/L LAB CHEMISTRY METHOD 05/31/2024 12:34 PM EDT [facility] Bilirubin, Direct 0.3(H) 0.0 - 0.2 mg/dL LAB CHEMISTRY METHOD 05/31/2024 12:34 PM EDT [facility] Total Bilirubin 1.1(H) 0.3 - 1.0 mg/dL LAB CHEMISTRY METHOD 05/31/2024 12:34 PM EDT [facility] Total Protein 6.4 6.4 - 8.5 g/dL LAB CHEMISTRY METHOD 05/31/2024 12:34 PM EDT [facility] Albumin 4.3 3.5 - 5.0 g/dL LAB CHEMISTRY METHOD 05/31/2024 12:34 PM EDT [facility] Globulin, Total 2.1(L) 2.3 - 3.5 g/dL LAB CHEMISTRY METHOD 05/31/2024 12:34 PM EDT [facility] A/G Ratio 2.0 LAB CHEMISTRY METHOD 05/31/2024 12:34 PM EDT [facility] Blood Venous blood specimen / Unknown Venipuncture / Unknown 05/31/2024 11:40 AM EDT 05/31/2024 12:00 PM EDT us Buddy Espana MD LAB BLOOD ORDERABLES Fin al Result [facility] [address] [place] [address], * LEFT HEART CATH / CORONARY ANGIOGRAPHY [...] Coronary angiography was performed in multiple projections. us Matt Leiva MD CV CARDIAC CATH PROCEDURES Rocio ben Result * (ABNORMAL) TRANSTHORACIC ECHOCARDIOGRAM (TTE) COMPLETE W/ CONTRAST (05/31/2024 8:06 AM EDT) [facility] Signature LV EDV (A2C) 136 mL CV [...] 58 mL CV PACS Left Atrium Minor Riddleton 6.2 cm CV PACS Left Atrium Major Riddleton 6.0 cm CV PACS LA Area Sys (A2C) 23 cm2 CV PACS LA Area Sys (A4C) 25 cm2 CV PACS LA Volume (BP) 73 mL CV PACS Aortic Root 4.0 cm CV PACS Ascending Aorta 3.7 cm CV PACS MV Peak A Marcelino 0.60 m/s CV PACS MV Peak E Marcelino 0.40 m/s CV PACS IN End Max Velocity 1.2 m/s CV PACS [...] S' 17 cm/s CV PACS RA Major Riddleton 4.6 cm CV PACS RA Major Riddleton Index 2.4 2.2 - 2.8 cm/m2 CV [...] LAB COAGULATION METHOD 05/31/2024 6:04 AM EDT [facility] Blood Venous blood specimen / Unknown Venipuncture / Unknown 05/31/2024 5:32 AM EDT 05/31/2024 5:49 AM EDT Narrative [facility] - 05/31/2024 6:04 AM EDT Therapeutic Ranges Heparin Thromboembolic/Standard/Full Dose Protocol: Age 18+ Years ?? 0.30-0.70 IU/mL Age 0-17 Years ??0.35-0.70 IU/mL Heparin Cardiac/Low Dose Protocol: 0.30-0.5 IU/mL Low Molecular Weight Heparin: Age 18+ Years ?? 0.50-1.50 IU/mL Age 0-17 Years ??0.50-1.00 IU/mL us Buddy Espana MD LAB BLOOD ORDERABLES Fin al Result [facility] [address] [place] [address], * ECG-Annotated (05/31/2024) us Provider Onbase MD ECG ORDERABLES Final Result * Lipid panel with reflex to direct LDL (05/30/2024 6:09 PM EDT) Cholesterol 140 0 - 200 mg/dL LAB CHEMISTRY METHOD 05/30/2024 6:55 PM EDT [facility] Triglycerides 145 <150 mg/dL LAB CHEMISTRY METHOD 05/30/2024 6:55 PM EDT [facility] HDL 41 37 - 92 mg/dL LAB CHEMISTRY METHOD 05/30/2024 6:55 PM EDT [facility] LDL Calculated 70 50 - 130 mg/dL LAB CHEMISTRY METHOD 05/30/2024 6:55 PM EDT [facility] VLDL Cholesterol Espinoza 29 mg/dL LAB CHEMISTRY METHOD 05/30/2024 6:55 PM EDT [facility] Comment:No established refer ence range. Blood Venous blood specimen / Unknown Venipuncture / Unknown 05/30/2024 6:09 PM EDT 05/30/2024 6:25 PM EDT us Buddy Espana MD LAB BLOOD ORDERABLES Fin al Result [facility] [address] [place] [address], [place] [phone] * Thyroid stimulating hormone with reflex free T4 (05/30/2024 6:09 PM EDT) TSH 1.91 0.45 - 5.33 mcIU/mL LAB CHEMISTRY METHOD 05/30/2024 7:11 PM EDT [facility] Blood Venous blood specimen / Unknown Venipuncture / Unknown 05/30/2024 6:09 PM EDT 05/30/2024 6:25 PM EDT us Buddy Espana MD LAB BLOOD ORDERABLES Fin al Result [facility] [address] [place] [address], [place] [phone] * Hemoglobin A1c (05/30/2024 6:09 PM EDT) [facility] Hemoglobin A1C 5.0 <5.7 % LAB CHEMISTRY METHOD 05/31/2024 9:20 AM EDT [facility] Mean Bld Glu Estim. 97 mg/dL LAB CHEMISTRY METHOD 05/31/2024 9:20 AM EDT [facility] Blood Venous blood specimen / Unknown Venipuncture / Unknown 05/30/2024 6:09 PM EDT 05/30/2024 6:25 PM EDT Narrative [facility] - 05/31/2024 9:20 AM EDT ADA Guidelines: ?? Increased risk Diabetes Mellitus A1C 5.7 - 6.4% and Fasting Blood Glucose 100 - 125 mg/dl Diabetes Mellitus: A1C >6.5% and Fasting Blood Glucose >125 mg/dl Buddy Espana MD LAB BLOOD ORDERABLES Fin al Result [facility] [address] [place] [address], [place] [phone] * (ABNORMAL) Troponin I High Sensitivity (05/30/2024 3:49 PM EDT) Only the most recent of3 resultswithin the time period is included. [facility] High Sensitivity Troponin I 2,515(HH) 0 - 14 ng/L LAB CHEMISTRY METHOD 05/30/2024 5:10 PM EDT [facility] Comment:Verified by repeat a nalysis Blood Venous blood specimen / Unknown Venipuncture / Unknown 05/30/2024 3:49 PM EDT 05/30/2024 4:00 PM EDT Narrative [facility] - 05/30/2024 5:10 PM EDT HSTnI [...] method is an immunoenzymatic assay manufactured by [employer] and performed on the [employer] DxI 800. us Susan Horowitz DO LAB BLOOD ORDERABLES Final Re sult [facility] [address] [place] [address], [place] [phone] * (ABNORMAL) CBC auto differential (05/30/2024 3:49 PM EDT) Only the most recent of2 resultswithin the time period is included. WBC 17.2(H) 4.0 - 10.5 K/mcL LAB HEMETOLOGY METHOD 05/30/2024 4:12 PM EDT [facility] RBC 4.72 4.20 - 5.40 M/mcL LAB HEMETOLOGY METHOD 05/30/2024 4:12 PM EDT [facility] Hemoglobin 15.1 12.5 - 16.0 g/dL LAB HEMETOLOGY METHOD 05/30/2024 4:12 PM EDT [facility] Hematocrit 44.5 37.0 - 47.0 % LAB HEMETOLOGY METHOD 05/30/2024 4:12 PM EDT [facility] MCV 94.2 78.0 - 100.0 FL LAB HEMETOLOGY METHOD 05/30/2024 4:12 PM EDT [facility] MCH 31.9 25.0 - 33.0 pcg LAB HEMETOLOGY METHOD 05/30/2024 4:12 PM EDT [facility] MCHC 33.8 32.0 - 36.0 g/dL LAB HEMETOLOGY METHOD 05/30/2024 4:12 PM EDT [facility] RDW 13.0 12.1 - 16.2 % LAB HEMETOLOGY METHOD 05/30/2024 4:12 PM EDT [facility] Platelets 296 150 - 450 K/mcL LAB HEMETOLOGY METHOD 05/30/2024 4:12 PM EDT [facility] MPV 8.9 7.4 - 11.4 FL LAB HEMETOLOGY METHOD 05/30/2024 4:12 PM EDT [facility] Neutrophils Relative 68.8 44.0 - 74.0 % LAB HEMETOLOGY METHOD 05/30/2024 4:12 PM EDT [facility] Lymphocytes Relative 21.4 20.0 - 48.0 % LAB HEMETOLOGY METHOD 05/30/2024 4:12 PM EDT [facility] Monocytes Relative 9.2 2.0 - 12.0 % LAB HEMETOLOGY METHOD 05/30/2024 4:12 PM EDT [facility] Eosinophils Relative 0.1 0.0 - 6.0 % LAB HEMETOLOGY METHOD 05/30/2024 4:12 PM EDT [facility] Basophils Relative 0.5 0.0 - 2.0 % LAB HEMETOLOGY METHOD 05/30/2024 4:12 PM EDT [facility] Neutrophils Absolute 11.80(H) 1.80 - 7.80 K/mcL LAB HEMETOLOGY METHOD 05/30/2024 4:12 PM EDT [facility] Lymphocytes Absolute 3.70(H) 1.00 - 3.20 K/mcL LAB HEMETOLOGY METHOD 05/30/2024 4:12 PM EDT [facility] Monocytes Absolute 1.60(H) 0.00 - 0.80 K/mcL LAB HEMETOLOGY METHOD 05/30/2024 4:12 PM EDT [facility] Eosinophils Absolute 0.00 0.00 - 0.50 K/mcL LAB HEMETOLOGY METHOD 05/30/2024 4:12 PM EDT [facility] Basophils Absolute 0.10 0.00 - 0.20 K/mcL LAB HEMETOLOGY METHOD 05/30/2024 4:12 PM EDT [facility] Blood Venous blood specimen / Unknown Venipuncture / Unknown 05/30/2024 3:49 PM EDT 05/30/2024 4:00 PM EDT Susan Horowitz LAB BLOOD ORDERABLES Final Re sult [facility] [address] [place] [address], [place] [phone] * (ABNORMAL) B-type natriuretic peptide (05/30/2024 3:49 PM EDT) Only the most recent of2 resultswithin the time period is included. BNP 703(H) 0 - 100 pcg/mL LAB CHEMISTRY METHOD 05/30/2024 4:36 PM EDT [facility] Blood Venous blood specimen / Unknown Venipuncture / Unknown 05/30/2024 3:49 PM EDT 05/30/2024 4:00 PM EDT Susan Horowitz LAB BLOOD ORDERABLES Final Re sult Performing Organization Address [facility]/ZIP Co de Phone Number [facility] [address] [place] [address], [place] [phone] * CT Abdomen Pelvis w Contrast (05/30/2024 11:55 AM EDT) Anatomical Region Laterality Modality Body Computed Tomogra phy 05/30/2024 11:5 8 AM EDT Impressions 05/30/2024 12:08 PM EDT Impression: 1. No evidence of pulmonary thromboembolism is seen. 2. No acute abdominal process identified. 3. Limited assessment of the bowel due to under distention. Telerad PA ([id number]) -------- FINAL REPORT -------- Dictated By: Lucille Minor Dictated Date: 05/30/2024 11:58 ET Assigned Physician: Lucille Minor Reviewed and Electronically Signed By: Lucille Minor Signed Date: 05/30/2024 12:08 ET Workstation ID: [id number] Transcribed By: Self Edit Transcribed Date: 05/30/2024 [...] the abdomen and pelvis. DLP: 1181.42 mGy/cm [employer] VCT Iterative reconstruction technique Findings: Chest CTA: [...] the abdomen and pelvis. DLP: 1181.42 mGy/cm [employer] VCT Iterative reconstruction technique Findings: Chest CTA: [...] bowel due to under distention. Telerad PA ([id number]) -------- FINAL REPORT -------- Dictated By: Lucille Minor Dictated Date: 05/30/2024 11:58 ET Assigned Physician: Lucille Minor Reviewed and Electronically Signed By: Lucille Minor Signed Date: 05/30/2024 12:08 ET Workstation ID: [id number] Transcribed By: Self Edit Transcribed Date: 05/30/2024 [...] bowel due to under distention. Telerad PA ([id number]) -------- FINAL REPORT -------- Dictated By: Lucille Minor Dictated Date: 05/30/2024 11:58 ET Assigned Physician: Lucille Minor Reviewed and Electronically Signed By: Lucille Minor Signed Date: 05/30/2024 12:08 ET Workstation ID: [id number] Transcribed By: Self Edit Transcribed Date: 05/30/2024 [...] the abdomen and pelvis. DLP: 1181.42 mGy/cm [employer] VCT Iterative reconstruction technique Findings: Chest CTA: [...] the abdomen and pelvis. DLP: 1181.42 mGy/cm [employer] VCT Iterative reconstruction technique Findings: Chest CTA: [...] bowel due to under distention. Telerad KAMRAN ([id number]) -------- FINAL REPORT -------- Dictated By: Lucille Minor Dictated Date: 05/30/2024 11:58 ET Assigned Physician: Lucille Minor Reviewed and Electronically Signed By: Lucille Minor Signed Date: 05/30/2024 12:08 ET Workstation ID: [id number] Transcribed By: Self Edit Transcribed Date: 05/30/2024 11:58 ET us Lonnie Orona MD IMG CT PROCEDURES Final Res ult * XR Chest 1 View (05/30/2024 11:36 AM EDT) Anatomical Region Laterality Modality Body Radiographic Lainey ging 05/30/2024 11:5 7 AM EDT Impressions 05/30/2024 11:57 AM EDT Impression: No active pulmonary processes identified. Telerad KAMRAN ([id number]) -------- FINAL REPORT -------- Dictated By: Lucille Minor Dictated Date: 05/30/2024 11:57 ET Assigned Physician: Lucille Minor Reviewed and Electronically Signed By: Lucille Minor Signed Date: 05/30/2024 11:57 ET Workstation ID: [id number] Transcribed By: Self Edit Transcribed Date: 05/30/2024 [...] No active pulmonary processes identified. Telerad KAMRAN ([id number]) -------- FINAL REPORT -------- Dictated By: Lucille Minor Dictated Date: 05/30/2024 11:57 ET Assigned Physician: Lucille Minor Reviewed and Electronically Signed By: Lucille Minor Signed Date: 05/30/2024 11:57 ET Workstation ID: [id number] Transcribed By: Self Edit Transcribed Date: 05/30/2024 11:57 ET us Lonnie Orona MD IMG XR PROCEDURES Final Res ult * [id number], RSV, Influenza A and B qualitative RT-PCR (05/30/2024 11:31 AM EDT) Influenza A PCR Not Detected Not Detected LAB MICROBIOLOGY METHOD 05/30/2024 1:17 PM EDT [facility] Influenza B PCR Not Detected Not Detected LAB MICROBIOLOGY METHOD 05/30/2024 1:17 PM EDT [facility] RSV PCR Not Detected Not Detected LAB MICROBIOLOGY METHOD 05/30/2024 1:17 PM EDT [facility] SARS COV-2 Not Detected Not Detected LAB MICROBIOLOGY METHOD 05/30/2024 1:17 PM EDT [facility] Swab Both anterior nares / Unknown Non-blood Collection / Unknown 05/30/2024 11:31 AM EDT 05/30/2024 11:47 AM EDT Narrative [facility] - 05/30/2024 1:17 PM EDT Disclaimer: ??Testing was performed using the [employer] GeneXpert Xpress SARS-CoV-2 _Flu_RSV PLUS PCR assay. [...] for Healthcare providers can be found at https://www.fda.gov/media/134508/download. ?? Fact sheet for Healthcare patients can be found at https://www.fda.gov/media/352050/download. us Lonnie Orona MD LAB MICROBIOLOGY - GENERAL ORDERABLES Final Result Performing Organization Address [facility]/ZIP Co de Phone Number [facility] [address] [place] [address], [place] [phone] * Activated Partial Thromboplastin Time - STAT (05/30/2024 11:30 AM EDT) aPTT 29.9 24.1 - 39.3 sec LAB COAGULATION METHOD 05/30/2024 11:59 AM EDT [facility] Blood Venous blood specimen / Unknown Venipuncture / Unknown 05/30/2024 11:30 AM EDT 05/30/2024 11:47 AM EDT Lonnie Orona MD LAB BLOOD ORDERABLES Final Result Performing Organization Address [facility] Co de Phone Number [facility] [address] [place] [address], [place] [phone] * Prothrombin Time with INR - STAT (05/30/2024 11:30 AM EDT) Protime 12.2 10.6 - 13.9 sec LAB COAGULATION METHOD 05/30/2024 11:59 AM EDT [facility] INR 1.0 LAB COAGULATION METHOD 05/30/2024 11:59 AM EDT [facility] Blood Venous blood specimen / Unknown Venipuncture / Unknown 05/30/2024 11:30 AM EDT 05/30/2024 11:47 AM EDT Lonnie Orona MD LAB BLOOD ORDERABLES Final Result Performing Organization Address City/[facility]/ZIP Co de Phone Number [facility] [address] [place] [address], [place] [phone] * Lipase (05/30/2024 10:26 AM EDT) [facility] Lipase 29 13 - 75 unit/L LAB CHEMISTRY METHOD 05/30/2024 10:59 AM [facility] Blood Venous blood specimen / Unknown Venipuncture / Unknown 05/30/2024 10:26 AM EDT 05/30/2024 10:34 AM EDT us Lonnie Orona MD LAB BLOOD ORDERABLES Final Result [facility] [address] [place] [address], [place] [phone] * (ABNORMAL) Comprehensive metabolic panel (05/30/2024 10:26 AM EDT) [facility] Sodium 136 133 - 145 mmol/L LAB CHEMISTRY METHOD 05/30/2024 10:59 AM [facility] Potassium 3.8 3.5 - 5.5 mmol/L LAB CHEMISTRY METHOD 05/30/2024 10:59 AM [facility] Chloride 101 96 - 110 mmol/L LAB CHEMISTRY METHOD 05/30/2024 10:59 AM [facility] CO2 26 21 - 32 mmol/L LAB CHEMISTRY METHOD 05/30/2024 10:59 AM [facility] Anion Gap 9 3 - 11 LAB CHEMISTRY METHOD 05/30/2024 10:59 AM [facility] Glucose 133(H) 70 - 100 mg/dL LAB CHEMISTRY METHOD 05/30/2024 10:59 AM [facility] BUN 18 5 - 25 mg/dL LAB CHEMISTRY METHOD 05/30/2024 10:59 AM [facility] Creatinine 1.12(H) 0.50 - 1.10 mg/dL LAB CHEMISTRY METHOD 05/30/2024 10:59 AM [facility] eGFR 57(L) >=60 mL/min/1. 73m2 LAB CHEMISTRY METHOD 05/30/2024 10:59 AM [facility] Comment:Calculation based on the??Chronic Kidney Disease Epidemiology Collaboration (CKD-EPI) equation refit??without adjustment for race. BUN/Creatinine Ratio 16.1 LAB CHEMISTRY METHOD 05/30/2024 10:59 AM [facility] Calcium 11.3(H) 8.5 - 10.5 mg/dL LAB CHEMISTRY METHOD 05/30/2024 10:59 AM [facility] AST (SGOT) 53(H) 10 - 42 unit/L LAB CHEMISTRY METHOD 05/30/2024 10:59 AM [facility] ALT (SGPT) 29 10 - 60 unit/L LAB CHEMISTRY METHOD 05/30/2024 10:59 AM [facility] Alkaline Phosphatase 106 42 - 121 unit/L LAB CHEMISTRY METHOD 05/30/2024 10:59 AM [facility] Total Protein 8.1(H) 6.0 - 8.0 g/dL LAB CHEMISTRY METHOD 05/30/2024 10:59 AM [facility] Albumin 4.7 3.2 - 5.0 g/dL LAB CHEMISTRY METHOD 05/30/2024 10:59 AM [facility] Total Bilirubin 1.6(H) 0.0 - 1.4 mg/dL LAB CHEMISTRY METHOD 05/30/2024 10:59 AM [facility] Blood Venous blood specimen / Unknown Venipuncture / Unknown 05/30/2024 10:26 AM EDT 05/30/2024 10:34 AM EDT us Lonnie Orona MD LAB BLOOD ORDERABLES Final Result [facility] [address] [place] [address], * IN CRITICAL CARE 30-74 MINUTES (05/30/2024 9:47 AM EDT) Lonnie Marino MD - 05/30/2024 9:47 AM EDT Lonnie [...] abstracted Anatomical Region Laterality Modality Other Historical [employer] Final Result from Last 3 Months or Most Recently Relevant to Health Maintenance Insurance Advance Directives * Full Code - Default [...] currently active code status orders. Care Teams Education Supervisor Relationship Specialty Start Date End Date Matt Patten MD [address] [place] [id number] PCP - General Family Medicine 12/05/23
== END 2024-07-22 15:30 | disposition home or self-care (01) ==
LOC: HO.HMCFM 14:23
PROVIDERS: PCP Family Medicine; Visit Provider Family Medicine
DX: I25.2 Old myocardial infarction (principal); D64.9 Anemia, unspecified

== ENCOUNTER → 2024-07-22 14:23 | Outpatient (BNVA) | payer OTHER, SELFPAY | PROVIDERS: PCP Family Medicine; Visit Provider Family Medicine | DX: I21.4 Non-ST elevation (NSTEMI) myocardial infarction (principal); D64.9 Anemia, unspecified; E53.8 Deficiency of other specified B group vitamins | CPT/HCPCS: 99212 ==

== ENCOUNTER 2024-07-22 15:34 | Outpatient (REF) | payer OTHER, SELFPAY ==
--- OUTSIDE RECORDS SUMMARY | 2024-07-22 15:59 | XMS_ITS | Clinical Summary ---
Author Organization [place] Address [address] [place] [address] Phone Care Team Providers Care Bioinformatics Team Member Name Role Phone Matt Patten MD Primary [...] EDT - 05/31/2024 11:35 AM EDT Surgery [facility] [address] [place] [address] Matt Leiva MD Left heart cath / Coronary angiography 05/30/2024 3:27 PM EDT - 06/01/2024 5:17 PM EDT Hospital Encounter [facility] Card 8-9 [address] [place] [address] Susan Horowitz DO Kalisiewicz, Damian M, MD NSTEMI (non-ST elevated myocardial infarction) ([facility] V24, [facility] V28) (Primary Dx) Discharge Disposition: Home or Self Care 05/30/2024 10:08 AM EDT - 05/30/2024 2:55 PM EDT Emergency [facility] Emergency [address] [place] [address] Lonnie Orona MD Angina pectoris with coronary microvascular dysfunction ([facility] V24) (Primary Dx); Chest pain, unspecified type; Nausea and vomiting, unspecified vomiting type; Dehydration Discharge Disposition: Another Health Care Institution Not Defined 05/21/2024 Telephone Bariatric Surgery - [place] [address] [place] [address] Kay Stone MD Med Refill (Zepbound w/titration) from Last 3 Months Immunizations Name Administration Dates Next Due Tdap Tetanus diptheria acell ular pertussis (Boostrix; Adacel) 7yo and older 09/05/2010 Surgical History Surgery Date Site/Laterality Comments TUBAL LIGATION 1991 PROCEDURE: HISTORICAL TUBAL LIGATION COLONOSCOPY 08/07/2010 PROCEDURE: [place] COLONOSCOPY FLX DX W/COLLJ SPEC WHEN PFRMD; COMMENT: Normal ESOPHAGOGASTRODUODENOSCOPY 08/07/2010 PROCEDURE: [place] ESOPHAGOGASTRODUODENOSCOPY TRANSORAL DIAGNOSTIC; COMMENT: Normal on omeprazole [...] HIGH SENSITIVITY STAT 05/30/2024 11:32 AM EDT [id number], RSV, FLU A AND B QUALITATIVE RT-PCR, [...] HIGH SENSITIVITY STAT 05/30/2024 10:26 AM EDT [place] CRITICAL CARE 30-74 MINUTES Routine 05/30/2024 9:47 AM EDT HM PAP SMEAR Routine 11/19/2010 HM COLONOSCOPY Routine 08/07/2010 from Last 3 Months or Most Recently Relevant to Health Maintenance Results * Sedimentation rate, automated (06/01/2024 8:44 AM EDT) Sed Rate 2 0 - 20 mm/hr LAB HEMETOLOGY METHOD 06/01/2024 9:00 AM EDT [facility] Blood Venous blood specimen / Unknown Venipuncture / Unknown 06/01/2024 8:44 AM EDT 06/01/2024 8:55 AM EDT Belkis ANDREW LAB BLOOD ORDERABLES Final R esult [facility] [address] [place] [address], [place] [phone] * (ABNORMAL) Complete blood count (06/01/2024 6:53 AM EDT) Only the most recent of2 resultswithin the time period is included. WBC 11.5(H) 4.0 - 10.5 K/mcL LAB HEMETOLOGY METHOD 06/01/2024 7:21 AM EDT [facility] RBC 4.35 4.20 - 5.40 M/mcL LAB HEMETOLOGY METHOD 06/01/2024 7:21 AM EDT [facility] Hemoglobin 13.6 12.5 - 16.0 g/dL LAB HEMETOLOGY METHOD 06/01/2024 7:21 AM EDT [facility] Hematocrit 40.6 37.0 - 47.0 % LAB HEMETOLOGY METHOD 06/01/2024 7:21 AM EDT [facility] MCV 93.1 78.0 - 100.0 FL LAB HEMETOLOGY METHOD 06/01/2024 7:21 AM EDT [facility] MCH 31.3 25.0 - 33.0 pcg LAB HEMETOLOGY METHOD 06/01/2024 7:21 AM EDT [facility] MCHC 33.6 32.0 - 36.0 g/dL LAB HEMETOLOGY METHOD 06/01/2024 7:21 AM EDT [facility] RDW 12.9 12.1 - 16.2 % LAB HEMETOLOGY METHOD 06/01/2024 7:21 AM EDT [facility] Platelets 227 150 - 450 K/mcL LAB HEMETOLOGY METHOD 06/01/2024 7:21 AM EDT [facility] MPV 9.2 7.4 - 11.4 FL LAB HEMETOLOGY METHOD 06/01/2024 7:21 AM EDT [facility] Blood Venous blood specimen / Unknown Venipuncture / Unknown 06/01/2024 6:53 AM EDT 06/01/2024 7:13 AM EDT us Buddy Espana MD LAB BLOOD ORDERABLES Fin al Result Performing Organization Address City/[facility]/ZIP Co de Phone Number [facility] [address] [place] [address], [place] [phone] * Magnesium (06/01/2024 6:53 AM EDT) Only the most recent of3 resultswithin the time period is included. Magnesium 1.9 1.7 - 2.8 mg/dL LAB CHEMISTRY METHOD 06/01/2024 7:37 AM EDT [facility] Blood Venous blood specimen / Unknown Venipuncture / Unknown 06/01/2024 6:53 AM EDT 06/01/2024 7:13 AM EDT us Buddy Espana MD LAB BLOOD ORDERABLES Fin al Result [facility] [address] [place] [address], [place] [phone] * (ABNORMAL) Basic metabolic panel (06/01/2024 6:53 AM EDT) Only the most recent of3 resultswithin the time period is included. Sodium 139 135 - 145 mmol/L LAB CHEMISTRY METHOD 06/01/2024 7:37 AM EDT [facility] Potassium 3.3(L) 3.5 - 5.1 mmol/L LAB CHEMISTRY METHOD 06/01/2024 7:37 AM EDT [facility] Chloride 105 98 - 107 mmol/L LAB CHEMISTRY METHOD 06/01/2024 7:37 AM EDT [facility] CO2 27 24 - 32 mmol/L LAB CHEMISTRY METHOD 06/01/2024 7:37 AM EDT [facility] Anion Gap 7 5 - 14 LAB CHEMISTRY METHOD 06/01/2024 7:37 AM EDT [facility] Glucose 90 70 - 199 mg/dL LAB CHEMISTRY METHOD 06/01/2024 7:37 AM EDT [facility] BUN 16 7 - 17 mg/dL LAB CHEMISTRY METHOD 06/01/2024 7:37 AM EDT [facility] Creatinine 0.60 0.50 - 1.00 mg/dL LAB CHEMISTRY METHOD 06/01/2024 7:37 AM EDT [facility] eGFR 104 >=60 mL/min/1. 73m2 LAB CHEMISTRY METHOD 06/01/2024 7:37 AM EDT [facility] Comment:Calculation based on the??Chronic Kidney Disease Epidemiology Collaboration (CKD-EPI) equation refit??without adjustment for race. BUN/Creatinine Ratio 26.7(H) 12.0 - 20.0 LAB CHEMISTRY METHOD 06/01/2024 7:37 AM EDT [facility] Calcium 8.6 8.4 - 10.2 mg/dL LAB CHEMISTRY METHOD 06/01/2024 7:37 AM EDT [facility] Blood Venous blood specimen / Unknown Venipuncture / Unknown 06/01/2024 6:53 AM EDT 06/01/2024 7:13 AM EDT us Buddy Espana MD LAB BLOOD ORDERABLES Fin al Result [facility] [address] [place] [address], [place] [phone] * POCT Glucose, blood (05/31/2024 9:50 PM EDT) Glucose POCT 94 70 - 199 mg/dL 05/31/2024 9:51 PM EDT [facility] Comment: Fasting Reference Range: ? 70-99 mg/dL Non-Fasting Reference Range: 70-199 mg/dL Blood Capillary blood specimen / Unknown 05/31/2024 9:50 PM EDT 05/31/2024 9:52 PM EDT us Buddy Espana MD LAB POINT OF CAR E TEST DOCKED DEVICE UNSOLICITED RESULTS Final Result [facility] [address] [place] [address], * MR Cardiac Morphology and Function wo and w Contrast (05/31/2024 9:30 PM EDT) Anatomical Region Laterality Modality Heart, Body Magnetic Resonan ce 05/31/2024 11:2 7 PM EDT Impressions 06/01/2024 2:23 PM EDT Normal cardiac MRI. Specifically, no evidence of myocarditis or abnormal postcontrast enhancement. Report reviewed and signed by : Dr. Preston Nguyen on 06/01/2024 2:23 PM. Workstation Name - [id number] -------- FINAL REPORT -------- Dictated By: Preston Nguyen Dictated Date: 05/31/2024 23:27 ET Assigned Physician: Preston Nguyen Reviewed and Electronically Signed By: Preston Nguyen Signed Date: 06/01/2024 14:23 ET Workstation ID: [id number] Transcribed By: Self Edit Transcribed Date: 05/31/2024 [...] Nguyen on 06/01/2024 2:23 PM.Workstation Name - [id number] -------- FINAL REPORT -------- Dictated By: Preston Nguyen Dictated Date: 05/31/2024 23:27 ET Assigned Physician: Preston Nguyen Reviewed and Electronically Signed By: Preston Nguyen Signed Date: 06/01/2024 14:23 ET Workstation ID: [id number] Transcribed By: Self Edit Transcribed Date: 05/31/2024 [...] GEMUSE QTc 457 ms GEMUSE P Wave Imogene 43 degrees GEMUSE R Imogene -8 degrees GEMUSE T Imogene 119 degrees GEMUSE ECG Interpretation Normal sinus [...] LAB CHEMISTRY METHOD 05/31/2024 1:09 PM EDT [facility] Blood Venous blood specimen / Unknown Venipuncture / Unknown 05/31/2024 12:22 PM EDT 05/31/2024 12:31 PM EDT us Buddy Espana MD LAB BLOOD ORDERABLES Fin al Result [facility] [address] [place] [address], [place] [phone] * (ABNORMAL) Ferritin (05/31/2024 12:22 PM EDT) Ferritin 149(H) 10 - 120 ng/mL LAB CHEMISTRY METHOD 05/31/2024 1:25 PM EDT [facility] Blood Venous blood specimen / Unknown Venipuncture / Unknown 05/31/2024 12:22 PM EDT 05/31/2024 12:31 PM EDT Buddy Espana MD LAB BLOOD ORDERABLES Fin al Result [facility] [address] [place] [address], [place] [phone] * (ABNORMAL) Hepatic function panel (05/31/2024 11:40 AM EDT) ALT (SGPT) 40 7 - 52 unit/L LAB CHEMISTRY METHOD 05/31/2024 12:34 PM EDT [facility] AST (SGOT) 60(H) 5 - 40 unit/L LAB CHEMISTRY METHOD 05/31/2024 12:34 PM EDT [facility] Alkaline Phosphatase 74 34 - 104 unit/L LAB CHEMISTRY METHOD 05/31/2024 12:34 PM EDT [facility] Bilirubin, Direct 0.3(H) 0.0 - 0.2 mg/dL LAB CHEMISTRY METHOD 05/31/2024 12:34 PM EDT [facility] Total Bilirubin 1.1(H) 0.3 - 1.0 mg/dL LAB CHEMISTRY METHOD 05/31/2024 12:34 PM EDT [facility] Total Protein 6.4 6.4 - 8.5 g/dL LAB CHEMISTRY METHOD 05/31/2024 12:34 PM EDT [facility] Albumin 4.3 3.5 - 5.0 g/dL LAB CHEMISTRY METHOD 05/31/2024 12:34 PM EDT [facility] Globulin, Total 2.1(L) 2.3 - 3.5 g/dL LAB CHEMISTRY METHOD 05/31/2024 12:34 PM EDT [facility] A/G Ratio 2.0 LAB CHEMISTRY METHOD 05/31/2024 12:34 PM EDT [facility] Blood Venous blood specimen / Unknown Venipuncture / Unknown 05/31/2024 11:40 AM EDT 05/31/2024 12:00 PM EDT us Buddy Espana MD LAB BLOOD ORDERABLES Fin al Result [facility] [address] [place] [address], * LEFT HEART CATH / CORONARY ANGIOGRAPHY [...] COMPLETE W/ CONTRAST (05/31/2024 8:06 AM EDT) [facility] Signature LV EDV (A2C) 136 mL CV [...] 58 mL CV PACS Left Atrium Minor Imogene 6.2 cm CV PACS Left Atrium Major Imogene 6.0 cm CV PACS LA Area Sys (A2C) 23 cm2 CV PACS LA Area Sys (A4C) 25 cm2 CV PACS LA Volume (BP) 73 mL CV PACS Aortic Root 4.0 cm CV PACS Ascending Aorta 3.7 cm CV PACS MV Peak A Marcelino 0.60 m/s CV PACS MV Peak E Marcelino 0.40 m/s CV PACS IL End Max Velocity 1.2 m/s CV PACS [...] S' 17 cm/s CV PACS RA Major Imogene 4.6 cm CV PACS RA Major Imogene Index 2.4 2.2 - 2.8 cm/m2 CV [...] LAB COAGULATION METHOD 05/31/2024 6:04 AM EDT [facility] Blood Venous blood specimen / Unknown Venipuncture / Unknown 05/31/2024 5:32 AM EDT 05/31/2024 5:49 AM EDT Narrative [facility] - 05/31/2024 6:04 AM EDT Therapeutic Ranges Heparin Thromboembolic/Standard/Full Dose Protocol: Age 18+ Years ?? 0.30-0.70 IU/mL Age 0-17 Years ??0.35-0.70 IU/mL Heparin Cardiac/Low Dose Protocol: 0.30-0.5 IU/mL Low Molecular Weight Heparin: Age 18+ Years ?? 0.50-1.50 IU/mL Age 0-17 Years ??0.50-1.00 IU/mL us Buddy Espana MD LAB BLOOD ORDERABLES Fin al Result [facility] [address] [place] [address], * ECG-Annotated (05/31/2024) us Provider Onbase MD ECG ORDERABLES Final Result * Lipid panel with reflex to direct LDL (05/30/2024 6:09 PM EDT) Cholesterol 140 0 - 200 mg/dL LAB CHEMISTRY METHOD 05/30/2024 6:55 PM EDT [facility] Triglycerides 145 <150 mg/dL LAB CHEMISTRY METHOD 05/30/2024 6:55 PM EDT [facility] HDL 41 37 - 92 mg/dL LAB CHEMISTRY METHOD 05/30/2024 6:55 PM EDT [facility] LDL Calculated 70 50 - 130 mg/dL LAB CHEMISTRY METHOD 05/30/2024 6:55 PM EDT [facility] VLDL Cholesterol Espinoza 29 mg/dL LAB CHEMISTRY METHOD 05/30/2024 6:55 PM EDT [facility] Comment:No established refer ence range. Blood Venous blood specimen / Unknown Venipuncture / Unknown 05/30/2024 6:09 PM EDT 05/30/2024 6:25 PM EDT us Buddy Espana MD LAB BLOOD ORDERABLES Fin al Result [facility] [address] [place] [address], [place] [phone] * Thyroid stimulating hormone with reflex free T4 (05/30/2024 6:09 PM EDT) TSH 1.91 0.45 - 5.33 mcIU/mL LAB CHEMISTRY METHOD 05/30/2024 7:11 PM EDT [facility] Blood Venous blood specimen / Unknown Venipuncture / Unknown 05/30/2024 6:09 PM EDT 05/30/2024 6:25 PM EDT us Buddy Espana MD LAB BLOOD ORDERABLES Fin al Result [facility] [address] [place] [address], [place] [phone] * Hemoglobin A1c (05/30/2024 6:09 PM EDT) [facility] Hemoglobin A1C 5.0 <5.7 % LAB CHEMISTRY METHOD 05/31/2024 9:20 AM EDT [facility] Mean Bld Glu Estim. 97 mg/dL LAB CHEMISTRY METHOD 05/31/2024 9:20 AM EDT [facility] Blood Venous blood specimen / Unknown Venipuncture / Unknown 05/30/2024 6:09 PM EDT 05/30/2024 6:25 PM EDT Narrative [facility] - 05/31/2024 9:20 AM EDT ADA Guidelines: ?? Increased risk Diabetes Mellitus A1C 5.7 - 6.4% and Fasting Blood Glucose 100 - 125 mg/dl Diabetes Mellitus: A1C >6.5% and Fasting Blood Glucose >125 mg/dl Buddy Espana MD LAB BLOOD ORDERABLES Fin al Result [facility] [address] [place] [address], [place] [phone] * (ABNORMAL) Troponin I High Sensitivity (05/30/2024 3:49 PM EDT) Only the most recent of3 resultswithin the time period is included. [facility] High Sensitivity Troponin I 2,515(HH) 0 - 14 ng/L LAB CHEMISTRY METHOD 05/30/2024 5:10 PM EDT [facility] Comment:Verified by repeat a nalysis Blood Venous blood specimen / Unknown Venipuncture / Unknown 05/30/2024 3:49 PM EDT 05/30/2024 4:00 PM EDT Narrative [facility] - 05/30/2024 5:10 PM EDT [...] method is an immunoenzymatic assay manufactured by [employer] and performed on the [employer] DxI 800. us Susan Horowitz DO LAB BLOOD ORDERABLES Final Re sult [facility] [address] [place] [address], [place] [phone] * (ABNORMAL) CBC auto differential (05/30/2024 3:49 PM EDT) Only the most recent of2 resultswithin the time period is included. WBC 17.2(H) 4.0 - 10.5 K/mcL LAB HEMETOLOGY METHOD 05/30/2024 4:12 PM EDT [facility] RBC 4.72 4.20 - 5.40 M/mcL LAB HEMETOLOGY METHOD 05/30/2024 4:12 PM EDT [facility] Hemoglobin 15.1 12.5 - 16.0 g/dL LAB HEMETOLOGY METHOD 05/30/2024 4:12 PM EDT [facility] Hematocrit 44.5 37.0 - 47.0 % LAB HEMETOLOGY METHOD 05/30/2024 4:12 PM EDT [facility] MCV 94.2 78.0 - 100.0 FL LAB HEMETOLOGY METHOD 05/30/2024 4:12 PM EDT [facility] MCH 31.9 25.0 - 33.0 pcg LAB HEMETOLOGY METHOD 05/30/2024 4:12 PM EDT [facility] MCHC 33.8 32.0 - 36.0 g/dL LAB HEMETOLOGY METHOD 05/30/2024 4:12 PM EDT [facility] RDW 13.0 12.1 - 16.2 % LAB HEMETOLOGY METHOD 05/30/2024 4:12 PM EDT [facility] Platelets 296 150 - 450 K/mcL LAB HEMETOLOGY METHOD 05/30/2024 4:12 PM EDT [facility] MPV 8.9 7.4 - 11.4 FL LAB HEMETOLOGY METHOD 05/30/2024 4:12 PM EDT [facility] Neutrophils Relative 68.8 44.0 - 74.0 % LAB HEMETOLOGY METHOD 05/30/2024 4:12 PM EDT [facility] Lymphocytes Relative 21.4 20.0 - 48.0 % LAB HEMETOLOGY METHOD 05/30/2024 4:12 PM EDT [facility] Monocytes Relative 9.2 2.0 - 12.0 % LAB HEMETOLOGY METHOD 05/30/2024 4:12 PM EDT [facility] Eosinophils Relative 0.1 0.0 - 6.0 % LAB HEMETOLOGY METHOD 05/30/2024 4:12 PM EDT [facility] Basophils Relative 0.5 0.0 - 2.0 % LAB HEMETOLOGY METHOD 05/30/2024 4:12 PM EDT [facility] Neutrophils Absolute 11.80(H) 1.80 - 7.80 K/mcL LAB HEMETOLOGY METHOD 05/30/2024 4:12 PM EDT [facility] Lymphocytes Absolute 3.70(H) 1.00 - 3.20 K/mcL LAB HEMETOLOGY METHOD 05/30/2024 4:12 PM EDT [facility] Monocytes Absolute 1.60(H) 0.00 - 0.80 K/mcL LAB HEMETOLOGY METHOD 05/30/2024 4:12 PM EDT [facility] Eosinophils Absolute 0.00 0.00 - 0.50 K/mcL LAB HEMETOLOGY METHOD 05/30/2024 4:12 PM EDT [facility] Basophils Absolute 0.10 0.00 - 0.20 K/mcL LAB HEMETOLOGY METHOD 05/30/2024 4:12 PM EDT [facility] Blood Venous blood specimen / Unknown Venipuncture / Unknown 05/30/2024 3:49 PM EDT 05/30/2024 4:00 PM EDT Susan Horowitz LAB BLOOD ORDERABLES Final Re sult [facility] [address] [place] [address], [place] [phone] * (ABNORMAL) B-type natriuretic peptide (05/30/2024 3:49 PM EDT) Only the most recent of2 resultswithin the time period is included. BNP 703(H) 0 - 100 pcg/mL LAB CHEMISTRY METHOD 05/30/2024 4:36 PM EDT [facility] Blood Venous blood specimen / Unknown Venipuncture / Unknown 05/30/2024 3:49 PM EDT 05/30/2024 4:00 PM EDT Susan Horowitz LAB BLOOD ORDERABLES Final Re sult Performing Organization Address [facility]/ZIP Co de Phone Number [facility] [address] [place] [address], [place] [phone] * CT Abdomen Pelvis w Contrast (05/30/2024 11:55 AM EDT) Anatomical Region Laterality Modality Body Computed Tomogra phy 05/30/2024 11:5 8 AM EDT Impressions 05/30/2024 12:08 PM EDT Impression: 1. No evidence of pulmonary thromboembolism is seen. 2. No acute abdominal process identified. 3. Limited assessment of the bowel due to under distention. Telerad PA ([id number]) -------- FINAL REPORT -------- Dictated By: Lucille Minor Dictated Date: 05/30/2024 11:58 ET Assigned Physician: Lucille Minor Reviewed and Electronically Signed By: Lucille Minor Signed Date: 05/30/2024 12:08 ET Workstation ID: [id number] Transcribed By: Self Edit Transcribed Date: 05/30/2024 [...] the abdomen and pelvis. DLP: 1181.42 mGy/cm [employer] VCT Iterative reconstruction technique Findings: Chest CTA: [...] the abdomen and pelvis. DLP: 1181.42 mGy/cm [employer] VCT Iterative reconstruction technique Findings: Chest CTA: [...] bowel due to under distention. Telerad PA ([id number]) -------- FINAL REPORT -------- Dictated By: Lucille Minor Dictated Date: 05/30/2024 11:58 ET Assigned Physician: Lucille Minor Reviewed and Electronically Signed By: Lucille Minor Signed Date: 05/30/2024 12:08 ET Workstation ID: [id number] Transcribed By: Self Edit Transcribed Date: 05/30/2024 [...] bowel due to under distention. Telerad PA ([id number]) -------- FINAL REPORT -------- Dictated By: Lucille Minor Dictated Date: 05/30/2024 11:58 ET Assigned Physician: Lucille Minor Reviewed and Electronically Signed By: Lucille Minor Signed Date: 05/30/2024 12:08 ET Workstation ID: [id number] Transcribed By: Self Edit Transcribed Date: 05/30/2024 [...] the abdomen and pelvis. DLP: 1181.42 mGy/cm [employer] VCT Iterative reconstruction technique Findings: Chest CTA: [...] the abdomen and pelvis. DLP: 1181.42 mGy/cm [employer] VCT Iterative reconstruction technique Findings: Chest [...] bowel due to under distention. Telerad KAMRAN ([id number]) -------- FINAL REPORT -------- Dictated By: Lucille Minor Dictated Date: 05/30/2024 11:58 ET Assigned Physician: Lucille Minor Reviewed and Electronically Signed By: Lucille Minor Signed Date: 05/30/2024 12:08 ET Workstation ID: [id number] Transcribed By: Self Edit Transcribed Date: 05/30/2024 11:58 ET us Lonnie Orona MD IMG CT PROCEDURES Final Res ult * XR Chest 1 View (05/30/2024 11:36 AM EDT) Anatomical Region Laterality Modality Body Radiographic Lainey ging 05/30/2024 11:5 7 AM EDT Impressions 05/30/2024 11:57 AM EDT Impression: No active pulmonary processes identified. Telerad KAMRAN ([id number]) -------- FINAL REPORT -------- Dictated By: Lucille Minor Dictated Date: 05/30/2024 11:57 ET Assigned Physician: Lucille Minor Reviewed and Electronically Signed By: Lucille Minor Signed Date: 05/30/2024 11:57 ET Workstation ID: [id number] Transcribed By: Self Edit Transcribed Date: 05/30/2024 [...] No active pulmonary processes identified. Telerad KAMRAN ([id number]) -------- FINAL REPORT -------- Dictated By: Lucille Minor Dictated Date: 05/30/2024 11:57 ET Assigned Physician: Lucille Minor Reviewed and Electronically Signed By: Lucille Minor Signed Date: 05/30/2024 11:57 ET Workstation ID: [id number] Transcribed By: Self Edit Transcribed Date: 05/30/2024 11:57 ET us Lonnie Orona MD IMG XR PROCEDURES Final Res ult * [id number]-[id number]-ONT, RSV, Influenza A and B qualitative RT-PCR (05/30/2024 11:31 AM EDT) Influenza A PCR Not Detected Not Detected LAB MICROBIOLOGY METHOD 05/30/2024 1:17 PM EDT [facility] Influenza B PCR Not Detected Not Detected LAB MICROBIOLOGY METHOD 05/30/2024 1:17 PM EDT [facility] RSV PCR Not Detected Not Detected LAB MICROBIOLOGY METHOD 05/30/2024 1:17 PM EDT [facility] SARS COV-2 Not Detected Not Detected LAB MICROBIOLOGY METHOD 05/30/2024 1:17 PM EDT [facility] Swab Both anterior nares / Unknown Non-blood Collection / Unknown 05/30/2024 11:31 AM EDT 05/30/2024 11:47 AM EDT Narrative [facility] - 05/30/2024 1:17 PM EDT Disclaimer: ??Testing was performed using the [employer] GeneXpert Xpress SARS-CoV-2 _Flu_RSV PLUS PCR assay. [...] for Healthcare providers can be found at https://www.fda.gov/media/218431/download. ?? Fact sheet for Healthcare patients can be found at https://www.fda.gov/media/418835/download. us Lonnie Orona MD LAB MICROBIOLOGY - GENERAL ORDERABLES Final Result Performing Organization Address [facility]/ZIP Co de Phone Number [facility] [address] [place] [address], [place] [phone] * Activated Partial Thromboplastin Time - STAT (05/30/2024 11:30 AM EDT) aPTT 29.9 24.1 - 39.3 sec LAB COAGULATION METHOD 05/30/2024 11:59 AM EDT [facility] Blood Venous blood specimen / Unknown Venipuncture / Unknown 05/30/2024 11:30 AM EDT 05/30/2024 11:47 AM EDT Lonnie Orona MD LAB BLOOD ORDERABLES Final Result Performing Organization Address [facility] Co de Phone Number [facility] [address] [place] [address], [place] [phone] * Prothrombin Time with INR - STAT (05/30/2024 11:30 AM EDT) Protime 12.2 10.6 - 13.9 sec LAB COAGULATION METHOD 05/30/2024 11:59 AM EDT [facility] INR 1.0 LAB COAGULATION METHOD 05/30/2024 11:59 AM EDT [facility] Blood Venous blood specimen / Unknown Venipuncture / Unknown 05/30/2024 11:30 AM EDT 05/30/2024 11:47 AM EDT Lonnie Orona MD LAB BLOOD ORDERABLES Final Result Performing Organization Address City/[facility]/ZIP Co de Phone Number [facility] [address] [place] [address], [place] [phone] * Lipase (05/30/2024 10:26 AM EDT) [facility] Lipase 29 13 - 75 unit/L LAB CHEMISTRY METHOD 05/30/2024 10:59 AM [facility] Blood Venous blood specimen / Unknown Venipuncture / Unknown 05/30/2024 10:26 AM EDT 05/30/2024 10:34 AM EDT us Lonnie Orona MD LAB BLOOD ORDERABLES Final Result [facility] [address] [place] [address], [place] [phone] * (ABNORMAL) Comprehensive metabolic panel (05/30/2024 10:26 AM EDT) [facility] Sodium 136 133 - 145 mmol/L LAB CHEMISTRY METHOD 05/30/2024 10:59 AM [facility] Potassium 3.8 3.5 - 5.5 mmol/L LAB CHEMISTRY METHOD 05/30/2024 10:59 AM [facility] Chloride 101 96 - 110 mmol/L LAB CHEMISTRY METHOD 05/30/2024 10:59 AM [facility] CO2 26 21 - 32 mmol/L LAB CHEMISTRY METHOD 05/30/2024 10:59 AM [facility] Anion Gap 9 3 - 11 LAB CHEMISTRY METHOD 05/30/2024 10:59 AM [facility] Glucose 133(H) 70 - 100 mg/dL LAB CHEMISTRY METHOD 05/30/2024 10:59 AM [facility] BUN 18 5 - 25 mg/dL LAB CHEMISTRY METHOD 05/30/2024 10:59 AM [facility] Creatinine 1.12(H) 0.50 - 1.10 mg/dL LAB CHEMISTRY METHOD 05/30/2024 10:59 AM [facility] eGFR 57(L) >=60 mL/min/1. 73m2 LAB CHEMISTRY METHOD 05/30/2024 10:59 AM [facility] Comment:Calculation based on the??Chronic Kidney Disease Epidemiology Collaboration (CKD-EPI) equation refit??without adjustment for race. BUN/Creatinine Ratio 16.1 LAB CHEMISTRY METHOD 05/30/2024 10:59 AM [facility] Calcium 11.3(H) 8.5 - 10.5 mg/dL LAB CHEMISTRY METHOD 05/30/2024 10:59 AM [facility] AST (SGOT) 53(H) 10 - 42 unit/L LAB CHEMISTRY METHOD 05/30/2024 10:59 AM [facility] ALT (SGPT) 29 10 - 60 unit/L LAB CHEMISTRY METHOD 05/30/2024 10:59 AM [facility] Alkaline Phosphatase 106 42 - 121 unit/L LAB CHEMISTRY METHOD 05/30/2024 10:59 AM [facility] Total Protein 8.1(H) 6.0 - 8.0 g/dL LAB CHEMISTRY METHOD 05/30/2024 10:59 AM [facility] Albumin 4.7 3.2 - 5.0 g/dL LAB CHEMISTRY METHOD 05/30/2024 10:59 AM [facility] Total Bilirubin 1.6(H) 0.0 - 1.4 mg/dL LAB CHEMISTRY METHOD 05/30/2024 10:59 AM [facility] Blood Venous blood specimen / Unknown Venipuncture / Unknown 05/30/2024 10:26 AM EDT 05/30/2024 10:34 AM EDT us Lonnie Orona MD LAB BLOOD ORDERABLES Final Result [facility] [address] [place] [address], * [place] [facility] 30-74 MINUTES (05/30/2024 9:47 AM [...] currently active code status orders. Care Teams Bioinformatics Team Member Relationship Specialty Start Date End Date Matt Patten MD [address] [place] [address] PCP - General Family Medicine 12/05/23
[2024-07-22 17:42] LABS: MANUAL DIFF FLAG NO
[2024-07-22 17:54] LABS: Basophils Percent Auto 0.7 % (0-2); Eosinophils Absolute Auto 0.1 X10*3/uL (0.0-0.4); Eosinophils Percent Auto 2.3 % (0-4); Hematocrit 34.7 % (37.0-47.0); Hemoglobin 11.6 g/dl (12.0-16.0); Imm Gran Abs Auto 0.02 X10*3/uL (0.00-0.03); Imm Gran Pct Auto 0.3 % (0.0-0.4); Lymphocytes Absolute Auto 2.3 X10*3/uL (1.2-4.9); Mean Corpuscular HGB Conc 33.4 g/dl (31.0-35.0); Mean Corpuscular Hemoglobin 31.6 pg (27.0-33.0); Mean Corpuscular Volume 94.6 fL (80.0-98.0); Mean Platelet Volume 10.7 fL (9.4-12.3); Monocytes Absolute Auto 0.5 X10*3/uL (0.1-1.2); Monocytes Percent Auto 7.6 % (2-11); Neutrophils Absolute Auto 3.1 x10*3/uL (2.0-8.3); Neutrophils Percent Auto 51.1 % (45-73); Platelet Count 271 X10*3/uL (160-400); Red Blood Count 3.67 X10*6/uL (4.20-5.50); Red Cell Distribution Width 12.8 % (11.0-16.0); Retic HGB Equivalent 33.5 pg (30.0-35.0); Reticulocytes Absolute 0.035 X10*6/uL (0.026-0.095)
[2024-07-22 18:16] LABS: B Type Natriuretic Peptide 95 pg/mL (<100)
== END 2024-07-22 15:35 | disposition home or self-care (01) ==
LOC: HO.WFDLDS 15:34
PROVIDERS: Visit Provider Family Medicine
DX: Z00.00 Encounter for general adult medical examination without abnormal findings (principal); I11.0 Hypertensive heart disease with heart failure; I50.9 Heart failure, unspecified; D64.9 Anemia, unspecified; I21.4 Non-ST elevation (NSTEMI) myocardial infarction
CPT/HCPCS: 36415; 83880; 85025; 85045

== ENCOUNTER 2024-08-17 15:25 | Outpatient (AMB) | payer OTHER, SELFPAY ==
--- NOTE | 2024-08-17 15:33 | MHC.PC.OV ---
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 Allergies oxycodone [From PERCOCET] Allergy (Intermediate, Verified 08/17/24 15:38) ITCHING Medication List - Last Reconciled 08/17/24 by Matt Patten MD aripiprazole (Abilify) 5 mg PO BEDTIME 30 days aspirin 81 mg PO DAILY 90 days atorvastatin 40 mg PO BEDTIME 90 days bisacodyl (Dulcolax (bisacodyl)) 10 mg (2 x 5 mg) PO ONCE 5 days buspirone 15 mg PO BID 3 months ondansetron 4 mg PO DAILY PRN 30 days pantoprazole 40 mg PO DAILY 90 days polyethylene glycol 3350 (Miralax) 17 grams PO DAILY 1 day venlafaxine ER 150 mg PO DAILY 90 days Tobacco use date assessed: 07/22/24 Dental Screening Dental Screen Date: 07/22/24 HPI f/u NSTEMI HPI Details 59 y/o female presents to f/u NSTEMI and labs. She had similar symptoms as when she was in the hospital for NSTEMI. Had asked Cardiology to see her sooner. She has an appt. with Cardiology in a couple weeks. Recent labs reviewed. BNP 95 pg/mL. Improving mimld anemia. Troponin levels not drawn. Pt reports she has been having a lot of anxiety recently. She has been taking her buspirone and venlafaxine. She reports ongoing stressors as well with her son being sick. Reports back pain. HPI Comments History of Present Illness Details Documentation assistance for Matt Patten MD, was provided by Oscar Diaz,? Change Management Facilitator on 08/17/2024 at 3:50 PM EST. I, Dr. Patten, have read, observed, and verified documentation. ? PFSH Medical History (Updated 08/17/24 @ 16:08 by Matt Patten MD) Back pain History of memory loss History of anxiety Depression GERD (gastroesophageal reflux disease) Polyarthralgia Surgical History History of carpal tunnel surgery of right wrist Hx of colonoscopy H/O vein stripping History of weight loss surgery History of cholecystectomy Family History Mother Colorectal cancer Social History Household Members: Children Housing: Apartment Alcohol intake: never Patient Tobacco Use Status: Former Tobacco user e-Cigarette/Vaping Use: Never Used Second Hand Smoke Exposure: No service: No Current occupational status: employed and unemployed 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 Cognitive needs: No Hearing needs: No Vision needs: Yes Female Reproductive History Menstrual Age of Menarche: 13 Questionnaire Thrive Questionnaire Date Thrive assessed: 06/04/24 I am a: Patient What is your living situation today?: I have a steady place to live Within the past 12 months, did the food you bought not last and you didn't have the money to get more?: Sometimes True Within the past 12 months, did you worry whether your food would run out before you got money to buy more?: Sometimes True Do you have trouble paying for medicines?: No Do you have trouble getting transportation to medical appointments?: No Do you have trouble paying your heating and electricity bill?: Yes Do you have trouble taking care of your child, family member or friend?: No Do you have trouble with day-to-day activities such as bathing, preparing meals, shopping, managing finances, etc.?: No Are you currently unemployed and looking for a job?: No Are you interested in more education?: No Please select the resources that you would like help with: None Currently or been in a relationship where the following occur: No concerns reported THRIVE Score: 3 ALICIA-7 AMB Questionnaire ALICIA-7 Date ALICIA - 7 assessed: 06/07/24 Source: Developed by Drs. Iker Kan, Rosa Candelario, Vasquez Olson and colleagues, with an educational lennox from [employer]. Review of Systems Const Denies chills, Denies fatigue, Denies fever(s), Denies headache(s) and Denies weakness ENT Denies dizziness and Denies headache(s) Card Denies chest pain, Denies lightheadedness, Denies dyspnea and Denies other (Palpitations) Resp Denies cough, Denies dyspnea, Denies wheezing and Denies other ( shortness of breath) Musc Denies numbness and Denies tingling Neuro Denies dizziness, Denies headache(s), Denies numbness, Denies tingling, Denies paresthesias and Denies weakness Psych Reports anxiety Endo Denies fatigue Aller/Immun Denies wheezing Physical exam (Primary Care) Vital Signs: Last Vital Signs Temp 98.3 F 08/17/24 15:38 Pulse 69 08/17/24 15:38 Resp 12 08/17/24 15:38 BP 100/70 08/17/24 15:38 Pulse Ox 94 08/17/24 15:38 Oxygen Delivery Method Room Air 08/17/24 15:38 BMI result Body Mass Index 33.7 Tobacco/Smoking Status: Tobacco use Status Tobacco use date assessed 07/22/24 08/17/24 15:41 Patient Tobacco Use Status Former Tobacco user 08/17/24 15:41 e-Cigarette/Vaping Use Never Used 08/17/24 15:41 Thrive Assessment: Date of Thrive Assessment Date Thrive assessed 06/04/24 08/17/24 15:41 Currently or been in a relationship where the following occur: No concerns reported Const General: no acute distress and well developed Nutritional Appearance: well nourished Orientation/consciousness: patient oriented x3 HENMT Head: Yes normocephalic and Yes atraumatic Eyes General: appearance normal, both eyes and all related structures Pupils: Equal, round and reactive pupils present EOM: EOMs intact bilaterally Resp Effort & Inspection: normal respiratory effort Auscultation: clear to auscultation bilaterally Cardio Rate: regular rate Rhythm: regular rhythm Heart sounds: S1 normal heart sound present, S2 normal heart sound present, no gallops, no murmurs and no rubs Neuro General: patient oriented x3 and gait normal Cranial nerves: Yes Equal, round and reactive pupils present Psych Affect: normal affect Coding Level of Care Code Est Pt Level 3 (25703) Diagnoses NSTEMI (non-ST elevated myocardial infarction) I21.4 Mild anemia D64.9 Anxiety F41.9 Back pain M54.9 Assessment & Plan Assessment & Plan (1) NSTEMI (non-ST elevated myocardial infarction): Code(s): I21.4 - Non-ST elevation (NSTEMI) myocardial infarction Category: Medical Plan: Recent?NSTEMI Patient?has?an?appointment?with?cardiology?for?follow-up.??She?had?been?having?episodes?of?chest?pain?with?walking. Advised?her?to?stop?when?she?has?any?discomfort?and?go?to?ED?if?not?resolve?within?a?few?minutes.??She?says?she?has?had?no?further?chest?discomfort. Continue?atorvastatin?and?aspirin Follow-up?with?Cardiology?as?recommended (2) Mild anemia: Code(s): D64.9 - Anemia, unspecified Category: Medical Plan: Slightly?improved?from?prior?lab?draw Check?labs (3) Anxiety: Code(s): F41.9 - Anxiety disorder, unspecified Category: Medical Plan: Ongoing?and?worsening?anxiety?as?well?as?depression. She?is?on?venlafaxine,?Abilify?and?buspirone She?notes?that?she?is?felt?much?more?overwhelmed?lately. Will?use?a?small?amount?of?lorazepam?PRN?anxiety Discussed?with?patient?that?she?is?on?multiple?medications?now?and?should?have?a?specialist.??I?have?referred?her?to?the?[facility]?outpatient?psychiatric?consult?team. (4) Back pain: Code(s): M54.9 - Dorsalgia, unspecified Category: Medical Plan: Ongoing?back?pain Likely?musculoskeletal Will?have?her?start?physical?therapy?after?she?sees?Cardiology. Orders: Orders Lipid Panel Today F41.8 - Other specified anxiety disorders, Z00.00 - Encounter for general adult medical examination without abnormal findings TSH reflex Free T4 Today F41.8 - Other specified anxiety disorders, Z00.00 - Encounter for general adult medical examination without abnormal findings UA CC w/rflx Micro + Cult Today F41.8 - Other specified anxiety disorders, Z00.00 - Encounter for general adult medical examination without abnormal findings Ferritin Today D64.9 - Anemia, unspecified Reticulocyte Count Today D64.9 - Anemia, unspecified Comprehensive Eunice. Panel Fast Today F41.8 - Other specified anxiety disorders, Z00.00 - Encounter for general adult medical examination without abnormal findings Complete Blood Count Auto Diff Today F41.8 - Other specified anxiety disorders, Z00.00 - Encounter for general adult medical examination without abnormal findings Microalbumin, Random (w Creat) Today F41.8 - Other specified anxiety disorders, I10 - Essential (primary) hypertension IRON PROFILE Today F41.8 - Other specified anxiety disorders Vitamin B12 and Folate Today E53.8 - Deficiency of other specified B group vitamins Referrals Psychiatry Outpatient Consultation Service F41.8 - Other specified anxiety disorders Medications: New lorazepam #12 tabs per 30 days. MassPat Verified. 0.5 mg PO DAILY 30 days PRN 12 tabs 0RF anxiety
[2024-08-17 15:38] VITALS: BP 100/70; PULSE 69; RESP 12; TEMP 36.8; O2SAT 94; BMI 33.7
== END 2024-08-17 16:03 | disposition home or self-care (01) ==
LOC: HO.HMCFM 15:26
PROVIDERS: PCP Family Medicine; Visit Provider Family Medicine
DX: I25.2 Old myocardial infarction (principal); D64.9 Anemia, unspecified; F41.9 Anxiety disorder, unspecified; M54.9 Dorsalgia, unspecified

== ENCOUNTER → 2024-08-17 15:25 | Outpatient (BNVA) | payer OTHER, SELFPAY | PROVIDERS: PCP Family Medicine; Visit Provider Family Medicine | DX: I21.4 Non-ST elevation (NSTEMI) myocardial infarction (principal); D64.9 Anemia, unspecified; M54.9 Dorsalgia, unspecified; F41.8 Other specified anxiety disorders; E53.8 Deficiency of other specified B group vitamins; I10 Essential (primary) hypertension | CPT/HCPCS: 99212 ==

== ENCOUNTER 2024-09-01 13:20 | Outpatient (AMB) | payer OTHER, SELFPAY ==
--- NOTE | 2024-09-01 13:33 | A.OFFVIS_ITS ---
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 [employer] Assistant Manager Required: No Accompanied by: Self / Same As Patient Allergies oxycodone (From PERCOCET) Allergy (Intermediate, Verified 08/17/24 15:38) ITCHING Medication List - Last Reconciled 09/01/24 by Chester Doyle MD aripiprazole (Abilify) 5 mg PO BEDTIME 30 days aspirin 81 mg PO DAILY 90 days atorvastatin 40 mg PO BEDTIME 90 days bisacodyl (Dulcolax (bisacodyl)) 10 mg (2 x 5 mg) PO ONCE 5 days buspirone 15 mg PO BID 3 months lorazepam 0.5 mg PO DAILY PRN 30 days ondansetron 4 mg PO DAILY PRN 30 days pantoprazole 40 mg PO DAILY 90 days polyethylene glycol 3350 (Miralax) 17 grams PO DAILY 1 day venlafaxine ER 150 mg PO DAILY 90 days HPI Comments Details: [age] year female who is here for perioperative cardiovascular risk assessment. In May of 2024 she had episode of viral gastroenteritis and upper respiratory tract infection. She said she was vomiting and went to the [facility] where blood workup showed mild heart attack. She was eventually transferred to [facility] where she underwent cardiac catheterization. As per the notes the cardiac catheterization was normal. She did have mild LV dysfunction by echocardiography but no wall motion abnormalities are described in the note sent to us. It is said that she had prolonged QT interval on the EKG. Subsequent to that she saw Dr. Patten and underwent a cardiac MRI to rule out myocarditis. Her cardiac MRI was negative. She needs colonoscopy due to strong family history of colon cancer. She is denying any chest discomfort shortness of breath. She is on baby aspirin and atorvastatin. EKGs in the office is normal. [facility] Medical History (Updated 09/01/24 @ 14:06 by Chester Doyle MD) Back pain History of memory loss History of anxiety Depression GERD (gastroesophageal reflux disease) Polyarthralgia Surgical History History of carpal tunnel surgery of right wrist Hx of colonoscopy H/O vein stripping History of weight loss surgery History of cholecystectomy Family History Mother Colorectal cancer Father Stented coronary artery Social History Household Members: Children Housing: Apartment Alcohol intake: never Patient Tobacco Use Status: Former Tobacco user e-Cigarette/Vaping Use: Never Used Second Hand Smoke Exposure: No service: No 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 occupational status: employed and unemployed 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 Cognitive needs: No Hearing needs: No Vision needs: Yes Female Reproductive History Menstrual Age of Menarche: 13 Review of Systems Const Denies chills, Denies fatigue, Denies fever(s), Denies frequent falls, Denies weakness, Denies weight gain and Denies weight loss ENT Denies dizziness Card Denies chest pain, Denies leg edema, Denies lightheadedness, Denies palpitations, Denies dyspnea, Denies dyspnea on exertion and Denies orthopnea Resp Denies cough, Denies dyspnea and Denies dyspnea on exertion GI Denies bloating and Denies change in bowel habits Musc Denies muscle weakness, Denies numbness and Denies tingling Neuro Denies dizziness, Denies frequent falls, Denies numbness, Denies tingling and Denies weakness Endo Denies fatigue and Denies palpitations Physical Exam Vital Signs: Last Vital Signs Pulse 59 09/01/24 13:35 BP 110/60 09/01/24 13:35 BMI result Body Mass Index 33.9 GENERAL APPEARANCE: in no acute distress, pleasant. NECK: no carotid bruit, no jugular venous distention. SKIN: no suspicious lesions, warm and dry. HEART: no murmurs, regular rate and rhythm. LUNGS: clear to auscultation bilaterally. ABDOMEN: soft, nontender. EXTREMITIES: no edema. PERIPHERAL PULSES: equal. NEUROLOGIC: No gross deficits, AAO X 3 Office Procedures EKG Details: Sinus bradycardia 59 beats per minute, normal axis, normal ECG, QTC 417 millisecond. [id number], Complete Assessment & Plan Assessment & Plan (1) NSTEMI (non-ST elevated myocardial infarction): Code(s): I21.4 - Non-ST elevation (NSTEMI) myocardial infarction Category: Medical (2) Preop cardiovascular exam: Code(s): Z01.810 - Encounter for preprocedural cardiovascular examination Category: Medical Plan [age] year female who is here for perioperative cardiovascular risk assessment. She had an episode of viral gastroenteritis/upper respiratory tract infection and went to hospital and had elevated troponin levels in the setting. Subsequent workup was all negative including cardiac catheterization and cardiac MRI. I think she had a type 2 AL due to infection. She does not have any chest discomfort shortness of breath in her day-to-day life. She walks to work which is close to 1 mi without any significant chest pains or shortness of breath. Currently I have reassured her that she does not need any further workup. She is low to intermediate risk for perioperative cardiovascular complications. She can proceed with colonoscopy. Thank you for allowing me to participate in the care of your patient. Please feel free to contact me if you have any questions. Coding Level of Care Code New Pt Level 4 (18830) Complex EM visit Add On G2211 Diagnoses NSTEMI (non-ST elevated myocardial infarction) I21.4 Preop cardiovascular exam Z01.810 CPT Codes EKG - CPT: 21478-[id number], Complete ([id number])
[2024-09-01 13:35] VITALS: BP 110/60; PULSE 59; BMI 33.9
== END 2024-09-01 14:03 | disposition home or self-care (01) ==
LOC: HO.HCS 13:20
PROVIDERS: PCP Family Medicine; Visit Provider Internal Medicine Cardiovascular Disease
DX: I21.4 Non-ST elevation (NSTEMI) myocardial infarction (principal); Z01.810 Encounter for preprocedural cardiovascular examination
CPT/HCPCS: 93010; 99204

== ENCOUNTER → 2024-09-01 13:20 | Outpatient (BNVA) | payer OTHER, SELFPAY | PROVIDERS: PCP Family Medicine; Visit Provider Internal Medicine Cardiovascular Disease | DX: Z01.810 Encounter for preprocedural cardiovascular examination (principal); I21.4 Non-ST elevation (NSTEMI) myocardial infarction | CPT/HCPCS: 93005; 99202 ==

== ENCOUNTER 2024-09-03 06:52 | Outpatient (REF) | payer OTHER, SELFPAY ==
[2024-09-03 07:07] LABS: MANUAL DIFF FLAG NO
[2024-09-03 07:19] LABS: Basophils Absolute Auto 0.1 X10*3/uL (0.0-0.2); Basophils Percent Auto 0.9 % (0-2); Eosinophils Absolute Auto 0.2 X10*3/uL (0.0-0.4); Eosinophils Percent Auto 2.9 % (0-4); Hematocrit 39.5 % (37.0-47.0); Hemoglobin 13.4 g/dl (12.0-16.0); Imm Gran Abs Auto 0.01 X10*3/uL (0.00-0.03); Imm Gran Pct Auto 0.2 % (0.0-0.4); Immature Retic Fraction 7.1 % (3.0-15.9); Lymphocytes Absolute Auto 1.8 X10*3/uL (1.2-4.9); Lymphocytes Percent Auto 33.6 % (20-40); Mean Corpuscular HGB Conc 33.9 g/dl (31.0-35.0); Mean Corpuscular Hemoglobin 31.3 pg (27.0-33.0); Mean Corpuscular Volume 92.3 fL (80.0-98.0); Monocytes Absolute Auto 0.5 X10*3/uL (0.1-1.2); Monocytes Percent Auto 9.9 % (2-11); Neutrophils Absolute Auto 2.9 x10*3/uL (2.0-8.3); Neutrophils Percent Auto 52.5 % (45-73); Platelet Count 270 X10*3/uL (160-400); Red Blood Count 4.28 X10*6/uL (4.20-5.50); Red Cell Distribution Width 12.7 % (11.0-16.0); Retic HGB Equivalent 34.3 pg (30.0-35.0); Reticulocyte Percent 1.5 % (0.5-1.8); Reticulocytes Absolute 0.065 X10*6/uL (0.026-0.095); White Blood Count 5.5 X10*3/uL (4.8-10.8)
[2024-09-03 07:46] LABS: Appearance Urine Clear; Color Urine Yellow; Glucose Urine UA Negative (Negative); Leukocyte Esterase Urine Trace (Negative); Nitrite Urine Negative (Negative); PH 6.5 (5.0-9.0); Specific Gravity - Urine 1.025 (1.005-1.025); UMIC TRIGGER UACC YES; Urine Blood Negative (Negative); Urine Ketones Trace mg/dL (Negative); Urine Protein Negative (Neg-Trace)
[2024-09-03 07:50] LABS: Alanine Aminotransferase 21 U/L (0-31); Albumin Level 4.2 g/dL (3.5-5.0); Alkaline Phosphatase 70 U/L (39-117); Anion Gap 13 (12-20); Aspartate Amino Transferase 30 U/L (5-31); Bilirubin Total 0.5 mg/dL (0.0-1.0); Blood Urea Nitrogen 11 mg/dL (9-16); Carbon Dioxide 24 mmol/L (22-29); Chloride 107 mmol/L (96-108); Cholesterol 136 mg/dL (<200); Estimated Glomerular Filt Rate > 60; Glucose Fasting 94 mg/dL (60-99); Glucose Random 94 mg/dL (60-115); HDL Cholesterol 56 mg/dL (>40); Iron 91 mcg/dL (30-160); LDL Cholesterol Calculated 64 mg/dL (<100); Percent Iron Saturation 28 % (15-50); Potassium 4.2 mmol/L (3.3-5.1); Sodium 140 mmol/L (135-145); Total Iron Binding Capacity 328 mcg/dL (228-428); Total Protein 6.5 g/dL (6.5-8.0); Triglycerides 84 mg/dL (<150); Unsaturated Iron Binding 237 ug/dL
[2024-09-03 07:51] LABS: Bacteria Urine None Seen (None Seen); Hyaline Casts Urine 0-2 /LPF (0-2); RBC Urine 0-2 /HPF (0-2); Squamous Epithelial Cell Urine 0-2 /HPF (0-2); WBC Urine 0-5 /HPF (0-5)
[2024-09-03 07:52] LABS: Troponin-I High Sensitivity < 2.7 ng/L (<3.5-17.0)
[2024-09-03 08:09] LABS: Ferritin 34 ng/mL (10-250); TSH reflex Free T4 1.27 uIU/mL (0.32-4.0)
[2024-09-03 08:19] LABS: Folate 8.1 ng/mL (> or = 4.0); Vitamin B12 218 pg/mL (200-900)
[2024-09-03 08:32] LABS: Creatinine Urine 144.23 mg/dL; Microalbum/Creatinine Ratio Ur 3.4 ug/mg cr (<30)
== END 2024-09-03 06:53 | disposition home or self-care (01) ==
LOC: HO.LAB 06:52
PROVIDERS: PCP Family Medicine; Visit Provider Family Medicine
DX: Z00.00 Encounter for general adult medical examination without abnormal findings (principal); E53.8 Deficiency of other specified B group vitamins; D64.9 Anemia, unspecified; F41.8 Other specified anxiety disorders; I21.4 Non-ST elevation (NSTEMI) myocardial infarction; I10 Essential (primary) hypertension
CPT/HCPCS: 36415; 80053; 80061; 81001; 82043; 82570; 82607; 82728; 82746; 83540; 84443; 84484; 85025; 85045

== ENCOUNTER 2024-09-17 12:08 | Outpatient (REF) | payer OTHER, SELFPAY ==
--- NOTE | ~2024-09-17 | MM_ITS ---
EXAMINATION: MM SCREENING DIGITAL BREAST TOMOSYNTHESIS, BILATERAL CLINICAL INFORMATION: Screening. Asymptomatic. COMPARISON: Mammography: Comparison is made with available priors TECHNIQUE: Digital breast mammography with tomosynthesis is performed in both the craniocaudal and mediolateral oblique views along with computer-aided detection (CAD). FINDINGS: There are scattered areas of fibroglandular density (ACR BI-RADS breast composition Category b). There are no significant masses, abnormal calcifications, or other abnormalities. MM/MM tomosynthesis screening BI IMPRESSION: No mammographic evidence of malignancy. ASSESSMENT: BI-RADS BI-RADS 1 - Negative RECOMMENDATION: Routine annual mammography screening. 1 year F/U This examination should not preclude the clinical evaluation of a suspicious palpable abnormality. This patient's information was entered into a reminder system with a target due date for their next mammogram. Electronically signed by: Tameka Adams DO 09/18/2024 02:38 PM EDT
--- OUTSIDE RECORDS SUMMARY | 2024-09-17 12:26 | XMS_ITS | Clinical Summary ---
Author Organization [facility] Address [address] [place] [address] Phone Care Team Providers Care Coal Grader Name Role Phone Matt Patten MD Primary Care Provider [phone] Allergies No known active allergies Medications ARIPiprazole [...] EDT Office Visit Bariatric Surgery - [address] [place] [address] Kay Stone MD Class 1 [...] PROCEDURE: HISTORICAL TUBAL LIGATION COLONOSCOPY 08/07/2010 PROCEDURE: NC COLONOSCOPY FLX DX W/COLLJ SPEC WHEN PFRMD; COMMENT: Normal ESOPHAGOGASTRODUODENOSCOPY 08/07/2010 PROCEDURE: NC ESOPHAGOGASTRODUODENOSCOPY TRANSORAL DIAGNOSTIC; COMMENT: Normal on omeprazole [...] PM EST Office Visit Bariatric Surgery - [place] [address] [place] [address] Kay Stone MD [address] [place] [address] Health Maintenance Due Date Last Done Comments [...] 5 Years) and At-Risk Patients (6 to 49 Years) Aged Out No longer eligible b [...] LAB CHEMISTRY METHOD 05/30/2024 6:55 PM EDT [facility] Triglycerides 145 <150 mg/dL LAB CHEMISTRY METHOD 05/30/2024 6:55 PM EDT [facility] HDL 41 37 - 92 mg/dL LAB CHEMISTRY METHOD 05/30/2024 6:55 PM EDT [facility] LDL Calculated 70 50 - 130 mg/dL LAB CHEMISTRY METHOD 05/30/2024 6:55 PM EDT [facility] VLDL Cholesterol Espinoza 29 mg/dL LAB CHEMISTRY METHOD 05/30/2024 6:55 PM EDT [facility] Comment:No established refer ence range. Blood Venous blood specimen / Unknown Venipuncture / Unknown 05/30/2024 6:09 PM EDT 05/30/2024 6:25 PM EDT Buddy Espana MD LAB BLOOD ORDERABLES Fin al Result [facility] [address] [place] [address], * Pap Smear (11/19/2010) Pap smear No interpretation , abstracted Historical Provider HEALTH MAINTENANCE Final Result * Colonoscopy (08/07/2010) Colonoscopy No interpretation , abstracted Anatomical Region Laterality Modality Other Historical Provider HEALTH MAINTENANCE Final Result from Last 3 Months or Most Recently Relevant to Health Maintenance Insurance [facility] [employer] Advance Directives * Full Code - [...] currently active code status orders. Care Teams Coal Grader Relationship Specialty Start Date End Date Matt Patten MD [address] [place] [address] PCP - General Family Medicine 12/05/23
== END 2024-09-17 12:09 | disposition home or self-care (01) ==
LOC: HO.MAMMO 12:08
PROVIDERS: PCP Family Medicine; Visit Provider Family Medicine
DX: Z12.31 Encounter for screening mammogram for malignant neoplasm of breast (principal)
CPT/HCPCS: 77063; 77067

== ENCOUNTER → 2024-09-17 12:30 | Outpatient (BNV) | payer OTHER, SELFPAY | PROVIDERS: PCP Family Medicine; Visit Provider Internal Medicine | DX: Z12.31 Encounter for screening mammogram for malignant neoplasm of breast (principal) | CPT/HCPCS: 77063; 77067 ==

== ENCOUNTER 2024-10-01 08:58 | Day surgery (SDC) | payer OTHER, SELFPAY ==
--- OUTSIDE RECORDS SUMMARY | 2024-09-07 14:25 | XMS_ITS | Clinical Summary ---
Author Organization [facility] Address [address] [place] [address] Phone Care Team Providers Care Imaging Account Manager Name Role Phone Matt Patten MD Primary Care Provider [phone] Allergies No known active allergies Medications ARIPiprazole [...] 1 (one) time each day. 05/17/2024 Active semaglutide (Wegovy) 0.25 mg/0.5 mL injection penIndications:C lass 1 obesity due to excess calories with body mass index (BMI) of 33.0 to 33.9 in adult, unspecified whether serious comorbidity present Inject 0.25 mg under the skin every 7 (seven) days. 4 mL 1 08/24/2024 Active Active Problems Problem Noted Date Diagnosed Date NSTEMI (non-ST elevated myoc ardial infarction) (CMS/HCC V24, CMS/HCC V28) 05/30/2024 Grief reaction 09/05/2010 Varicose vein of leg 06/21/2010 Obesity 06/21/2010 GERD (gastroesophageal reflux disease) 1 Overview (12/05/2023): Normal EGD 08/07/2010 on PPI rx. Encounters Date Type Department Care Team Description 08/24/2024 1:45 PM EDT Office Visit Bariatric Surgery - [address] [place] [address] Kay Stone MD Class 1 obesity due to excess calories with body mass index (BMI) of 33.0 to 33.9 in adult, unspecified whether serious comorbidity present (Primary Dx) from Last 3 Months Immunizations Name Administration [...] Sign Reading Time Taken Comments Blood Pressure 121/72 08/24/2024 1:51 PM EDT Pulse 70 08/24/2024 1:51 PM EDT Temperature 36.2 C (97.2 F) 08/24/2024 1:51 PM EDT Respiratory Rate 17 06/01/2024 8:46 AM EDT Oxygen Saturation 97% 06/01/2024 8:46 AM EDT Inhaled Oxygen Concentration - - Weight 98.4 kg (217 lb) 08/24/2024 1:51 PM EDT Height 170.2 cm (5' 7 ) 08/24/2024 1:51 PM EDT Body Mass Index 33.99 08/24/2024 1:51 PM EDT Plan of Treatment Upcoming Encounters Date Type Department Care Team (Late st Contact Info) Description 01/18/2025 3:45 PM EST Office Visit Bariatric Surgery - [facility] [address] [place] [address] Kay Stone MD [address] [place] [address] Health Maintenance Due Date Last Done Comments Breast Cancer Screening 1965 Hepatitis B Vaccines (1 of 3 - 19+ 3-dose series) 1984 Cervical Cancer Screening: P ap Smear 11/19/2013 11/19/2010 Pneumococcal Vaccine: 50+ Years (1 of 1 - PCV) 2015 Zoster Vaccines (1 of 2) 2015 DTaP,Tdap,and Td Vaccines (2 - Td or Tdap) 09/05/2020 09/05/2010 COVID-19 Vaccine (2023-2 5 season) 2023 01/10/2022, 01/30/2021, 06/15/2020 Colorectal Cancer Screening: Colonoscopy 12/06/2023 08/07/2010, 08/07/2010 Depression Screening 12/06/2023 HIV Screening 12/06/2023 Hepatitis C Screening 12/06/2023 Social Influencers of Health Screening 12/06/2023 Influenza Vaccine (#1) 2024 Cholesterol Screening (Lipid Panel) 05/30/2029 05/30/2024, [...] Procedure Name Priority Date/Time Associated Diagnosis Comments LIPID PANEL WITH REFLEX TO DIRECT LDL Routine 05/30/2024 6:09 PM EDT PAP SMEAR Routine 11/19/2010 COLONOSCOPY Routine 08/07/2010 from Last 3 Months or Most Recently Relevant to Health Maintenance Results * Lipid panel with reflex to direct LDL (05/30/2024 6:09 PM EDT) Cholesterol 140 0 - 200 mg/dL LAB CHEMISTRY METHOD 05/30/2024 6:55 PM EDT [facility] Triglycerides 145 <150 mg/dL LAB CHEMISTRY METHOD 05/30/2024 6:55 PM EDT [facility] HDL 41 37 - 92 mg/dL LAB CHEMISTRY METHOD 05/30/2024 6:55 PM EDT [facility] LDL Calculated 70 50 - 130 mg/dL LAB CHEMISTRY METHOD 05/30/2024 6:55 PM EDT [facility] VLDL Cholesterol Espinoza 29 mg/dL LAB CHEMISTRY METHOD 05/30/2024 6:55 PM EDT [facility] Comment:No established refer ence range. Blood Venous blood specimen / Unknown Venipuncture / Unknown 05/30/2024 6:09 PM EDT 05/30/2024 6:25 PM EDT Buddy Espana MD LAB BLOOD ORDERABLES Fin al Result [facility] [address] [place] [address], * Pap Smear (11/19/2010) Pap smear No interpretation , abstracted Historical Provider HEALTH MAINTENANCE Final Result * Colonoscopy (08/07/2010) Colonoscopy No interpretation , abstracted Anatomical Region Laterality Modality Other Historical Provider HEALTH MAINTENANCE Final Result from Last 3 Months or Most Recently Relevant to Health Maintenance Insurance [facility] [employer] PLANS Advance Directives * Full Code - [...] currently active code status orders. Care Teams Imaging Account Manager Relationship Specialty Start Date End Date Matt Patten MD [address] [place] [address] PCP - General Family Medicine 12/05/23
--- OUTSIDE RECORDS SUMMARY | 2024-09-07 14:25 | XMS_ITS ---
Author Name [facility] Organization Unknown Results Test Name/Text Value Interpretation Date Range Source ESR Bld Qn Westrgrn 2.0 mm/hr Normal 06/01/2024 0 - 20 [facility] Magnesium SerPl-mCnc 1.9 mg/dL Normal 06/01/2024 1.7 - 2. 8 [facility] BUN SerPl-mCnc 16.0 mg/dL Normal 06/01/2024 7 - 17 [facility] CO2 SerPl-sCnc 27.0 mmol/L Normal 06/01/2024 24 - 32 [facility] eGFRcr SerPlBld CKD-EPI 2020 104.0 mL/min/1.73m2 Normal 06/01/2024 - [facility] Glucose SerPl-mCnc 90.0 mg/dL Normal 06/01/2024 70 - 199 [facility] BUN/Creat SerPl 26.7 Above high normal 06/01/2024 12 - 20 [facility] Calcium SerPl-mCnc 8.6 mg/dL Normal 06/01/2024 8.4 - 10.2 [facility] Chloride SerPl-sCnc 105.0 mmol/L Normal 06/01/2024 98 - 1 07 [facility] Sodium SerPl-sCnc 139.0 mmol/L Normal 06/01/2024 135 - 14 5 [facility] Creat SerPl-mCnc 0.6 mg/dL Normal 06/01/2024 0.5 - 1 [facility] Potassium SerPl-sCnc 3.3 mmol/L Below low normal 06/01/2024 3.5 - 5.1 [facility] Anion Gap SerPl-sCnc 7.0 Normal 06/01/2024 5 - 14 [facility] Hct VFr Bld Auto 40.6 % Normal 06/01/2024 37 - 47 [facility] Platelet # Bld Auto 227.0 K/mcL Normal 06/01/2024 150 - 4 50 [facility] RDW RBC Auto-Rto 12.9 % Normal 06/01/2024 12.1 - 16.2 [facility] RBC # Bld Auto 4.35 M/mcL Normal 06/01/2024 4.2 - 5.4 [facility] MCV RBC Auto 93.1 FL Normal 06/01/2024 78 - 100 [facility] Hgb Bld-mCnc 13.6 g/dL Normal 06/01/2024 12.5 - 16 [facility] MCH RBC Qn Auto 31.3 pcg Normal 06/01/2024 25 - 33 [facility] MCHC RBC Auto-mCnc 33.6 g/dL Normal 06/01/2024 32 - 36 [facility] PMV Bld Auto 9.2 FL Normal 06/01/2024 7.4 - 11.4 [facility] WBC # Bld Auto 11.5 K/mcL Above high normal 06/01/2024 4 - 1 0.5 [facility] Glucose Bld-mCnc 94.0 mg/dL Normal 06/01/2024 70 - 199 C [facility] Ferritin SerPl-mCnc 149.0 ng/mL Above high normal 05/31/2024 10 - 120 [facility] CRP SerPl-mCnc 0.7 mg/dL Normal 05/31/2024 - [facility] Bilirub SerPl-mCnc 1.1 mg/dL Above high normal 05/31/2024 0. 3 - 1 [facility] Albumin SerPl-mCnc 4.3 g/dL Normal 05/31/2024 3.5 - 5 [facility] Prot SerPl-mCnc 6.4 g/dL Normal 05/31/2024 6.4 - 8.5 [facility] Albumin/Glob SerPl 2.0 Normal 05/31/2024 [facility] AST SerPl-cCnc 60.0 unit/L Above high normal 05/31/2024 5 - 40 [facility] Bilirub Direct SerPl-mCnc 0.3 mg/dL Above high normal 05/31/2024 0 - 0.2 [facility] ALT SerPl-cCnc 40.0 unit/L Normal 05/31/2024 7 - 52 [facility] Globulin Ser Calc-mCnc 2.1 g/dL Below low normal 05/31/2024 2.3 - 3.5 [facility] ALP SerPl-cCnc 74.0 unit/L Normal 05/31/2024 34 - 104 [facility] Creat SerPl-mCnc 0.7 mg/dL Normal 05/31/2024 0.5 - 1 [facility] Anion Gap SerPl-sCnc 10.0 Normal 05/31/2024 5 - 14 [facility] BUN SerPl-mCnc 18.0 mg/dL Above high normal 05/31/2024 7 - 1 7 [facility] Chloride SerPl-sCnc 104.0 mmol/L Normal 05/31/2024 98 - 1 07 [facility] Sodium SerPl-sCnc 139.0 mmol/L Normal 05/31/2024 135 - 14 5 [facility] Calcium SerPl-mCnc 9.3 mg/dL Normal 05/31/2024 8.4 - 10.2 [facility] Potassium SerPl-sCnc 3.2 mmol/L Below low normal 05/31/2024 3.5 - 5.1 [facility] eGFRcr SerPlBld CKD-EPI 2020 100.0 mL/min/1.73m2 Normal 05/31/2024 - [facility] CO2 SerPl-sCnc 25.0 mmol/L Normal 05/31/2024 24 - 32 [facility] BUN/Creat SerPl 25.7 Above high normal 05/31/2024 12 - 20 [facility] Glucose SerPl-mCnc 97.0 mg/dL Normal 05/31/2024 70 - 199 [facility] Magnesium SerPl-mCnc 1.9 mg/dL Normal 05/31/2024 1.7 - 2. 8 [facility] Hct VFr Bld Auto 46.4 % Normal 05/31/2024 37 - 47 [facility] MCV RBC Auto 95.8 FL Normal 05/31/2024 78 - 100 [facility] Hgb Bld-mCnc 15.4 g/dL Normal 05/31/2024 12.5 - 16 [facility] RBC # Bld Auto 4.84 M/mcL Normal 05/31/2024 4.2 - 5.4 [facility] PMV Bld Auto 9.1 FL Normal 05/31/2024 7.4 - 11.4 [facility] MCH RBC Qn Auto 31.9 pcg Normal 05/31/2024 25 - 33 [facility] MCHC RBC Auto-mCnc 33.3 g/dL Normal 05/31/2024 32 - 36 [facility] WBC # Bld Auto 15.3 K/mcL Above high normal 05/31/2024 4 - 1 0.5 [facility] RDW RBC Auto-Rto 12.8 % Normal 05/31/2024 12.1 - 16.2 [facility] Platelet # Bld Auto 259.0 K/mcL Normal 05/31/2024 150 - 4 50 [facility] Heparin Anti Xa Fld.NB-aCnc 0.38 I Unit/mL Normal 05/31/2024 [facility] Heparin Anti Xa Fld.NB-aCnc 1.55 I Unit/mL Critically high 05/31/2024 [facility] Est. average glucose Bld gHb Est-mCnc 97.0 mg/dL Normal 05/31/2024 [facility] HbA1c MFr Bld 5.0 % Normal 05/31/2024 - 5.7 [facility] TSH SerPl DL<=0.005 mIU/L-aCnc 1.91 mcIU/mL Normal 05/30/2024 0.45 - 5.33 [facility] Trigl SerPl-mCnc 145.0 mg/dL Normal 05/30/2024 - 150 [facility] HDLc SerPl-mCnc 41.0 mg/dL Normal 05/30/2024 37 - 92 [facility] Cholest SerPl-mCnc 140.0 mg/dL Normal 05/30/2024 0 - 200 [facility] LDLc SerPl Calc-mCnc 70.0 mg/dL Normal 05/30/2024 50 - 13 0 [facility] VLDLc SerPl Calc-mCnc 29.0 mg/dL Normal 05/30/2024 [facility] Heparin Anti Xa Fld.NB-aCnc 0.45 I Unit/mL Normal 05/30/2024 [facility] Troponin I SerPl HS-mCnc 2515.0 ng/L Critically high 05/30/2024 0 - 14 [facility] BNP SerPl-mCnc 703.0 pcg/mL Above high normal 05/30/2024 0 - 100 [facility] Anion Gap SerPl-sCnc 11.0 Normal 05/30/2024 5 - 14 [facility] Sodium SerPl-sCnc 136.0 mmol/L Normal 05/30/2024 135 - 14 5 [facility] CO2 SerPl-sCnc 23.0 mmol/L Below low normal 05/30/2024 24 - 32 [facility] BUN SerPl-mCnc 19.0 mg/dL Above high normal 05/30/2024 7 - 1 7 [facility] eGFRcr SerPlBld CKD-EPI 2020 85.0 mL/min/1.73m2 Normal 05/30/2024 - [facility] Chloride SerPl-sCnc 102.0 mmol/L Normal 05/30/2024 98 - 1 07 [facility] Calcium SerPl-mCnc 9.3 mg/dL Normal 05/30/2024 8.4 - 10.2 [facility] BUN/Creat SerPl 23.8 Above high normal 05/30/2024 12 - 20 [facility] Glucose SerPl-mCnc 95.0 mg/dL Normal 05/30/2024 70 - 199 [facility] Creat SerPl-mCnc 0.8 mg/dL Normal 05/30/2024 0.5 - 1 [facility] Potassium SerPl-sCnc 3.5 mmol/L Normal 05/30/2024 3.5 - 5 .1 [facility] Neutrophils # Bld Auto 11.8 K/mcL Above high normal 05/30/2024 1.8 - 7.8 [facility] RBC # Bld Auto 4.72 M/mcL Normal 05/30/2024 4.2 - 5.4 [facility] Eosinophil # Bld Auto 0.0 K/mcL Normal 05/30/2024 0 - 0.5 [facility] Platelet # Bld Auto 296.0 K/mcL Normal 05/30/2024 150 - 4 50 [facility] Hgb Bld-mCnc 15.1 g/dL Normal 05/30/2024 12.5 - 16 [facility] Lymphocytes/leuk NFr Bld Auto 21.4 % Normal 05/30/2024 20 - 48 [facility] MCH RBC Qn Auto 31.9 pcg Normal 05/30/2024 25 - 33 [facility] RDW RBC Auto-Rto 13.0 % Normal 05/30/2024 12.1 - 16.2 [facility] Basophils # Bld Auto 0.1 K/mcL Normal 05/30/2024 0 - 0.2 [facility] Neutrophils/leuk NFr Bld Auto 68.8 % Normal 05/30/2024 44 - 74 [facility] MCV RBC Auto 94.2 FL Normal 05/30/2024 78 - 100 [facility] MCHC RBC Auto-mCnc 33.8 g/dL Normal 05/30/2024 32 - 36 [facility] PMV Bld Auto 8.9 FL Normal 05/30/2024 7.4 - 11.4 [facility] Monocytes # Bld Auto 1.6 K/mcL Above high normal 05/30/2024 0 - 0.8 [facility] Basophils/leuk NFr Bld Auto 0.5 % Normal 05/30/2024 0 - 2 [facility] Monocytes/leuk NFr Bld Auto 9.2 % Normal 05/30/2024 2 - 12 [facility] WBC # Bld Auto 17.2 K/mcL Above high normal 05/30/2024 4 - 1 0.5 [facility] Eosinophil/leuk NFr Bld Auto 0.1 % Normal 05/30/2024 0 - 6 [facility] Lymphocytes # Bld Auto 3.7 K/mcL Above high normal 05/30/2024 1 - 3.2 [facility] Hct VFr Bld Auto 44.5 % Normal 05/30/2024 37 - 47 [facility] Heparin Anti Xa Fld.NB-aCnc 0.75 I Unit/mL Normal 05/30/2024 [facility] History of Medication Use Medication Directions Dispensed Refills Start Date End Date Stat gadoterate meglumine (CLARISCAN, DOTAREM) injection 40 mL 40 mL, intravenous, Once in imaging, Starting on Fri05/31/24 at 2130, For 1 dose 06/01/2024 completed magnesium oxide (MAG-OX) tablet 400 mg 400 mg, oral, Daily, First dose on Fri06/01/24 at 1300 06/01/2024 active lactated Ringer's infusion 75 mL/hr, intravenous, Continuous, Starting on Fri05/30/24 at 2330 05/31/2024 aborted LORazepam (ATIVAN) injection 0.5 mg 0.5 mg, intravenous, Once, On Fri05/31/24 at 1515, For 1 dose, Prior to IV use, lorazepam injection should be DILUTED with an equal volume of compatible solution; Rate of administration should NOT exceed 2 mg/min. 05/31/2024 completed perflutren lipid microsphere (DEFINITY) 1.3 mL in sodium chloride 0.9% 8.7 mL injection 10 mL, intravenous, Administer over 10 Minutes, Once in imaging, Starting on Fri05/31/24 at 0725, For 1 dose, CV Medication Orders 05/31/2024 completed ranolazine (RANEXA) 12 hr tablet 500 mg 500 mg, oral, 2 times daily, First dose on Fri05/30/24 at 2100, Do not crush, chew, or split. 05/31/2024 aborted sodium chloride 0.9 % infusion 100 mL/hr, intravenous, Continuous, Starting on Fri05/31/24 at 1045, For 4 hours 05/31/2024 5 completed acetaminophen (TYLENOL) tablet 650 mg 650 mg, oral, Every 6 hours PRN, mild pain, moderate pain, headaches, fever - temperature GREATER than 38 C (100.4 F), Starting on 05/30/24 at 2137 05/31/2024 active aspirin EC tablet 81 mg 81 mg, oral, Daily, First dose on Fri05/31/24 at 0900, Do not crush, chew, or split. 05/31/2024 active atorvastatin (LIPITOR) tablet 40 mg 40 mg, oral, Nightly, First dose on Fri05/30/24 at 2100 05/31/2024 active busPIRone (BUSPAR) tablet 15 mg 15 mg, oral, 2 times daily, First dose on Fri05/30/24 at 2100 05/31/2024 active lactated Ringer's bolus 500 mL 500 mL, intravenous, at 500 mL/hr, Administer over 1 Hours, Once, On Fri05/30/24 at 1608, For 1 dose 05/30/2024 5 completed aluminum-magnesium hydroxide-simethico ne (MAALOX) 200-200-20 mg/5 mL suspension 30 mL 30 mL, oral, Once, On Fri05/30/24 at 1644, For 1 dose 05/30/2024 5 completed lidocaine (XYLOCAINE) 2 % mouth solution 15 mL 15 mL, Mouth/Throat, Once, On Fri05/30/24 at 1644, For 1 dose 05/30/2024 5 completed aluminum-magnesium hydroxide-simethico ne (MAALOX) 200-200-20 mg/5 mL suspension 20 mL 05/30/2024 active bisacodyL (DULCOLAX) EC tablet 10 mg 10 mg, oral, Daily PRN, constipation, Starting on Fri05/30/24 at 1653, 1st line for treatment of constipation - give scheduled if no bowel movement in past 24 hours. Do not crush, chew, or split. 05/30/2024 active bisacodyL (DULCOLAX) suppository 10 mg 10 mg, rectal, Daily PRN, constipation, Starting on 05/30/24 at 1653, 2nd line for treatment of constipation - give scheduled (in addition to 1st line agent) if no bowel movement in past 48 hours 05/30/2024 active dextrose (D50W) 50% injection 12.5 g 05/30/2024 active dextrose (D50W) 50% injection 25 g 05/30/2024 active dextrose 15 gram/60 mL oral solution 15 g 05/30/2024 active dextrose 15 gram/60 mL oral solution 30 g 05/30/2024 active Glucagon HCl (rDNA) injection 1 mg 05/30/2024 active lidocaine (XYLOCAINE) 2 % mouth solution 10 mL 05/30/2024 active morphine 2 mg/mL injection 2 mg 2 mg, intravenous, Every 4 hours PRN, moderate pain, severe pain, Starting on Fri05/30/24 at 1723 05/30/2024 active nitroglycerin (NITROSTAT) SL tablet 0.4 mg 0.4 [...] mmHg. Do not give i 05/30/2024 active ondansetron ODT (ZOFRAN-ODT) disintegrating tablet 4 mg [Order 1 Start] Name: ondansetron ODT (ZOFRAN-ODT) disintegrating tablet 4 mg Signed Summary: 4 mg, oral, Every 8 hours PRN, vomiting, nausea, Starting on Fri05/30/24 at 1653, -Give IV if patient is unable to take orally. -If inadequate response within 30 minutes, proceed to next-line agent or conta 05/30/2024 active pantoprazole (PROTONIX) injection 40 mg 40 mg, intravenous, Administer over 2 Minutes, Every 12 hours scheduled, First dose on Fri05/30/24 at 1719, Pantroprazole - IV push: Reconstitute powder for injection with 10 mL NS; final concentration: 4 mg/mL., Indication for IV Push Pantoprazole? Stress Ulcer Prophylaxis for patients with STRICT 05/30/2024 active polyethylene glycol (MIRALAX) packet 17 g 17 g, oral, Daily, First dose on 05/30/24 at 1654, Bowel Regimen - for prevention of constipation 05/30/2024 active senna (SENOKOT) tablet 17.2 mg 17.2 mg (2 tablet), oral, Nightly PRN, constipation, Starting on 05/30/24 at 1653, Bowel Regimen - for prevention of constipation 05/30/2024 active busPIRone (BUSPAR) 15 mg tablet Take 1 tablet (15 mg total) by mouth 2 (two) times a day. 05/26/2024 active tirzepatide, weight loss, (Zepbound) 7.5 mg/0.5 mL injection Inject 0.5 mL (7.5 mg total) under the skin every 7 (seven) days for 28 days. 05/21/2024 aborted ARIPiprazole (ABILIFY) tablet 5 mg 5 mg, oral, Nightly, First dose on 05/30/24 at 2100 05/17/2024 active venlafaxine XR (EFFEXOR-XR) 24 hr capsule 150 mg 150 mg, oral, Daily, First dose on Fri05/31/24 at 0900, Capsule may be swallowed whole, or may be opened and its contents sprinkled on applesauce if consumed immediately without chewing. Do not crush or chew. 05/17/2024 active pantoprazole (PROTONIX) 40 mg EC tablet Take 1 tablet (40 mg total) by mouth 1 (one) time each day. 04/15/2024 active omeprazole (PriLOSEC) [address] capsule Take 1 capsule (40 mg total) by mouth 1 (one) time each day. 02/16/2011 aborted buPROPion SR (WELLBUTRIN SR) 150 mg 12 hr tablet Take 1 tablet (150 mg total) by mouth 2 (two) times a day. 11/20/2010 aborted Problems Problem Status Onset Date Problem Type Date of Resoluti on Source GERD (gastroesophageal reflux disease) active 2010-06-[address] [facility] Grief reaction active 2010-09-[address] [facility] Obesity active 2010-06-[address] [facility] [facility] Varicose vein of leg active 2010-06-[address] [facility] [facility] NSTEMI (non-ST elevated myocardial infarction) active 2024-05-30 ProblemAct [facility] Immunizations Vaccine Date Source Lot Number Status Tdap Tetanus diptheria acell ular pertussis (Boostrix; Adacel) 7yo and older 09/05/2010 [facility] [id number] completed Encounters Encounter Type Encounter Reason Primary Diagnosis Location Date Inpatient TRANSFER FROM [facility] Non-ST elevation (NSTEMI) myocardial infarction [facility] 05/30/2024 Care Team Organization Name Specialty Phone Email Start Date End Da te [facility] 06/08/2024 [facility] 05/30/2024
--- NOTE | 2024-10-01 09:26 | MHC.SHP ---
Pre-Procedural Eval Section A - 24 Hr Update-Section A only Date of Service: 10/01/24 The patient is an INPATIENT: No The patient has been examined within 24 hours of the surgical procedure. The History & Physical has been completed within 30 days and I have reviewed it.: No Section B - Complete if H&P > 30 days Chief Complaint: screening Relevant Family History (Specify if Yes): Yes Relevant Social History: Tobacco Use (Former smoker) Present Medications: see Short Stay Collaborative assessment Medical History: Significant History (Back pain History of memory loss History of anxiety Depression GERD (gastroesophageal reflux disease) Polyarthralgia) History of Previous Operations: Relevant previous surgery/procedure and date(s) (History of carpal tunnel surgery of right wrist Hx of colonoscopy H/O vein stripping History of weight loss surgery History of cholecystectomy) Allergies: Allergies Allergy/AdvReac Type Severity Reaction Status Date / Time oxycodone (From PERCOCET) Allergy Intermediate ITCHING Verified 08/17/24 15:38 Review of Systems Sugical H&P ROS: Negative: Constitution, Cardiovascular, Respiratory and Gastrointestinal Exam Surgical H&P Exam: Normal: Heart, Normal: Lungs, Normal: Extremities and Normal: Abdomen Plan Diagnosis/Plan: Unchanged I have reviewed the history and physical and performed a pertinent physical examination on my patient. No changes have occurred unless specified. Time Spent With Patient Time: Total time managing care of this patient today ____ minutes.
[2024-10-01 09:37] VITALS: BP 100/65; PULSE 69; RESP 16; TEMP 36.1; O2SAT 97; BMI 33.1
[2024-10-01] MEDS: Lactated Ringers 1,000 ML 80 ML IVCONT (09:47)
--- NOTE | 2024-10-01 10:07 | HO.ANESPROP2 ---
HPI - Anesthesia Eval Consult details Narrative: for colonoscopy PMFSH Active Problems Active Problems: All Active Problems Preop cardiovascular exam (Acute) Anemia (Acute) Mild anemia (Acute) NSTEMI (non-ST elevated myocardial infarction) (Acute) De Quervain's tenosynovitis, right (Acute) Pain of right thumb (Acute) Right wrist pain (Acute) Acute upper respiratory infection (Acute) Lower back pain (Acute) Pruritus (Acute) Varicose veins of left lower extremity with inflammation (Acute) Status post sleeve gastrectomy (Acute) Right sided sciatica (Acute) Sciatica (Acute) Restless leg syndrome (Acute) Fatigue (Acute) HPV in female (Acute) Flu (Acute) Skin lesion (Acute) Well woman exam (Acute) Difficulty sleeping (Acute) Diarrhea (Acute) Allergic rhinitis (Acute) Annual physical exam (Acute) Concussion (Acute) Chronic constipation (Acute) Chronic constipation (Acute) Low vitamin B12 level (Acute) Periodic limb movement sleep disorder (Acute) Shortness of breath (Acute) Sleep disorder, unspecified (Acute) Tubular adenoma (Acute) Cubital tunnel syndrome on left (Acute) Carpal tunnel syndrome of left wrist (Acute) Carpal tunnel syndrome of right wrist (Acute) Lumbar spondylosis (Acute) Thoracic spondylosis (Acute) Polyarthralgia (Acute) Mid-back pain, acute (Acute) Rib pain on right side (Acute) Right groin mass (Acute) Right groin pain (Acute) Daytime sleepiness (Acute) History of sleep apnea (Acute) Encounter for screening colonoscopy (Acute) Anxiety (Acute) Memory loss (Acute) Varicose veins of right lower extremity with inflammation (Acute) Screening for cervical cancer (Acute) Breast cancer screening by mammogram (Acute) Screening for colon cancer (Acute) GERD (gastroesophageal reflux disease) (Acute) Depression with anxiety (Acute) Wrist pain (Acute) Chronic SI joint pain (Acute) Left hip pain (Acute) Laboratory examination ordered as part of a routine general medical examination (Acute) Obese (Acute) Varicose veins of both lower extremities (Acute) Back pain (Acute) Past Medical History Medical History (Updated 10/01/24 @ 09:22 by Antonella Jacome RN) Myocardial infarct Back pain History of memory loss History of anxiety Depression GERD (gastroesophageal reflux disease) Polyarthralgia Narrative: echo 2019 showed increased RV size. Normal LV fxn. Family History Family History Mother Colorectal cancer Father Stented coronary artery Family history of problems with anesthesia: No Surgical History Surgical History History of carpal tunnel surgery of right wrist Hx of colonoscopy H/O vein stripping History of weight loss surgery History of cholecystectomy History of Problems with Anesthesia: No Social History Social History Household Members: Children Housing: Apartment Alcohol intake: never Patient Tobacco Use Status: Former Tobacco user e-Cigarette/Vaping Use: Never Used Second Hand Smoke Exposure: No Use of substances other than those prescribed or required for medical reasons: Yes Are you DNR?: No Advance Directives: No Advance Directives Information Provided: Yes Patient : No : No Poor oral hygiene: No service: No Current occupational status: employed and unemployed 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 Cognitive needs: No Hearing needs: No Vision needs: Yes Meds Allergies Allergy/AdvReac Type Severity Reaction Status Date / Time oxycodone (From PERCOCET) Allergy Intermediate ITCHING Verified 08/17/24 15:38 Active Medications: Current Medications Lactated Ringer's (Lr) 1,000 mls @ 80 mls/hr IVCONT .[id number] MARY Last Admin: 10/01/24 09:47 Dose: 80 mls/hr Exam Height,Weight and Vital Signs: Height 5 ft 7 in Weight 95.8 kg Last Vital Signs Temp 97.0 F 10/01/24 09:37 Pulse 69 10/01/24 09:37 Resp 16 10/01/24 09:37 BP 100/65 10/01/24 09:37 Pulse Ox 97 10/01/24 09:37 O2 Del Method Room Air 10/01/24 09:37 Airway Mallampati Class: II TM Dist: <=3cm Neck ROM: Full Denture: Upper and Lower Heart: ok. see above. Lungs: ok Assessment and Plan Assessment Anesthesia Assessment: Anesthesia Plan Discussed and Chart Reviewed Final Anesthetic Review Family History of Problems with Anesthesia: No History of Problems with Anesthesia: No NPO: Yes ASA Class: III Final Preanesthetic Review: No Changes in Pt Med Stat, Meds/Allgs Chart Reviewed, Consent Obtained/Reviewed and Anes Risks/Benef Reviewed Patient Risk: Intermediate Procedure Risk: Low Anesthetic Plan Anesthetic Plan: MAC: and Agree w/ Assess. and Plan Disposition: Standard PACU
--- NOTE | 2024-10-01 10:59 | P.OPN-COLO_ITS ---
Colonoscopy Operative Note Operative Note Date of Service: 10/01/24 Narrative: COLONOSCOPY TILL CECUM WITH BIOPSIES, SNARE POLYPECTOMY, SUBMUCOSAL INJECTION AND HEMOCLIP PLACEMENT Pre-op diagnosis: Surveillance for colon polyps. Post-op diagnosis:? Colon polyps, Diverticulosis, hemorrhoids Endoscopist:? Veronica Simental MD Anesthesia:?MAC Consent: Indications for the procedure and potential complications of bleeding, perforation, reaction to medications and missed diagnosis were discussed with the patient and informed consent was obtained. Instrument: Olympus CF H 190 L variable stiffness adult colonoscope Monitoring: Vital signs and clinical assessment, intermittent blood pressure monitoring, continuous EKG monitoring, Pulse oximetry and Carbon Dioxide monitoring were done throughout the procedure. Please see anesthesia flowsheet. Colon withdrawl time was 25 minutes. Procedure: The patient was placed in the left lateral decubitis position and pre-procedure medications were administered. After a digital rectal examination of the ano-rectum, the video colonoscope was inserted into the rectum and advanced through the colon to the cecum. The colonoscope was slowly withdrawn in a retrograde panoramic fashion and the colon mucosa was carefully examined including a retroflexed view of the rectum. Findings and interventions are described below. Procedure Difficulty: without difficulty - colon was long and tortuous and there was some loop formation Findings: Terminal Ileum: Not evaluated Cecum: Normal Ascending Colon: A 2.5 cms x 7 mm elongated polyp at 80 cms. Polyp was raised with 2 cc of Eleview and removed with a stiff hot snare. Polypectomy site was treated with cautery using the snare tip and closed with 1 hemoclip. A 2-3 mm sessile polyp - removed with a cold biopsy. Transverse Colon: A 2 cms sessile polyp at the hepatic flexure - raised with 2 cc of Eleview and removed with a stiff hot snare. A 10 mm sessile polyp in the mid TC - removed with a hot snare. A 10 mm sessile polyp in the distal TC - removed with a stiff hot snare. Descending Colon: Normal Sigmoid Colon: Moderate diverticulosis Rectum: Normal Ano-rectum: Large internal hemorrhoids Colon preparation: Good after some irrigation. [place] Bowel Preparation Scale Right colon; 2 Transverse colon: 2 Left colon; 2 (0 = Unprepared colon segment with mucosa not seen due to solid stool that cannot be cleared. 1 = Portion of mucosa of the colon segment seen, but other areas of the colon segment not well seen due to staining, residual stool and/or opaque liquid. 2 = Minor amount of residual staining, small fragments of stool and/or opaque liquid, but mucosa of colon segment seen well. 3 = Entire mucosa of colon segment seen well with no residual staining, small fragments of stool or opaque liquid) Impression and Post Procedure Diagnosis: Colonoscopy Findings: Five small to medium sized polyps were removed Moderate diverticulosis seen in the sigmoid colon large hemorrhoids on retroflexed exam. Plan: I will send a letter with biopsy results. Repeat Colonoscopy in 1 year if polyps are adenomatous and due to history of adenomatous colon polyps. Above findings were reviewed with the patient and relevant handouts were given and the discharge area. BIOPSIES SHOWED: A. Colon, hepatic flexure polyp: Tubular adenoma; negative for high-grade dysplasia and carcinoma. B. Colon, ascending, polyps: Tubular adenomas (5 pieces involved); negative for high-grade dysplasia and carcinoma. C. Colon, transverse, polyp: Tubular adenoma; negative for high-grade dysplasia and carcinoma. D. Colon, distal transverse, polyp Tubular adenoma; negative for high-grade dy splasia and carcinoma. Letter sent to the patient with biopsy results. Patient was placed on the colonoscopy recall list for repeat colonoscopy in 1 year.
[2024-10-01 11:03] VITALS: BP 98/58; PULSE 56; RESP 20; TEMP 36.2; O2SAT 98
[2024-10-01 11:18] VITALS: BP 97/58; PULSE 62; RESP 19; TEMP 36.4; O2SAT 98
[2024-10-01 11:33] VITALS: BP 115/64; PULSE 55; RESP 21; TEMP 36.6; O2SAT 100
== END 2024-10-01 12:00 | disposition home or self-care (01) ==
PROVIDERS: PCP Family Medicine; Visit Provider Internal Medicine Gastroenterology
PROC: 0DJD8ZZ Inspection of Lower Intestinal Tract, Via Natural or Artificial Opening Endoscopic (ICD-10-PCS; CPT 45378; principal; 2024-10-01 10:20)
DX: Z12.11 Encounter for screening for malignant neoplasm of colon (principal); D12.2 Benign neoplasm of ascending colon; D12.3 Benign neoplasm of transverse colon; K56.2 Volvulus; K57.30 Diverticulosis of large intestine without perforation or abscess without bleeding; K64.8 Other hemorrhoids; Z80.0 Family history of malignant neoplasm of digestive organs; Z86.0101 Personal history of adenomatous and serrated colon polyps; K21.9 Gastro-esophageal reflux disease without esophagitis; E53.8 Deficiency of other specified B group vitamins; K59.09 Other constipation; Z87.891 Personal history of nicotine dependence
CPT/HCPCS: 45381; 45385; 45380; 88305; J2003; J2704; J3010

== ENCOUNTER → 2024-10-01 08:58 | Outpatient (BNV) | payer OTHER, SELFPAY | PROVIDERS: PCP Family Medicine; Visit Provider Internal Medicine Gastroenterology | DX: Z12.11 Encounter for screening for malignant neoplasm of colon (principal); D12.2 Benign neoplasm of ascending colon; D12.3 Benign neoplasm of transverse colon; K57.30 Diverticulosis of large intestine without perforation or abscess without bleeding; K64.8 Other hemorrhoids | CPT/HCPCS: 45381; 45385 ==

== ENCOUNTER 2024-11-05 14:42 | Outpatient (AMB) | payer OTHER, SELFPAY ==
--- OUTSIDE RECORDS SUMMARY | 2024-11-05 14:44 | XMS_ITS | Clinical Summary ---
Author Organization [facility] Address [address] [place] [address] Phone Care Team Providers Care Taper Operator Name Role Phone Matt Patten MD Primary Care Provider [phone] Allergies No known active allergies Medications ARIPiprazole [...] time each day. 05/17/2024 Active semaglutide (Wegovy) 1 mg/0.5 mL injection pen Inject 1 mg under the skin every 7 (seven) days. 2 mL 10/25/2024 11/25/19 25 Active semaglutide (Wegovy) 0.5 mg/0.5 mL injection pen Inject 0.5 mg under the skin every 7 (seven) days for 28 days. 2 mL 09/23/2024 10/22/19 25 Active Problems Problem Noted Date Diagnosed Date NSTEMI (non-ST elevated myoc ardial infarction) (CMS/HCC V24, CMS/HCC V28) 05/30/2024 Grief reaction 09/05/2010 Varicose vein of leg 06/21/2010 Obesity 06/21/2010 GERD (gastroesophageal reflux disease) 1 Overview (12/05/2023): Normal EGD 08/07/2010 on PPI rx. Encounters Date Type Department Care Team Description 10/21/2024 Telephone Bariatric Surgery - [place] [address] [phone] Kay Stone MD 09/22/2024 Telephone Bariatric Surgery - [address] [phone] Kay Stone MD 08/24/2024 1:45 PM EDT Office Visit Bariatric Surgery [address] [phone] Kay Stone MD Class 1 obesity [...] PROCEDURE: HISTORICAL TUBAL LIGATION COLONOSCOPY 08/07/2010 PROCEDURE: CO COLONOSCOPY FLX DX W/COLLJ SPEC WHEN PFRMD; COMMENT: Normal ESOPHAGOGASTRODUODENOSCOPY 08/07/2010 PROCEDURE: CO ESOPHAGOGASTRODUODENOSCOPY TRANSORAL DIAGNOSTIC; COMMENT: Normal on omeprazole [...] PM EST Office Visit Bariatric Surgery - [address] [place] [phone] Kay Stone MD [address] [place] [phone] Health Maintenance Due Date Last Done Comments [...] Colorectal Cancer Screening: Colonoscopy 12/06/2023 08/07/2010, 08/07/2010 HIV Screening 12/06/2023 Hepatitis C Screening 12/06/2023 Social Influencers of Health Screening 12/06/2023 Depression Screening 03/10/2024 Influenza Vaccine (#1) 2024 Cholesterol Screening (Lipid [...] LAB CHEMISTRY METHOD 05/30/2024 6:55 PM EDT [facility] Triglycerides 145 <150 mg/dL LAB CHEMISTRY METHOD 05/30/2024 6:55 PM EDT [facility] HDL 41 37 - 92 mg/dL LAB CHEMISTRY METHOD 05/30/2024 6:55 PM EDT [facility] LDL Calculated 70 50 - 130 mg/dL LAB CHEMISTRY METHOD 05/30/2024 6:55 PM EDT [facility] VLDL Cholesterol Espinoza 29 mg/dL LAB CHEMISTRY METHOD 05/30/2024 6:55 PM EDT [facility] Comment:No established refer ence range. Blood Venous blood specimen / Unknown Venipuncture / Unknown 05/30/2024 6:09 PM EDT 05/30/2024 6:25 PM EDT Buddy Espana MD LAB BLOOD ORDERABLES Fin al Result [facility] [address] [place] [address], [place] [phone] * Pap Smear (11/19/2010) Pap smear No interpretation , abstracted Historical Provider HEALTH MAINTENANCE Final Result * Colonoscopy (08/07/2010) Colonoscopy No interpretation , abstracted Anatomical Region Laterality Modality Other Historical Provider HEALTH MAINTENANCE Final Result from Last 3 Months or Most Recently Relevant to Health Maintenance Insurance [facility] [employer] Advance Directives * Full Code - [...] currently active code status orders. Care Teams Taper Operator Relationship Specialty Start Date End Date Matt Patten MD [address] [place] [phone] PCP - General Family Medicine 12/05/23
--- NOTE | 2024-11-05 15:08 | A.OFFPC_ITS ---
Vital Signs 11/05/24 15:14 Height 5 ft 7 in Weight 208 lb BMI 32.6 BP 102/74 Blood Pressure Location Rt brachial Position Sitting Respiration 18 Pulse 66 Pulse Source Pulse Oximeter Temp 97.4 F Temp Source Temporal Artery Scan Pulse Oximetry (%) 98 Oxygen Delivery Method Room Air Intake Visit Reasons: Physical / Dr. Jaquez PtOmid Intake Note: Maria Fernanda presents in the office today for annual physicasl. Allergies oxycodone (From PERCOCET) Allergy (Intermediate, Verified 11/05/24 15:33) ITCHING Medication List - Last Reconciled 11/05/24 by Paula Durand, SHOE CASER- aripiprazole (Abilify) 5 mg PO BEDTIME 30 days buspirone 15 mg PO BID 3 months pantoprazole 40 mg PO DAILY 90 days venlafaxine ER 150 mg PO DAILY 90 days Tobacco use date assessed: 11/05/24 Dental Screening Dental Screen Date: 11/05/24 Did you have a dental visit in the last 12 months?: Yes Did you have a dental problem in the last 6 months where you did not have access to dental care?: No Was dental information given to patient?: Patient has dentist HPI HPI Comments History of Present Illness Details 59 y/o f with MDD, ALICIA, NSTEMI, GERD, ob esity, RLS, chronic low back pain Health Maintenance Tdap admin today Mammo 09/2024 Pap 2023 Colon 09/2024 Labs 08/2024 WNL Optho wears glasses, last exam about 1-1.5 years ago Skin: has mole L arm and several others on trunk and R axilla. History of Present Illness - The patient is a 59-year-old female pr esenting with a wellness visit and evaluation of Restless Legs Syndrome (RLS). - RLS: Diagnosed with RLS, experiences s leep disturbance. - Sciatica: Ongoing bilateral radiating pain, refractory to previous therapies. - Back/Hip Pain: Persistent, long-term, currently exacerbating functional limitations. - Obesity: BMI of 32.6 noted as a chroni c condition. - GERD: Ongoing treatment with pantopraz ole. - Mental Health: Managed depression and anxiety with established medications. - Up-to-date on mammogram and colonoscop y; family history of colorectal cancer. Past Surgical History - Had a couple of vein stripping procedu res potentially related to varicose veins. - Undergone some form of ablation for ve ins. Family History - Positive for colon cancer, as patient' s mother from it. 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 - Physical Activity: Limited by pain and RLS symptoms. Health Maintenance - Up-to-date mammogram. - Up-to-date colonoscopy. - Tetanus booster required; discussed ad ministration to maintain vaccination schedule. - Advised dermatology consultation for m ole assessment. Review of Systems - General: Reports difficulty standing a nd loss of sleep. - Musculoskeletal: Reports bilateral sci atic pain, back pain, and potential hip pain. - Neurologic: Reports symptoms suggestiv e of RLS. - Mental Health: Known history of depres dmitri and anxiety, managed with medications. - Vascular Reports occasional foot swell ing in hot weather. Varicose veins present, history of vein stripping and ablations. Physical Exam General: Well developed, well nourished, in no acute distress. Appears stated age. Head: Normocephalic, atraumatic. Eyes: Pupils are equal, round and reactive to light and accommodation. Conjunctivae are clear. Vision grossly normal. Ears: TMs clear AU, EACS WNL. Nose: Patent, without discharge. Neck: Supple, no adenopathy or thyromegaly. No pain or tenderness upon examination. Breast: Edu on SBE Lungs: Clear to auscultation bilaterally. No rales, rhonchi or wheeze noted. Good air flow in all shaikh. Heart: Regular rate and rhythm. No murmurs, click, rubs or gallops are noted. Abdomen: Bowel sounds present in all quadrants. The abdomen is soft, nontender, with no masses or organomegaly noted. No hernias are noted. : Deferred. 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 Pulses: Peripheral pulses are equal and palpable bilaterally. Extremities: No clubbing, cyanosis nor edema is noted. Neurologic: Gait and station normal. Cranial Nerves 2-12 intact. Motor strength grossly symmetrical and intact. No sensory loss. Balance normal. Skin: No rashes, ulcers, or lesions noted. Turgor is good. Skin color is good. Hair and nails are without abnormalities. Psych: Normal eye contact, affect and mood appropriate, and normal interactions. Patient is alert and appropriate to context. H Discussion Notes I discussed with the patient the complexities of her multi-symptom presentation including RLS, sciatica, and back pain. We talked about seeing [facility]?s pain management specialty for further evaluation of her back and hip issues; she consented to a referral. We agreed on initiating ropinirole to manage RLS symptoms and adjust the dosage as needed. I also reviewed the importance of maintaining current with vaccinations and getting a dermatological assessment for the newly developed mole on her skin. A follow-up in eight weeks will help evaluate treatment efficacy for RLS and assess additional interventions if necessary. Patient was given time to ask questions. All questions were answered to their satisfaction. Assessment and Plan 1. Restless Legs Syndrome - Start ropinirole 1 mg nightly; titrate by 1mg Q 2 weeks based on response, max 3 mg; Follow-up in 8 weeks. 2. Sciatica and Back Pain - Referral to pain management for evalua tion and treatment planning. 3. Obesity - Promote weight management strategies. 4. GERD - Maintain pantoprazole therapy. 5. Mental Health - Continue current psychiatric medicatio n. 6. Health Maintenance - Provide tetanus vaccine, dermatology r eferral, continue colonoscopy monitoring. Patient Instructions - Take ropinirole 1-3 hours before bedti me for restless legs. - Follow up with pain management at [facility]. - Come back in 8 weeks to check how the ropinirole works. - Get a tetanus booster shot today. - Make an appointment with dermatology f or mole check. - Keep follow-up mammograms and colonosc opies on schedule. Consent Patient was informed and verbally consented to the use of an ambient scribe for clinic note documentation during this visit. An additional 10 minutes was spent addressing the problem(s) noted at todays visit. This includes time spent before the visit reviewing the chart, time spent during the visit, and time spent after the visit on documentation reviewing laboratory results, diagnostic imaging, medications, performing a medically necessary evaluation, counseling on diagnoses, care coordination, ordering appropriate tests, ordering appropriate medications, review of tests performed by other providers, reporting test results with the patient, communication with other healthcare providers. [facility] Medical History (Updated 11/05/24 @ 15:45 by Paula Durand, SHOE CASER-) Anxiety Back pain Depression GERD (gastroesophageal reflux disease) History of anxiety History of memory loss Myocardial infarct Polyarthralgia Right groin mass Right groin pain Varicose veins of both lower extremities Varicose veins of left lower extremity with inflammation Varicose veins of right lower extremity with inflammation Surgical History H/O vein stripping History of carpal tunnel surgery of right wrist History of cholecystectomy History of weight loss surgery Hx of colonoscopy Family History (Updated 11/05/24 @ 15:14 by Heidi Mcneal MA) Mother Colorectal cancer Substance abuse Alcoholism Father Stented coronary artery Substance abuse Alcoholism Social History (Updated 11/05/24 @ 15:14 by Hiedi Mcneal MA) Household Members: Children Housing: Apartment Alcohol intake: never Patient Tobacco Use Status: Former Tobacco user e-Cigarette/Vaping Use: Never Used Second Hand Smoke Exposure: No service: No Current occupational status: employed and unemployed 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 1. Little interest or pleasure in doing things: not at all 2. Feeling down, depressed, or hopeless: not at all 3. Trouble falling or staying asleep, or sleeping too much: not at all 4. Feeling tired or having little energy: not at all 5. Poor appetite or overeating: not at all 6. Feeling bad about yourself - or that you are a failure or have let yourself or your family down: not at all 7. Trouble concentrating on things, such as reading the newspaper or watching television: not at all 8. Moving or speaking so slowly that other people could have noticed. Or the opposite - being so fidgety or restless that you have been moving around a lot more than usual: not at all 9. Thoughts that you would be better off or of hurting yourself in some way: not at all Total score: 0 Depression Screening Interpretation: Negative Depression Screening Done: Yes 16705 - PHQ-9 Billing: Yes Source: Developed by Drs. Iker Kan, Rosa Candelario, Vasquez Olson and colleagues, with an educational lennox from [employer]. Thrive Questionnaire Date Thrive assessed: 06/04/24 I am a: Patient What is your living situation today?: I have a steady place to live Within the past 12 months, did the food you bought not last and you didn't have the money to get more?: Sometimes True Within the past 12 months, did you worry whether your food would run out before you got money to buy more?: Sometimes True Do you have trouble paying for medicines?: No Do you have trouble getting transportation to medical appointments?: No Do you have trouble paying your heating and electricity bill?: Yes Do you have trouble taking care of your child, family member or friend?: No Do you have trouble with day-to-day activities such as bathing, preparing meals, shopping, managing finances, etc.?: No Are you currently unemployed and looking for a job?: No Are you interested in more education?: No Please select the resources that you would like help with: None Currently or been in a relationship where the following occur: No concerns reported THRIVE Score: 3 AUDIT C Alcohol Use Questionnaire (AUDIT-C) 1. How often do you have a drink containing alcohol?: Never 3. How often do you have six or more drinks on one occasion?: Never Total Score: 0 Score Reviewed/Action Taken: Yes ALICIA-7 AMB Questionnaire ALICIA-7 Date ALICIA - 7 assessed: 11/05/24 Feeling nervous, anxious, or on edge: 0 = Not at all Not being able to stop or control worryin = Not at all Worrying too much about different things: 0 = Not at all Trouble relaxin = More than half the days Being so restless that it is hard to sit still: 0 = Not at all Becoming easily annoyed or irritable: 0 = Not at all Feeling afraid as if something awful might happen: 0 = Not at all Total ALICIA-7 score (0-4 normal; 5-9 mild; 10-14 moderate; 15-21 severe): 2 Source: Developed by Drs. Iker Kan, Rosa Candelario, Vasquez Olson and colleagues, with an educational lennox from [employer]. ALICIA-7 Assessment Billing ALICIA-7 Assessment Tool: ALICIA-7 Assessment 75156 Physical exam (Primary Care) Vital Signs: Last Vital Signs Temp 97.4 F 11/05/24 15:14 Pulse 66 11/05/24 15:14 Resp 18 11/05/24 15:14 BP 102/74 11/05/24 15:14 Pulse Ox 98 11/05/24 15:14 Oxygen Delivery Method Room Air 11/05/24 15:14 BMI result Body Mass Index 32.6 BMI Assessment/Plan discussion: High BMI High, discussed plan: lifestyle Tobacco/Smoking Status: Tobacco use Status Tobacco use date assessed 11/05/24 11/05/24 15:18 Patient Tobacco Use Status Former Tobacco user 11/05/24 15:14 e-Cigarette/Vaping Use Never Used 11/05/24 15:14 PHQ-9: PHQ-9 Score PHQ-9: Total score 0 11/05/24 15:27 Depression Screening Interpretation: Negative Thrive Assessment: Date of Thrive Assessment Date Thrive assessed 06/04/24 11/05/24 15:10 Currently or been in a relationship where the following occur: No concerns reported Immunizations Boostrix Tdap 2.5 Lf unit-8 mcg-5 Lf/0.5 mL intramuscular syringe Performing Provider: ZHENG Dhaliwal Performing Location[place] [facility] Administered by: Heidi Mcneal MA on 11/05/24 15:46 Dose Route Admin Location Dispensed Lot Number Expiration Date [facility] [employer] Teacher 0.5 mL IM Right Deltoid 0.5 mL [id number] 01/03/27 64572-132-58 [employer] Total Dispensed Waste 0.5 mL 0 % VIS Given Date VIS Provided VIS Publication Date 11/05/24 Single Vaccine 20 Eligibility Eligibility Date Funding Source Not [facility] Eligible 11/05/24 Private Coding Level of Care Code Est Pt Level 2 (82997) Est Pt Prev Care 40-64y(46374) Diagnoses Annual physical exam Z00.00 Obesity (BMI 30-39.9) E66.9 Depression with anxiety F41.8 NSTEMI (non-ST elevated myocardial infarction) I21.4 Gastroesophageal reflux disease without esophagitis K21.9 Esophagitis presence: without esophagitis Periodic limb movement sleep disorder G47.61 Acute low back pain without sciatica, unspecified back pain laterality M54.50 Chronicity: acute Back pain laterality: unspecified Sciatica presence: without sciatica Left hip pain M25.552 Chronic SI joint pain M53.3; G89.29 Skin cancer screening Z12.83 Need for Tdap vaccination Z23 Additional Codes ALICIA-7 Assessment Billing - ALICIA-7 Assessment Tool: ALICIA-7 Assessment 17475 ([id number]) PHQ-9 - 23916 - PHQ-9 Billing: Yes ([id number]) Assessment & Plan Assessment & Plan (1) Annual physical exam: Onset Date: ~11/05/24 Code(s): Z00.00 - Encounter for general adult medical examination without abnormal findings Category: Medical (2) Obesity (BMI 30-39.9): Code(s): E66.9 - Obesity, unspecified Category: Medical (3) Depression with anxiety: Code(s): F41.8 - Other specified anxiety disorders Category: Medical (4) NSTEMI (non-ST elevated myocardial infarction): Code(s): I21.4 - Non-ST elevation (NSTEMI) myocardial infarction Category: Medical (5) GERD (gastroesophageal reflux disease): Code(s): K21.9 - Gastro-esophageal reflux disease without esophagitis Category: Medical Qualifiers: Esophagitis presence: without esophagitis Qualified Code(s): K21.9 - Gastro-esophageal reflux disease without esophagitis (6) Periodic limb movement sleep disorder: Comment: In-lab PSG (08/30/20 at [facility] [place] AHI 2.4/hr, O2 jairo 88%, PLMS 61/hr, PLMS arousal index 4.7/hr. Code(s): G47.61 - Periodic limb movement disorder Category: Medical (7) Lower back pain: Code(s): M54.50 - Low back pain, unspecified Category: Medical Qualifiers: Chronicity: acute Back pain laterality: unspecified Sciatica presence: without sciatica Qualified Code(s): M54.50 - Low back pain, unspecified (8) Left hip pain: Code(s): M25.552 - Pain in left hip Category: Medical (9) Chronic SI joint pain: Code(s): M53.3 - Sacrococcygeal disorders, not elsewhere classified; G89.29 - Other chronic pain Category: Medical (10) Skin cancer screening: Code(s): Z12.83 - Encounter for screening for malignant neoplasm of skin Category: Medical (11) Need for Tdap vaccination: Code(s): Z23 - Encounter for immunization Category: Medical Plan / Orders: Orders TDaP Immunization Today Z23 - Encounter for immunization Referrals Dermatology Referral D22.9 - Melanocytic nevi, unspecified, Z12.83 - Encounter for screening for malignant neoplasm of skin Pain Management Referral G89.29 - Other chronic pain, M25.552 - Pain in left hip, M53.3 - Sacrococcygeal disorders, not elsewhere classified, M54.50 - Low back pain, unspecified Medications: New ropinirole administer 1-3 hours before bedtime 1 mg PO BEDTIME 90 tabs 0RF Patient Instructions: Patient Instructions - Take ropinirole 1-3 hours before bedtime for restless legs. Increase every 2 weeks by 1 mg as needed, to a max of 3mg - Follow up with pain management at [facility]. - Come back in 8 weeks to check how the ropinirole works. - Get a tetanus booster shot today. - Make an appointment with dermatology for mole check. - Keep follow-up mammograms and colonoscopies on schedule. Health screenings for women You should visit your health care provider from time to time, even if you are healthy. The purpose of these visits is to: Screen for medical issues Assess your risk for future medical problems Encourage a healthy lifestyle Update vaccinations and other preventive care services Help you get to know your provider in case of an illness Information Even if you feel fine, you should still see your provider for regular checkups. These visits can help you avoid problems in the future. For example, the only way to find out if you have high blood pressure is to have it checked regularly. High blood sugar and high cholesterol levels also may not have any symptoms in the early stages. A simple blood test can check for these conditions. There are specific times when you should see your provider or receive specific health screenings. The [place] Preventive Services Task Force publishes a list of recommended screenings. Below are screening guidelines for women ages 18 to 39. BLOOD PRESSURE SCREENING Your blood pressure should be checked at least once every 3 to 5 years if: Your blood pressure is in the normal range (top number less than 120 mm Hg and bottom number less than 80 mm Hg) You don't have risk factors for high blood pressure Ask your provider if you need your blood pressure checked more often if: The top number is 120 to 129 mm Hg or the bottom number is 70 to 79 mm Hg You have diabetes, heart disease, kidney problems, are overweight, or have certain other health conditions You have a first-degree relative with high blood pressure You are Black You had high blood pressure during a If the top number is 130 mm Hg or greater or the bottom number is 80 mm Hg or greater, this is considered stage 1 hypertension. Schedule an appointment with your provider to learn how you can reduce your blood pressure. Watch for blood pressure screenings in your area. Ask your provider if you can stop in to have your blood pressure checked. BREAST CANCER SCREENING Experts do not agree about the benefits of breast self-exams in finding breast cancer or saving lives. Talk to your provider about what is best for you. A screening mammogram is not recommended for most women under age 40. Your provider may discuss and recommend mammograms, MRI scans, or ultrasounds if you have an increased risk for breast cancer, such as: A mother or sister who had breast cancer at a young age (most often starting screening earlier than the age the close relative was diagnosed) You carry a high-risk genetic marker CERVICAL CANCER SCREENING Cervical cancer screening should start at age 21 years unless your provider advises otherwise. After the first test: Women ages 21 through 29 should have a Pap test every 3 years. Exoprts do not agree on whether HPV testing is recommended for this age group. Women ages 30 through 65 should be screened with either a Pap test every 3 years or the HPV test every 5 years or both tests every 5 years (called cotesting ). Women who have been treated for precancer (cervical dysplasia) should continue to have Pap tests for 20 years after treatment or until age 65, whichever is longer. If you have had your uterus and cervix removed (total hysterectomy), and you have not been diagnosed with cervical cancer or precancer (high grade cervical neoplasia), you do not need cervical cancer screening. CHOLESTEROL SCREENING Cholesterol screening should begin at: Age 45 for women with no known risk factors for coronary heart disease Age 20 for women with known risk factors for coronary heart disease Repeat cholesterol screening should take place: Every 5 years for women with normal cholesterol levels More often if changes occur in lifestyle (including weight gain and diet) More often if you have diabetes, heart disease, kidney problems, or certain other conditions DIABETES SCREENING You should be screened for diabetes starting at age 35 and then repeated every 3 years if you have no risk factors for diabetes. Screening may need to start earlier and be repeated more often if you have other risk factors for diabetes, such as: You have a first degree relative with diabetes. You are overweight or have obesity. You have high blood pressure, prediabetes, or a history of heart disease. Screening for diabetes should be done if you are planning to become and you are overweight and have other risk factors such as high blood pressure. DENTAL EXAM Go to the dentist once or twice every year for an exam and cleaning. Your dentist will evaluate if you need more frequent visits. EYE EXAM Have an eye exam every 5 to 10 years before age 40. If you have vision problems, have an eye exam every 2 years or more often if recommended by your provider. You should have an eye exam that includes an examination of your retina (back of your eye) at least every year if you have diabetes. IMMUNIZATIONS Commonly needed vaccines include: Flu shot: get one every year. COVID-19 vaccine: ask your provider what is best for you. Tetanus-diphtheria and acellular pertussis (Tdap) vaccine: have one at or after age 19 as one of your tetanus-diphtheria vaccines if you did not receive it as an adolescent. Tetanus-diphtheria: have a booster (or Tdap) every 10 years. Varicella vaccine: receive 2 doses if you never had chickenpox or the varicella vaccine. Hepatitis B vaccine: receive 2, 3, or 4 doses, depending on your exact cir cumstances. Measles, mumps, and rubella (MMR) vaccine: receive 1 to 2 doses if you are not already immune to MMR. Your provider can tell you if you are immune. Ask your provider about the human papillomavirus (HPV) vaccine if: You have not received the HPV vaccine in the past You have not completed the full vaccine series (you should catch up on this shot) Ask your provider if you should receive other immunizations if you have certain health problems that increase your risk for some diseases such as pneumonia. INFECTIOUS DISEASE SCREENING Women who are sexually active should be screened for chlamydia and gonorrhea up until age 25. Women 25 years and older should be screened for chlamydia and gonorrhea if at high risk. Screening for hepatitis C: All adults ages 18 to 79 should get a one-time test for hepatitis C. people should be screened at every . Screening for human immunodeficiency virus (HIV): All people ages 15 to 65 should get a one-time test for HIV. Depending on your lifestyle and medical history, you may also need to be screened for infections such as syphilis and HIV, as well as other infections. PHYSICAL EXAM All adults should visit their provider from time to time, even if they are healthy. The purpose of these visits is to: Screen for disease Assess your risk of future medical problems Encourage a healthy lifestyle Update your vaccinations and other preventive care services Maintain a relationship with a provider in case of an illness Your height, weight, and BMI should be checked at every exam. During your exam, your provider may ask you about: Depression and anxiety Diet and exercise Alcohol and tobacco use Safety issues, such as using seat belts, smoke detectors, and intimate partner violence Your medicines and risk for interactions SKIN SELF-EXAM Your provider may check your skin for signs of skin cancer, especially if you're at high risk, such as if you: Have had skin cancer before Have close relatives with skin cancer Have a weakened immune system OTHER SCREENING Talk with your provider about colon cancer screening if you have a strong family history of colon cancer or polyps, or if you have had inflammatory bowel disease or polyps yourself. Routine bone density screening of women under 40 is not recommended.
[2024-11-05 15:14] VITALS: BP 102/74; PULSE 66; RESP 18; TEMP 36.3; O2SAT 98; BMI 32.6
== END 2024-11-05 15:46 | disposition home or self-care (01) ==
LOC: HO.HMCFM 14:43
PROVIDERS: PCP Family Medicine; Visit Provider Nurse Practitioner Family
DX: Z00.00 Encounter for general adult medical examination without abnormal findings (principal); K21.9 Gastro-esophageal reflux disease without esophagitis; G47.61 Periodic limb movement disorder; E66.9 Obesity, unspecified; Z68.32 Body mass index [BMI] 32.0-32.9, adult; I25.2 Old myocardial infarction; F41.8 Other specified anxiety disorders; M54.50 Low back pain, unspecified; M25.552 Pain in left hip; M53.3 Sacrococcygeal disorders, not elsewhere classified; Z23 Encounter for immunization; G89.29 Other chronic pain

== ENCOUNTER → 2024-11-05 14:42 | Outpatient (BNVA) | payer OTHER, SELFPAY | PROVIDERS: PCP Family Medicine; Visit Provider Nurse Practitioner Family | DX: Z00.00 Encounter for general adult medical examination without abnormal findings (principal); F32.A Depression, unspecified; K21.9 Gastro-esophageal reflux disease without esophagitis; M54.50 Low back pain, unspecified; G89.29 Other chronic pain; G25.81 Restless legs syndrome; F41.8 Other specified anxiety disorders; I21.4 Non-ST elevation (NSTEMI) myocardial infarction; G47.61 Periodic limb movement disorder; M25.552 Pain in left hip; M53.3 Sacrococcygeal disorders, not elsewhere classified; E66.9 Obesity, unspecified; Z23 Encounter for immunization; Z68.32 Body mass index [BMI] 32.0-32.9, adult | CPT/HCPCS: 90471; 90715; 96127; 99212; 99396 ==